=== PATIENT | male | born 1955 | race African-American/Black ===

== ENCOUNTER 2016-11-18 21:24 | Inpatient (IN) | payer MEDICAID ==
[~2016-11-18] VITALS: Ht 172.7 cm; Wt 84.6 kg
[~2016-11-18 21:24] MED LIST: AMLO5TAB2 PO; ASPI1TAB69 PO; ATEN50TA PO; ATOR40TA16 PO; CLIN1CAP5 PO; DARU800T PO; DIVA500T3 PO; DOLU1TAB PO; DRIS50002 PO; FURO1TAB62 PO; GABA300C5 PO; GABA600T PO; HYDR-3133 PO; HYDR-3583 PO; HYDR25TA5 PO; INTE200T PO; LISI40TA PO; PLAV75TA29 PO; POTA10TA8 PO; RITO100 PO; VENTAER INH; ZYRT10TA PO
[2016-11-18 21:37] VITALS: BP 116/67; PULSE 128; RESP 18; TEMP 97.8; O2SAT 100
--- NOTE | 2016-11-18 23:20 | PD ---
HPI Chief Complaint: Laceration/Skin Injury Time Seen by Provider: 23:19 Travel History International Travel<30 days: No Contact w/Intl Traveler<30days: No Traveled to known affect area: No History of Present Illness HPI The patient 60 years old. He is HIV. He smokes. He has diabetes and asthma. Patient also also suffers with peripheral vascular disease. He has a chronic skin rash. He follows with infectious disease and had blood work done yesterday however does not know his CD4 count or viral load. He follows with Dr. Ramos vascular surgery for severe peripheral artery disease. Today he removed a dressing from his left lower extremity and evidently unroofed the scab causing pulsatile arterial bleeding. He comes in complaining of severe pain in the left foot. EMS dressed the wound stopping bleeding. He vomited a few times in the ER. He reports an occasional cough as of late. He has otherwise been feeling quite well. 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 He has had no fever lately. PFSH Past Medical History Hx Anticoagulant Therapy: Yes (PLAVIX AND 81 MG ASA DAILY) Arthritis: Yes Asthma: Yes Blood Disorders: Yes (HIV) Anxiety: No Depression: No Heart Rhythm Problems: No Cancer: No Cardiovascular Problems: Yes (HTN) High Cholesterol: Yes Chest Pain: No Congestive Heart Failure: No COPD: No Cerebrovascular Accident: Yes (TIA) Diabetes: Yes Diminished Hearing: No Endocrine: No Genitourinary: No Hypertension: Yes Immune Disorder: Yes (HIV Positive) Implanted Vascular Access Dvce: No Musculoskeletal: No Neurologic: Yes (Neuropathy) Psychiatric: No Respiratory: Yes (ASTHMA) Immunizations Current: No (NO FLU VACCINE YET THIS YEAR) Sleep Apnea: No Influenza Vaccination: No Past Surgical History Other Surgery: Yes (BRONCHOSCOPY/ VASCULAR SURGERY) Social History Alcohol Use: No (sober 25 years) Tobacco Use: Yes (1 ppd) Substance Use: No Allergies-Medications (Allergen,Severity, Reaction): Coded Allergies: *MDRO Multi-Drug Resistant Organism (Verified Adverse Reaction, Unknown, ) MRSA blood & scrotal abscess 04/2015; MRSA Leg Wound 06/2016 & 07/27/16 Reported Meds & Prescriptions Reported Meds & Active Scripts Active Clindamycin (Clindamycin HCl) 150 Mg Cap 300 Mg PO Q8HR 10 Days Gabapentin 600 Mg Tab 600 Mg PO HS this will replace your previous night dose Potassium Chloride CR (Potassium Chloride) 10 Meq Tab 10 Meq PO DAILY 5 Days Lasix (Furosemide) 20 Mg Tab 20 Mg PO DAILY 5 Days Reported Divalproex ER (Divalproex Sodium) 500 Mg Tab 500 Mg PO DAILY Prezista (Darunavir) 800 Mg Tab 800 Mg PO DAILY Norvir (Ritonavir) 100 Mg Cap 100 Mg PO DAILY Hydrocodone-Acetaminophen 10-325 mg Tab 1 Tab PO Q6H PRN Hydroxyzine HCl 25 Mg Tab 25 Mg PO DAILY Gabapentin 300 Mg Cap 300 Mg PO TID Amlodipine (Amlodipine Besylate) 5 Mg Tab 5 Mg PO DAILY Atenolol 50 Mg Tab 50 Mg PO DAILY Hydrochlorothiazide 25 Mg Tab 25 Mg PO DAILY Atorvastatin (Atorvastatin Calcium) 40 Mg Tab 80 Mg PO HS Tivicay (Dolutegravir Sodium) 50 Mg Tab 50 Mg PO Q12HR Plavix (Clopidogrel Bisulfate) 75 Mg Tab 75 Mg PO DAILY Aspirin 81 Mg Tabdr 81 Mg PO DAILY Lisinopril 40 Mg Tab 40 Mg PO DAILY Intelence (Etravirine) 200 Mg Tab 200 Mg PO BIDPC Drisdol (Ergocalciferol) 50,000 Unit Cap 50,000 Units PO Q7D Zyrtec Allergy (Cetirizine HCl) 10 Mg Tab 10 Mg PO HS Ventolin Hfa 18 GM Inh (Albuterol Sulfate) 90 Mcg/Act Aer 2 Puff INH Q4H PRN Review of Systems Except as stated in HPI: all other systems reviewed are Neg Physical Exam Narrative GENERAL: 60-year-old male well-nourished well-developed mild to moderate distress SKIN: Warm and dry. Innumerable macular lesions approximately 1 cm in diameter present involving both upper extremities both lower extremities. They're nontender. The left lower extremity there is a ulcerated somewhat elevated skin lesion that granulomatous however there is no evidence of bleed and certainly nothing arterial/pulsatile. HEAD: Atraumatic. Normocephalic. EYES: Pupils equal and round. No scleral icterus. No injection or drainage. ENT: No nasal bleeding or discharge. Mucous membranes pink and moist. NECK: Trachea midline. No JVD. CARDIOVASCULAR: Tachycardia. Regular rhythm. RESPIRATORY: No accessory muscle use. Clear to auscultation. Breath sounds equal bilaterally. GASTROINTESTINAL: Abdomen soft, non-tender, nondistended. Hepatic and splenic margins not palpable. MUSCULOSKELETAL: No obvious deformities. No clubbing. No cyanosis. No edema. The dorsalis pedis is palpable right at the ankle mortise on the left side. It is slightly decreased compared to the right side. NEUROLOGICAL: Awake and alert. No obvious cranial nerve deficits. Motor grossly within normal limits. Normal speech. PSYCHIATRIC: Appropriate mood and affect; insight and judgment normal. Data Data Last Documented VS Vital Signs Date Time Temp Pulse Resp B/P Pulse Ox O2 Delivery O2 Flow Rate FiO2 11/19/16 04:05 98.7 101 18 152/68 100 Room Air Vital signs reviewed Orders Oxycodone-Acetamin 10-325 Mg (Percocet 1 (11/19/16 00:30) Basic Metabolic Panel (Bmp) (11/19/16 01:25) Complete Blood Count With Diff (11/19/16 01:25) Iv Access Insert/Monitor (11/19/16 01:25) Sodium Chlor 0.9% 1000 Ml Inj (Ns 1000 M (11/19/16 01:30) Chest, Single Ap (11/19/16 02:32) Sodium Chlor 0.9% 1000 Ml Inj (Ns 1000 M (11/19/16 03:00) Ondansetron Inj (Zofran Inj) (11/19/16 03:00) Electrocardiogram (11/19/16 ) Blood Culture (11/19/16 03:01) Piperacil-Tazo 2.25 Gm Premix (Zosyn 2.2 (11/19/16 03:15) Urinalysis - C+S If Indicated (11/19/16 03:01) Hepatic Functional Panel (11/19/16 01:33) Lipase (11/19/16 01:33) Vancomycin Inj (Vancomycin Inj) (11/19/16 05:45) Wound Culture And Gram Stain (11/19/16 05:41) Admit Order (Ed Use Only) (11/19/16 05:42) Bedside Glucose JUDAH.AC&HS (11/19/16 05:40) ^ Blood Glucose Goal (Criteria (11/19/16 05:40) ^ Hypoglycemia 51 - 69 Mg/Dl (11/19/16 05:40) ^ Hypoglycemia 50 Mg/Dl Or < (11/19/16 05:40) ^ Notify Dr: Other (11/19/16 05:40) Dextrose 50% In Alisha (Vial) Inj (D50w (Vi (11/19/16 05:45) Glucagon Inj (Glucagon Inj) (11/19/16 05:45) Insulin Aspart Supplemtl Scale (Novolog (11/19/16 07:00) Insulin Human Regular Inj (Novolin R Inj (11/19/16 05:45) Labs Laboratory Tests Test 11/19/16 01:33 White Blood Count 19.9 TH/MM3 Red Blood Count 3.52 MIL/MM3 Hemoglobin 10.8 GM/DL Hematocrit 33.6 % Mean Corpuscular Volume 95.3 FL Mean Corpuscular Hemoglobin 30.7 PG Mean Corpuscular Hemoglobin 32.2 % Concent Red Cell Distribution Width 14.5 % Platelet Count 280 TH/MM3 Mean Platelet Volume 8.6 FL Neutrophils (%) (Auto) 83.6 % Lymphocytes (%) (Auto) 11.8 % Monocytes (%) (Auto) 4.0 % Eosinophils (%) (Auto) 0.4 % Basophils (%) (Auto) 0.2 % Neutrophils # (Auto) 16.6 TH/MM3 Lymphocytes # (Auto) 2.3 TH/MM3 Monocytes # (Auto) 0.8 TH/MM3 Eosinophils # (Auto) 0.1 TH/MM3 Basophils # (Auto) 0.0 TH/MM3 CBC Comment AUTO DIFF Differential Total Cells 100 Counted Neutrophils % (Manual) 83 % Band Neutrophils % 3 % Lymphocytes % 8 % Monocytes % 5 % Neutrophils # (Manual) 17.3 TH/MM3 Myelocytes 1 % Differential Comment FINAL DIFF MANUAL Platelet Estimate NORMAL Platelet Morphology Comment NORMAL Red Cell Morphology Comment NORMAL Sodium Level 139 MEQ/L Potassium Level 3.4 MEQ/L Chloride Level 101 MEQ/L Carbon Dioxide Level 19.2 MEQ/L Anion Gap 19 MEQ/L Blood Urea Nitrogen 25 MG/DL Creatinine 2.93 MG/DL Estimat Glomerular Filtration 27 ML/MIN Rate Random Glucose 325 MG/DL Calcium Level 9.4 MG/DL Total Bilirubin 0.3 MG/DL Direct Bilirubin 0.1 MG/DL Indirect Bilirubin 0.2 MG/DL Aspartate Amino Transf 20 U/L (AST/SGOT) Alanine Aminotransferase 25 U/L (ALT/SGPT) Alkaline Phosphatase 80 U/L Total Protein 6.9 GM/DL Albumin 3.7 GM/DL Lipase 273 U/L MDM Medical Decision Making Medical Screen Exam Complete: Yes Emergency Medical Condition: Yes Medical Record Reviewed: Yes Differential Diagnosis Sepsis, severe sepsis, cellulitis, peripheral vascular disease, arterial occlusion, pneumonia, abscess Narrative Course CBC & BMP Diagram 11/19/16 01:33 Neutrophils 83% Bands 3 LFTs normal Lipase 273 AG 19 Last 24 hours Impressions Chest X-Ray 11/19/16 0232 Signed Impressions: Service Date/Time: Saturday, November 19, 2016 03:43 - CONCLUSION: No acute disease. No significant change has occurred. Barron Carr MD Unfortunately the patient became increasingly tachycardic throughout his stay. He received Percocet which helped his pain in the left leg presumably claudication. Leukocytosis at nearly 20,000 with acute kidney injury is of concern for an infectious process. Anion gap of 19 present without obvious etiology. Zosyn started. Blood culture sent. IV fluids started. After 2 L crystalloid heart rate improved to about the 90s. One month prior the creatinine was 1.7. concern for acute kidney injury of unknown etiology. Admission for acute kidney injury possible sepsis, presumable cellulitis. Prior weaned cultures have demonstrated MRSA. Vancomycin added. Discussed with Dr. Casper for the hospitalist service. Critical Care Narrative Aggregate critical care time was 40 minutes. Time to perform other separately billable procedures was not included in the critical care time. My time did not include minutes spent treating any other patients simultaneously or on activities that did not directly contribute to the patient's treatment. The services I provided to this patient were to treat and/or prevent clinically significant deterioration that could result in: Septic shock, multiorgan failure I provided critical care services requiring my management, as noted below: Chart data review, documentation time, medication orders and management, vital sign assessments/reviewing monitor data, ordering and reviewing lab tests, ordering and interpreting/reviewing x-rays and diagnostic studies, care of the patient and discussion of the patient with the admitting physicians. Sepsis Criteria SIRS Criteria (2 or more): Heart rate over 90, WBC > 79159, < 4000 or > 10% bands Sepsis Criteria (SIRS+source): Infect source susp/known Diagnosis Primary Impression: Wound, open, leg Qualified Code: S81.802A - Wound, open, leg, left, initial encounter Additional Impressions: Sepsis affecting skin Claudication in peripheral vascular disease HIV disease BECKA (acute kidney injury) Admitting Information Admitting Physician Requests: Admit Asa Multani MD Nov 18, 2016 23:20
[2016-11-18 23:41] VITALS: BP 147/83; PULSE 121; RESP 18; TEMP 98.1; O2SAT 95
[2016-11-19] VITALS (9 sets, daily range): BP systolic 112–179; BP diastolic 34–91; PULSE 67–113; RESP 16–20; TEMP 97.3–98.7; O2SAT 96–100
[2016-11-19] MEDS ORDERED: oxyCODONE/ACETAMINOPHEN 10 MG/325 MG TAB PO ONE ×2 (00:30→06:15)
[2016-11-19] MEDS ORDERED: SODIUM CHLOR 0.9% 1000 ML INJ 1,000 ML IV ONE ×2 (01:30→03:00)
[2016-11-19 01:42] LABS: AUTOMATED NEUTROPHIL # 16.6 TH/MM3 (1.8-7.7); BASOPHIL % 0.2 % (0.0-2.0); EOSINOPHIL # 0.1 TH/MM3 (0-0.4); EOSINOPHIL % 0.4 % (0.0-4.0); HEMATOCRIT 33.6 % (39.0-51.0); LYMPH % 11.8 % (9.0-44.0); LYMPHOCYTE # 2.3 TH/MM3 (1.0-4.8); MEAN CELL VOLUME 95.3 FL (80.0-100.0); MEAN CORPUSCULAR HEMOGLOBIN 30.7 PG (27.0-34.0); MEAN CORPUSCULAR HGB CONC 32.2 % (32.0-36.0); NEUT % 83.6 % (16.0-70.0); PLATELET COUNT 280 TH/MM3 (150-450); RED BLOOD COUNT 3.52 MIL/MM3 (4.50-5.90); RED CELL DISTRIBUTION WIDTH 14.5 % (11.6-17.2); WHITE BLOOD COUNT 19.9 TH/MM3 (4.0-11.0)
[2016-11-19 01:43] LABS: HEMO FLAGS AUTO DIFF
[2016-11-19 02:11] LABS: BICARBONATE 19.2 MEQ/L (21.0-32.0); POTASSIUM 3.4 MEQ/L (3.5-5.1)
[2016-11-19 02:20] LABS: BANDS 3 % (0-6); MYELOCYTES 1 % (0-0); NEUTROPHIL # MANUAL DIFF 17.3 TH/MM3 (1.8-7.7); POLYS (SEG NEUTROPHILS) 83 % (16-70); WBC DIFF SAMPLE 100
[2016-11-19 02:21] LABS: PLATELET ESTIMATE SMEAR NORMAL (NORMAL); PLATELET MORPHOLOGY NORMAL (NORMAL); SCAN/DIFF FINAL DIFF MANUAL
[2016-11-19] MEDS ORDERED: ONDANSETRON HCL 4 MG/2 ML VIAL IV PUSH ONE (03:00)
[2016-11-19] MEDS ORDERED: PIPERACIL-TAZO 2.25 GM PREMIX 50 ML IV ONE (03:15)
[2016-11-19 04:18] LABS: INDIRECT BILIRUBIN 0.2 MG/DL (0.0-0.8); TOTAL BILIRUBIN ADULT 0.3 MG/DL (0.2-1.0)
--- NOTE | 2016-11-19 04:30 | RADRPT ---
EXAM DATE/TIME: 11/19/2016 03:43 [facility] COMPARISON: CHEST SINGLE AP, September 26, 2012, 17:31. INDICATIONS : Fever. MEDICAL HISTORY : Hypertension. Hypercholesterolemia. Neuropathy, TIA, Asthma, Cellulitis, MRSA SURGICAL HISTORY : Bronchoscopy ENCOUNTER: Initial ACUITY: 1 day PAIN SCORE: 4/10 LOCATION: Bilateral chest FINDINGS: A single view of the chest demonstrates the lungs to be symmetrically aerated without evidence of mas s, infiltrate or effusion. There is hyperaeration bilaterally. The cardiomediastinal contours are un remarkable. Osseous structures are intact. CONCLUSION: No acute disease. No significant change has occurred. Barron Carr MD on November 19, 2016 at 4:29 Board Certified Radiologist. This report was verified electronically.
[2016-11-19] MEDS ORDERED: GLUCAGON 1 MG/ML VIAL OTHER PRN (05:45)
[2016-11-19] MEDS ORDERED: VANCOMYCIN INJ 1,500 MG in SODIUM CHLORID 0.9% 500 ML INJ 500 ML IV ONE (05:45)
[2016-11-19] MEDS ORDERED: INSULIN HUMAN REGULAR 1,000 UNITS/10 ML VIAL SQ ONE (05:45)
[2016-11-19] MEDS ORDERED: DEXTROSE 50% IN WATER 50 ML VIAL(D50) IV PUSH PRN (05:45)
[2016-11-19] MEDS ORDERED: MORPHINE SULFATE 4 MG/ML INJ IV PUSH PRN (06:30)
[2016-11-19] MEDS: INSULIN ASPART SUPPLEMENTAL SCALE SQ SCH ×4 (06:50→21:00)
[2016-11-19 07:09] LABS: BICARBONATE 25.4 MEQ/L (21.0-32.0); POTASSIUM 4.5 MEQ/L (3.5-5.1)
--- NOTE | 2016-11-19 08:11 | EKG ---
Date Performed: 11/19/2016 Time Performed: 04:00:00 PTAGE: 60 years EKG: SINUS TACHYCARDIA MODERATE ST DEPRESSION ABNORMAL ECG COMPARED TO PRIOR ELECTROCARDIOGRAM, Rate has increased and T wave changes Are less marked. PREVIOUS TRACING : 05/20/2015 12.57 DOCTOR: Amaury Rivero Interpretating Date/Time 11/19/2016 08:10:25
[2016-11-19 09:32] LABS: BACTERIA, URINE FEW /hpf; BLOOD, URINE TRACE (NEG); CALCIUM OXALATE CRYSTALS,URINE OCC /hpf; COMMENT (UR) CULTURE INDICATED; CULTURE IF INDICATED CULTURE INDICATED; GLUCOSE,URINE TRACE mg/dL (NEG); HYALINE CAST, URINE 6 /lpf (RARE); KETONE, URINE NEG (NEG); MUCUS URINE FEW /lpf (OCC); NITRITE,URINE NEG (NEG); RENAL EPITHELIAL CELLS <1 /hpf; SQUAMOUS EPITHELIAL CELL URINE 2 /hpf (0-5); URINE COLOR YELLOW (YELLW/STRAW)
[2016-11-19] MEDS ORDERED: DARUNAVIR 800 MG TAB PO SCH (10:00)
[2016-11-19] MEDS: DIVALPROEX SODIUM E.R. 500 MG TAB PO SCH (12:07)
[2016-11-19] MEDS: PIPERACIL-TAZO 4.5 GM PREMIX 100 ML IV SCH ×3 (12:07→23:39)
--- NOTE | 2016-11-19 12:42 | HHI.HP ---
[facility] Renato Rivers MD Admission Diagnosis Sepsis, BECKA, LLE Wound Diagnoses: (1) BECKA (acute kidney injury) (2) Wound, open, leg (3) Peripheral arterial disease (4) Chronic skin ulcer of lower leg (5) Acute blood loss anemia (6) HIV disease (7) Dependent edema (8) Chronic pain Chief Complaint: Left foot pain. Bleeding wound. Travel History International Travel<30 Days: No Contact w/Intl Traveler <30 Da: No Traveled to Known Affected Are: No History of Present Illness 60-year-old male with a medical history significant for HIV, neuropathy, diabetes, peripheral artery disease brought into the emergency room due to left foot pain and left lower extremity bleeding wound. Patient reports that while he was undergoing his dressing for the left lower extremity wounds, he reports that he unroofed the scab which caused severe bleeding. He reports that he lost a lot of blood. EMS was able to dress the wound and stop the bleeding. The patient reportedly vomited a few times in the emergency room. 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 He reports that it's no longer an issue. Patient has known bilateral SFA disease. He was supposed to have surgical intervention but this was held due to pustular rash at that time, his HIV state, noncompliance and continuing tobacco abuse. He normally follows with Dr. Ramos. Currently the patient reports that he is feeling well. His labs on arrival however shows acute renal insufficiency, a white count of 19,000, and acute anemia. The patient denies any fevers, no dysuria or abdominal pain. Review of Systems Constitutional: DENIES: Fever, Chills Ears, nose, mouth, throat: DENIES: Oral lesions Respiratory: DENIES: Cough, Shortness of breath Cardiovascular: DENIES: Chest pain, Palpitations Gastrointestinal: DENIES: Nausea, Vomiting Genitourinary: DENIES: Dysuria Musculoskeletal: COMPLAINS OF: Joint pain, Stiffness Integumentary: COMPLAINS OF: Rash Neurologic: DENIES: Localized weakness Psychiatric: DENIES: Mood changes Past Family Social History Past Medical History HIV, neuropathy, diabetes, peripheral artery disease Past Surgical History Bronchoscopy H/O Scrotal abscess drainage Reported Medications Reported Meds & Active Scripts Active Clindamycin (Clindamycin HCl) 150 Mg Cap 300 Mg PO Q8HR 10 Days Gabapentin 600 Mg Tab 600 Mg PO HS this will replace your previous night dose Potassium Chloride CR (Potassium Chloride) 10 Meq Tab 10 Meq PO DAILY 5 Days Lasix (Furosemide) 20 Mg Tab 20 Mg PO DAILY 5 Days Reported Divalproex ER (Divalproex Sodium) 500 Mg Tab 500 Mg PO DAILY Prezista (Darunavir) 800 Mg Tab 800 Mg PO DAILY Norvir (Ritonavir) 100 Mg Cap 100 Mg PO DAILY Hydrocodone-Acetaminophen 10-325 mg Tab 1 Tab PO Q6H PRN Hydroxyzine HCl 25 Mg Tab 25 Mg PO DAILY Gabapentin 300 Mg Cap 300 Mg PO TID Amlodipine (Amlodipine Besylate) 5 Mg Tab 5 Mg PO DAILY Atenolol 50 Mg Tab 50 Mg PO DAILY Hydrochlorothiazide 25 Mg Tab 25 Mg PO DAILY Atorvastatin (Atorvastatin Calcium) 40 Mg Tab 80 Mg PO HS Tivicay (Dolutegravir Sodium) 50 Mg Tab 50 Mg PO Q12HR Plavix (Clopidogrel Bisulfate) 75 Mg Tab 75 Mg PO DAILY Aspirin 81 Mg Tabdr 81 Mg PO DAILY Lisinopril 40 Mg Tab 40 Mg PO DAILY Intelence (Etravirine) 200 Mg Tab 200 Mg PO BIDPC Drisdol (Ergocalciferol) 50,000 Unit Cap 50,000 Units PO Q7D Zyrtec Allergy (Cetirizine HCl) 10 Mg Tab 10 Mg PO HS Ventolin Hfa 18 GM Inh (Albuterol Sulfate) 90 Mcg/Act Aer 2 Puff INH Q4H PRN Allergies: Coded Allergies: Morphine (Verified Allergy, Severe, Itching, 11/19/16) makes skin bleed so itchy *MDRO Multi-Drug Resistant Organism (Verified Adverse Reaction, Unknown, ) MRSA blood & scrotal abscess 04/2015; MRSA Leg Wound 06/2016 & 07/27/16 Family History Reviewed and noncontributory. Social History Patient is a lifelong smoker. He continues to smoke 1 pack per day. He denies alcohol use or drugs. Physical Exam Vital Signs Vital Signs Date Time Temp Pulse Resp B/P Pulse Ox O2 Delivery O2 Flow Rate FiO2 11/19/16 08:52 97.7 88 16 155/83 98 11/19/16 08:45 88 20 149/72 11/19/16 07:01 18 11/19/16 06:34 97.5 85 18 170/80 97 Room Air 11/19/16 04:05 98.7 101 18 152/68 100 Room Air 11/19/16 04:05 101 18 11/19/16 04:03 18 18 11/19/16 02:58 113 20 179/81 96 Room Air 11/18/16 23:41 98.1 121 18 147/83 95 Room Air 11/18/16 21:37 97.8 128 18 116/67 100 Room Air Physical Exam GENERAL: This is a well-nourished, well-developed patient, in no apparent distress. SKIN: Left lower extremity on the anterior adames, there are 2 dime size deep ulcers. The rest of the lower extremity is tense, skin is thick and very dry. However it is warm to touch at the foot. HEAD: Atraumatic. Normocephalic. No temporal or scalp tenderness. EYES: Pupils equal round and reactive. Extraocular motions intact. ENT: Nose without drainage. Uvula midline. Airway patent. NECK: Trachea midline. No JVD or lymphadenopathy. CARDIOVASCULAR: Regular rate and rhythm without murmurs, gallops, or rubs. RESPIRATORY: Clear to auscultation. Breath sounds equal bilaterally. No wheezes , rales, or rhonchi. GASTROINTESTINAL: Abdomen soft, non-tender, nondistended. No hepato-splenomegaly , or palpable masses. No guarding. MUSCULOSKELETAL: Bilateral lower extremities with chronic venous stasis changes with thick and dry skin. Left is worse than the right and slightly edematous. NEUROLOGICAL: Awake and alert. Cranial nerves II through XII intact. Motor and sensory grossly within normal limits. Five out of 5 muscle strength in all muscle groups. Normal speech. Laboratory Laboratory Tests Test 11/19/16 11/19/16 11/19/16 01:33 06:15 09:05 White Blood Count 19.9 Red Blood Count 3.52 Hemoglobin 10.8 Hematocrit 33.6 Mean Corpuscular Volume 95.3 Mean Corpuscular Hemoglobin 30.7 Mean Corpuscular Hemoglobin 32.2 Concent Red Cell Distribution Width 14.5 Platelet Count 280 Mean Platelet Volume 8.6 Neutrophils (%) (Auto) 83.6 Lymphocytes (%) (Auto) 11.8 Monocytes (%) (Auto) 4.0 Eosinophils (%) (Auto) 0.4 Basophils (%) (Auto) 0.2 Neutrophils # (Auto) 16.6 Lymphocytes # (Auto) 2.3 Monocytes # (Auto) 0.8 Eosinophils # (Auto) 0.1 Basophils # (Auto) 0.0 CBC Comment AUTO DIFF Differential Total Cells 100 Counted Neutrophils % (Manual) 83 Band Neutrophils % 3 Lymphocytes % 8 Monocytes % 5 Neutrophils # (Manual) 17.3 Myelocytes 1 Differential Comment FINAL DIFF MANUAL Platelet Estimate NORMAL Platelet Morphology Comment NORMAL Red Cell Morphology Comment NORMAL Sodium Level 139 140 Potassium Level 3.4 4.5 Chloride Level 101 106 Carbon Dioxide Level 19.2 25.4 Anion Gap 19 9 Blood Urea Nitrogen 25 26 Creatinine 2.93 2.65 Estimat Glomerular Filtration 27 30 Rate Random Glucose 325 122 Calcium Level 9.4 8.9 Total Bilirubin 0.3 Direct Bilirubin 0.1 Indirect Bilirubin 0.2 Aspartate Amino Transf 20 (AST/SGOT) Alanine Aminotransferase 25 (ALT/SGPT) Alkaline Phosphatase 80 Total Protein 6.9 Albumin 3.7 Lipase 273 Urine Color YELLOW Urine Turbidity HAZY Urine pH 5.0 Urine Specific [place] 1.018 Urine Protein 30 Urine Glucose (UA) TRACE Urine Ketones NEG Urine Occult Blood TRACE Urine Nitrite NEG Urine Bilirubin NEG Urine Urobilinogen LESS THAN 2.0 Urine Leukocyte Esterase LARGE Urine RBC 22 Urine WBC 53 Urine Squamous Epithelial 2 Cells Urine Renal Epithelial Cells <1 Urine Calcium Oxalate Crystals OCC Urine Amorphous Sediment RARE Urine Bacteria FEW Urine Hyaline Casts 6 Urine Mucus FEW Microscopic Urinalysis Comment CULTURE INDICATED Date/Time Procedure Status Source Growth 11/19/16 09:05 Urine Culture Received Urine Clean Catch Pending 11/19/16 03:10 Aerobic Blood Culture Received Blood Peripheral Pending 11/19/16 03:10 Anaerobic Blood Culture Received Blood Peripheral Pending Result Diagram: 11/19/16 0133 11/19/16 0615 Imaging Last Impressions Chest X-Ray 11/19/16 023 Signed Impressions: Service Date/Time: Saturday, November 19, 2016 03:43 - CONCLUSION: No acute disease. No significant change has occurred. Barron Carr MD Assessment and Plan Problem List: (1) BECKA (acute kidney injury) ICD Code: N17.9 Status: Acute (2) Peripheral arterial disease ICD Code: I73.9 Status: Acute (3) Wound, open, leg ICD Code: S81.809A Status: Acute (4) Acute blood loss anemia ICD Code: D62 Status: Acute (5) HIV disease ICD Code: B20 Status: Chronic (6) Dependent edema ICD Code: R60.9 Status: Acute (7) Leukocytosis ICD Code: D72.829 Status: Acute (8) Hypertension ICD Code: I10 Status: Chronic Assessment and Plan 60-year-old male with COPD, HIV, neuropathy, peripheral artery disease and dependent edema admitted with: Left lower extremity bleeding wound: Bleeding have since stopped. Reportedly started after unroofing a scab. - Continue local wound care. Consult wound care physician. - Consult Dr. Leong for further recommendations. Wound unlikely to heal given vascular compromise. - Pain control. Possible cellulitis involving the left lower extremity/Leukocytosis: Left extremity warm to touch. Previous wound culture with MRSA. - Continue Vancomycin. Follow cultures. PAD: Known bilateral SFA occlusion. Patient known to vascular service, Dr. Schuster. Consult vascular surgery for assistance. - Continue aspirin and Plavix. Acute blood loss anemia: Bleeding have since stopped. Repeat H&H tomorrow. Acute renal insufficiency: Likely prerenal azotemia from bleeding as above and dehydration. - Start IV fluid with normal. Follow-up BMP in the morning. Hypertension: Continue home dose antihypertensives. HIV: Continue home home dose anti retroviral therapy. Asthma/COPD: Patient was advised to quit smoking. Continue albuterol as needed. GI prophylaxis: Stool softener PRN constipation. Continue the rest of the patient's home chronic medications. Physician Certification 2 Midnight Certification Type: Admission for Inpatient Services Order for Inpatient Services The services are ordered in accordance with Medicare regulations or non- Medicare payer requirements, as applicable. In the case of services not specified as inpatient-only, they are appropriately provided as inpatient services in accordance with the 2-midnight benchmark. Estimated LOS (days): 3 days is the estimated time the patient will need to remain in the hospital, assuming treatment plan goals are met and no additional complications. Post-Hospital Plan: Home Problem Qualifiers (1) Wound, open, leg: Qualified Code: S81.802A - Wound, open, leg, left, initial encounter Randy Small MD Nov 19, 2016 12:41
[2016-11-19] MEDS ORDERED: PILL SPLITTER OTHER PRN (12:45)
[2016-11-19] MEDS: SODIUM CHLOR 0.9% 1000 ML INJ 1,000 ML IV SCH ×2 (13:37→23:00)
[2016-11-19] MEDS: DOLUTEGRAVIR SODIUM 50 MG TAB PO SCH ×2 (13:38→21:25)
[2016-11-19] MEDS: DARUNAVIR 800 MG TAB PO SCH (13:38)
[2016-11-19] MEDS: ETRAVIRINE 100 MG TAB PO SCH ×2 (13:38→17:46)
[2016-11-19] MEDS: ATENOLOL 50 MG TAB PO SCH (13:39)
--- NOTE | 2016-11-19 14:19 | MB ---
cc: ROSITA YANG MD DATE OF CONSULTATION: 11/19/2016 REASON FOR CONSULTATION Peripheral vascular disease, diabetes mellitus, ischemia of both legs, left more than right, ulcer of the left leg. HISTORY OF PRESENT DISEASE This 60-year-old male was seen by me in the ER one time before. He has diabetes mellitus, peripheral artery disease and neuropathy, and a chronic left lower extremity wound. The patient at the time stated that he came for [place] and now is going to [facility] to be seen by a physician at [facility] and did not want any treatment here. We called him several times on the phone and could not get through. The patient tells me now that he changed his numbers I guess. The patient never followed up with me. Now, the patient comes to the ER with the same ulceration on the left lower extremity and chronic vascular insufficiency and infection. PAST MEDICAL HISTORY 1. HIV. 2. Diabetes mellitus. 3. Peripheral artery disease. 4. Neuropathy. 5. Tobacco abuse. PAST SURGICAL HISTORY 1. Bronchoscopy. 2. Scrotal abscess drainage. 3. Some sort of evaluation by a vascular surgeon in [place] but the patient does not know who and when. MEDICATIONS Medications can be found in the record. The patient is noncompliant with his medications all along and while he carries the list of medications he really does not take them. ALLERGIES ALLERGY TO MORPHINE APPARENTLY. SOCIAL HISTORY The patient smokes about 1-2 packs a day, does not drink. PHYSICAL EXAMINATION GENERAL: A 60-year-old male. HEENT: Normocephalic. No trauma to the head. Pupils equally reactive. Extraocular muscles intact. NECK: Bilateral carotid pulses. No bruits. CHEST: Bilateral breath sounds, decreased over both lung shukla consistent with a moderate degree of COPD. ABDOMEN: Soft. Active bowel sounds. The patient has barely palpable femoral pulses and distal pulses are only by Doppler. He has a left weak femoral pulse and palpable weak on the right. Doppler bilateral popliteal pulses fairly weak and dorsalis pedis posterior tibial +1. He has chronic venous stasis, chronic insufficiency with hemosiderosis, lipo-sclerosis and organized edema. There is a non-healing ulcer residential the calf on the left. The patient is picking at the wound every time the dressing is removed. He did it last time and now he is doing it again. ASSESSMENT AND RECOMMENDATION At this point there are several problems. The patient had a CTA with a runoff in the past which revealed bilateral SFA occlusion and multilevel external iliac stenosis. For this the appropriate therapy would be external iliac angioplasty and stent followed by a fem-pop bypass bilaterally, left first and then a right. Unfortunately, the patient has a pustulous rash over his body, chest and groin. Some areas are actively draining. He also smokes about 1-2 packs a day despite repeat counseling. Based on all of the above he is not a candidate for any vascular reconstruction at this time and any graft used would get infected. The patient will need to be treated by dermatology to eliminate the rash and pustulous changes on his body before anything else can be done. However, since I saw him last time he never followed up with anybody including my office which could not reach him. Thank you very much for the referral. Rosita ZHANG /1:48 PM /2:07 PM
[2016-11-19] MEDS: GABAPENTIN 300 MG CAP PO SCH ×2 (14:57→17:46)
[2016-11-19] MEDS: RITONAVIR 100 MG TAB PO SCH (15:34)
[2016-11-19] MEDS: ACETAMINOPHEN/HYDROcodone 325 MG/10 MG TAB PO PRN ×2 (17:51→23:29)
[2016-11-19] MEDS: CETIRIZINE HCL 10 MG TAB PO SCH (20:59)
[2016-11-19] MEDS: ATORVASTATIN 80 MG TAB PO SCH (21:00)
[2016-11-19] MEDS ORDERED: DOLUTEGRAVIR SODIUM 50 MG TAB PO SCH (21:00)
[2016-11-20] VITALS: BP 127/72; PULSE 95; RESP 20; TEMP 98.2; O2SAT 100
[2016-11-20 04:00] VITALS: BP 123/60; PULSE 78; RESP 20; TEMP 97.8; O2SAT 95
[2016-11-20] MEDS: ACETAMINOPHEN/HYDROcodone 325 MG/10 MG TAB PO PRN ×3 (05:42→17:30)
[2016-11-20] MEDS: PIPERACIL-TAZO 4.5 GM PREMIX 100 ML IV SCH ×2 (06:10→12:02)
[2016-11-20] MEDS: INSULIN ASPART SUPPLEMENTAL SCALE SQ SCH ×4 (07:00→21:00)
[2016-11-20 08:00] VITALS: BP 113/56; PULSE 58; RESP 18; TEMP 96.2; O2SAT 96
[2016-11-20] MEDS: RITONAVIR 100 MG TAB PO SCH (08:38)
[2016-11-20] MEDS: DARUNAVIR 800 MG TAB PO SCH (08:38)
[2016-11-20] MEDS: CLOPIDOGREL 75 MG TAB PO SCH (08:39)
[2016-11-20] MEDS: FUROSEMIDE 20 MG TAB PO SCH (08:39)
[2016-11-20] MEDS: ATENOLOL 50 MG TAB PO SCH (08:39)
[2016-11-20] MEDS: amLODIPine BESYLATE 5 MG TAB PO SCH (08:39)
[2016-11-20] MEDS: ETRAVIRINE 100 MG TAB PO SCH ×2 (08:39→17:26)
[2016-11-20] MEDS: hydrOXYzine HCL 25 MG TAB PO SCH (08:39)
[2016-11-20] MEDS: DIVALPROEX SODIUM E.R. 500 MG TAB PO SCH (08:39)
[2016-11-20] MEDS: POTASSIUM CHLORIDE 10 MEQ CONTROLLED RELEASE TAB PO SCH (08:39)
[2016-11-20] MEDS: LISINOPRIL 20 MG TAB PO SCH (08:39)
[2016-11-20] MEDS: DOLUTEGRAVIR SODIUM 50 MG TAB PO SCH ×2 (08:39→21:05)
[2016-11-20] MEDS: HYDROCHLOROTHIAZIDE 25 MG TAB PO SCH (08:39)
[2016-11-20] MEDS: ASPIRIN EC 81 MG TABEC PO SCH (08:39)
[2016-11-20] MEDS: GABAPENTIN 300 MG CAP PO SCH ×3 (08:39→17:26)
[2016-11-20] MEDS: SODIUM CHLOR 0.9% 1000 ML INJ 1,000 ML IV SCH ×3 (09:41→22:50)
[2016-11-20] MEDS ORDERED: INFLUENZA VIRUS VACCINE (QUADRIVALENT) 0.5 ML SYR IM ONE (10:00)
--- NOTE | 2016-11-20 10:42 | HHI.PR ---
Subjective Remarks Patient reports that he is doing okay. Still reporting pain in the left leg. Again seen with his legs dangling. Not keeping it up. Objective Vitals Vital Signs Date Time Temp Pulse Resp B/P Pulse Ox O2 Delivery O2 Flow Rate FiO2 11/20/16 08:00 96.2 58 18 113/56 96 11/20/16 08:00 Room Air 11/20/16 04:00 97.8 78 20 123/60 95 11/20/16 00:00 98.2 95 20 127/72 100 11/19/16 20:00 Room Air 11/19/16 20:00 97.3 67 20 112/34 100 11/19/16 19:40 100 21 11/19/16 17:14 Room Air 11/19/16 17:00 97.4 67 20 125/91 100 11/19/16 14:57 68 16 165/76 98 Room Air I/O 11/19/16 11/19/16 11/19/16 11/20/16 11/20/16 11/20/16 07:00 15:00 23:00 07:00 15:00 23:00 Intake Total 240 ml Output Total 100 ml 150 ml Balance -100 ml 90 ml Intake Oral 240 ml Output Urine Total 100 ml 150 ml # Voids 1 1 Result Diagram: 11/19/16 0133 11/19/16 0615 Imaging Last Impressions Chest X-Ray 11/19/16 0232 Signed Impressions: Service Date/Time: Saturday, November 19, 2016 03:43 - CONCLUSION: No acute disease. No significant change has occurred. Barron Carr MD Objective Remarks GENERAL: This is a well-nourished, well-developed patient, in no apparent distress. SKIN: Left lower extremity on the anterior adames, there are 2 dime size deep ulcers. The rest of the lower extremity is tense, skin is thick and very dry. However it is warm to touch at the foot. CARDIOVASCULAR: Normal rate and regular rhythm without murmurs, gallops, or rubs. RESPIRATORY: Good respiratory efforts. Breath sounds equal and clear to auscultation bilaterally. GASTROINTESTINAL: Abdomen soft, non-tender, non-distended. Normal active bowel sounds MUSCULOSKELETAL: Extremities with 2+ edema on the left lower extremity and 1+ edema on the right. NEURO: Alert & Oriented x4 to person, place, time, situation. Moves all ext x4 PSYCH: Appropriate mood and affect. A/P Problem List: (1) BECKA (acute kidney injury) ICD Code: N17.9 Status: Acute (2) Peripheral arterial disease ICD Code: I73.9 Status: Chronic (3) Wound, open, leg ICD Code: S81.809A Status: Chronic (4) Acute blood loss anemia ICD Code: D62 Status: Acute (5) HIV disease ICD Code: B20 Status: Chronic (6) Dependent edema ICD Code: R60.9 Status: Acute (7) Leukocytosis ICD Code: D72.829 Status: Acute (8) Hypertension ICD Code: I10 Status: Chronic Assessment and Plan 60-year-old male with COPD, HIV, neuropathy, peripheral artery disease and dependent edema admitted with: Left lower extremity bleeding wound: Bleeding have since stopped. Reportedly started after unroofing a scab. - Continue local wound care. Consult wound care physician. - Dr. Leong consulted, no surgical intervention at this time as patient continues to smoke, does not follow up and need complete resolution of pustular rash. - Pain control. Possible cellulitis involving the left lower extremity/Leukocytosis: Left extremity warm to touch. Previous wound culture with MRSA. Patient counseled again to keep his leg elevated - Continue Vancomycin. Follow cultures. PAD: Known bilateral SFA occlusion. Dr. Leong consulted, no surgical intervention at this time as patient continues to smoke, does not follow up and need complete resolution of pustular rash. - Continue aspirin and Plavix. Acute blood loss anemia: Bleeding have since stopped. Follow H&H Acute renal insufficiency: Likely prerenal azotemia from bleeding as above and dehydration. - Improving. Continue IV fluid. Follow-up BMP in the morning. Hypertension: Continue home dose antihypertensives. HIV: Continue home home dose anti retroviral therapy. Asthma/COPD: Patient was advised to quit smoking. Continue albuterol as needed. GI prophylaxis: Stool softener PRN constipation. Continue the rest of the patient's home chronic medications. Problem Qualifiers (1) Wound, open, leg: Qualified Code: S81.802A - Wound, open, leg, left, initial encounter Randy Small MD Nov 20, 2016 10:42
[2016-11-20 12:00] VITALS: BP 147/67; PULSE 70; RESP 20; TEMP 97.4; O2SAT 100
--- NOTE | 2016-11-20 13:31 | PD.WOU.CON ---
Patient Intake Chief Complaint Ulcerations of the left lower leg Consult Requested by [facility] service Reason for Consult Treatment options for the ulcerations of the left lower leg Primary Care Physician Renato Rivers MD History of Present Illness Patient is a 60-year-old pre-diabetic male with severe peripheral vascular disease smoking history and HIV status. Patient was seen by Dr. Grayson for possible vascular intervention that because of a generalized rash this has been put on hold. Patient states he said ulcers on the left leg for quite some time. He continues to smoke in spite of being counseled the stop smoking. I was asked to see the patient concerning dressings for the left leg wounds. Currently has Vaseline gauze on the wounds. Coded Allergies: Morphine (Verified Allergy, Severe, Itching, 11/19/16) makes skin bleed so itchy *MDRO Multi-Drug Resistant Organism (Verified Adverse Reaction, Unknown, ) MRSA blood & scrotal abscess 04/2015; MRSA Leg Wound 06/2016 & 07/27/16 Preferred Language to Discuss: Niue[place] Barriers to Learning: None Teaching Method: Discussion Vital Signs Date Time Temp Pulse Resp B/P Pulse Ox O2 Delivery O2 Flow Rate FiO2 11/20/16 12:00 97.4 70 20 147/67 100 11/20/16 08:00 96.2 58 18 113/56 96 11/20/16 08:00 Room Air 11/20/16 04:00 97.8 78 20 123/60 95 11/20/16 00:00 98.2 95 20 127/72 100 11/19/16 20:00 Room Air 11/19/16 20:00 97.3 67 20 112/34 100 11/19/16 19:40 100 21 11/19/16 17:14 Room Air 11/19/16 17:00 97.4 67 20 125/91 100 11/19/16 14:57 68 16 165/76 98 Room Air Pain scale used: 0-10 numeric scale Pain score: 7 Medications Current Medications Oxycodone/ Acetaminophen 1 tab 1 tab ONCE ONCE PO Last administered on 00:41; Start 11/19/16 at 00:30; Stop 11/19/16 at 00:31; Status DC Sodium Chloride 1,000 ml @ 999 mls/hr BOLUS ONCE IV Last administered on 11/19 02:11; Start 11/19/16 at 01:30; Stop 11/19/16 at 02:30; Status DC Sodium Chloride (NS 1000 ml Inj) 1,000 ml @ 999 mls/hr BOLUS ONCE IV Last administered on 11/19/16 03:03; Start 11/19/16 at 03:00; Stop 11/19/16 at 04:00 ; Status DC Ondansetron HCl 4 mg 4 mg ONCE ONCE IV PUSH Last administered on 11/19/16 04: 04; Start 11/19/16 at 03:00; Stop 11/19/16 at 03:02; Status DC Piperacillin Sod/ Tazobactam Sod 50 ml @ 100 mls/hr ONCE ONCE IV Last administered on 11/19/16 04:04; Start 11/19/16 at 03:15; Stop 11/19/16 at 03:44 ; Status DC Vancomycin HCl/ Sodium Chloride (Vancomycin Inj/ NS 500 ml Inj) 515 ml @ 257.5 mls/ hr ONCE ONCE IV Last administered on 11/19/16 06:50; Start 11/19/16 at 05:45; Stop 11/19/16 at 07:44; Status DC Dextrose (D50w (Vial) Inj) 25 ml UNSCH PRN IV PUSH HYPOGLYCEMIA-SEE COMMENTS; Start 11/19/16 at 05:45 Glucagon (Glucagon Inj) 1 mg UNSCH PRN OTHER HYPOGLYCEMIA-SEE COMMENTS; Start 11/19/16 at 05:45 Insulin Aspart (NovoLOG SUPPLEMENTAL SCALE) 1 ACHS SLIDING SCALE SQ ; Start at 07:00 Insulin Human Regular (NovoLIN R INJ) 15 units ONCE ONCE SQ ; Start 11/19/16 at 05:45; Stop 11/19/16 at 05:53; Status DC Oxycodone/ Acetaminophen (Percocet 10-325 Mg) 1 tab ONCE ONCE PO Last administered on 11/19/16 08:20; Start 11/19/16 at 06:15; Stop 11/19/16 at 06:16 ; Status DC Morphine Sulfate 2 mg 2 mg Q3H PRN IV PUSH pain >5; Start 11/19/16 at 06:30; Stop 11/19/16 at 09:59; Status DC Piperacillin Sod/ Tazobactam Sod (Zosyn 4.5 Gm Premix) 100 ml @ 200 mls/hr Q6H IV Last administered on 11/20/16 12:02; Start 11/19/16 at 12:00; Stop at 15:00 Amlodipine Besylate (Norvasc) 5 mg DAILY PO Last administered on 11/20/16 08: 39; Start 11/20/16 at 09:00 Atenolol (Tenormin) 50 mg DAILY PO Last administered on 11/20/16 08:39; Start 11/19/16 at 12:00 Atorvastatin Calcium (Lipitor) 80 mg HS PO Last administered on 11/19/16 21:00 ; Start 11/19/16 at 21:00 Cetirizine HCl (ZyrTEC) 5 mg HS PO Last administered on 11/19/16 20:59; Start 11/19/16 at 21:00 Darunavir (Prezista) 800 mg DAILY PO ; Start 11/19/16 at 10:00; Status Cancel Divalproex Sodium (Depakote Er) 500 mg DAILY PO Last administered on 11/20/16 08:39; Start 11/19/16 at 12:00 Furosemide (Lasix) 20 mg DAILY PO Last administered on 11/20/16 08:39; Start 11/20/16 at 09:00 Gabapentin (Neurontin) 300 mg TID PO Last administered on 11/20/16 12:02; Start 11/19/16 at 13:00 Hydrochlorothiazide (Hydrodiuril) 25 mg DAILY PO Last administered on 08:39; Start 11/20/16 at 09:00 Acetaminophen/ Hydrocodone Bitart ([place] 10-325 Mg) 1 tab Q6H PRN PO PAIN SCALE 1 TO 10 Last administered on 11/20/16 12:02; Start 11/19/16 at 10:00 Hydroxyzine HCl (Atarax) 25 mg DAILY PO Last administered on 11/20/16 08:39; Start 11/20/16 at 09:00 Lisinopril (Prinivil) 40 mg DAILY PO Last administered on 11/20/16 08:39; Start 11/20/16 at 09:00 Potassium Chloride (KCl) 10 meq DAILY PO Last administered on 11/20/16 08:39; Start 11/20/16 at 09:00 Ritonavir (Norvir) 100 mg DAILY PO Last administered on 11/20/16 08:38; Start 11/19/16 at 13:00 Etravirine (Intelence) 200 mg BIDPC PO Last administered on 11/20/16 08:39; Start 11/19/16 at 13:00 Darunavir (Prezista) 800 mg DAILY PO Last administered on 11/20/16 08:38; Start 11/19/16 at 13:00 Miscellaneous 1 ea 1 ea UNSCH PRN OTHER SEE LABEL COMMENTS; Start 11/19/16 at 12:45 Sodium Chloride (NS 1000 ml Inj) 1,000 ml @ 100 mls/hr Q10H IV Last administered on 11/20/16 09:41; Start 11/19/16 at 13:00 Aspirin (Ecotrin Ec) 81 mg DAILY PO Last administered on 11/20/16 08:39; Start 11/20/16 at 09:00 Clopidogrel Bisulfate (Plavix) 75 mg DAILY PO Last administered on 11/20/16 08 :39; Start 11/20/16 at 09:00 Influenza Virus Vaccine 0.5 ml 0.5 ml ONCE ONCE IM Last administered on 08:41; Start 11/20/16 at 10:00; Stop 11/20/16 at 10:01; Status DC Piperacillin Sod/ Tazobactam Sod (Zosyn 2.25 Gm Premix) 50 ml @ 100 mls/hr Q6H IV ; Start 11/20/16 at 18:00 Past, Family & Social History Past Medical History Endocrine: REPORTS HX OF: Diabetes mellitus Cardiovascular: REPORTS HX OF: Peripheral vascular dz Infectious disease: REPORTS HX OF: HIV Review of Systems Constitutional: COMPLAINS OF: Pain Integumentary: COMPLAINS OF: Slow to heal after cuts Wound Assessment Vascular Assessment R Dorsails Pedis: Palpable (diminished) L Dorsails Pedis: Palpable (diminished diminished) R Posterior Tibial: Palpable (diminished) L Posterior Tibial: Palpable (diminished) Temperature of Left Extremity: Warm Color of Left Extremity: Mottled Sensation of Left Extremity: Present Temperature of Right Extremity: Warm Color of Right Extremity: Mottled Extremities Evaluation: Edema Right, Edema Left Wound Information - Wound One Wound Location: left anterior leg wound proximal Wound Type: Ischemic Classification: FT- full thickness Photo Taken: No Exudate: Low Exudate Type: Serosanguineous Debridement: No Fibrin Amount: Moderate Granulation Tissue Color: [place] Granulation Tissue Texture: Spongy Exposed: No exposed bone, muscle, tendon Periwound Appearance: FINDINGS: Induration Dressings: Maxorb Extra AG Wound Two Wound Location: left anterior leg wound distal Wound Type: Ischemic Classification: FT- full thickness Photo Taken: No Exudate: Moderate Exudate Type: Serosanguineous Debridement: No Fibrin Amount: Moderate Granulation Tissue Color: Pale / [place] Granulation Tissue Texture: Spongy Exposed: No exposed bone, muscle, tendon Eschar: No Odor: No Periwound Appearance: FINDINGS: Induration Dressings: Maxorb Extra AG Lab and Radiology Results Laboratory Laboratory Tests Test 11/19/16 01:33 White Blood Count 19.9 TH/MM3 Red Blood Count 3.52 MIL/MM3 Hemoglobin 10.8 GM/DL Hematocrit 33.6 % Mean Corpuscular Volume 95.3 FL Mean Corpuscular Hemoglobin 30.7 PG Mean Corpuscular Hemoglobin 32.2 % Concent Red Cell Distribution Width 14.5 % Platelet Count 280 TH/MM3 Mean Platelet Volume 8.6 FL Neutrophils (%) (Auto) 83.6 % Lymphocytes (%) (Auto) 11.8 % Monocytes (%) (Auto) 4.0 % Eosinophils (%) (Auto) 0.4 % Basophils (%) (Auto) 0.2 % Neutrophils # (Auto) 16.6 TH/MM3 Lymphocytes # (Auto) 2.3 TH/MM3 Monocytes # (Auto) 0.8 TH/MM3 Eosinophils # (Auto) 0.1 TH/MM3 Basophils # (Auto) 0.0 TH/MM3 CBC Comment AUTO DIFF Differential Total Cells 100 Counted Neutrophils % (Manual) 83 % Band Neutrophils % 3 % Lymphocytes % 8 % Monocytes % 5 % Neutrophils # (Manual) 17.3 TH/MM3 Myelocytes 1 % Differential Comment FINAL DIFF MANUAL Platelet Estimate NORMAL Platelet Morphology Comment NORMAL Red Cell Morphology Comment NORMAL Laboratory Tests Test 11/19/16 11/19/16 01:33 06:15 Sodium Level 139 MEQ/L 140 MEQ/L Potassium Level 3.4 MEQ/L 4.5 MEQ/L Chloride Level 101 MEQ/L 106 MEQ/L Carbon Dioxide Level 19.2 MEQ/L 25.4 MEQ/L Anion Gap 19 MEQ/L 9 MEQ/L Blood Urea Nitrogen 25 MG/DL 26 MG/DL Creatinine 2.93 MG/DL 2.65 MG/DL Estimat Glomerular Filtration 27 ML/MIN 30 ML/MIN Rate Random Glucose 325 MG/DL 122 MG/DL Calcium Level 9.4 MG/DL 8.9 MG/DL Total Bilirubin 0.3 MG/DL Direct Bilirubin 0.1 MG/DL Indirect Bilirubin 0.2 MG/DL Aspartate Amino Transf 20 U/L (AST/SGOT) Alanine Aminotransferase 25 U/L (ALT/SGPT) Alkaline Phosphatase 80 U/L Total Protein 6.9 GM/DL Albumin 3.7 GM/DL Lipase 273 U/L Microbiology Date/Time Procedure Status Source Growth 11/19/16 03:00 Aerobic Blood Culture - Preliminary Resulted Blood Peripheral NO GROWTH IN 1 DAY 11/19/16 03:00 Anaerobic Blood Culture - Preliminary Resulted Blood Peripheral NO GROWTH IN 1 DAY 11/19/16 03:10 Aerobic Blood Culture - Preliminary Resulted Blood Peripheral NO GROWTH IN 1 DAY 11/19/16 03:10 Anaerobic Blood Culture - Preliminary Resulted Blood Peripheral NO GROWTH IN 1 DAY 11/19/16 09:05 Urine Culture - Preliminary Resulted Urine Clean Catch NO GROWTH IN 24 HOURS. Radiology Last Impressions Chest X-Ray 11/19/16 0232 Signed Impressions: Service Date/Time: Saturday, November 19, 2016 03:43 - CONCLUSION: No acute disease. No significant change has occurred. Barron Carr MD Assessment/Plan Problem List: (1) Claudication in peripheral vascular disease Status: Chronic (2) Wound, open, leg Status: Chronic (3) Peripheral arterial disease Status: Chronic (4) Chronic skin ulcer of lower leg Status: Chronic (5) Tobacco dependence Status: Chronic (6) HIV disease Status: Chronic Additional Plans & Procedures PLAN: Ordered Maxorb extra AG dressings to the wounds to be changed every other day. No baths or showers. Sponge bathe only. Patient will need some vascular intervention. Counseled patient to stop smoking. Discussed risk of amputation if he continues to smoke. I will follow the patient during the course of this admission. He may need follow-up in the wound care center. Ordered wound cultures to be performed today. Problem Qualifiers (1) Wound, open, leg: Qualified Code: S81.802A - Wound, open, leg, left, initial encounter Kameron Stout DPM Nov 20, 2016 13:31
[2016-11-20 13:39] LABS: AUTOMATED NEUTROPHIL # 6.3 TH/MM3 (1.8-7.7); BASOPHIL % 0.3 % (0.0-2.0); EOSINOPHIL # 0.2 TH/MM3 (0-0.4); EOSINOPHIL % 1.9 % (0.0-4.0); HEMATOCRIT 22.2 % (39.0-51.0); HEMO FLAGS DIFF FINAL; LYMPH % 22.1 % (9.0-44.0); LYMPHOCYTE # 2.1 TH/MM3 (1.0-4.8); MEAN CELL VOLUME 93.1 FL (80.0-100.0); MEAN CORPUSCULAR HEMOGLOBIN 31.8 PG (27.0-34.0); MEAN CORPUSCULAR HGB CONC 34.2 % (32.0-36.0); MONO % 9.8 % (0.0-8.0); NEUT % 65.9 % (16.0-70.0); PLATELET COUNT 195 TH/MM3 (150-450); RED BLOOD COUNT 2.38 MIL/MM3 (4.50-5.90); WHITE BLOOD COUNT 9.5 TH/MM3 (4.0-11.0)
[2016-11-20 14:02] LABS: BICARBONATE 26.9 MEQ/L (21.0-32.0); POTASSIUM 3.6 MEQ/L (3.5-5.1)
--- NOTE | 2016-11-20 15:54 | PD.CAR.PN ---
CVT Progress Note Subjective/Hospital Course: Once creatinine down, will obtain CTA with runoff Right now, no procedure can be planned with this degree of skinn rash and renal failue precludes vascular workup J Objective: Vital Signs Date Time Temp Pulse Resp B/P Pulse Ox O2 Delivery O2 Flow Rate FiO2 11/20/16 12:00 97.4 70 20 147/67 100 11/20/16 08:00 96.2 58 18 113/56 96 11/20/16 08:00 Room Air 11/20/16 04:00 97.8 78 20 123/60 95 11/20/16 00:00 98.2 95 20 127/72 100 11/19/16 20:00 Room Air 11/19/16 20:00 97.3 67 20 112/34 100 11/19/16 19:40 100 21 11/19/16 17:14 Room Air 11/19/16 17:00 97.4 67 20 125/91 100 Labs: Laboratory Tests Test 11/20/16 12:55 White Blood Count 9.5 TH/MM3 (4.0-11.0) Red Blood Count 2.38 MIL/MM3 (4.50-5.90) Hemoglobin 7.6 GM/DL (13.0-17.0) Hematocrit 22.2 % (39.0-51.0) Mean Corpuscular Volume 93.1 FL (80.0-100.0) Mean Corpuscular Hemoglobin 31.8 PG (27.0-34.0) Mean Corpuscular Hemoglobin 34.2 % Concent (32.0-36.0) Red Cell Distribution Width 14.0 % (11.6-17.2) Platelet Count 195 TH/MM3 (150-450) Mean Platelet Volume 9.0 FL (7.0-11.0) Neutrophils (%) (Auto) 65.9 % (16.0-70.0) Lymphocytes (%) (Auto) 22.1 % (9.0-44.0) Monocytes (%) (Auto) 9.8 % (0.0-8.0) Eosinophils (%) (Auto) 1.9 % (0.0-4.0) Basophils (%) (Auto) 0.3 % (0.0-2.0) Neutrophils # (Auto) 6.3 TH/MM3 (1.8-7.7) Lymphocytes # (Auto) 2.1 TH/MM3 (1.0-4.8) Monocytes # (Auto) 0.9 TH/MM3 (0-0.9) Eosinophils # (Auto) 0.2 TH/MM3 (0-0.4) Basophils # (Auto) 0.0 TH/MM3 (0-0.2) CBC Comment DIFF FINAL Differential Comment Sodium Level 139 MEQ/L (136-145) Potassium Level 3.6 MEQ/L (3.5-5.1) Chloride Level 101 MEQ/L (98-107) Carbon Dioxide Level 26.9 MEQ/L (21.0-32.0) Anion Gap 11 MEQ/L (5-15) Blood Urea Nitrogen 32 MG/DL (7-18) Creatinine 2.24 MG/DL (0.60-1.30) Estimat Glomerular Filtration 36 ML/MIN (>89) Rate Random Glucose 100 MG/DL (74-106) Calcium Level 8.8 MG/DL (8.5-10.1) Result Diagram: 11/20/16 1255 11/20/16 1255 Rosita Ramos MD Nov 20, 2016 15:54
[2016-11-20 16:00] VITALS: BP 117/60; PULSE 72; RESP 18; TEMP 97.6; O2SAT 97
[2016-11-20] MEDS: PIPERACIL-TAZO 2.25 GM PREMIX 50 ML IV SCH ×2 (17:26→23:22)
[2016-11-20 20:00] VITALS: BP 113/53; PULSE 58; RESP 20; TEMP 97.4; O2SAT 98
[2016-11-20] MEDS: ATORVASTATIN 80 MG TAB PO SCH (21:05)
[2016-11-20] MEDS: CETIRIZINE HCL 10 MG TAB PO SCH (21:06)
[2016-11-21] VITALS (12 sets, daily range): BP systolic 114–160; BP diastolic 56–68; PULSE 61–89; RESP 18–20; TEMP 97.4–98.5; O2SAT 95–100
[2016-11-21] MEDS: ACETAMINOPHEN/HYDROcodone 325 MG/10 MG TAB PO PRN ×4 (03:06→21:49)
[2016-11-21] MEDS: INSULIN ASPART SUPPLEMENTAL SCALE SQ SCH ×4 (05:51→21:00)
[2016-11-21] MEDS: PIPERACIL-TAZO 2.25 GM PREMIX 50 ML IV SCH ×4 (05:53→23:53)
[2016-11-21 08:06] LABS: MEAN CELL VOLUME 92.6 FL (80.0-100.0); MEAN CORPUSCULAR HEMOGLOBIN 31.8 PG (27.0-34.0); MEAN CORPUSCULAR HGB CONC 34.4 % (32.0-36.0); PLATELET COUNT 199 TH/MM3 (150-450); RED BLOOD COUNT 2.18 MIL/MM3 (4.50-5.90); RED CELL DISTRIBUTION WIDTH 14.1 % (11.6-17.2)
[2016-11-21 08:07] LABS: REVIEW FLAG FINAL
[2016-11-21 08:09] LABS: HEMATOCRIT 20.2 % (39.0-51.0)
[2016-11-21 08:29] LABS: POTASSIUM 3.6 MEQ/L (3.5-5.1)
[2016-11-21] MEDS ORDERED: ACETAMINOPHEN 325 MG TAB PO PRN (08:45)
[2016-11-21] MEDS ORDERED: SODIUM CHLOR 0.9% 250 ML INJ 250 ML IV ONE (08:45)
[2016-11-21] MEDS ORDERED: diphenhydrAMINE HCL 25 MG CAP PO PRN (08:45)
[2016-11-21] MEDS: ETRAVIRINE 100 MG TAB PO SCH ×2 (08:51→17:30)
[2016-11-21] MEDS: DARUNAVIR 800 MG TAB PO SCH (08:51)
[2016-11-21] MEDS: RITONAVIR 100 MG TAB PO SCH (08:51)
[2016-11-21] MEDS: DOLUTEGRAVIR SODIUM 50 MG TAB PO SCH ×2 (08:52→21:03)
[2016-11-21] MEDS: GABAPENTIN 300 MG CAP PO SCH ×3 (08:52→17:29)
[2016-11-21] MEDS: ASPIRIN EC 81 MG TABEC PO SCH (08:52)
[2016-11-21] MEDS: hydrOXYzine HCL 25 MG TAB PO SCH (08:52)
[2016-11-21] MEDS: FUROSEMIDE 20 MG TAB PO SCH (08:52)
[2016-11-21] MEDS: amLODIPine BESYLATE 5 MG TAB PO SCH (08:52)
[2016-11-21] MEDS: ATENOLOL 50 MG TAB PO SCH (08:52)
[2016-11-21] MEDS: DIVALPROEX SODIUM E.R. 500 MG TAB PO SCH (08:52)
[2016-11-21] MEDS: CLOPIDOGREL 75 MG TAB PO SCH (08:52)
[2016-11-21] MEDS: POTASSIUM CHLORIDE 10 MEQ CONTROLLED RELEASE TAB PO SCH (08:52)
[2016-11-21] MEDS: HYDROCHLOROTHIAZIDE 25 MG TAB PO SCH (08:53)
[2016-11-21] MEDS: LISINOPRIL 20 MG TAB PO SCH (08:53)
--- NOTE | 2016-11-21 13:23 | HHI.PR ---
Subjective Remarks Patient reports that left lower extremity pain is unchanged. Feels tired today. H&H dropped to 6.9/20.2. He denies chest pain. Objective Vitals Vital Signs Date Time Temp Pulse Resp B/P Pulse Ox O2 Delivery O2 Flow Rate FiO2 11/21/16 12:27 98.2 66 18 122/57 98 11/21/16 08:21 97.7 80 18 160/68 100 11/21/16 04:00 97.8 84 20 127/59 96 11/21/16 00:00 98.1 77 20 129/58 98 11/20/16 21:05 Room Air 11/20/16 20:00 97.4 58 20 113/53 98 11/20/16 16:00 97.6 72 18 117/60 97 I/O 11/20/16 11/20/16 11/20/16 11/21/16 11/21/16 11/21/16 07:00 15:00 23:00 07:00 15:00 23:00 Intake Total 1791 ml 360 ml 1818 ml Output Total 675 ml 425 ml 250 ml Balance 1116 ml -65 ml 1568 ml Intake Oral 700 ml 360 ml 480 ml IV Total 1091 ml 1338 ml Output Urine Total 675 ml 425 ml 250 ml # Voids 2 # Bowel Movements 1 5 Result Diagram: 11/21/1671311/21/16713 Imaging Last Impressions Chest X-Ray 11/19/16 0232 Signed Impressions: Service Date/Time: Saturday, November 19, 2016 03:43 - CONCLUSION: No acute disease. No significant change has occurred. Barron Carr MD Objective Remarks GENERAL: This is a well-nourished, well-developed patient, in no apparent distress. SKIN: Left lower extremity on the anterior adames, there are 2 dime size deep ulcers. The rest of the lower extremity is tense, skin is thick and very dry. Warm to touch at the foot. CARDIOVASCULAR: Normal rate and regular rhythm without murmurs, gallops, or rubs. RESPIRATORY: Good respiratory efforts. Breath sounds equal and clear to auscultation bilaterally. GASTROINTESTINAL: Abdomen soft, non-tender, non-distended. Normal active bowel sounds MUSCULOSKELETAL: Extremities with 2+ edema on the left lower extremity and 1+ edema on the right. NEURO: Alert & Oriented x4 to person, place, time, situation. Moves all ext x4 PSYCH: Appropriate mood and affect. A/P Problem List: (1) BECKA (acute kidney injury) ICD Code: N17.9 Status: Acute (2) Peripheral arterial disease ICD Code: I73.9 Status: Chronic (3) Wound, open, leg ICD Code: S81.809A Status: Chronic (4) Acute blood loss anemia ICD Code: D62 Status: Acute (5) HIV disease ICD Code: B20 Status: Chronic (6) Dependent edema ICD Code: R60.9 Status: Acute (7) Leukocytosis ICD Code: D72.829 Status: Acute (8) Hypertension ICD Code: I10 Status: Chronic Assessment and Plan 60-year-old male with COPD, HIV, neuropathy, peripheral artery disease and dependent edema admitted with: Left lower extremity bleeding wound: Bleeding have since stopped. Reportedly started after unroofing a scab. - Continue local wound care. Appreciate Dr. Stout following for wound care. Will have arrangements for outpatient follow-up. - Dr. Leong consulted and following. Planning to repeat CTA runoff when kidney functions improved. - Pain control. Possible cellulitis involving the left lower extremity/Leukocytosis: Left extremity warm to touch. Previous wound culture with MRSA. Patient counseled again to keep his leg elevated - Continue Vancomycin. Follow new cultures. PAD: Known bilateral SFA occlusion. Dr. Leong following as noted above - Continue aspirin and Plavix. Acute blood loss anemia: Bleeding have since stopped. H&H dropped to 6.9/20.2 today. - Transfuse 2 units of PRBC. Follow-up H&H in the morning. Acute renal insufficiency: Likely prerenal azotemia from bleeding as above and dehydration. - Improving. Continue IV fluid. Follow-up BMP in the morning. Hypertension: Continue home dose antihypertensives. HIV: Continue home home dose anti retroviral therapy. Asthma/COPD: Patient was advised to quit smoking. Continue albuterol as needed. GI prophylaxis: Stool softener PRN constipation. Continue the rest of the patient's home chronic medications. Problem Qualifiers (1) Wound, open, leg: Qualified Code: S81.802A - Wound, open, leg, left, initial encounter Randy Small MD Nov 21, 2016 13:23
[2016-11-21] MEDS: SODIUM CHLOR 0.9% 1000 ML INJ 1,000 ML IV SCH ×2 (14:56→21:52)
[2016-11-21] MEDS: ATORVASTATIN 80 MG TAB PO SCH (21:03)
[2016-11-21] MEDS: CETIRIZINE HCL 10 MG TAB PO SCH (21:03)
[2016-11-22] VITALS: BP 146/69; PULSE 74; RESP 20; TEMP 97.9; O2SAT 96
[2016-11-22] MEDS: ACETAMINOPHEN/HYDROcodone 325 MG/10 MG TAB PO PRN ×3 (03:44→17:52)
[2016-11-22 04:00] VITALS: BP 166/72; PULSE 86; RESP 20; TEMP 98; O2SAT 98
[2016-11-22] MEDS: INSULIN ASPART SUPPLEMENTAL SCALE SQ SCH ×4 (05:50→21:00)
[2016-11-22] MEDS: PIPERACIL-TAZO 2.25 GM PREMIX 50 ML IV SCH ×3 (06:01→17:51)
[2016-11-22] MEDS: ATENOLOL 50 MG TAB PO SCH (08:15)
[2016-11-22] MEDS: amLODIPine BESYLATE 5 MG TAB PO SCH (08:15)
[2016-11-22] MEDS: CLOPIDOGREL 75 MG TAB PO SCH (08:15)
[2016-11-22] MEDS: hydrOXYzine HCL 25 MG TAB PO SCH (08:15)
[2016-11-22] MEDS: GABAPENTIN 300 MG CAP PO SCH ×3 (08:15→17:51)
[2016-11-22] MEDS: ASPIRIN EC 81 MG TABEC PO SCH (08:15)
[2016-11-22] MEDS: POTASSIUM CHLORIDE 10 MEQ CONTROLLED RELEASE TAB PO SCH (08:15)
[2016-11-22] MEDS: HYDROCHLOROTHIAZIDE 25 MG TAB PO SCH (08:15)
[2016-11-22] MEDS: LISINOPRIL 20 MG TAB PO SCH (08:15)
[2016-11-22] MEDS: FUROSEMIDE 20 MG TAB PO SCH (08:16)
[2016-11-22 08:38] VITALS: BP 176/70; PULSE 62; RESP 18; TEMP 97.5; O2SAT 96
[2016-11-22] MEDS: RITONAVIR 100 MG TAB PO SCH (09:14)
[2016-11-22] MEDS: DIVALPROEX SODIUM E.R. 500 MG TAB PO SCH (09:14)
[2016-11-22] MEDS: DARUNAVIR 800 MG TAB PO SCH (09:14)
[2016-11-22] MEDS: DOLUTEGRAVIR SODIUM 50 MG TAB PO SCH ×2 (09:15→21:44)
[2016-11-22] MEDS: ETRAVIRINE 100 MG TAB PO SCH ×2 (09:15→17:51)
[2016-11-22] MEDS: SODIUM CHLOR 0.9% 1000 ML INJ 1,000 ML IV SCH ×2 (11:27→19:30)
[2016-11-22 13:31] VITALS: BP 161/80; PULSE 65; RESP 18; TEMP 98.7; O2SAT 97
--- NOTE | 2016-11-22 13:53 | HHI.PR ---
Subjective Remarks Patient reports that the swelling on his left leg has improved. He reports that he cannot keep it elevated because that reduce his circulation and makes his pain worse. Wounds are drying out. Objective Vitals Vital Signs Date Time Temp Pulse Resp B/P Pulse Ox O2 Delivery O2 Flow Rate FiO2 11/22/16 13:31 98.7 65 18 161/80 97 11/22/16 08:38 97.5 62 18 176/70 96 11/22/16 04:00 98.0 86 20 166/72 98 11/22/16 04:00 98.0 86 20 166/72 98 11/22/16 00:00 97.9 74 20 146/69 96 11/21/16 21:50 Room Air 11/21/16 20:00 97.8 70 20 139/63 96 11/21/16 18:45 97.9 78 20 116/58 95 11/21/16 18:30 98.5 80 20 127/58 96 11/21/16 18:28 98.3 71 20 114/57 99 11/21/16 16:32 98.4 77 18 123/58 97 11/21/16 15:05 98.3 89 20 128/68 95 11/21/16 14:50 98.1 65 20 120/56 98 11/21/16 14:44 97.4 61 20 120/58 97 I/O 11/21/16 11/21/16 11/21/16 11/22/16 11/22/16 11/22/16 07:00 15:00 23:00 07:00 15:00 23:00 Intake Total 1818 ml 480 ml 720 ml 480 ml Output Total 250 ml 1000 ml Balance 1568 ml 480 ml -280 ml 480 ml Intake Oral 480 ml 480 ml 720 ml 480 ml IV Total 1338 ml Output Urine Total 250 ml 1000 ml # Voids 2 3 2 # Bowel Movements 5 0 0 Result Diagram: 11/21/16 0714 11/21/1614 Imaging Last Impressions Chest X-Ray 11/19/16231 Signed Impressions: Service Date/Time: Saturday, November 19, 2016 03:43 - CONCLUSION: No acute disease. No significant change has occurred. Barron Carr MD Objective Remarks GENERAL: This is a well-nourished, well-developed patient, in no apparent distress. SKIN: Left lower extremity on the anterior adames, there are 2 dime size ulcers. The rest of the lower extremity is tense, skin is thick and very dry. Warm to touch at the foot. CARDIOVASCULAR: Normal rate and regular rhythm without murmurs, gallops, or rubs. RESPIRATORY: Good respiratory efforts. Breath sounds equal and clear to auscultation bilaterally. MUSCULOSKELETAL: Extremities with 2+ edema on the left lower extremity and 1+ edema on the right. PSYCH: Appropriate mood and affect. A/P Problem List: (1) BECKA (acute kidney injury) ICD Code: N17.9 Status: Acute (2) Peripheral arterial disease ICD Code: I73.9 Status: Chronic (3) Wound, open, leg ICD Code: S81.809A Status: Chronic (4) Acute blood loss anemia ICD Code: D62 Status: Acute (5) HIV disease ICD Code: B20 Status: Chronic (6) Dependent edema ICD Code: R60.9 Status: Acute (7) Leukocytosis ICD Code: D72.829 Status: Acute (8) Hypertension ICD Code: I10 Status: Chronic Assessment and Plan 60-year-old male with COPD, HIV, neuropathy, peripheral artery disease and dependent edema admitted with: Left lower extremity bleeding wound: Bleeding have since stopped. Reportedly started after unroofing a scab. - Continue local wound care. Appreciate Dr. Stout following for wound care. Will have arrangements for outpatient follow-up. - Dr. Leong consulted and following. Planning to repeat CTA runoff when kidney functions improved. - Pain control. Possible cellulitis involving the left lower extremity/Leukocytosis: Left extremity warm to touch. Previous wound culture with MRSA. - Continue Vancomycin. Follow new cultures. PAD: Known bilateral SFA occlusion. Dr. Leong following as noted above - Continue aspirin and Plavix. Acute blood loss anemia: Bleeding have since stopped. H&H dropped to 6.9/20.2 today. - Transfuse 2 units of PRBC on 11/21/16. H&H stable today. Follow-up H&H in the morning. Acute renal insufficiency: Likely prerenal azotemia from bleeding as above and dehydration. - Improving. Continue IV fluid. Follow-up BMP in the morning. Hypertension: Continue home dose antihypertensives. HIV: Continue home home dose anti retroviral therapy. Asthma/COPD: Patient was advised to quit smoking. Continue albuterol as needed. GI prophylaxis: Stool softener PRN constipation. Continue the rest of the patient's home chronic medications. Problem Qualifiers (1) Wound, open, leg: Qualified Code: S81.802A - Wound, open, leg, left, initial encounter Randy Small MD Nov 22, 2016 13:53
[2016-11-22 15:40] LABS: AUTOMATED NEUTROPHIL # 4.7 TH/MM3 (1.8-7.7); BASOPHIL % 0.4 % (0.0-2.0); EOSINOPHIL # 0.5 TH/MM3 (0-0.4); HEMATOCRIT 26.9 % (39.0-51.0); HEMO FLAGS DIFF FINAL; LYMPH % 27.2 % (9.0-44.0); LYMPHOCYTE # 2.3 TH/MM3 (1.0-4.8); MEAN CELL VOLUME 87.8 FL (80.0-100.0); MEAN CORPUSCULAR HEMOGLOBIN 29.7 PG (27.0-34.0); MEAN CORPUSCULAR HGB CONC 33.8 % (32.0-36.0); MONO % 10.1 % (0.0-8.0); NEUT % 56.3 % (16.0-70.0); PLATELET COUNT 232 TH/MM3 (150-450); RED BLOOD COUNT 3.06 MIL/MM3 (4.50-5.90); RED CELL DISTRIBUTION WIDTH 17.2 % (11.6-17.2); WHITE BLOOD COUNT 8.3 TH/MM3 (4.0-11.0)
[2016-11-22 16:25] LABS: BICARBONATE 34.5 MEQ/L (21.0-32.0); POTASSIUM 3.5 MEQ/L (3.5-5.1)
[2016-11-22 17:22] VITALS: BP 197/88; PULSE 55; RESP 18; TEMP 98.3; O2SAT 96
[2016-11-22 20:00] VITALS: BP 144/68; PULSE 69; RESP 18; TEMP 98.4; O2SAT 97
[2016-11-22] MEDS: ATORVASTATIN 80 MG TAB PO SCH (21:42)
[2016-11-22] MEDS: CETIRIZINE HCL 10 MG TAB PO SCH (21:43)
[2016-11-23] VITALS: BP 163/73; PULSE 63; RESP 18; TEMP 97.6; O2SAT 94
[2016-11-23] MEDS: ACETAMINOPHEN/HYDROcodone 325 MG/10 MG TAB PO PRN ×4 (00:05→22:55)
[2016-11-23] MEDS: PIPERACIL-TAZO 2.25 GM PREMIX 50 ML IV SCH ×2 (00:06→05:47)
[2016-11-23 04:00] VITALS: BP 158/74; PULSE 59; RESP 16; TEMP 98.1; O2SAT 93
[2016-11-23] MEDS: INSULIN ASPART SUPPLEMENTAL SCALE SQ SCH ×4 (05:45→23:03)
[2016-11-23] MEDS: SODIUM CHLOR 0.9% 1000 ML INJ 1,000 ML IV SCH ×2 (05:45→17:39)
[2016-11-23 06:56] LABS: HEMATOCRIT 27.4 % (39.0-51.0); MEAN CELL VOLUME 88.1 FL (80.0-100.0); PLATELET COUNT 248 TH/MM3 (150-450); RED BLOOD COUNT 3.12 MIL/MM3 (4.50-5.90); RED CELL DISTRIBUTION WIDTH 16.4 % (11.6-17.2); REVIEW FLAG FINAL; WHITE BLOOD COUNT 8.8 TH/MM3 (4.0-11.0)
[2016-11-23 07:10] LABS: BICARBONATE 34.8 MEQ/L (21.0-32.0); POTASSIUM 3.5 MEQ/L (3.5-5.1)
[2016-11-23 08:00] VITALS: BP 179/71; PULSE 66; RESP 18; TEMP 98.8; O2SAT 97
--- NOTE | 2016-11-23 09:07 | HHI.PR ---
Subjective Remarks Patient reports that he is feeling better overall. He believes that his pain is less when he does his own dressing changes. No fevers. Objective Vitals Vital Signs Date Time Temp Pulse Resp B/P Pulse Ox O2 Delivery O2 Flow Rate FiO2 11/23/16 06:48 18 11/23/16 04:00 98.1 59 16 158/74 93 11/23/16 00:00 97.6 63 18 163/73 94 11/22/16 20:00 98.4 69 18 144/68 97 11/22/16 20:00 Room Air 11/22/16 17:22 98.3 55 18 197/88 96 11/22/16 13:31 98.7 65 18 161/80 97 11/22/16 11:00 Room Air I/O 11/22/16 11/22/16 11/22/16 11/23/16 11/23/16 11/23/16 07:00 15:00 23:00 07:00 15:00 23:00 Intake Total 480 ml 2025 ml 240 ml 240 ml Output Total 600 ml 500 ml Balance 480 ml 2025 ml -360 ml -260 ml Intake Oral 480 ml 720 ml 240 ml 240 ml IV Total 1305 ml Output Urine Total 600 ml 500 ml # Voids 2 4 2 # Bowel Movements 0 1 0 2 Result Diagram: 11/23/1652511/23/16525 Objective Remarks GENERAL: Patient is in no apparent distress. SKIN: Left lower extremity on the anterior adames, there are 2 dime size ulcers. The rest of the lower extremity is tense, skin is thick and very dry. Warm to touch at the foot. CARDIOVASCULAR: Normal rate and regular rhythm without murmurs, gallops, or rubs. RESPIRATORY: Good respiratory efforts. Breath sounds equal and clear to auscultation bilaterally. MUSCULOSKELETAL: Extremities with 2+ edema on the left lower extremity and 1+ edema on the right. PSYCH: Appropriate mood and affect. A/P Problem List: (1) BECKA (acute kidney injury) ICD Code: N17.9 Status: Acute (2) Peripheral arterial disease ICD Code: I73.9 Status: Chronic (3) Wound, open, leg ICD Code: S81.809A Status: Chronic (4) Acute blood loss anemia ICD Code: D62 Status: Acute (5) HIV disease ICD Code: B20 Status: Chronic (6) Dependent edema ICD Code: R60.9 Status: Acute (7) Leukocytosis ICD Code: D72.829 Status: Acute (8) Hypertension ICD Code: I10 Status: Chronic Assessment and Plan 60-year-old male with COPD, HIV, neuropathy, peripheral artery disease and dependent edema admitted with: Left lower extremity bleeding wound: Bleeding have since stopped. Reportedly started after unroofing a scab. - Continue local wound care. Appreciate Dr. Stout following for wound care. Will have arrangements for outpatient follow-up. - Dr. Leong consulted and following. Planning to repeat CTA runoff when kidney functions improved. - Pain control. Possible cellulitis involving the left lower extremity/Leukocytosis: Left extremity warm to touch. - Continue Vancomycin. Wound culture grew staph aureus. Plan to transition to oral antibiotics tomorrow. PAD: Known bilateral SFA occlusion. Dr. Leong following as noted above - Continue aspirin and Plavix. Acute blood loss anemia: Bleeding have since stopped. H&H dropped to 6.9/20.2 today. - Transfuse 2 units of PRBC on 11/21/16. H&H stable today. Acute renal insufficiency: Likely prerenal azotemia from bleeding as above and dehydration. Resolved. -Avoid nephrotoxins. Hypertension: Continue home dose antihypertensives. HIV: Continue home home dose anti retroviral therapy. Asthma/COPD: Patient was advised to quit smoking. Continue albuterol as needed. GI prophylaxis: Stool softener PRN constipation. Continue the rest of the patient's home chronic medications. Problem Qualifiers (1) Wound, open, leg: Qualified Code: S81.802A - Wound, open, leg, left, initial encounter Randy Small MD Nov 23, 2016 09:07
[2016-11-23] MEDS: DOLUTEGRAVIR SODIUM 50 MG TAB PO SCH ×2 (09:26→22:54)
[2016-11-23] MEDS: ASPIRIN EC 81 MG TABEC PO SCH (09:26)
[2016-11-23] MEDS: LISINOPRIL 20 MG TAB PO SCH (09:26)
[2016-11-23] MEDS: CLOPIDOGREL 75 MG TAB PO SCH (09:26)
[2016-11-23] MEDS: HYDROCHLOROTHIAZIDE 25 MG TAB PO SCH (09:27)
[2016-11-23] MEDS: DARUNAVIR 800 MG TAB PO SCH (09:27)
[2016-11-23] MEDS: RITONAVIR 100 MG TAB PO SCH (09:27)
[2016-11-23] MEDS: ETRAVIRINE 100 MG TAB PO SCH ×2 (09:27→17:38)
[2016-11-23] MEDS: hydrOXYzine HCL 25 MG TAB PO SCH (09:27)
[2016-11-23] MEDS: GABAPENTIN 300 MG CAP PO SCH ×3 (09:27→17:38)
[2016-11-23] MEDS: DIVALPROEX SODIUM E.R. 500 MG TAB PO SCH (09:28)
[2016-11-23] MEDS: ATENOLOL 50 MG TAB PO SCH (09:28)
[2016-11-23] MEDS: POTASSIUM CHLORIDE 10 MEQ CONTROLLED RELEASE TAB PO SCH (09:28)
[2016-11-23] MEDS: FUROSEMIDE 20 MG TAB PO SCH (09:28)
[2016-11-23] MEDS: amLODIPine BESYLATE 5 MG TAB PO SCH (09:28)
[2016-11-23 12:00] VITALS: BP 175/80; PULSE 63; RESP 18; TEMP 97.3; O2SAT 97
[2016-11-23] MEDS: PIPERACIL-TAZO 3.375 GM PREMIX 50 ML IV SCH ×2 (12:07→17:39)
[2016-11-23] MEDS ORDERED: ACETAMINOPHEN/CODEINE 300 MG/30 MG TAB PO PRN ×2 (14:45)
[2016-11-23] MEDS ORDERED: cloNIDine HCL 0.1 MG TAB PO PRN (15:00)
[2016-11-23 16:00] VITALS: BP 166/77; PULSE 60; RESP 18; TEMP 98.2; O2SAT 98
[2016-11-23 20:00] VITALS: BP_SYST 179; BP_SYST 187; BP_DIAS 78; BP_DIAS 80; PULSE 70; RESP 22; TEMP 98.5; O2SAT 98
[2016-11-23] MEDS ORDERED: ACETAMINOPHEN/HYDROcodone 325 MG/5 MG TAB PO PRN (22:45)
[2016-11-23] MEDS: CETIRIZINE HCL 10 MG TAB PO SCH (22:54)
[2016-11-23] MEDS: ATORVASTATIN 80 MG TAB PO SCH (22:54)
[2016-11-24] VITALS: BP 166/74; PULSE 64; RESP 20; TEMP 99; O2SAT 98
[2016-11-24 04:00] VITALS: BP 159/72; PULSE 65; RESP 20; TEMP 97.8; O2SAT 100
[2016-11-24] MEDS: ACETAMINOPHEN/HYDROcodone 325 MG/10 MG TAB PO PRN ×2 (04:30→08:38)
[2016-11-24] MEDS: PIPERACIL-TAZO 3.375 GM PREMIX 50 ML IV SCH ×3 (06:04→11:11)
[2016-11-24] MEDS: INSULIN ASPART SUPPLEMENTAL SCALE SQ SCH ×2 (06:06→11:00)
[2016-11-24 06:43] LABS: BICARBONATE 33.6 MEQ/L (21.0-32.0); HEMATOCRIT 27.8 % (39.0-51.0); MEAN CORPUSCULAR HEMOGLOBIN 30.8 PG (27.0-34.0); PLATELET COUNT 254 TH/MM3 (150-450); POTASSIUM 3.4 MEQ/L (3.5-5.1); RED BLOOD COUNT 3.16 MIL/MM3 (4.50-5.90); RED CELL DISTRIBUTION WIDTH 16.6 % (11.6-17.2); REVIEW FLAG FINAL; WHITE BLOOD COUNT 9.4 TH/MM3 (4.0-11.0)
[2016-11-24] MEDS: LISINOPRIL 20 MG TAB PO SCH (07:57)
[2016-11-24] MEDS: RITONAVIR 100 MG TAB PO SCH (07:57)
[2016-11-24] MEDS: ETRAVIRINE 100 MG TAB PO SCH (07:58)
[2016-11-24] MEDS: FUROSEMIDE 20 MG TAB PO SCH (07:58)
[2016-11-24] MEDS: POTASSIUM CHLORIDE 10 MEQ CONTROLLED RELEASE TAB PO SCH (07:58)
[2016-11-24] MEDS: DOLUTEGRAVIR SODIUM 50 MG TAB PO SCH (07:58)
[2016-11-24] MEDS: DARUNAVIR 800 MG TAB PO SCH (07:58)
[2016-11-24] MEDS: GABAPENTIN 300 MG CAP PO SCH ×2 (07:59→12:23)
[2016-11-24] MEDS: DIVALPROEX SODIUM E.R. 500 MG TAB PO SCH (07:59)
[2016-11-24] MEDS: CLOPIDOGREL 75 MG TAB PO SCH (07:59)
[2016-11-24] MEDS: amLODIPine BESYLATE 5 MG TAB PO SCH (07:59)
[2016-11-24] MEDS: ATENOLOL 50 MG TAB PO SCH (07:59)
[2016-11-24 08:00] VITALS: BP 150/78; PULSE 61; RESP 16; TEMP 98.4; O2SAT 97
[2016-11-24] MEDS: HYDROCHLOROTHIAZIDE 25 MG TAB PO SCH (08:00)
[2016-11-24] MEDS: hydrOXYzine HCL 25 MG TAB PO SCH (08:00)
[2016-11-24] MEDS: ASPIRIN EC 81 MG TABEC PO SCH (08:00)
[2016-11-24] MEDS ORDERED: HYDR-3583 PO (11:19)
[2016-11-24] MEDS ORDERED: SULF1TAB23 PO (11:19)
--- NOTE | 2016-11-24 11:21 | HHI.FF ---
Face to Face Verification Diagnosis: (1) Cellulitis, leg (2) Dependent edema (3) Wound, open, leg (4) Peripheral arterial disease (5) Claudication in peripheral vascular disease (6) Acute blood loss anemia (7) Physical deconditioning Physical Therapy Order: Evaluate and Treat, Improve ambulation, Strength and gait training Home Health Nursing Order: Medical education Wound care and dressing changes I have seen patient Adrian Carbone on 11/24/16. My clinical findings support the need for the requested home health care services because: Deconditioned w/ increased weakness Limited ability to care for self Infection w/ risk of complications I certify that my clinical findings support that this patient is homebound because: Unsteady gait/balance Randy Small MD Nov 24, 2016 11:21
--- NOTE | 2016-11-24 11:23 | HHI.DS ---
Discharge Summary Admission Date Nov 19, 2016 at 05:45 Discharge Date: Nov 24, 2016 Admitting Diagnosis Sepsis, BECKA, LLE Wound (1) BECKA (acute kidney injury) ICD Code: N17.9 (2) Peripheral arterial disease ICD Code: I73.9 (3) Wound, open, leg ICD Code: S81.809A (4) Acute blood loss anemia ICD Code: D62 (5) HIV disease ICD Code: B20 (6) Dependent edema ICD Code: R60.9 (7) Leukocytosis ICD Code: D72.829 (8) Hypertension ICD Code: I10 Procedures None Brief History - From Admission 60-year-old male with a medical history significant for HIV, neuropathy, diabetes, peripheral artery disease brought into the emergency room due to left foot pain and left lower extremity bleeding wound. Patient reports that while he was undergoing his dressing for the left lower extremity wounds, he reports that he unroofed the scab which caused severe bleeding. He reports that he lost a lot of blood. EMS was able to dress the wound and stop the bleeding. The patient reportedly vomited a few times in the emergency room. 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 He reports that it's no longer an issue. Patient has known bilateral SFA disease. He was supposed to have surgical intervention but this was held due to pustular rash at that time, his HIV state, noncompliance and continuing tobacco abuse. He normally follows with Dr. Ramos. Currently the patient reports that he is feeling well. His labs on arrival however shows acute renal insufficiency, a white count of 19,000, and acute anemia. The patient denies any fevers, no dysuria or abdominal pain. CBC/BMP: 11/24/16 0532 11/24/16 0532 Significant Findings Laboratory Tests Test 11/22/16 11/23/16 11/24/16 14:47 05:26 05:32 Red Blood Count 3.06 MIL/MM3 3.12 MIL/MM3 3.16 MIL/MM3 (4.50-5.90) (4.50-5.90) (4.50-5.90) Hemoglobin 9.1 GM/DL 9.3 GM/DL 9.7 GM/DL (13.0-17.0) (13.0-17.0) (13.0-17.0) Hematocrit 26.9 % 27.4 % 27.8 % (39.0-51.0) (39.0-51.0) (39.0-51.0) Monocytes (%) (Auto) 10.1 % (0.0-8.0) Eosinophils (%) (Auto) 6.0 % (0.0-4.0) Eosinophils # (Auto) 0.5 TH/MM3 (0-0.4) Carbon Dioxide Level 34.5 MEQ/L 34.8 MEQ/L 33.6 MEQ/L (21.0-32.0) (21.0-32.0) (21.0-32.0) Creatinine 1.41 MG/DL (0.60-1.30) Estimat Glomerular Filtration 62 ML/MIN (>89) 75 ML/MIN (>89) 78 ML/MIN (>89) Rate Random Glucose 110 MG/DL (74-106) Potassium Level 3.4 MEQ/L (3.5-5.1) Imaging Last Impressions Chest X-Ray 11/19/16 0232 Signed Impressions: Service Date/Time: Saturday, November 19, 2016 03:43 - CONCLUSION: No acute disease. No significant change has occurred. Barron Carr MD PE at Discharge GENERAL: Patient is in no apparent distress. SKIN: Left lower extremity on the anterior adames, there are 2 dime size ulcers. The rest of the lower extremity is tense, skin is thick and very dry. Warm to touch at the foot. CARDIOVASCULAR: Normal rate and regular rhythm without murmurs, gallops, or rubs. RESPIRATORY: Good respiratory efforts. Breath sounds equal and clear to auscultation bilaterally. MUSCULOSKELETAL: Extremities with 2+ edema on the left lower extremity and 1+ edema on the right. PSYCH: Appropriate mood and affect. Pt update on day of discharge Patient reports that he is feeling okay. He believes that his leg swelling has improved. He is comfortable with going home and indicates that he will follow up outpatient with wound care and Dr. Ramos. Hospital Course 60-year-old male with COPD, HIV, neuropathy, peripheral artery disease and dependent edema admitted with left lower extremity wound and bleeding. Evaluation and treatment course detailed below: Left lower extremity bleeding wound on presentation: Bleeding have since stopped. Reportedly started after unroofing a scab. - Continue local wound care. Patient was seen by wound care physician, Dr. Stout. Arrangements made for outpatient follow-up. - Dr. Leong consulted. Patient will follow-up outpatient for further revascularization procedures. He is advised to quit smoking. Follow-up with dermatology as scheduled for clearance for surgical intervention. Possible cellulitis involving the left lower extremity/Leukocytosis: Left extremity warm to touch. -Patient was treated with vancomycin. Wound culture grew staph aureus. He is discharged on Bactrim to continue treatment. PAD: Known bilateral SFA occlusion. He will follow up outpatient with Dr. Schuster as scheduled. - Continue aspirin and Plavix. Acute blood loss anemia: Bleeding have since stopped. H&H dropped to 6.9/20.2. - Transfuse 2 units of PRBC on 11/21/16. H&H remained stable posttransfusion. Acute renal insufficiency: Likely prerenal azotemia from bleeding as above and dehydration. Resolved with hydration. -Avoid nephrotoxins. Hypertension: Continue home dose antihypertensives. HIV: Continue home home dose anti retroviral therapy. Asthma/COPD: Patient was advised to quit smoking. Continue albuterol as needed. Pt Condition on Discharge: Good Discharge Disposition: Disch w/ Home Health Serv Discharge Time: <= 30 minutes Discharge Instructions DIET: Follow Instructions for: Diabetic Diet Activities you can perform: See Additionl Instruction Follow up Referrals: Vascular Surgery - 3-5 Days with Rosita Ramos MD New Medications: Sulfamethoxazole-Trimethoprim (Sulfamethoxazole-Trimethoprim) 800-160 Mg Tab 1 TAB PO BID Infection #20 Ref 0 TAB Continued Medications: Albuterol 18 GM Inh (Ventolin Hfa 18 GM Inh) 90 Mcg/Act Aer 2 PUFF INH Q4H PRN SHORTNESS OF BREATH INHALER Amlodipine (Amlodipine) 5 Mg Tab 5 MG PO DAILY Blood Pressure Management TAB Aspirin (Aspirin) 81 Mg Tabdr 81 MG PO DAILY TAB Atenolol (Atenolol) 50 Mg Tab 50 MG PO DAILY Blood Pressure Management TAB Atorvastatin (Atorvastatin) 40 Mg Tab 80 MG PO HS Cholesterol Management TAB Cetirizine (Zyrtec Allergy) 10 Mg Tab 10 MG PO HS Allergies TAB Clopidogrel (Plavix) 75 Mg Tab 75 MG PO DAILY Blood Clot Prevention TAB Darunavir (Prezista) 800 Mg Tab 800 MG PO DAILY Mgmt Viral Infection #30 Ref 0 TAB Divalproex ER (Divalproex ER) 500 Mg Tab 500 MG PO DAILY Control Seizures #30 Ref 0 TAB Dolutegravir (Tivicay) 50 Mg Tab 50 MG PO Q12HR Mgmt Viral Infection Ergocalciferol (Drisdol) 50,000 Unit Cap 36448 UNITS PO Q7D Nutritional Supplement CAP Etravirine (Intelence) 200 Mg Tab 200 MG PO BIDPC Mgmt Viral Infection TAB Furosemide (Lasix) 20 Mg Tab 20 MG PO DAILY Days 5 Ref 0 TAB Gabapentin (Gabapentin) 300 Mg Cap 300 MG PO TID CAP Gabapentin (Gabapentin) 600 Mg Tab 600 MG PO HS this will replace your previous night dose #30 Ref 0 TAB Hydrochlorothiazide (Hydrochlorothiazide) 25 Mg Tab 25 MG PO DAILY TAB Hydrocodone-Acetaminophen (Hydrocodone-Acetaminophen) 10-325 mg Tab 1 TAB PO Q6H PRN PAIN #20 Ref 0 TAB (This prescription has been renewed) Hydroxyzine HCl (Hydroxyzine HCl) 25 Mg Tab 25 MG PO DAILY Itching TAB Lisinopril (Lisinopril) 40 Mg Tab 40 MG PO DAILY Blood Pressure Management TAB Potassium Chloride ER (Potassium Chloride CR) 10 Meq Tab 10 MEQ PO DAILY Days 5 TAB Ritonavir (Norvir) 100 Mg Cap 100 MG PO DAILY Mgmt Viral Infection #180 Ref 0 CAP Discontinued Medications: Clindamycin (Clindamycin) 150 Mg Cap 300 MG PO Q8HR Infection Days 10 Ref 0 CAP Randy Small MD Nov 24, 2016 11:23
[2016-12-09] MEDS ORDERED: BACT800T5 PO (09:19)
[2017-01-20] MEDS ORDERED: DOXY100C PO (12:03)
[2017-01-20] MEDS ORDERED: LYRI50CA PO (12:05)
== END 2016-11-24 14:19 | disposition home health service (06) | DRG 682 ==
LOC: NEPC 21:24 → NEDA 11-19 05:45 → N04A 11-19 16:42
PROVIDERS: ADMIT Family Medicine; ATTEND Family Medicine
PROC: 30233N1 Transfusion of Nonautologous Red Blood Cells into Peripheral Vein, Percutaneous Approach (ICD-10-PCS; principal; 2016-11-21)
DX: N17.9 Acute kidney failure, unspecified (principal); B20 Human immunodeficiency virus [HIV] disease; D62 Acute posthemorrhagic anemia; L03.116 Cellulitis of left lower limb; L97.229 Non-pressure chronic ulcer of left calf with unspecified severity; L97.929 Non-pressure chronic ulcer of unspecified part of left lower leg with unspecified severity; E11.40 Type 2 diabetes mellitus with diabetic neuropathy, unspecified; E11.51 Type 2 diabetes mellitus with diabetic peripheral angiopathy without gangrene; E11.622 Type 2 diabetes mellitus with other skin ulcer; I73.9 Peripheral vascular disease, unspecified; E86.0 Dehydration; R60.9 Edema, unspecified; G89.29 Other chronic pain; R21 Rash and other nonspecific skin eruption; I10 Essential (primary) hypertension; J44.9 Chronic obstructive pulmonary disease, unspecified; J45.909 Unspecified asthma, uncomplicated; B95.61 Methicillin susceptible Staphylococcus aureus infection as the cause of diseases classified elsewhere; F17.210 Nicotine dependence, cigarettes, uncomplicated; Z23 Encounter for immunization; Z71.6 Tobacco abuse counseling; Z86.14 Personal history of Methicillin resistant Staphylococcus aureus infection; Z86.73 Personal history of transient ischemic attack (TIA), and cerebral infarction without residual deficits; Z88.5 Allergy status to narcotic agent; Z91.19 Patient's noncompliance with other medical treatment and regimen
CPT/HCPCS: 36430; 71010; 80048; 80076; 81001; 82948; 83690; 85007; 85025; 85027; 86403; 86850; 86900; 86901; 86920; 87040; 87070; 87086; 87147; 87186; 87205; 90471; 90686; 93005; 96361; 96365; 96366; 96375; G0008; J2405; J2543; J3370; J7030; J7040; J7050; P9016; Q2038

== ENCOUNTER 2016-12-17 17:54 | Inpatient (IN) | payer MEDICAID ==
[~2016-12-17] VITALS: Ht 167.6 cm; Wt 88.9 kg
[~2016-12-17 17:54] MED LIST changes: +BACT800T5 PO; -CLIN1CAP5 PO; -GABA600T PO; +SULF1TAB23 PO
[2016-12-17 18:04] VITALS: BP 135/77; PULSE 124; RESP 18; TEMP 98.6; O2SAT 100
[2016-12-17 18:10] VITALS: O2SAT 100
[2016-12-17] MEDS ORDERED: SODIUM CHLOR 0.9% 1000 ML INJ 1,000 ML IV ONE ×2 (18:15→19:15)
[2016-12-17] MEDS ORDERED: SODIUM CHLORIDE 0.9% FLUSH 5 ML FLUSH IVF PRN (18:15)
[2016-12-17] MEDS ORDERED: ATOR1TAB18 PO (18:34)
[2016-12-17 18:55] LABS: AUTOMATED NEUTROPHIL # 6.6 TH/MM3 (1.8-7.7); BASOPHIL % 0.4 % (0.0-2.0); EOSINOPHIL # 0.3 TH/MM3 (0-0.4); EOSINOPHIL % 2.8 % (0.0-4.0); HEMATOCRIT 34.3 % (39.0-51.0); HEMO FLAGS DIFF FINAL; LYMPHOCYTE # 2.7 TH/MM3 (1.0-4.8); MEAN CELL VOLUME 90.4 FL (80.0-100.0); MEAN CORPUSCULAR HEMOGLOBIN 30.3 PG (27.0-34.0); MEAN CORPUSCULAR HGB CONC 33.6 % (32.0-36.0); MONO % 8.7 % (0.0-8.0); NEUT % 62.1 % (16.0-70.0); PLATELET COUNT 290 TH/MM3 (150-450); RED CELL DISTRIBUTION WIDTH 16.3 % (11.6-17.2); WHITE BLOOD COUNT 10.5 TH/MM3 (4.0-11.0)
[2016-12-17 18:56] VITALS: BP 150/84; PULSE 122; RESP 18; O2SAT 100
[2016-12-17] MEDS ORDERED: ACETAMINOPHEN/HYDROcodone 325 MG/5 MG TAB PO ONE (19:00)
[2016-12-17 19:06] LABS: APTT (PATIENT) 25.1 SEC (24.3-30.1); INTERNATIONAL NORMALIZED RATIO 1.1 RATIO
[2016-12-17 19:09] LABS: BICARBONATE 25.4 MEQ/L (21.0-32.0)
[2016-12-17 20:00] VITALS: BP 159/75; PULSE 112; RESP 16; O2SAT 99
[2016-12-17 20:09] VITALS: O2SAT 99
[2016-12-17 20:31] LABS: HEMATOCRIT 28.2 % (39.0-51.0); REVIEW FLAG FINAL
--- NOTE | 2016-12-17 20:41 | PD ---
HPI Chief Complaint: Wound/Suture/Staple Re-Check Time Seen by Provider: 18:05 Travel History International Travel<30 days: No Contact w/Intl Traveler<30days: No Traveled to known affect area: No History of Present Illness HPI Patient is a 61 year old male presents to the emergency department for evaluation of bleeding leg wounds. Patient states that he was standing and felt sweaty and weak. Then he looked down and saw that his left leg was covered in blood. Patient has been admitted for similiar bleeding episodes before. He has a history of PVD and has been followed by Dr. Love and Dr. Watts for these wounds. Patient on arrival is somewhat aggrevated saying he was here recently and does not want to leave until he sees Dr. Crews. patient does endorse mild dizziness currently. Has required blood transfusions for bleeding from these wounds in the past. PFSH Past Medical History Hx Anticoagulant Therapy: Yes Arthritis: Yes Asthma: Yes Blood Disorders: Yes (HIV) Anxiety: No Depression: No Heart Rhythm Problems: No Cancer: No Cardiovascular Problems: Yes (HTN) High Cholesterol: Yes Chest Pain: No Congestive Heart Failure: No COPD: No Cerebrovascular Accident: Yes (TIA) Diabetes: Yes Patient Takes Glucophage: No Diminished Hearing: No Endocrine: No Gastrointestinal Disorders: No Genitourinary: No Hypertension: Yes Immune Disorder: Yes (HIV Positive) Implanted Vascular Access Dvce: No Musculoskeletal: No Neurologic: Yes (Neuropathy) Psychiatric: No Respiratory: Yes (ASTHMA) Immunizations Current: No (NO FLU VACCINE YET THIS YEAR) Sleep Apnea: No Tetanus Vaccination: Unknown Past Surgical History Other Surgery: Yes (BRONCHOSCOPY/ VASCULAR SURGERY) Social History Alcohol Use: No (sober 25 years) Tobacco Use: Yes (1 ppd) Substance Use: No Allergies-Medications (Allergen,Severity, Reaction): Coded Allergies: Morphine (Verified Allergy, Severe, Itching, 12/16/16) makes skin bleed so itchy *MDRO Multi-Drug Resistant Organism (Verified Adverse Reaction, Unknown, ) MRSA blood & scrotal abscess 04/2015; MRSA Leg Wound 06/2016 & 07/27/16 Reported Meds & Prescriptions Reported Meds & Active Scripts Active Bactrim DS (Sulfamethoxazole-Trimethoprim) 800-160 Mg Tab 1 Tab PO BID Hydrocodone-Acetaminophen 10-325 mg Tab 1 Tab PO Q6H PRN Reported Atorvastatin (Atorvastatin Calcium) 80 Mg Tab 80 Mg PO HS Divalproex ER (Divalproex Sodium) 500 Mg Tab 500 Mg PO DAILY Prezista (Darunavir) 800 Mg Tab 800 Mg PO DAILY Norvir (Ritonavir) 100 Mg Cap 100 Mg PO DAILY Hydroxyzine HCl 25 Mg Tab 25 Mg PO DAILY Gabapentin 300 Mg Cap 300 Mg PO TID Amlodipine (Amlodipine Besylate) 5 Mg Tab 5 Mg PO DAILY Atenolol 50 Mg Tab 50 Mg PO DAILY Hydrochlorothiazide 25 Mg Tab 25 Mg PO DAILY Tivicay (Dolutegravir Sodium) 50 Mg Tab 50 Mg PO Q12HR Plavix (Clopidogrel Bisulfate) 75 Mg Tab 75 Mg PO DAILY Aspirin 81 Mg Tabdr 81 Mg PO DAILY Lisinopril 40 Mg Tab 40 Mg PO DAILY Intelence (Etravirine) 200 Mg Tab 200 Mg PO BIDPC Drisdol (Ergocalciferol) 50,000 Unit Cap 50,000 Units PO Q7D Zyrtec Allergy (Cetirizine HCl) 10 Mg Tab 10 Mg PO HS Ventolin Hfa 18 GM Inh (Albuterol Sulfate) 90 Mcg/Act Aer 2 Puff INH Q4H PRN Review of Systems Except as stated in HPI: all other systems reviewed are Neg Physical Exam Narrative GENERAL: WD/WN in nad SKIN: Warm and dry. There are three wounds that I see on the LLE. there are two small wounds about the size of a quarter anteriorly and one smaller wound laterally. The bandage around the wound is saturated with blood and clot. After it is removed there is no active bleeding seen. HEAD: Atraumatic. Normocephalic. EYES: Pupils equal and round. No scleral icterus. No injection or drainage. ENT: No nasal bleeding or discharge. Mucous membranes pink and moist. NECK: Trachea midline. No JVD. CARDIOVASCULAR: Tachycardic with regular rhythm and no MGR. 2+ pulses in bilateral upper extremities. 1+ pulses in lower extremities. RESPIRATORY: No accessory muscle use. Clear to auscultation. Breath sounds equal bilaterally. GASTROINTESTINAL: Abdomen soft, non-tender, nondistended. Hepatic and splenic margins not palpable. MUSCULOSKELETAL: Extremities without clubbing, cyanosis, or edema. No obvious deformities. NEUROLOGICAL: Awake and alert. No obvious cranial nerve deficits. Motor grossly within normal limits. Five out of 5 muscle strength in the arms and legs. Normal speech. PSYCHIATRIC: Appropriate mood and affect; insight and judgment normal. Data Data Last Documented VS Vital Signs Date Time Temp Pulse Resp B/P Pulse Ox O2 Delivery O2 Flow Rate FiO2 12/17/16 20:09 99 21 12/17/16 20:00 112 16 159/75 Room Air 12/17/16 18:04 98.6 Orders Basic Metabolic Panel (Bmp) (12/17/16 18:05) Complete Blood Count With Diff (12/17/16 18:05) Prothrombin Time / Inr (Pt) (12/17/16 18:05) Act Partial Throm Time (Ptt) (12/17/16 18:05) Iv Access Insert/Monitor (12/17/16 18:05) Ecg Monitoring (12/17/16 18:05) Oximetry (12/17/16 18:05) Sodium Chloride 0.9% Flush (Ns Flush) (12/17/16 18:15) Lactic Acid (12/17/16 18:08) Sodium Chlor 0.9% 1000 Ml Inj (Ns 1000 M (12/17/16 18:15) Acetamin-Hydrocod 325-5 Mg ([place] 5-325 (12/17/16 19:00) Sodium Chlor 0.9% 1000 Ml Inj (Ns 1000 M (12/17/16 19:15) Hgb & Hct (12/17/16 20:14) Type And Screen (12/17/16 20:32) Admit Order (Ed Use Only) (12/17/16 ) Admit To Inpatient (12/17/16 ) Vital Signs (Adult) Q4H (12/17/16 20:36) Activity Oob With Assistance (12/17/16 20:36) Quantitative Manager / Telemetry .CONTINUOUS (12/17/16 20:36) Diet Heart Healthy (12/18/16 Breakfast) Sodium Chloride 0.9% Flush (Ns Flush) (12/17/16 20:45) Sodium Chloride 0.9% Flush (Ns Flush) (12/17/16 21:00) Ondansetron Inj (Zofran Inj) (12/17/16 20:45) Basic Metabolic Panel (Bmp) (12/18/16 06:00) Complete Blood Count With Diff (12/18/16 06:00) Pt Request For Service (12/17/16 20:36) Case Management Consult (12/17/16 20:36) Scd Bilateral/Knee High [id number] (12/17/16 20:36) Naloxone Inj (Narcan Inj) (12/17/16 20:45) Inpatient Certification (12/17/16 ) Hgb & Hct (12/17/16 22:00) Hgb & Hct (12/18/16 02:00) Hgb & Hct (12/18/16 06:00) Labs Laboratory Tests Test 12/17/16 12/17/16 12/17/16 18:30 18:40 20:20 White Blood Count 10.5 TH/MM3 Red Blood Count 3.80 MIL/MM3 Hemoglobin 11.5 GM/DL 9.5 GM/DL Hematocrit 34.3 % 28.2 % Mean Corpuscular Volume 90.4 FL Mean Corpuscular Hemoglobin 30.3 PG Mean Corpuscular Hemoglobin 33.6 % Concent Red Cell Distribution Width 16.3 % Platelet Count 290 TH/MM3 Mean Platelet Volume 9.1 FL Neutrophils (%) (Auto) 62.1 % Lymphocytes (%) (Auto) 26.0 % Monocytes (%) (Auto) 8.7 % Eosinophils (%) (Auto) 2.8 % Basophils (%) (Auto) 0.4 % Neutrophils # (Auto) 6.6 TH/MM3 Lymphocytes # (Auto) 2.7 TH/MM3 Monocytes # (Auto) 0.9 TH/MM3 Eosinophils # (Auto) 0.3 TH/MM3 Basophils # (Auto) 0.0 TH/MM3 CBC Comment DIFF FINAL Differential Comment Prothrombin Time 12.0 SEC Prothromb Time International 1.1 RATIO Ratio Activated Partial 25.1 SEC Thromboplast Time Sodium Level 135 MEQ/L Potassium Level 4.0 MEQ/L Chloride Level 102 MEQ/L Carbon Dioxide Level 25.4 MEQ/L Anion Gap 8 MEQ/L Blood Urea Nitrogen 33 MG/DL Creatinine 2.13 MG/DL Estimat Glomerular Filtration 38 ML/MIN Rate Random Glucose 163 MG/DL Lactic Acid Level 2.4 mmol/L Calcium Level 9.9 MG/DL Blood Type AB NEGATIVE Antibody Screen NEGATIVE MDM Medical Decision Making Medical Screen Exam Complete: Yes Emergency Medical Condition: Yes Differential Diagnosis Anemia, blood loss anemia, bleeding varices, chornic peripheral vascular disease. Narrative Course Patient is a 59-year-old male presents emergency department for bleeding from his lower extremities wounds. Patient states happened to him several times and followed by Dr. Crews andt Dr. Watts. Patient reports symptoms of diaphoresis and sweating and looked at his lower extremity and noticed that he was bleeding again. According to EMS there was a large amount of blood clot on scene and they had 2 near force his shoes off secondary to clot in his shoe. Bleeding controlled on arrival to ED and no bleeding whilst in ED. Patient tachycardic on arrival was given 2 L normal saline, hemoglobin dropped from 11.5 down to 9.[address] repeat[address] Patient discussed Dr. Sevilla for admission. Dr. Crews was consulted and will see in the morning. Diagnosis Primary Impression: Acute blood loss anemia Additional Impressions: BECKA (acute kidney injury) Leg wound, left Peripheral vascular disease Admitting Information Admitting Physician Requests: Admit Condition: Stable Chadd Greenwood MD Dec 17, 2016 20:41
[2016-12-17] MEDS ORDERED: SODIUM CHLORIDE 0.9% FLUSH 5 ML FLUSH FLUSH PRN (20:45)
[2016-12-17] MEDS ORDERED: NALOXONE HCL 0.4 MG/ML AMP IV PRN (20:45)
[2016-12-17] MEDS ORDERED: ONDANSETRON HCL 4 MG/2 ML VIAL IVP PRN (20:45)
[2016-12-17] MEDS ORDERED: RESP: ALBUTEROL 2.5 MG/IPRATROPIUM 0.5 MG NEB (PRN) NEB (20:45)
[2016-12-17] MEDS: RESP: ALBUTEROL 2.5 MG/IPRATROPIUM 0.5 MG NEB (SCH) NEB (21:09)
[2016-12-17] MEDS: SODIUM CHLORIDE 0.9% FLUSH 5 ML FLUSH FLUSH SCH (21:37)
[2016-12-17 22:00] VITALS: BP 152/70; PULSE 108; RESP 16; O2SAT 100
[2016-12-17] MEDS: ATORVASTATIN 80 MG TAB PO SCH (22:04)
[2016-12-17] MEDS: CETIRIZINE HCL 10 MG TAB PO SCH (22:04)
[2016-12-17 22:12] LABS: HEMATOCRIT 28.8 % (39.0-51.0); REVIEW FLAG FINAL
[2016-12-17 23:01] LABS: BICARBONATE 23.1 MEQ/L (21.0-32.0); POTASSIUM 4.2 MEQ/L (3.5-5.1)
--- NOTE | 2016-12-17 23:13 | HHI.HP ---
[facility] Primary Care Physician Renato Rivers MD Admission Diagnosis Bleeding with acute blood loss anemia and BECKA. Diagnoses: (1) Anemia due to blood loss, acute (2) Acute renal failure (3) Chronic skin ulcer of lower leg Chief Complaint: Excessive bleeding from Left lower extremity Travel History International Travel<30 Days: No Contact w/Intl Traveler <30 Da: No Traveled to Known Affected Are: No History of Present Illness Mr. Carbone is a 60 year-old male with a past medical history of HIV, neuropathy, diabetes mellitus, and peripheral arterial disease who presented to the hospital for bleeding from left lower extremity wound. He follows with Dr. Ramos, vascular surgeon, and Dr. Stout, inspector canvas products. EMS reported a large amount of blood loss at the scene. Patient is tachycardic and somewhat hypertensive in the emergency room. Oxygen saturations are 99.1% on room air. Hemoglobin dropped from 11.5 to 9.5 over 2 hours in the emergency room. Lactic acid somewhat elevated at 2.4. Patient had a surgery to "kill the nerve" in his left knee; there was some damage from the surgery resulting in venous insufficiency/varicose veins. On Thursday, a scab got removed from the left lateral lower extremity where there was a tiny wound by the wound care nurse and then it was dressed with an Unna boot. Tonight, he was sitting down and watching TV with his son and began feeling light headed and dizzy. He says he looked down and saw that he was excessively bleeding from where the "scab" got removed by the wound care nurse. His son summoned EMS. The bleeding spontaneously resolved. He reports that he's had this before and over the past few weeks he's been getting Unna boots placed by wound care. He says the Unna boots have been successful in keeping this type of bleeding from occurring during the previous 2 placements. Denies any fever, fatigue, chest pain, shortness of breath, black or bloody stools, diarrhea, nausea, vomiting, hematuria, dysuria. . Review of Systems Except as stated in HPI: all other systems reviewed are Neg Past Family Social History Past Medical History HIV x 20 years Hypertension Peripheral arterial disease . Past Surgical History Bronchoscopy . Reported Medications Reported Meds & Active Scripts Active Bactrim DS (Sulfamethoxazole-Trimethoprim) 800-160 Mg Tab 1 Tab PO BID Hydrocodone-Acetaminophen 10-325 mg Tab 1 Tab PO Q6H PRN Reported Atorvastatin (Atorvastatin Calcium) 80 Mg Tab 80 Mg PO HS Divalproex ER (Divalproex Sodium) 500 Mg Tab 500 Mg PO DAILY Prezista (Darunavir) 800 Mg Tab 800 Mg PO DAILY Norvir (Ritonavir) 100 Mg Cap 100 Mg PO DAILY Hydroxyzine HCl 25 Mg Tab 25 Mg PO DAILY Gabapentin 300 Mg Cap 300 Mg PO TID Amlodipine (Amlodipine Besylate) 5 Mg Tab 5 Mg PO DAILY Atenolol 50 Mg Tab 50 Mg PO DAILY Hydrochlorothiazide 25 Mg Tab 25 Mg PO DAILY Tivicay (Dolutegravir Sodium) 50 Mg Tab 50 Mg PO Q12HR Plavix (Clopidogrel Bisulfate) 75 Mg Tab 75 Mg PO DAILY Aspirin 81 Mg Tabdr 81 Mg PO DAILY Lisinopril 40 Mg Tab 40 Mg PO DAILY Intelence (Etravirine) 200 Mg Tab 200 Mg PO BIDPC Drisdol (Ergocalciferol) 50,000 Unit Cap 50,000 Units PO Q7D Zyrtec Allergy (Cetirizine HCl) 10 Mg Tab 10 Mg PO HS Ventolin Hfa 18 GM Inh (Albuterol Sulfate) 90 Mcg/Act Aer 2 Puff INH Q4H PRN . Allergies: Coded Allergies: Morphine (Verified Allergy, Severe, Itching, 12/16/16) makes skin bleed so itchy *MDRO Multi-Drug Resistant Organism (Verified Adverse Reaction, Unknown, Cleared, 12/23/16) MRSA (blood & scrotal abscess) - 04/2015; (Leg) - 06/2016, 07/27/16 Cleared - MRSA PCR negative 12/19/16 & 12/22/16 Active Ordered Medications Current Medications IV Flush 2 ml 2 ml UNSCH PRN IVF FLUSH AFTER USING IV ACCESS; Start 12/17/16 at 18:15; Stop 12/17/16 at 20:42; Status DC Sodium Chloride (NS 1000 ml Inj) 1,000 ml @ 999 mls/hr BOLUS ONCE IV Last administered on 12/17/16 18:51; Start 12/17/16 at 18:15; Stop 12/17/16 at 19:15 ; Status DC Acetaminophen/ Hydrocodone Bitart 2 tab 2 tab ONCE ONCE PO Last administered on 12/17/16 19:27; Start 12/17/16 at 19:00; Stop 12/17/16 at 19:01; Status DC Sodium Chloride (NS 1000 ml Inj) 1,000 ml @ 999 mls/hr BOLUS ONCE IV Last administered on 12/17/16 19:27; Start 12/17/16 at 19:15; Stop 12/17/16 at 20:15 ; Status DC IV Flush (NS Flush) 2 ml UNSCH PRN FLUSH FLUSH AFTER USING IV ACCESS; Start at 20:45 IV Flush (NS Flush) 2 ml BID FLUSH Last administered on 12/17/16 21:37; Start 12/17/16 at 21:00 Ondansetron HCl (Zofran Inj) 4 mg Q6H PRN IVP NAUSEA OR VOMITING; Start at 20:45 Naloxone HCl (Narcan Inj) 0.4 mg UNSCH PRN IV SEE LABEL COMMENTS; Start at 20:45 Albuterol/ Ipratropium (Duoneb Neb) 1 ampule Q6HR NEB NEB Last administered on 12/17/16 21:09; Start 12/17/16 at 22:00 Albuterol/ Ipratropium (Duoneb Neb) 1 ampule Q2HR NEB PRN NEB wheezing; Start 12/17/16 at 20:45 Amlodipine Besylate (Norvasc) 5 mg DAILY PO ; Start 12/18/16 at 09:00 Atenolol (Tenormin) 50 mg DAILY PO ; Start 12/18/16 at 09:00 Atorvastatin Calcium (Lipitor) 80 mg HS PO Last administered on 12/17/16 22:04 ; Start 12/17/16 at 21:00 Cetirizine HCl (ZyrTEC) 10 mg HS PO Last administered on 12/17/16 22:04; Start 12/17/16 at 21:00 Divalproex Sodium (Depakote Er) 500 mg DAILY PO ; Start 12/18/16 at 09:00 Gabapentin (Neurontin) 300 mg TID PO ; Start 12/18/16 at 09:00 Acetaminophen/ Hydrocodone Bitart ([place] 10-325 Mg) 1 tab Q6H PRN PO PAIN; Start 12/17/16 at 20:45 Hydroxyzine HCl (Atarax) 25 mg DAILY PO ; Start 12/18/16 at 09:00 Lisinopril (Prinivil) 40 mg DAILY PO ; Start 12/18/16 at 09:00 . Family History Fathers side: PR, diabetes Mother with Alzheimer's . Social History Tobacco: Smokes 4 cigarettes per day - former heavy smoker Alcohol: Denies Illicit Drugs: Denies Physical Exam Vital Signs Vital Signs Date Time Temp Pulse Resp B/P Pulse Ox O2 Delivery O2 Flow Rate FiO2 12/17/16 20:09 99 21 12/17/16 20:00 112 16 159/75 99 Room Air 12/17/16 18:56 122 18 150/84 100 Room Air 12/17/16 18:10 100 Room Air 12/17/16 18:04 98.6 124 18 135/77 100 Physical Exam GENERAL: This is a well-nourished, well-developed patient, in no apparent distress. SKIN: No rashes, ecchymoses or lesions. Cool and dry. Very tiny wound on left lateral leg where he was bleeding. 2 larger approximately quarter-sized vascular wounds on the front of the adames: 1 midway down the adames and the other inferior and this more medial to the 1st. No bleeding from either of these 2 wounds. HEAD: Atraumatic. Normocephalic. EYES: No scleral icterus. No injection or drainage. ENT: Nose without bleeding, purulent drainage. NECK: Trachea midline. No JVD or lymphadenopathy. CARDIOVASCULAR: Regular rate and rhythm without murmurs, gallops, or rubs. Left lower extremity from knee down with changes consistent with peripheral vascular disease. RESPIRATORY: Clear to auscultation. Breath sounds equal bilaterally. No wheezes , rales, or rhonchi. GASTROINTESTINAL: Abdomen soft, non-tender, nondistended. No guarding. MUSCULOSKELETAL: Extremities without clubbing, cyanosis, or edema. No calf tenderness. NEUROLOGICAL: Awake and alert. Motor and sensory grossly within normal limits. Normal speech. . Laboratory Laboratory Tests Test 12/17/16 12/17/16 12/17/16 2/22/17 18:30 18:40 20:20 22:00 White Blood Count 10.5 Red Blood Count 3.80 Hemoglobin 11.5 9.5 9.6 Hematocrit 34.3 28.2 28.8 Mean Corpuscular Volume 90.4 Mean Corpuscular Hemoglobin 30.3 Mean Corpuscular Hemoglobin 33.6 Concent Red Cell Distribution Width 16.3 Platelet Count 290 Mean Platelet Volume 9.1 Neutrophils (%) (Auto) 62.1 Lymphocytes (%) (Auto) 26.0 Monocytes (%) (Auto) 8.7 Eosinophils (%) (Auto) 2.8 Basophils (%) (Auto) 0.4 Neutrophils # (Auto) 6.6 Lymphocytes # (Auto) 2.7 Monocytes # (Auto) 0.9 Eosinophils # (Auto) 0.3 Basophils # (Auto) 0.0 CBC Comment DIFF FINAL Differential Comment Prothrombin Time 12.0 Prothromb Time International 1.1 Ratio Activated Partial 25.1 Thromboplast Time Sodium Level 135 137 Potassium Level 4.0 4.2 Chloride Level 102 107 Carbon Dioxide Level 25.4 23.1 Anion Gap 8 7 Blood Urea Nitrogen 33 29 Creatinine 2.13 1.69 Estimat Glomerular Filtration 38 50 Rate Random Glucose 163 133 Lactic Acid Level 2.4 Calcium Level 9.9 8.8 Blood Type AB NEGATIVE Antibody Screen NEGATIVE Result Diagram: 12/17/16219912/17/162199 Assessment and Plan Problem List: (1) Anemia due to blood loss, acute ICD Code: D62 Status: Acute (2) Acute renal failure ICD Code: N17.9 Status: Acute (3) Chronic skin ulcer of lower leg ICD Code: L97.909 Status: Chronic Assessment and Plan Mr. Carbone is a 60 year-old male with a past medical history of HIV, neuropathy, diabetes mellitus, and peripheral arterial disease who presented to the hospital for bleeding from left lower extremity wound. He follows with Dr. Ramos, vascular surgeon, and Dr. Stout, inspector canvas products. EMS reported a large amount of blood loss at the scene. Patient is tachycardic and somewhat hypertensive in the emergency room. Oxygen saturations are 99.1% on room air. Hemoglobin dropped from 11.5 to 9.5 over 2 hours in the emergency room. Lactic acid somewhat elevated at 2.4. Anemia related to acute blood loss - Hemoglobin dropped from 11.5 to 9.5 over 2 hours in the emergency room. - Serial H&H ordered - Will follow results and transfuse if necessary - Monitor vital signs every 4 hours - Continuous cardiac telemetry Acute renal failure - BUN elevated at 33, creatinine elevated at 2.13, estimated GFR low at 38 - 2 L of normal saline via IV bolus given in ER - Well recheck BMP and follow trends - Avoid nephrotoxins Chronic skin ulcer of lower leg - consult wound care nurse for Unna boot placement DVT prophylaxis - SCDs Written by Kristyn Tanner, acting as scribe for Dr. Casper on 12/17/16 at 23:11. The documentation accurately reflects the work performed [id number] by me on at 2311 Discussed Condition With ER physician Patient . Physician Certification 2 Midnight Certification Type: Admission for Inpatient Services Order for Inpatient Services The services are ordered in accordance with Medicare regulations or non- Medicare payer requirements, as applicable. In the case of services not specified as inpatient-only, they are appropriately provided as inpatient services in accordance with the 2-midnight benchmark. Estimated LOS (days): 4 days is the estimated time the patient will need to remain in the hospital, assuming treatment plan goals are met and no additional complications. Post-Hospital Plan: Not yet determined Kristyn Tanner Dec 17, 2016 23:13 Jude Casper MD Dec 25, 2016 08:48
[2016-12-18] VITALS (12 sets, daily range): BP systolic 98–141; BP diastolic 50–79; PULSE 53–89; RESP 16–20; TEMP 95.7–98.4; O2SAT 93–100
[2016-12-18] MEDS: ACETAMINOPHEN/HYDROcodone 325 MG/10 MG TAB PO PRN ×5 (00:37→23:05)
[2016-12-18] MEDS: RESP: ALBUTEROL 2.5 MG/IPRATROPIUM 0.5 MG NEB (SCH) NEB ×4 (03:27→21:08)
[2016-12-18 05:39] LABS: AUTOMATED NEUTROPHIL # 7.6 TH/MM3 (1.8-7.7); BASOPHIL # 0.1 TH/MM3 (0-0.2); BASOPHIL % 0.5 % (0.0-2.0); EOSINOPHIL # 0.5 TH/MM3 (0-0.4); EOSINOPHIL % 4.3 % (0.0-4.0); HEMATOCRIT 29.1 % (39.0-51.0); HEMO FLAGS DIFF FINAL; LYMPH % 25.6 % (9.0-44.0); LYMPHOCYTE # 3.2 TH/MM3 (1.0-4.8); MEAN CELL VOLUME 90.3 FL (80.0-100.0); MEAN CORPUSCULAR HEMOGLOBIN 30.2 PG (27.0-34.0); MEAN CORPUSCULAR HGB CONC 33.5 % (32.0-36.0); MONO % 8.2 % (0.0-8.0); NEUT % 61.4 % (16.0-70.0); PLATELET COUNT 242 TH/MM3 (150-450); RED BLOOD COUNT 3.23 MIL/MM3 (4.50-5.90); RED CELL DISTRIBUTION WIDTH 16.7 % (11.6-17.2); REVIEW FLAG FINAL; WHITE BLOOD COUNT 12.3 TH/MM3 (4.0-11.0)
[2016-12-18 06:20] LABS: BICARBONATE 23.5 MEQ/L (21.0-32.0); POTASSIUM 4.4 MEQ/L (3.5-5.1)
[2016-12-18] MEDS: RITONAVIR 100 MG TAB PO SCH (08:32)
[2016-12-18] MEDS: DARUNAVIR 800 MG TAB PO SCH (08:32)
[2016-12-18] MEDS: DOLUTEGRAVIR SODIUM 50 MG TAB PO SCH ×2 (08:32→23:04)
[2016-12-18] MEDS: LISINOPRIL 20 MG TAB PO SCH (08:32)
[2016-12-18] MEDS: amLODIPine BESYLATE 5 MG TAB PO SCH (08:32)
[2016-12-18] MEDS: ATENOLOL 50 MG TAB PO SCH (08:32)
[2016-12-18] MEDS: hydrOXYzine HCL 25 MG TAB PO SCH (08:32)
[2016-12-18] MEDS: DIVALPROEX SODIUM E.R. 500 MG TAB PO SCH (08:32)
[2016-12-18] MEDS: GABAPENTIN 300 MG CAP PO SCH ×3 (08:32→18:09)
[2016-12-18] MEDS: SODIUM CHLORIDE 0.9% FLUSH 5 ML FLUSH FLUSH SCH ×2 (08:33→23:05)
[2016-12-18] MEDS: ETRAVIRINE 100 MG TAB PO SCH ×2 (08:33→18:09)
--- NOTE | 2016-12-18 17:03 | HHI.PR ---
Subjective Remarks defrred entry - patient seen at 10:15 am Patient c/o crampy pain in left calf and thigh Wound in left lower extremity is no longer bleeding hemoglobin stable creatinine is trending down Objective Vitals Vital Signs Date Time Temp Pulse Resp B/P Pulse Ox O2 Delivery O2 Flow Rate FiO2 12/18/16 16:06 97 Nasal Cannula 3.00 12/18/16 12:06 62 12/18/16 11:50 96.5 70 20 106/57 100 12/18/16 09:17 93 12/18/16 07:50 96.1 76 20 141/69 100 12/18/16 04:00 97.2 83 18 100/ 100 12/18/16 01:59 89 12/18/16 01:00 97.1 88 18 130/79 98 12/18/16 00:37 98.4 12/17/16 22:00 108 16 152/70 100 Room Air 12/17/16 20:09 99 21 12/17/16 20:00 112 16 159/75 99 Room Air 12/17/16 18:56 122 18 150/84 100 Room Air 12/17/16 18:10 100 Room Air 12/17/16 18:04 98.6 124 18 135/77 100 I/O 12/17/16 12/17/16 12/17/16 12/18/16 12/18/16 12/18/16 07:00 15:00 23:00 07:00 15:00 23:00 Intake Total 2000 ml Balance 2000 ml Intake IV Total 2000 ml Result Diagram: 12/18/16 0530 12/18/16 0530 Objective Remarks GENERAL: This is a well-nourished, well-developed patient, in no apparent distress. SKIN: No rashes, ecchymoses or lesions. Cool and dry. Left lower extremity is dressed and covered - Dressing is C/D/I HEAD: Atraumatic. Normocephalic. EYES: No scleral icterus. No injection or drainage. ENT: Nose without bleeding, purulent drainage. NECK: Trachea midline. No JVD or lymphadenopathy. CARDIOVASCULAR: Regular rate and rhythm without murmurs, gallops, or rubs. Left lower extremity from knee down with changes consistent with peripheral vascular disease. RESPIRATORY: Clear to auscultation. Breath sounds equal bilaterally. No wheezes , rales, or rhonchi. GASTROINTESTINAL: Abdomen soft, non-tender, nondistended. No guarding. MUSCULOSKELETAL: Extremities without clubbing, cyanosis, or edema. No calf tenderness. NEUROLOGICAL: Awake and alert. Motor and sensory grossly within normal limits. Normal speech. Medications and IVs Current Medications Medications (Trade) Dose Ordered Sig/Robles Route Start Time Stop Time Status Last Admin (NS Flush) 2 ml UNSCH PRN FLUSH 12/17/16 20:45 (NS Flush) 2 ml BID FLUSH 12/17/16 21:00 12/18/16 08:33 (Zofran Inj) 4 mg Q6H PRN IVP 12/17/16 20:45 (Narcan Inj) 0.4 mg UNSCH PRN IV 12/17/16 20:45 (Norvasc) 5 mg DAILY PO 12/18/16 09:00 12/18/16 08:32 (Tenormin) 50 mg DAILY PO 12/18/16 09:00 12/18/16 08:32 (Lipitor) 80 mg HS PO 12/17/16 21:00 12/17/16 22:04 (ZyrTEC) 10 mg HS PO 12/17/16 21:00 12/17/16 22:04 (Depakote Er) 500 mg DAILY PO 12/18/16 09:00 12/18/16 08:32 (Neurontin) 300 mg TID PO 12/18/16 09:00 12/18/16 18:09 ([place] 10-325 Mg) 1 tab Q6H PRN PO 12/17/16 20:45 12/18/16 17:09 (Atarax) 25 mg DAILY PO 12/18/16 09:00 12/18/16 08:32 (Prinivil) 40 mg DAILY PO 12/18/16 09:00 12/18/16 08:32 (Prezista) 800 mg DAILY PO 12/18/16 09:00 12/18/16 08:32 (Norvir) 100 mg DAILY PO 12/18/16 09:00 12/18/16 08:32 (Intelence) 200 mg BIDPC PO 12/18/16 09:00 12/18/16 18:09 A/P Problem List: (1) Anemia due to blood loss, acute ICD Code: D62 Status: Acute (2) Chronic skin ulcer of lower leg ICD Code: L97.909 Status: Chronic (3) BECKA (acute kidney injury) ICD Code: N17.9 Status: Acute (4) Left leg pain ICD Code: M79.605 Status: Acute Assessment and Plan Mr. Carbone is a 60 year-old male with a past medical history of HIV, neuropathy, diabetes mellitus, and peripheral arterial disease who presented to the hospital for bleeding from left lower extremity wound. He follows with Dr. Ramos, vascular surgeon, and Dr. Stout, automotive designer. EMS reported a large amount of blood loss at the scene. Patient is tachycardic and somewhat hypertensive in the emergency room. Oxygen saturations are 99.1% on room air. Hemoglobin dropped from 11.5 to 9.5 over 2 hours in the emergency room. Lactic acid somewhat elevated at 2.4 on admission Anemia related to acute blood loss - Hemoglobin dropped from 11.5 to 9.5 over 2 hours in the emergency room. - Continue to monitor H/H hemoglobin stable - Transfuse PRBC's for hemoglobin less than 7 or <9 if active bleeding. - Monitor vital signs - Bleeding seems to have resolved. Acute Kidney injury on CKD stage III - BUN elevated at 33, creatinine elevated at 2.13, estimated GFR low at 38 - Baseline creatinine 1.1 - 2 L of normal saline via IV bolus given in ER - Creatinine trending down - 1.3 - Avoid nephrotoxins - Continue to monitor BUN/Creatinine. - Continue IV fluids. Chronic skin ulcer of lower leg - Continue Wound care. - Cover with dry dressing. Left lower extremity pain - Check left lower extremity Doppler ultrasound DVT prophylaxis - SCDs Jamal Herron MD Dec 18, 2016 17:03
--- NOTE | 2016-12-18 17:38 | PD.CAR.PN ---
CVT Progress Note Subjective/Hospital Course: Patient known to me from previous encounters Now comes for unrelated problem off the significant volume loss and anemia Patient has known severe peripheral vascular disease Patient is noncompliant with his care and a very poor candidate for any type of surgery in face of his medical problems and noncompliance Full consult to dario Leong Objective: Vital Signs Date Time Temp Pulse Resp B/P Pulse Ox O2 Delivery O2 Flow Rate FiO2 12/18/16 16:06 97 Nasal Cannula 3.00 12/18/16 12:06 62 12/18/16 11:50 96.5 70 20 106/57 100 12/18/16 09:17 93 12/18/16 07:50 96.1 76 20 141/69 100 12/18/16 04:00 97.2 83 18 100/ 100 12/18/16 01:59 89 12/18/16 01:00 97.1 88 18 130/79 98 12/18/16 00:37 98.4 12/17/16 22:00 108 16 152/70 100 Room Air 12/17/16 20:09 99 21 12/17/16 20:00 112 16 159/75 99 Room Air 12/17/16 18:56 122 18 150/84 100 Room Air 12/17/16 18:10 100 Room Air 12/17/16 18:04 98.6 124 18 135/77 100 Result Diagram: 12/18/16 0530 12/18/16 0530 Rosita Ramos MD Dec 18, 2016 17:38
[2016-12-18] MEDS: CETIRIZINE HCL 10 MG TAB PO SCH (23:04)
[2016-12-18] MEDS: ATORVASTATIN 80 MG TAB PO SCH (23:04)
[2016-12-19] VITALS (9 sets, daily range): BP systolic 94–123; BP diastolic 46–63; PULSE 54–65; RESP 16–22; TEMP 96–98.7; O2SAT 95–100
[2016-12-19] MEDS: ACETAMINOPHEN/HYDROcodone 325 MG/10 MG TAB PO PRN ×4 (03:09→21:15)
[2016-12-19] MEDS: SODIUM CHLOR 0.9% 1000 ML INJ 1,000 ML IV SCH ×3 (03:19→21:16)
[2016-12-19] MEDS: RESP: ALBUTEROL 2.5 MG/IPRATROPIUM 0.5 MG NEB (SCH) NEB ×4 (04:09→21:34)
[2016-12-19 07:54] LABS: AUTOMATED NEUTROPHIL # 6.3 TH/MM3 (1.8-7.7); BASOPHIL # 0.1 TH/MM3 (0-0.2); BASOPHIL % 0.7 % (0.0-2.0); EOSINOPHIL # 0.6 TH/MM3 (0-0.4); EOSINOPHIL % 4.9 % (0.0-4.0); HEMATOCRIT 26.9 % (39.0-51.0); HEMO FLAGS DIFF FINAL; LYMPH % 33.6 % (9.0-44.0); LYMPHOCYTE # 4.1 TH/MM3 (1.0-4.8); MEAN CELL VOLUME 90.7 FL (80.0-100.0); MEAN CORPUSCULAR HGB CONC 33.1 % (32.0-36.0); MONO % 8.3 % (0.0-8.0); NEUT % 52.5 % (16.0-70.0); PLATELET COUNT 226 TH/MM3 (150-450); RED BLOOD COUNT 2.97 MIL/MM3 (4.50-5.90); RED CELL DISTRIBUTION WIDTH 16.8 % (11.6-17.2); WHITE BLOOD COUNT 12.1 TH/MM3 (4.0-11.0)
[2016-12-19 08:15] LABS: ALT (GPT) 22 U/L (12-78); ANION GAP 9 MEQ/L (5-15); AST (GOT) 27 U/L (15-37); BLOOD UREA NITROGEN 33 MG/DL (7-18); CHLORIDE 106 MEQ/L (98-107); GLOMERULAR FILTRATION RATE 47 ML/MIN (>89); POTASSIUM 3.7 MEQ/L (3.5-5.1); SODIUM (NA) 139 MEQ/L (136-145)
[2016-12-19 08:17] LABS: ALKALINE PHOSPHATASE 69 U/L (45-117); TOTAL BILIRUBIN ADULT 0.1 MG/DL (0.2-1.0)
[2016-12-19] MEDS: GABAPENTIN 300 MG CAP PO SCH ×3 (08:28→18:20)
[2016-12-19] MEDS: RITONAVIR 100 MG TAB PO SCH (08:28)
[2016-12-19] MEDS: DOLUTEGRAVIR SODIUM 50 MG TAB PO SCH ×2 (08:28→21:12)
[2016-12-19] MEDS: LISINOPRIL 20 MG TAB PO SCH (08:29)
[2016-12-19] MEDS: DIVALPROEX SODIUM E.R. 500 MG TAB PO SCH (08:29)
[2016-12-19] MEDS: ATENOLOL 50 MG TAB PO SCH (08:29)
[2016-12-19] MEDS: amLODIPine BESYLATE 5 MG TAB PO SCH (08:29)
[2016-12-19] MEDS: DARUNAVIR 800 MG TAB PO SCH (08:29)
[2016-12-19] MEDS: ETRAVIRINE 100 MG TAB PO SCH ×2 (08:29→18:20)
[2016-12-19] MEDS: hydrOXYzine HCL 25 MG TAB PO SCH (08:29)
[2016-12-19] MEDS: SODIUM CHLORIDE 0.9% FLUSH 5 ML FLUSH FLUSH SCH ×2 (08:30→21:00)
--- NOTE | 2016-12-19 13:18 | RADRPT ---
EXAM DATE/TIME: 12/19/2016 10:37 [place] COMPARISON: No previous studies available for comparison. INDICATIONS : Left leg pain. MEDICAL HISTORY : Hypercholesterolemia. Hypertension. HIV. Neuropathy. Transient ischemic attack. Peripheral vascula r disease. Anticoagulatn therapy. Asthma. Scrotal infection. Arthritis. Diabetes. Blood transfusion. MRSA. SURGICAL HISTORY : Left knee surgery. Bronchoscopy. Vascular surgery. ENCOUNTER: Subsequent ACUITY: 3 days PAIN SCORE: 0/10 LOCATION: Left leg. TECHNIQUE: Venous ultrasound of the leg was performed from the inguinal ligament to the proximal calf. Real-allison e, color Doppler and spectral tracing, compression and augmentation techniques were used. FINDINGS: There is normal compressibility of the deep venous system from the inguinal region to the proximal ca lf. No echogenic clot is seen in the lumen of the common femoral, femoral, popliteal, and posterior tibial veins. There is a normal response of the venous system to proximal and distal augmentation an d respiration. CONCLUSION: Negative for thrombosis.. Toan Anderson MD FACR on December 19, 2016 at 13:16 Board Certified Radiologist. This report was verified electronically.
[2016-12-19] MEDS ORDERED: SODIUM CHLORID 0.9% 500 ML INJ 500 ML IV ONE (15:30)
--- NOTE | 2016-12-19 17:21 | HHI.PR ---
Subjective Remarks no further bleeding from leg bp noted to be low with sbp in the 90's hemoglobin dropped denies cp/sob pain in left lower extremity controlled Creatinine slightly increased Objective Vitals Vital Signs Date Time Temp Pulse Resp B/P Pulse Ox O2 Delivery O2 Flow Rate FiO2 12/19/16 14:29 98.7 60 18 99/46 97 12/19/16 08:00 98.5 54 22 94/49 99 12/19/16 04:09 100 12/19/16 04:00 97.3 65 16 123/57 99 12/19/16 00:26 96.5 60 16 112/53 95 12/18/16 20:00 53 12/18/16 20:00 95.7 67 16 98/58 95 I/O 12/18/16 12/18/16 12/18/16 12/19/16 12/19/16 12/19/16 07:00 15:00 23:00 07:00 15:00 23:00 Intake Total 2000 ml 840 ml 600 ml 1320 ml Output Total 175 ml 600 ml Balance 2000 ml 665 ml 600 ml 720 ml Intake Oral 840 ml 600 ml 1320 ml IV Total 2000 ml Output Urine Total 175 ml 600 ml # Voids 2 1 # Bowel Movements 1 0 Result Diagram: 12/19/16 0710 12/19/16 0710 Imaging Last Impressions Lower Extremity Ultrasound 12/19/16 0000 Signed Impressions: Service Date/Time: Monday, December 19, 2016 10:37 - CONCLUSION: Negative for thrombosis.. Toan Anderson MD FACR Objective Remarks GENERAL: This is a well-nourished, well-developed patient, in no apparent distress. SKIN: No rashes, ecchymoses or lesions. Cool and dry. Left lower extremity is dressed and covered - Dressing is C/D/I HEAD: Atraumatic. Normocephalic. EYES: No scleral icterus. No injection or drainage. ENT: Nose without bleeding, purulent drainage. NECK: Trachea midline. No JVD or lymphadenopathy. CARDIOVASCULAR: Regular rate and rhythm without murmurs, gallops, or rubs. Left lower extremity from knee down with changes consistent with peripheral vascular disease. RESPIRATORY: Clear to auscultation. Breath sounds equal bilaterally. No wheezes , rales, or rhonchi. GASTROINTESTINAL: Abdomen soft, non-tender, nondistended. No guarding. MUSCULOSKELETAL: Extremities without clubbing, cyanosis, or edema. No calf tenderness. NEUROLOGICAL: Awake and alert. Motor and sensory grossly within normal limits. Normal speech. Medications and IVs Current Medications Medications (Trade) Dose Ordered Sig/Robles Route Start Time Stop Time Status Last Admin (NS Flush) 2 ml UNSCH PRN FLUSH 12/17/16 20:45 (NS Flush) 2 ml BID FLUSH 12/17/16 21:00 12/19/16 08:30 (Zofran Inj) 4 mg Q6H PRN IVP 12/17/16 20:45 (Narcan Inj) 0.4 mg UNSCH PRN IV 12/17/16 20:45 (Norvasc) 5 mg DAILY PO 12/18/16 09:00 12/19/16 08:29 (Tenormin) 50 mg DAILY PO 12/18/16 09:00 Hold 12/19/16 08:29 (Lipitor) 80 mg HS PO 12/17/16 21:00 12/18/16 23:04 (ZyrTEC) 10 mg HS PO 12/17/16 21:00 12/18/16 23:04 (Depakote Er) 500 mg DAILY PO 12/18/16 09:00 12/19/16 08:29 (Neurontin) 300 mg TID PO 12/18/16 09:00 12/19/16 13:31 ([place] 10-325 Mg) 1 tab Q6H PRN PO 12/17/16 20:45 12/19/16 13:32 (Atarax) 25 mg DAILY PO 12/18/16 09:00 12/19/16 08:29 (Prinivil) 40 mg DAILY PO 12/18/16 09:00 Hold 12/19/16 08:29 (Prezista) 800 mg DAILY PO 12/18/16 09:00 12/19/16 08:29 (Norvir) 100 mg DAILY PO 12/18/16 09:00 12/19/16 08:28 Etravirine 200 mg 200 mg BIDPC PO 12/18/16 09:00 12/19/16 08:29 (NS 1000 ml Inj) 1,000 ml @ 84 mls/hr [id number] IV 12/18/16 20:45 12/19/16 14:40 Urinary Catheter: No Vascular Central Line Catheter: No A/P Problem List: (1) Anemia due to blood loss, acute ICD Code: D62 Status: Acute (2) Chronic skin ulcer of lower leg ICD Code: L97.909 Status: Chronic (3) BECKA (acute kidney injury) ICD Code: N17.9 Status: Acute (4) Left leg pain ICD Code: M79.605 Status: Acute Assessment and Plan Mr. Carbone is a 60 year-old male with a past medical history of HIV, neuropathy, diabetes mellitus, and peripheral arterial disease who presented to the hospital for bleeding from left lower extremity wound. He follows with Dr. Ramos, vascular surgeon, and Dr. Stout, switchbox assembler. EMS reported a large amount of blood loss at the scene. Patient is tachycardic and somewhat hypertensive in the emergency room. Oxygen saturations are 99.1% on room air. Hemoglobin dropped from 11.5 to 9.5 over 2 hours in the emergency room. Lactic acid somewhat elevated at 2.4 on admission Anemia related to acute blood loss - Hemoglobin dropped from 11.5 to 9.5 over 2 hours in the emergency room. - Continue to monitor H/H hemoglobin stable - Transfuse PRBC's for hemoglobin less than 7 or <9 if active bleeding. - Monitor vital signs - Bleeding seems to have resolved. - 12/19 Hemoglobin dropped down to 8.9 but no signs of active bleeding or bleeding reported. Acute Kidney injury on CKD stage III - BUN elevated at 33, creatinine elevated at 2.13, estimated GFR low at 38 - Baseline creatinine 1.1 - 2 L of normal saline via IV bolus given in ER - Creatinine trending down - 1.3 - Avoid nephrotoxins - Continue to monitor BUN/Creatinine. - Continue IV fluids - Will give a bolus of IV normal saline due to hypotension. Chronic skin ulcer of lower leg - Continue Wound care. - Cover with dry dressing. Left lower extremity pain - Check left lower extremity Doppler ultrasound - negative for DVT Hypotension - No signs of active bleeding. Hold bp medications and will give a bolus of normal saline. continue to monitor vital signs. DVT prophylaxis - SCDs Discharge Planning Pending improvement of hypotension, BECKA, and vascular surgery consult. Jamal Herron MD Dec 19, 2016 17:21
--- NOTE | 2016-12-19 18:48 | PD.CAR.PN ---
CVT Progress Note Subjective/Hospital Course: Patient known to me from previous encounters Now comes for unrelated problem off the significant volume loss and anemia Patient has known severe peripheral vascular disease Patient is noncompliant with his care and a very poor candidate for any type of surgery in face of his medical problems and noncompliance Full consult to follow Heath Leong 12/19/2016 Patient will need CTA with runoff to evaluate current situation. Old CTA done elsewhere revealed bilateral SFA occlusions and inflow problems bilateral left more than right With the infected wound on the leg is not a candidate for femoropopliteal bypass at this time and with elevated creatinine I would not administered the dye to do CTA I will order a CTA with a runoff once creatinine has normalized and then we'll see what his left to be done in if this is something we can maybe do percutaneously to minimize the chance of infections Placing the femoropopliteal graft in this infected environment would be looking for catastrophe and should be avoided at any cost Continue follow patient Objective: Vital Signs Date Time Temp Pulse Resp B/P Pulse Ox O2 Delivery O2 Flow Rate FiO2 12/19/16 16:00 97.1 64 20 106/50 98 12/19/16 14:29 98.7 60 18 99/46 97 12/19/16 08:00 98.5 54 22 94/49 99 12/19/16 04:09 100 12/19/16 04:00 97.3 65 16 123/57 99 12/19/16 00:26 96.5 60 16 112/53 95 12/18/16 20:00 53 12/18/16 20:00 95.7 67 16 98/58 95 Labs: Laboratory Tests Test 12/19/16 12/19/16 07:10 08:30 White Blood Count 12.1 TH/MM3 (4.0-11.0) Red Blood Count 2.97 MIL/MM3 (4.50-5.90) Hemoglobin 8.9 GM/DL (13.0-17.0) Hematocrit 26.9 % (39.0-51.0) Mean Corpuscular Volume 90.7 FL (80.0-100.0) Mean Corpuscular Hemoglobin 30.0 PG (27.0-34.0) Mean Corpuscular Hemoglobin 33.1 % Concent (32.0-36.0) Red Cell Distribution Width 16.8 % (11.6-17.2) Platelet Count 226 TH/MM3 (150-450) Mean Platelet Volume 9.0 FL (7.0-11.0) Neutrophils (%) (Auto) 52.5 % (16.0-70.0) Lymphocytes (%) (Auto) 33.6 % (9.0-44.0) Monocytes (%) (Auto) 8.3 % (0.0-8.0) Eosinophils (%) (Auto) 4.9 % (0.0-4.0) Basophils (%) (Auto) 0.7 % (0.0-2.0) Neutrophils # (Auto) 6.3 TH/MM3 (1.8-7.7) Lymphocytes # (Auto) 4.1 TH/MM3 (1.0-4.8) Monocytes # (Auto) 1.0 TH/MM3 (0-0.9) Eosinophils # (Auto) 0.6 TH/MM3 (0-0.4) Basophils # (Auto) 0.1 TH/MM3 (0-0.2) CBC Comment DIFF FINAL Differential Comment Sodium Level 139 MEQ/L (136-145) Potassium Level 3.7 MEQ/L (3.5-5.1) Chloride Level 106 MEQ/L (98-107) Carbon Dioxide Level 24.0 MEQ/L (21.0-32.0) Anion Gap 9 MEQ/L (5-15) Blood Urea Nitrogen 33 MG/DL (7-18) Creatinine 1.77 MG/DL (0.60-1.30) Estimat Glomerular Filtration 47 ML/MIN (>89) Rate Random Glucose 95 MG/DL (74-106) Calcium Level 8.8 MG/DL (8.5-10.1) Total Bilirubin 0.1 MG/DL (0.2-1.0) Aspartate Amino Transf 27 U/L (15-37) (AST/SGOT) Alanine Aminotransferase 22 U/L (12-78) (ALT/SGPT) Alkaline Phosphatase 69 U/L (45-117) Total Protein 6.5 GM/DL (6.4-8.2) Albumin 3.3 GM/DL (3.4-5.0) Nasal Screen MRSA (PCR) NEGATIVE (NEGATIVE) Result Diagram: 12/19/16 0710 12/19/16709 Rosita Ramos MD Dec 19, 2016 18:48
--- NOTE | 2016-12-19 20:19 | MB ---
cc: ROSITA YANG MD DATE OF CONSULTATION 12/18/2016 REASON FOR CONSULTATION Peripheral vascular disease both legs, left more than right HISTORY OF PRESENT ILLNESS This 61 year old gentleman is known to me from previous encounters. He was initially seen in the last year when he presented to the ER with ischemia of both legs. At that time, the patient has scrotal drainage and pustulous rash over both extremities and abdomen. The patient was at the time apparently being seen by a physician in [place], did not want any care here and said he was going to go to [facility] to be seen. I do not know what came out of that. Since then, the patient had come several times to te emergency room and I was called at least once to see the patient, but at that time he had also scrotal drainage. He has never followed up with dermatology. Several attempts to reach him were unsuccessful. Since the arrival to that emergency room, I again tried to reach the patient several times for followup on the phone, but no our office could never reach him so he was finally sent a letter I think came back undelivered. Now the patient comes with bleeding from his left leg wound. Question arises about vascular issues. PAST MEDICAL HISTORY 1. HIV for about 20 years. 2. Multidrug resistant organisms and scrotal abscess and blood in April 2015 and then June and July 2016 as well as MRSA 3. Severe peripheral vascular disease 4. Neuropathy 5. Hypercholesteremia, 6. Hypertension. 7. TIA, 8. Asthma 9. Very serious noncompliance with medical care MEDICATIONS Can be found on the record PHYSICAL EXAMINATION GENERAL: A 61-year-old male in no acute distress. HEENT: Normocephalic. No trauma to the head. Pupils equally reactive. Extraocular muscles intact. NECK: Bilateral carotid pulses. No bruits. CHEST: Bilateral breath sounds decreased over both lung shukla consistent with some degree of COPD. ABDOMEN: Soft. No rebound or guarding. No masses. EXTREMITIES: The patient has barely palpable femoral pulses. There is a weak left femoral pulse on Doppler and on the right A little stronger, but again takes awhile to find. Dorsalis pedis and posterior tibial pulses are actually weak but dopplerable +1. Patient has chronic venostasis, chronic venous insufficiency with liposclerosis, hemosiderosis and organized edema. On the left calf, there is a nonhealing ulcer residential at the calf. While I was talking the patient was picking on this ulcer where he took down the dressing. He has dependent rubor and elevation pallor in both legs. The CTA with runoff in the past revealed bilateral SFA occlusions and inflow stenosis more prominent in the external iliac on the left. RECOMMENDATIONS In the best of circumstances, this gentleman should have bilateral femoral-popliteal bypasses, left first then right and also external iliac endarterectomy probably stenting. There are several issues that are contrary to this approach. First of all, the patient has elevated creatinine and BUN and administration of significant amount of dye with CTA and then later on the surgery could further damage his kidneys so every effort should be made to bring the creatinine down to start with. At that point, we will order CTA with runoff to see what his situation is now like. The patient has nonhealing wounds which have grown MRSA multidrug resistant organisms in the past and doing bypass in that environment is asking for catastrophe. Therefore, the patient would not be a candidate for graft. He does not have a vein that could be used live. so at this point we are somewhat limited with what we can do. To summarize it, we have to wait until the patient's creatinine comes down to do CTA and see if anything can be done percutaneously which would put the least risk on this patient. There is a very high chance that he will lose his left leg from the combination of vascular disease, noncompliance with care and chronic infections. Thank you much for referral. Rosita MEJIA /6:41 PM /7:57 PM
[2016-12-19] MEDS: ATORVASTATIN 80 MG TAB PO SCH (21:12)
[2016-12-19] MEDS: CETIRIZINE HCL 10 MG TAB PO SCH (21:13)
[2016-12-20] VITALS (12 sets, daily range): BP systolic 117–156; BP diastolic 60–73; PULSE 70–80; RESP 16–20; TEMP 96.7–98.1; O2SAT 96–100
[2016-12-20] MEDS: ACETAMINOPHEN/HYDROcodone 325 MG/10 MG TAB PO PRN ×6 (00:53→23:46)
[2016-12-20] MEDS: RESP: ALBUTEROL 2.5 MG/IPRATROPIUM 0.5 MG NEB (SCH) NEB ×5 (03:51→22:29)
[2016-12-20] MEDS: GABAPENTIN 300 MG CAP PO SCH ×3 (08:29→16:52)
[2016-12-20] MEDS: DIVALPROEX SODIUM E.R. 500 MG TAB PO SCH (08:29)
[2016-12-20] MEDS: ETRAVIRINE 100 MG TAB PO SCH ×2 (08:29→16:51)
[2016-12-20] MEDS: RITONAVIR 100 MG TAB PO SCH (08:29)
[2016-12-20] MEDS: amLODIPine BESYLATE 5 MG TAB PO SCH (08:30)
[2016-12-20] MEDS: hydrOXYzine HCL 25 MG TAB PO SCH (08:30)
[2016-12-20] MEDS: DARUNAVIR 800 MG TAB PO SCH (08:30)
[2016-12-20] MEDS: DOLUTEGRAVIR SODIUM 50 MG TAB PO SCH ×2 (08:30→21:09)
[2016-12-20] MEDS: SODIUM CHLORIDE 0.9% FLUSH 5 ML FLUSH FLUSH SCH ×2 (08:32→21:09)
[2016-12-20] MEDS: SODIUM CHLOR 0.9% 1000 ML INJ 1,000 ML IV SCH (08:32)
[2016-12-20 11:34] LABS: BASOPHIL % 0.4 % (0.0-2.0); EOSINOPHIL # 0.6 TH/MM3 (0-0.4); EOSINOPHIL % 5.5 % (0.0-4.0); HEMATOCRIT 23.8 % (39.0-51.0); HEMO FLAGS DIFF FINAL; LYMPH % 28.5 % (9.0-44.0); LYMPHOCYTE # 2.9 TH/MM3 (1.0-4.8); MEAN CELL VOLUME 90.6 FL (80.0-100.0); MEAN CORPUSCULAR HEMOGLOBIN 30.6 PG (27.0-34.0); MEAN CORPUSCULAR HGB CONC 33.8 % (32.0-36.0); MONO % 7.5 % (0.0-8.0); NEUT % 58.1 % (16.0-70.0); PLATELET COUNT 207 TH/MM3 (150-450); RED BLOOD COUNT 2.63 MIL/MM3 (4.50-5.90); RED CELL DISTRIBUTION WIDTH 16.5 % (11.6-17.2); WHITE BLOOD COUNT 10.3 TH/MM3 (4.0-11.0)
[2016-12-20 11:47] LABS: PROTHROMBIN TIME - PATIENT 11.3 SEC (9.8-11.6)
[2016-12-20 12:03] LABS: ALKALINE PHOSPHATASE 78 U/L (45-117); ALT (GPT) 29 U/L (12-78); ANION GAP 9 MEQ/L (5-15); AST (GOT) 40 U/L (15-37); BICARBONATE 25.5 MEQ/L (21.0-32.0); BLOOD UREA NITROGEN 21 MG/DL (7-18); CHLORIDE 106 MEQ/L (98-107); GLOMERULAR FILTRATION RATE 79 ML/MIN (>89); MAGNESIUM 1.9 MG/DL (1.5-2.5); SODIUM (NA) 140 MEQ/L (136-145); TOTAL BILIRUBIN ADULT 0.1 MG/DL (0.2-1.0)
--- NOTE | 2016-12-20 16:04 | HHI.PR ---
Subjective Remarks Patient c/o pain in left lower extremity denies cp/sob denies fevers or chills states her pain medication does not last enough Objective Vitals Vital Signs Date Time Temp Pulse Resp B/P Pulse Ox O2 Delivery O2 Flow Rate FiO2 12/20/16 15:09 75 12/20/16 12:00 97.2 79 16 140/64 100 12/20/16 11:51 75 12/20/16 11:45 100 21 12/20/16 08:38 99 21 12/20/16 08:00 96.7 75 16 156/73 97 12/20/16 04:00 98.1 76 18 132/60 98 12/20/16 03:53 99 21 12/20/16 00:00 98.1 70 18 117/60 99 12/19/16 21:36 98 21 12/19/16 20:05 63 12/19/16 20:00 96.0 63 19 117/63 100 12/19/16 16:00 97.1 64 20 106/50 98 I/O 12/19/16 12/19/16 12/19/16 12/20/16 12/20/16 12/20/16 07:00 15:00 23:00 07:00 15:00 23:00 Intake Total 600 ml 1320 ml 480 ml 480 ml Output Total 600 ml 500 ml 700 ml Balance 600 ml 720 ml -20 ml -220 ml Intake Oral 600 ml 1320 ml 480 ml 480 ml Output Urine Total 600 ml 500 ml 700 ml # Voids 2 1 # Bowel Movements 0 Result Diagram: 12/20/16 1120 12/20/16 1120 Imaging Last Impressions Lower Extremity Ultrasound 12/19/16 0000 Signed Impressions: Service Date/Time: Monday, December 19, 2016 10:37 - CONCLUSION: Negative for thrombosis.. Toan Anderson MD FACR Objective Remarks GENERAL: This is a well-nourished, well-developed patient, in no apparent distress. SKIN: No rashes, ecchymoses or lesions. Cool and dry. Left lower extremity is dressed and covered - Dressing is C/D/I HEAD: Atraumatic. Normocephalic. EYES: No scleral icterus. No injection or drainage. ENT: Nose without bleeding, purulent drainage. NECK: Trachea midline. No JVD or lymphadenopathy. CARDIOVASCULAR: Regular rate and rhythm without murmurs, gallops, or rubs. Left lower extremity from knee down with changes consistent with peripheral vascular disease. RESPIRATORY: Clear to auscultation. Breath sounds equal bilaterally. No wheezes , rales, or rhonchi. GASTROINTESTINAL: Abdomen soft, non-tender, nondistended. No guarding. MUSCULOSKELETAL: Extremities without clubbing, cyanosis, or edema. No calf tenderness. NEUROLOGICAL: Awake and alert. Motor and sensory grossly within normal limits. Normal speech. Medications and IVs Current Medications Medications (Trade) Dose Ordered Sig/Robles Route Start Time Stop Time Status Last Admin (NS Flush) 2 ml UNSCH PRN FLUSH 12/17/16 20:45 (NS Flush) 2 ml BID FLUSH 12/17/16 21:00 12/19/16 08:30 (Zofran Inj) 4 mg Q6H PRN IVP 12/17/16 20:45 (Narcan Inj) 0.4 mg UNSCH PRN IV 12/17/16 20:45 (Norvasc) 5 mg DAILY PO 12/18/16 09:00 12/20/16 08:30 (Tenormin) 50 mg DAILY PO 12/18/16 09:00 Hold 12/19/16 08:29 (Lipitor) 80 mg HS PO 12/17/16 21:00 12/19/16 21:12 (ZyrTEC) 10 mg HS PO 12/17/16 21:00 12/19/16 21:13 (Depakote Er) 500 mg DAILY PO 12/18/16 09:00 12/20/16 08:29 (Neurontin) 300 mg TID PO 12/18/16 09:00 12/20/16 12:26 ([place] 10-325 Mg) 1 tab Q6H PRN PO 12/17/16 20:45 12/20/16 09:39 (Atarax) 25 mg DAILY PO 12/18/16 09:00 12/20/16 08:30 (Prinivil) 40 mg DAILY PO 12/18/16 09:00 Hold 12/19/16 08:29 (Prezista) 800 mg DAILY PO 12/18/16 09:00 12/20/16 08:30 (Norvir) 100 mg DAILY PO 12/18/16 09:00 12/20/16 08:29 Etravirine 200 mg 200 mg BIDPC PO 12/18/16 09:00 12/20/16 08:29 (NS 1000 ml Inj) 1,000 ml @ 84 mls/hr [id number] IV 12/18/16 20:45 12/20/16 08:32 Urinary Catheter: No Vascular Central Line Catheter: No A/P Problem List: (1) Anemia due to blood loss, acute ICD Code: D62 Status: Acute (2) Chronic skin ulcer of lower leg ICD Code: L97.909 Status: Chronic (3) BECKA (acute kidney injury) ICD Code: N17.9 Status: Resolved (4) Left leg pain ICD Code: M79.605 Status: Chronic (5) Peripheral vascular disease ICD Code: I73.9 Status: Chronic Plan: appreciate recommendations by Dr Peng from vascular surgery. as per vascular surgery the patient will need CTA with runoff to evaluate current situation. Old CTA done elsewhere revealed bilateral SFA occlusions and inflow problems bilateral left more than right Assessment and Plan Mr. Carbone is a 60 year-old male with a past medical history of HIV, neuropathy, diabetes mellitus, and peripheral arterial disease who presented to the hospital for bleeding from left lower extremity wound. He follows with Dr. Ramos, vascular surgeon, and Dr. Stout, care manager cna. EMS reported a large amount of blood loss at the scene. Patient is tachycardic and somewhat hypertensive in the emergency room. Oxygen saturations are 99.1% on room air. Hemoglobin dropped from 11.5 to 9.5 over 2 hours in the emergency room. Lactic acid somewhat elevated at 2.4 on admission Anemia related to acute blood loss - Hemoglobin dropped from 11.5 to 9.5 over 2 hours in the emergency room. - Continue to monitor H/H hemoglobin stable - Transfuse PRBC's for hemoglobin less than 7 or <9 if active bleeding. - Monitor vital signs - Bleeding seems to have resolved. - 12/19 Hemoglobin dropped down to 8.9 but no signs of active bleeding or bleeding reported. - 12/20 Hemoglobin keeps dropping 8.9 - 8.1- no active signs of bleeding. Possibly dilutional since patient is on IV fluids. Continue to monitor H/H. Transfuse as per above mentioned parameters. Acute Kidney injury on CKD stage III - BUN elevated at 33, creatinine elevated at 2.13, estimated GFR low at 38 - Baseline creatinine 1.1 - 2 L of normal saline via IV bolus given in ER - sp a bolus of IV normal saline on 12/19 due to hypotension. - 12/20 BECKA resolved, down to baseline creatinine at 1.14. Will DC IV fluids. Chronic skin ulcer of lower leg - Continue Wound care. - Cover with dry dressing. Left lower extremity pain - Check left lower extremity Doppler ultrasound - negative for DVT Hypotension - No signs of active bleeding. - Patient is sp a bolus of IV normal saline DVT prophylaxis - SCDs Discharge Planning Pending CTA evaluation by vascular surgery. Jamal Herron MD Dec 20, 2016 16:04
[2016-12-20] MEDS ORDERED: ACETAMINOPHEN/HYDROcodone 325 MG/10 MG TAB PO ONE (21:00)
[2016-12-20] MEDS: CETIRIZINE HCL 10 MG TAB PO SCH (21:09)
[2016-12-20] MEDS: ATORVASTATIN 80 MG TAB PO SCH (21:09)
[2016-12-21] VITALS (9 sets, daily range): BP systolic 139–160; BP diastolic 63–78; PULSE 69–95; RESP 16–18; TEMP 97.2–98.6; O2SAT 98–99
[2016-12-21] MEDS ORDERED: DOCUSATE SODIUM 100 MG CAP PO ONE (02:00)
[2016-12-21] MEDS: ACETAMINOPHEN/HYDROcodone 325 MG/10 MG TAB PO PRN ×3 (05:16→18:50)
[2016-12-21] MEDS: RITONAVIR 100 MG TAB PO SCH (07:42)
[2016-12-21] MEDS: GABAPENTIN 300 MG CAP PO SCH ×3 (07:42→17:48)
[2016-12-21] MEDS: DARUNAVIR 800 MG TAB PO SCH (07:42)
[2016-12-21] MEDS: hydrOXYzine HCL 25 MG TAB PO SCH (07:42)
[2016-12-21] MEDS: ETRAVIRINE 100 MG TAB PO SCH ×2 (07:42→17:49)
[2016-12-21] MEDS: DIVALPROEX SODIUM E.R. 500 MG TAB PO SCH (07:42)
[2016-12-21] MEDS: amLODIPine BESYLATE 5 MG TAB PO SCH (07:43)
[2016-12-21] MEDS: SODIUM CHLORIDE 0.9% FLUSH 5 ML FLUSH FLUSH SCH ×2 (09:00→20:00)
[2016-12-21] MEDS: DOLUTEGRAVIR SODIUM 50 MG TAB PO SCH ×2 (09:08→20:00)
[2016-12-21] MEDS: RESP: ALBUTEROL 2.5 MG/IPRATROPIUM 0.5 MG NEB (SCH) NEB ×3 (10:35→19:06)
[2016-12-21 10:48] LABS: HEMATOCRIT 24.1 % (39.0-51.0); MEAN CELL VOLUME 90.7 FL (80.0-100.0); MEAN CORPUSCULAR HEMOGLOBIN 29.9 PG (27.0-34.0); MEAN CORPUSCULAR HGB CONC 32.9 % (32.0-36.0); PLATELET COUNT 219 TH/MM3 (150-450); RED BLOOD COUNT 2.66 MIL/MM3 (4.50-5.90); RED CELL DISTRIBUTION WIDTH 16.8 % (11.6-17.2); REVIEW FLAG FINAL; WHITE BLOOD COUNT 11.5 TH/MM3 (4.0-11.0)
[2016-12-21 11:04] LABS: BICARBONATE 27.7 MEQ/L (21.0-32.0)
--- NOTE | 2016-12-21 17:31 | PD.CAR.PN ---
CVT Progress Note Subjective/Hospital Course: Patient known to me from previous encounters Now comes for unrelated problem off the significant volume loss and anemia Patient has known severe peripheral vascular disease Patient is noncompliant with his care and a very poor candidate for any type of surgery in face of his medical problems and noncompliance Full consult to follow Heath Leong 12/19/2016 Patient will need CTA with runoff to evaluate current situation. Old CTA done elsewhere revealed bilateral SFA occlusions and inflow problems bilateral left more than right With the infected wound on the leg is not a candidate for femoropopliteal bypass at this time and with elevated creatinine I would not administered the dye to do CTA I will order a CTA with a runoff once creatinine has normalized and then we'll see what his left to be done in if this is something we can maybe do percutaneously to minimize the chance of infections Placing the femoropopliteal graft in this infected environment would be looking for catastrophe and should be avoided at any cost Continue follow patient 12/21/16 Patient with severe peripheral vascular disease who was not a candidate for any invasive procedure because of comorbidities including the maculopapular rash deemed to be staph This has now resolved Patient still has wounds on his leg but these are far away from the site of surgery so in order to save the patient's left leg this will be the only option. There is still significant risk of graft infection and off limb loss and have explained this to the patient We will do CTA with a runoff and see if patient has reconstructable disease or perhaps changes that can be addressed with some endovascular balloon angioplasty and stenting CTA pending. Objective: Vital Signs Date Time Temp Pulse Resp B/P Pulse Ox O2 Delivery O2 Flow Rate FiO2 12/21/16 16:00 98.1 89 16 147/74 98 12/21/16 12:00 97.4 78 16 145/78 99 12/21/16 10:40 98 21 12/21/16 10:15 69 12/21/16 08:00 98.5 74 16 144/66 98 12/21/16 06:16 18 12/21/16 00:20 98.6 82 18 139/63 99 12/20/16 22:30 96 21 12/20/16 20:00 96.8 78 20 150/70 98 12/20/16 20:00 74 Labs: Laboratory Tests Test 12/21/16 09:51 White Blood Count 11.5 TH/MM3 (4.0-11.0) Red Blood Count 2.66 MIL/MM3 (4.50-5.90) Hemoglobin 8.0 GM/DL (13.0-17.0) Hematocrit 24.1 % (39.0-51.0) Mean Corpuscular Volume 90.7 FL (80.0-100.0) Mean Corpuscular Hemoglobin 29.9 PG (27.0-34.0) Mean Corpuscular Hemoglobin 32.9 % Concent (32.0-36.0) Red Cell Distribution Width 16.8 % (11.6-17.2) Platelet Count 219 TH/MM3 (150-450) Mean Platelet Volume 8.7 FL (7.0-11.0) Sodium Level 140 MEQ/L (136-145) Potassium Level 4.0 MEQ/L (3.5-5.1) Chloride Level 103 MEQ/L (98-107) Carbon Dioxide Level 27.7 MEQ/L (21.0-32.0) Anion Gap 9 MEQ/L (5-15) Blood Urea Nitrogen 19 MG/DL (7-18) Creatinine 1.17 MG/DL (0.60-1.30) Estimat Glomerular Filtration 77 ML/MIN (>89) Rate Random Glucose 88 MG/DL (74-106) Calcium Level 9.4 MG/DL (8.5-10.1) Result Diagram: 12/21/16 0951 12/21/16 0951 Rosita Ramos MD Dec 21, 2016 17:31
[2016-12-21] MEDS ORDERED: IOHEXOL 350 MG/ML 10 ML VIAL (for RAD DIAG) IV ONE (19:44)
[2016-12-21] MEDS: ATORVASTATIN 80 MG TAB PO SCH (20:00)
[2016-12-21] MEDS: CETIRIZINE HCL 10 MG TAB PO SCH (20:00)
--- NOTE | 2016-12-21 23:27 | HHI.PR ---
Subjective Remarks VS stable Patient states that he still has pain somewhat controlled with pain medications good urine output Objective Vitals Vital Signs Date Time Temp Pulse Resp B/P Pulse Ox O2 Delivery O2 Flow Rate FiO2 12/21/16 20:00 97.2 94 17 160/76 98 12/21/16 19:50 18 12/21/16 19:06 98 21 12/21/16 16:00 98.1 89 16 147/74 98 12/21/16 12:00 97.4 78 16 145/78 99 12/21/16 10:40 98 21 12/21/16 10:15 69 12/21/16 08:00 98.5 74 16 144/66 98 12/21/16 00:20 98.6 82 18 139/63 99 I/O 12/20/16 12/20/16 12/20/16 12/21/16 12/21/16 12/21/16 07:00 15:00 23:00 07:00 15:00 23:00 Intake Total 480 ml 600 ml 480 ml Output Total 700 ml 700 ml 400 ml Balance -220 ml -100 ml -400 ml 480 ml Intake Oral 480 ml 600 ml 480 ml IV Total 0 ml Output Urine Total 700 ml 700 ml 400 ml # Voids 4 # Bowel Movements 0 Result Diagram: 12/21/16 0951 12/21/16 0951 Imaging Last Impressions Lower Extremity Ultrasound 12/19/16 0000 Signed Impressions: Service Date/Time: Monday, December 19, 2016 10:37 - CONCLUSION: Negative for thrombosis.. Toan Anderson MD FACR Objective Remarks GENERAL: This is a well-nourished, well-developed patient, in no apparent distress. SKIN: No rashes, ecchymoses or lesions. Cool and dry. Left lower extremity is dressed and covered - Dressing is C/D/I HEAD: Atraumatic. Normocephalic. EYES: No scleral icterus. No injection or drainage. ENT: Nose without bleeding, purulent drainage. NECK: Trachea midline. No JVD or lymphadenopathy. CARDIOVASCULAR: Regular rate and rhythm without murmurs, gallops, or rubs. Left lower extremity from knee down with changes consistent with peripheral vascular disease. RESPIRATORY: Clear to auscultation. Breath sounds equal bilaterally. No wheezes , rales, or rhonchi. GASTROINTESTINAL: Abdomen soft, non-tender, nondistended. No guarding. MUSCULOSKELETAL: Extremities without clubbing, cyanosis, or edema. No calf tenderness. NEUROLOGICAL: Awake and alert. Motor and sensory grossly within normal limits. Normal speech. Urinary Catheter: No Vascular Central Line Catheter: No A/P Problem List: (1) Anemia due to blood loss, acute ICD Code: D62 Status: Acute (2) Chronic skin ulcer of lower leg ICD Code: L97.909 Status: Chronic (3) BECKA (acute kidney injury) ICD Code: N17.9 Status: Resolved (4) Left leg pain ICD Code: M79.605 Status: Chronic (5) Peripheral vascular disease ICD Code: I73.9 Status: Chronic Plan: appreciate recommendations by Dr Peng from vascular surgery. as per vascular surgery the patient will need CTA with runoff to evaluate current situation. Old CTA done elsewhere revealed bilateral SFA occlusions and inflow problems bilateral left more than right 12/[address] Peng - Will order CTA with runoff ordered. Assessment and Plan Mr. Carbone is a 60 year-old male with a past medical history of HIV, neuropathy, diabetes mellitus, and peripheral arterial disease who presented to the hospital for bleeding from left lower extremity wound. He follows with Dr. Ramos, vascular surgeon, and Dr. Stout, medical dir. EMS reported a large amount of blood loss at the scene. Patient is tachycardic and somewhat hypertensive in the emergency room. Oxygen saturations are 99.1% on room air. Hemoglobin dropped from 11.5 to 9.5 over 2 hours in the emergency room. Lactic acid somewhat elevated at 2.4 on admission Anemia related to acute blood loss - Hemoglobin dropped from 11.5 to 9.5 over 2 hours in the emergency room. - Continue to monitor H/H hemoglobin stable - Transfuse PRBC's for hemoglobin less than 7 or <9 if active bleeding. - Monitor vital signs - Bleeding seems to have resolved. - 12/19 Hemoglobin dropped down to 8.9 but no signs of active bleeding or bleeding reported. - 12/20 Hemoglobin keeps dropping 8.9 - 8.1- no active signs of bleeding. Possibly dilutional since patient is on IV fluids. Continue to monitor H/H. Transfuse as per above mentioned parameters. - 12/21 Hemoglobin 8.0 Acute Kidney injury on CKD stage III - BUN elevated at 33, creatinine elevated at 2.13, estimated GFR low at 38 - Baseline creatinine 1.1 - 2 L of normal saline via IV bolus given in ER - sp a bolus of IV normal saline on 12/19 due to hypotension. - 12/20 BECKA resolved, down to baseline creatinine at 1.14. Will DC IV fluids. Chronic skin ulcer of lower leg - Continue Wound care. - Cover with dry dressing. Left lower extremity pain - Check left lower extremity Doppler ultrasound - negative for DVT Hypotension - No signs of active bleeding. - Patient is sp a bolus of IV normal saline DVT prophylaxis - SCDs Discharge Planning Pending CTA evaluation by vascular surgery. Jamal Herron MD Dec 21, 2016 23:27
[2016-12-22] VITALS (7 sets, daily range): BP systolic 129–167; BP diastolic 64–83; PULSE 83–93; RESP 17–18; TEMP 97.1–98.4; O2SAT 18–100
[2016-12-22] MEDS: ACETAMINOPHEN/HYDROcodone 325 MG/10 MG TAB PO PRN ×5 (00:14→22:22)
[2016-12-22] MEDS: hydrOXYzine HCL 25 MG TAB PO SCH (09:44)
[2016-12-22] MEDS: RITONAVIR 100 MG TAB PO SCH (09:44)
[2016-12-22] MEDS: DIVALPROEX SODIUM E.R. 500 MG TAB PO SCH (09:44)
[2016-12-22] MEDS: ETRAVIRINE 100 MG TAB PO SCH ×2 (09:44→18:16)
[2016-12-22] MEDS: DARUNAVIR 800 MG TAB PO SCH (09:44)
[2016-12-22] MEDS: SODIUM CHLORIDE 0.9% FLUSH 5 ML FLUSH FLUSH SCH ×2 (09:44→21:22)
[2016-12-22] MEDS: DOLUTEGRAVIR SODIUM 50 MG TAB PO SCH ×2 (09:44→21:23)
[2016-12-22] MEDS: GABAPENTIN 300 MG CAP PO SCH ×3 (09:44→18:15)
--- NOTE | 2016-12-22 11:53 | RADRPT ---
EXAM DATE/TIME: 12/21/2016 19:38 [facility] COMPARISON: CT ABDOMEN & PELVIS W CONTRAST, May 20, 2015, 3:39. INDICATIONS : Severe peripheral vascular disease. IV CONTRAST: 96 cc Omnipaque 350 (iohexol) IV RADIATION DOSE: 11.34 CTDIvol (mGy) MEDICAL HISTORY : Stroke. HIV. Hypertension.diabetes SURGICAL HISTORY : None. ENCOUNTER: Initial ACUITY: 1 day PAIN SCALE: 7/10 LOCATION: Left leg TECHNIQUE: Volumetric scanning was performed using a multi-row detector CT scanner. The data was post processed with a variety of visualization algorithms including full volume maximum intensity projection, multi -planar sliding thin slab reformation, curved planar reformation, and surface rendering techniques. Using automated exposure control and adjustment of the mA and/or kV according to patient size, radiat ion dose was kept as low as reasonably achievable to obtain optimal diagnostic quality images. FINDINGS: Abdominal aorta: The celiac and SMA origins are adequate in caliber. There are single renal arteries bilaterally. The renal arteries are widely patent. The infrarenal aorta is diseased but adequate in caliber. The [place] i s patent. Pelvis: There is atherosclerotic plaquing at the iliac bifurcation. There is mild stenosis in the origin of t he right common iliac. The left common iliac is widely patent. The left hypogastric artery occludes a t its origin. The left external iliac demonstrates 2 areas of very high grade stenosis one in its pro ximal and one in its distal segment. The right external iliac is patent throughout its course. The ri ght hypogastric is diseased but patent. Right leg: The superficial femoral occludes at its origin. The profunda femoral is patent. There is reconstituti on of the superficial femoral at the level of the adductor hiatus. The reconstituted segment of super ficial femoral and popliteal are widely patent. Distally, there is three-vessel runoff down into the foot. Left leg: The left common femoral is patent. The profunda femoral is patent. The superficial femoral occludes a t its origin. There is limited reconstitution of a small popliteal at the level of the knee. Distally , all 3 trifurcation vessels are patent. CT source data: The solid organs of the abdomen are intact. There is no free air or free fluid. No retroperitoneal ad enopathy is seen. There are degenerative changes within the spine. CONCLUSION: 1. The examination demonstrates moderate stenosis of the origin of the right common iliac. 2. There are 2 areas of high grade stenosis involving the left external iliac. 3. 4. Right le. Occlusion of the superficial femoral with reconstitution at the adductor hiatus. Distally, the rec onstituted segment of superficial femoral, the popliteal and trifurcation vessels are widely patent. 6. Left leg: Complete occlusion of the superficial femoral with a limited reconstitution of the popli teal at the level of the knee. The reconstituted segment of popliteal is small in caliber but patent. All 3 trifurcation vessels are patent. Asa Anderson MD on December 22, 2016 at 11:40 Board Certified Radiologist. This report was verified electronically.
--- NOTE | 2016-12-22 15:23 | HHI.PR ---
Subjective Remarks Blood pressure noted to be elevated into the 1 5160s. Patient complains of pain in her left lower extremity, requesting his pain medication schedule to be shortened from 6 hours to 4 hours. Denies fevers or chills Denies chest pain or short of breath Objective Vitals Vital Signs Date Time Temp Pulse Resp B/P Pulse Ox O2 Delivery O2 Flow Rate FiO2 12/22/16 08:00 97.8 86 18 141/68 97 12/22/16 06:59 18 12/22/16 04:00 98.3 93 18 158/77 97 12/22/16 00:00 98.2 92 18 153/77 95 12/21/16 20:20 95 12/21/16 20:00 97.2 94 17 160/76 98 12/21/16 19:06 98 21 12/21/16 16:00 98.1 89 16 147/74 98 I/O 12/21/16 12/21/16 12/21/16 12/22/16 12/22/16 12/22/16 07:00 15:00 23:00 07:00 15:00 23:00 Intake Total 480 ml 480 ml 240 ml Output Total 400 ml 2000 ml Balance -400 ml 480 ml -1520 ml 240 ml Intake Oral 480 ml 480 ml 240 ml IV Total 0 ml Output Urine Total 400 ml 2000 ml # Voids 4 2 # Bowel Movements 1 1 Result Diagram: 12/21/16 0951 12/21/16 0951 Imaging Last Impressions Aorta w/Runoff CTA 12/21/16 0000 Signed Impressions: Service Date/Time: Wednesday, December 21, 2016 19:38 - CONCLUSION: 1. The examination demonstrates moderate stenosis of the origin of the right common iliac. 2. There are 2 areas of high grade stenosis involving the left external iliac. 3. 4. Right le. Occlusion of the superficial femoral with reconstitution at the adductor hiatus. Distally, the reconstituted segment of superficial femoral, the popliteal and trifurcation vessels are widely patent. 6. Left leg: Complete occlusion of the superficial femoral with a limited reconstitution of the popliteal at the level of the knee. The reconstituted segment of popliteal is small in caliber but patent. All 3 trifurcation vessels are patent. Asa Anderson MD Lower Extremity Ultrasound 12/19/16 0000 Signed Impressions: Service Date/Time: Monday, December 19, 2016 10:37 - CONCLUSION: Negative for thrombosis.. Toan Anderson MD FACR Objective Remarks GENERAL: This is a well-nourished, well-developed patient, in no apparent distress. SKIN: No rashes, ecchymoses or lesions. Cool and dry. Left lower extremity is dressed and covered - Dressing is C/D/I HEAD: Atraumatic. Normocephalic. EYES: No scleral icterus. No injection or drainage. ENT: Nose without bleeding, purulent drainage. NECK: Trachea midline. No JVD or lymphadenopathy. CARDIOVASCULAR: Regular rate and rhythm without murmurs, gallops, or rubs. Left lower extremity from knee down with changes consistent with peripheral vascular disease. RESPIRATORY: Clear to auscultation. Breath sounds equal bilaterally. No wheezes , rales, or rhonchi. GASTROINTESTINAL: Abdomen soft, non-tender, nondistended. No guarding. MUSCULOSKELETAL: Extremities without clubbing, cyanosis, or edema. No calf tenderness. NEUROLOGICAL: Awake and alert. Motor and sensory grossly within normal limits. Normal speech. Medications and IVs Current Medications Medications (Trade) Dose Ordered Sig/Robles Route Start Time Stop Time Status Last Admin (NS Flush) 2 ml UNSCH PRN FLUSH 12/17/16 20:45 (NS Flush) 2 ml BID FLUSH 12/17/16 21:00 12/22/16 09:44 (Zofran Inj) 4 mg Q6H PRN IVP 12/17/16 20:45 (Narcan Inj) 0.4 mg UNSCH PRN IV 12/17/16 20:45 (Tenormin) 50 mg DAILY PO 12/18/16 09:00 Hold 12/19/16 08:29 (Lipitor) 80 mg HS PO 12/17/16 21:00 12/21/16 20:00 (ZyrTEC) 10 mg HS PO 12/17/16 21:00 12/21/16 20:00 (Depakote Er) 500 mg DAILY PO 12/18/16 09:00 12/22/16 09:44 (Neurontin) 300 mg TID PO 12/18/16 09:00 12/22/16 12:54 (Leslie 10-325 Mg) 1 tab Q6H PRN PO 12/17/16 20:45 12/22/16 12:54 (Atarax) 25 mg DAILY PO 12/18/16 09:00 12/22/16 09:44 (Prinivil) 40 mg DAILY PO 12/18/16 09:00 Hold 12/19/16 08:29 (Prezista) 800 mg DAILY PO 12/18/16 09:00 12/22/16 09:44 (Norvir) 100 mg DAILY PO 12/18/16 09:00 12/22/16 09:44 (Intelence) 200 mg BIDPC PO 12/18/16 09:00 12/22/16 09:44 (Norvasc) 10 mg DAILY PO 12/23/16 09:00 Urinary Catheter: No Vascular Central Line Catheter: No A/P Problem List: (1) Anemia due to blood loss, acute ICD Code: D62 Status: Acute (2) Chronic skin ulcer of lower leg ICD Code: L97.909 Status: Chronic (3) BECKA (acute kidney injury) ICD Code: N17.9 Status: Resolved (4) Left leg pain ICD Code: M79.605 Status: Chronic (5) Peripheral vascular disease ICD Code: I73.9 Status: Chronic Plan: appreciate recommendations by Dr Peng from vascular surgery. as per vascular surgery the patient will need CTA with runoff to evaluate current situation. Old CTA done elsewhere revealed bilateral SFA occlusions and inflow problems bilateral left more than right 12/[address] Peng - Will order CTA with runoff ordered. 12/22 CTA with runoff obtained on 12/21/16. Reports moderate stenosis of the origin of the right common iliac. 2 areas of high-grade stenosis within the left external iliac. The right leg there is occlusion of the superficial femoral with reconstitution of the adductor hiatus. The reconstituted segment of the superficial femoral, popliteal and trifurcation vessels are widely patent. Left leg shows complete occlusion of the superficial femoral with a limited reconstitution of the popliteal at the level of the knee. Management as per vascular surgery. (6) HTN (hypertension) ICD Code: I10 Status: Acute Assessment and Plan Mr. Carbone is a 60 year-old male with a past medical history of HIV, neuropathy, diabetes mellitus, and peripheral arterial disease who presented to the hospital for bleeding from left lower extremity wound. He follows with Dr. Ramos, vascular surgeon, and Dr. Stout, check airman. EMS reported a large amount of blood loss at the scene. Patient is tachycardic and somewhat hypertensive in the emergency room. Oxygen saturations are 99.1% on room air. Hemoglobin dropped from 11.5 to 9.5 over 2 hours in the emergency room. Lactic acid somewhat elevated at 2.4 on admission Anemia related to acute blood loss - Hemoglobin dropped from 11.5 to 9.5 over 2 hours in the emergency room. - Continue to monitor H/H hemoglobin stable - Transfuse PRBC's for hemoglobin less than 7 or <9 if active bleeding. - Monitor vital signs - Bleeding seems to have resolved. - 12/19 Hemoglobin dropped down to 8.9 but no signs of active bleeding or bleeding reported. - 12/20 Hemoglobin keeps dropping 8.9 - 8.1- no active signs of bleeding. Possibly dilutional since patient is on IV fluids. Continue to monitor H/H. Transfuse as per above mentioned parameters. - 12/21 Hemoglobin 8.0 - 12/22 hemoglobin remained stable. Acute Kidney injury on CKD stage III - BUN elevated at 33, creatinine elevated at 2.13, estimated GFR low at 38 - Baseline creatinine 1.1 - 2 L of normal saline via IV bolus given in ER - sp a bolus of IV normal saline on 12/19 due to hypotension. - 12/20 BECKA resolved, down to baseline creatinine at 1.14. IV fluids discontinued. Chronic skin ulcer of lower leg - Continue Wound care. - Cover with dry dressing. Left lower extremity pain - Check left lower extremity Doppler ultrasound - negative for DVT 12/22 I will decrease his schedule of the oral Leslie from every 6 hours to every 4 hours. Hypotension - No signs of active bleeding. -Resolved after fluid administration. Uncontrolled hypertension Patient with elevated blood pressure with systolic blood pressure noted to the 150's and 160s. I would increase the dose of amlodipine to 10 minutes by mouth daily. DVT prophylaxis - SCDs Discharge Planning Patient for possible endovascular balloon angioplasty and stenting by vascular surgery. Problem Qualifiers (1) HTN (hypertension): Qualified Code: I10 - Essential hypertension Jamal Herron MD Dec 22, 2016 15:23
--- NOTE | 2016-12-22 16:11 | PD.CAR.PN ---
CVT Progress Note Subjective/Hospital Course: Patient known to me from previous encounters Now comes for unrelated problem off the significant volume loss and anemia Patient has known severe peripheral vascular disease Patient is noncompliant with his care and a very poor candidate for any type of surgery in face of his medical problems and noncompliance Full consult to follow Heath Leong 12/19/2016 Patient will need CTA with runoff to evaluate current situation. Old CTA done elsewhere revealed bilateral SFA occlusions and inflow problems bilateral left more than right With the infected wound on the leg is not a candidate for femoropopliteal bypass at this time and with elevated creatinine I would not administered the dye to do CTA I will order a CTA with a runoff once creatinine has normalized and then we'll see what his left to be done in if this is something we can maybe do percutaneously to minimize the chance of infections Placing the femoropopliteal graft in this infected environment would be looking for catastrophe and should be avoided at any cost Continue follow patient 12/21/16 Patient with severe peripheral vascular disease who was not a candidate for any invasive procedure because of comorbidities including the maculopapular rash deemed to be staph This has now resolved Patient still has wounds on his leg but these are far away from the site of surgery so in order to save the patient's left leg this will be the only option. There is still significant risk of graft infection and off limb loss and have explained this to the patient We will do CTA with a runoff and see if patient has reconstructable disease or perhaps changes that can be addressed with some endovascular balloon angioplasty and stenting CTA pending. 12/22/15 Discussed at length with the patient the options last few days. CTA confirms tight stenosis of external iliac artery and occlusion of SFA with reconstitution below the knee Patient has fairly small vessels by the only way to approach this is external iliac angioplasty followed by femoropopliteal bypass Patient has bilateral severe disease however on the left he has above-noted ulcer so we should treat his left side for this is the symptomatic one Her left leg revascularization tomorrow I also explained to the patient there is a risk off losing the leg despite all the therapy and he understands the risks and benefits Objective: Vital Signs Date Time Temp Pulse Resp B/P Pulse Ox O2 Delivery O2 Flow Rate FiO2 12/22/16 12:00 98.4 87 18 129/64 98 12/22/16 08:00 97.8 86 18 141/68 97 12/22/16 06:59 18 12/22/16 04:00 98.3 93 18 158/77 97 12/22/16 00:00 98.2 92 18 153/77 95 12/21/16 20:20 95 12/21/16 20:00 97.2 94 17 160/76 98 12/21/16 19:06 98 21 Result Diagram: 12/21/16 0951 12/21/16 0951 Rosita Ramos MD Dec 22, 2016 16:11
[2016-12-22] MEDS ORDERED: VANCOMYCIN INJ 1,000 MG in SODIUM CHLOR 0.9% 250 ML INJ 250 ML IV SCH (16:15)
[2016-12-22] MEDS: CETIRIZINE HCL 10 MG TAB PO SCH (21:23)
[2016-12-22] MEDS: ATORVASTATIN 80 MG TAB PO SCH (21:23)
[2016-12-23] VITALS: BP 152/89; PULSE 81; RESP 17; TEMP 96.2; O2SAT 99
[2016-12-23] MEDS: ACETAMINOPHEN/HYDROcodone 325 MG/10 MG TAB PO PRN ×3 (02:37→21:33)
[2016-12-23 04:37] VITALS: BP 182/88; PULSE 92; RESP 19; TEMP 96.3; O2SAT 99
[2016-12-23] MEDS ORDERED: cloNIDine HCL 0.1 MG TAB PO PRN (06:15)
[2016-12-23] MEDS ORDERED: ENALAPRILAT 1.25 MG/ML VIAL IV PRN (06:15)
[2016-12-23 08:00] VITALS: BP 130/77; PULSE 84; RESP 18; TEMP 96.9; O2SAT 99
[2016-12-23] MEDS: SODIUM CHLORIDE 0.9% FLUSH 5 ML FLUSH FLUSH SCH ×2 (08:42→21:27)
[2016-12-23] MEDS: GABAPENTIN 300 MG CAP PO SCH ×3 (09:00→19:33)
[2016-12-23] MEDS: ETRAVIRINE 100 MG TAB PO SCH ×2 (09:00→19:33)
[2016-12-23] MEDS: DOLUTEGRAVIR SODIUM 50 MG TAB PO SCH ×2 (09:00→21:26)
[2016-12-23] MEDS ORDERED: ACETAMINOPHEN 1000 MG/100 ML VIAL IV ONE (11:33)
[2016-12-23] MEDS ORDERED: HYDROmorphone HCL PF 2 MG/ML VIAL ONE (11:34)
[2016-12-23] MEDS ORDERED: NEOSTIGMINE 3 MG/3 ML SYR IV ONE (12:00)
[2016-12-23] MEDS ORDERED: ONDANSETRON HCL 4 MG/2 ML VIAL IV PUSH ONE (12:00)
[2016-12-23] MEDS ORDERED: PHENYLEPH/NS 1000 MCG/10 ML SYR IV ONE (12:00)
[2016-12-23] MEDS ORDERED: PROPOFOL 200 MG/20 ML AMP IV ONE (12:00)
[2016-12-23] MEDS ORDERED: NORMOSOL R INJ 2,000 ML IV ONE (12:00)
--- NOTE | 2016-12-23 12:06 | HHI.PR ---
Subjective Remarks deferred entry - patient saw earlier at 9 am no major overnight events pain better constrolled denies cp/sob stable vital signs Objective Vitals Vital Signs Date Time Temp Pulse Resp B/P Pulse Ox O2 Delivery O2 Flow Rate FiO2 12/23/16 08:00 96.9 84 18 130/77 99 12/23/16 04:37 96.3 92 19 182/88 99 12/23/16 00:00 96.2 81 17 152/89 99 12/22/16 20:07 89 12/22/16 20:00 97.1 83 17 167/75 99 12/22/16 16:00 98.3 91 18 154/83 100 I/O 12/22/16 12/22/16 12/22/16 12/23/16 12/23/16 12/23/16 07:00 15:00 23:00 07:00 15:00 23:00 Intake Total 240 ml 720 ml Output Total 420 ml 180 ml Balance 240 ml 720 ml -420 ml -180 ml Intake Oral 240 ml 720 ml Output Urine Total 420 ml 180 ml # Voids 2 3 1 2 1 # Bowel Movements 1 Result Diagram: 12/21/16 0951 12/21/16 0951 Imaging Last Impressions Aorta w/Runoff CTA 12/21/16 0000 Signed Impressions: Service Date/Time: Wednesday, December 21, 2016 19:38 - CONCLUSION: 1. The examination demonstrates moderate stenosis of the origin of the right common iliac. 2. There are 2 areas of high grade stenosis involving the left external iliac. 3. 4. Right le. Occlusion of the superficial femoral with reconstitution at the adductor hiatus. Distally, the reconstituted segment of superficial femoral, the popliteal and trifurcation vessels are widely patent. 6. Left leg: Complete occlusion of the superficial femoral with a limited reconstitution of the popliteal at the level of the knee. The reconstituted segment of popliteal is small in caliber but patent. All 3 trifurcation vessels are patent. Asa Anderson MD Lower Extremity Ultrasound 12/19/16 0000 Signed Impressions: Service Date/Time: Monday, December 19, 2016 10:37 - CONCLUSION: Negative for thrombosis.. Toan Anderson MD FACR Objective Remarks GENERAL: This is a well-nourished, well-developed patient, in no apparent distress. SKIN: No rashes, ecchymoses or lesions. Cool and dry. Left lower extremity is dressed and covered - Dressing is C/D/I HEAD: Atraumatic. Normocephalic. EYES: No scleral icterus. No injection or drainage. ENT: Nose without bleeding, purulent drainage. NECK: Trachea midline. No JVD or lymphadenopathy. CARDIOVASCULAR: Regular rate and rhythm without murmurs, gallops, or rubs. Left lower extremity from knee down with changes consistent with peripheral vascular disease. RESPIRATORY: Clear to auscultation. Breath sounds equal bilaterally. No wheezes , rales, or rhonchi. GASTROINTESTINAL: Abdomen soft, non-tender, nondistended. No guarding. MUSCULOSKELETAL: Extremities without clubbing, cyanosis, or edema. No calf tenderness. NEUROLOGICAL: Awake and alert. Motor and sensory grossly within normal limits. Normal speech. Medications and IVs Current Medications Medications (Trade) Dose Ordered Sig/Robles Route Start Time Stop Time Status Last Admin (NS Flush) 2 ml UNSCH PRN FLUSH 12/17/16 20:45 (NS Flush) 2 ml BID FLUSH 12/17/16 21:00 12/23/16 08:42 (Zofran Inj) 4 mg Q6H PRN IVP 12/17/16 20:45 (Narcan Inj) 0.4 mg UNSCH PRN IV 12/17/16 20:45 (Tenormin) 50 mg DAILY PO 12/18/16 09:00 Hold 12/19/16 08:29 (Lipitor) 80 mg HS PO 12/17/16 21:00 12/22/16 21:23 (ZyrTEC) 10 mg HS PO 12/17/16 21:00 12/22/16 21:23 (Depakote Er) 500 mg DAILY PO 12/18/16 09:00 12/22/16 09:44 (Neurontin) 300 mg TID PO 12/18/16 09:00 12/22/16 18:15 (Atarax) 25 mg DAILY PO 12/18/16 09:00 12/22/16 09:44 (Prinivil) 40 mg DAILY PO 12/18/16 09:00 Hold 12/19/16 08:29 (Prezista) 800 mg DAILY PO 12/18/16 09:00 12/22/16 09:44 (Norvir) 100 mg DAILY PO 12/18/16 09:00 12/22/16 09:44 (Intelence) 200 mg BIDPC PO 12/18/16 09:00 12/22/16 18:16 (Norvasc) 10 mg DAILY PO 12/23/16 09:00 12/23/16 08:42 ([place] 10-325 Mg) 1 tab Q4H PRN PO 12/22/16 18:45 12/23/16 06:28 (Vasotec Inj) 1.25 mg Q6H PRN IV 12/23/16 06:15 (Catapres) 0.1 mg Q6H PRN PO 12/23/16 06:15 12/23/16 06:18 A/P Problem List: (1) Anemia due to blood loss, acute ICD Code: D62 Status: Acute (2) Chronic skin ulcer of lower leg ICD Code: L97.909 Status: Chronic (3) BECKA (acute kidney injury) ICD Code: N17.9 Status: Resolved (4) Left leg pain ICD Code: M79.605 Status: Chronic (5) Peripheral vascular disease ICD Code: I73.9 Status: Chronic Plan: appreciate recommendations by Dr Peng from vascular surgery. as per vascular surgery the patient will need CTA with runoff to evaluate current situation. Old CTA done elsewhere revealed bilateral SFA occlusions and inflow problems bilateral left more than right 12/[address] Peng - Will order CTA with runoff ordered. 12/22 CTA with runoff obtained on 12/21/16. Reports moderate stenosis of the origin of the right common iliac. 2 areas of high-grade stenosis within the left external iliac. The right leg there is occlusion of the superficial femoral with reconstitution of the adductor hiatus. The reconstituted segment of the superficial femoral, popliteal and trifurcation vessels are widely patent. Left leg shows complete occlusion of the superficial femoral with a limited reconstitution of the popliteal at the level of the knee. Patient for OR today - Patient for possible endovascular balloon angioplasty and stenting by vascular surgery. (6) HTN (hypertension) ICD Code: I10 Status: Acute Assessment and Plan Mr. Carbone is a 60 year-old male with a past medical history of HIV, neuropathy, diabetes mellitus, and peripheral arterial disease who presented to the hospital for bleeding from left lower extremity wound. He follows with Dr. Ramos, vascular surgeon, and Dr. Stout, medical record consultant. EMS reported a large amount of blood loss at the scene. Patient is tachycardic and somewhat hypertensive in the emergency room. Oxygen saturations are 99.1% on room air. Hemoglobin dropped from 11.5 to 9.5 over 2 hours in the emergency room. Lactic acid somewhat elevated at 2.4 on admission Anemia related to acute blood loss - Hemoglobin dropped from 11.5 to 9.5 over 2 hours in the emergency room. - Continue to monitor H/H hemoglobin stable - Transfuse PRBC's for hemoglobin less than 7 or <9 if active bleeding. - Monitor vital signs - Bleeding seems to have resolved. - 12/19 Hemoglobin dropped down to 8.9 but no signs of active bleeding or bleeding reported. - 12/20 Hemoglobin keeps dropping 8.9 - 8.1- no active signs of bleeding. Possibly dilutional since patient is on IV fluids. Continue to monitor H/H. Transfuse as per above mentioned parameters. - 12/21 Hemoglobin 8.0 - 12/22 hemoglobin remained stable. Acute Kidney injury on CKD stage III - BUN elevated at 33, creatinine elevated at 2.13, estimated GFR low at 38 - Baseline creatinine 1.1 - 2 L of normal saline via IV bolus given in ER - sp a bolus of IV normal saline on 12/19 due to hypotension. - 12/20 BECKA resolved, down to baseline creatinine at 1.14. IV fluids discontinued. Chronic skin ulcer of lower leg - Continue Wound care. - Cover with dry dressing. Left lower extremity pain - Check left lower extremity Doppler ultrasound - negative for DVT 12/22 I will decrease his schedule of the oral [place] from every 6 hours to every 4 hours. Hypotension - No signs of active bleeding. -Resolved after fluid administration. Uncontrolled hypertension Patient's amlodipine increased to 10 minutes by mouth daily on 12/22/16. 12/23 blood pressure still elevated. Patient started on clonidine when necessary and enalapril IV which will be continued for BP control. Continue to monitor vital signs. DVT prophylaxis - SCDs Problem Qualifiers (1) HTN (hypertension): Qualified Code: I10 - Essential hypertension Jamal Herron MD Dec 23, 2016 12:06
[2016-12-23] MEDS ORDERED: HEPARIN SODIUM - IV 10,000 UNITS/10 ML VIAL ONE (12:19)
[2016-12-23] MEDS ORDERED: BUPIVACAINE/EPINEPHRINE 0.5% PF 30 ML VIAL ONE (12:19)
[2016-12-23] MEDS ORDERED: HEPARIN SODIUM - SQ 10,000 UNITS/ML VIAL ONE (12:20)
[2016-12-23] MEDS ORDERED: MIDAZOLAM HCL 2 MG/2 ML VIAL ONE (12:32)
[2016-12-23] MEDS ORDERED: FAMOTIDINE 20 MG/2 ML VIAL ONE (12:32)
[2016-12-23] MEDS ORDERED: IOHEXOL 300 MG/ML 100 ML BTL (for Rad CT) OTHER ONE (14:16)
[2016-12-23 14:19] LABS: BLOOD GAS BASE EXCESS 4.8 mmol/L (-2-2); BLOOD GAS CARBOXYHEMOGLOBIN 1.5 % (0-4); BLOOD GAS HCO3 28 mmol/L (22-26); BLOOD GAS METHEMOGLOBIN 1.1 % (0-2); BLOOD GAS O2 HGB SATURATION 97 % (90-100); BLOOD GAS OXYGEN CONTENT 18.8 Vol % (12.0-20.0); BLOOD GAS PCO2 36 mmHg (38-42); BLOOD GAS PO2 267 mmHg (61-120); BLOOD GAS TOTAL HGB 13.3 G/DL (12.0-16.0); CRITICAL VALUE NO; FIO2 60 %; OXYGEN DEVICE VENTILATOR; TEMP CORR TO 98.6
[2016-12-23 14:20] LABS: DRAW SITE RT RADIAL; NUMBER OF ARTERIAL PUNCTURES 1; STAT YES; ULNAR PULSE PRESENT
[2016-12-23] MEDS ORDERED: DO NOT ADM ANY ANTICOAGULANT DRUGS XX PRN (16:39)
[2016-12-23] MEDS ORDERED: SUGAMMADEX SODIUM 200 MG/2 ML VIAL IV PUSH ONE ×2 (16:47)
[2016-12-23] MEDS ORDERED: fentaNYL CITRATE 250 MCG/5 ML AMP ONE (16:56)
[2016-12-23] MEDS: CLOPIDOGREL 75 MG TAB PO SCH (19:33)
[2016-12-23 21:00] VITALS: BP 183/91; PULSE 91; RESP 20; TEMP 98.8; O2SAT 100
[2016-12-23] MEDS: CETIRIZINE HCL 10 MG TAB PO SCH (21:26)
[2016-12-23] MEDS: ATORVASTATIN 80 MG TAB PO SCH (21:26)
[2016-12-24 00:21] VITALS: BP 173/82; PULSE 96; RESP 18; TEMP 97.1; O2SAT 100
[2016-12-24] MEDS: ACETAMINOPHEN/HYDROcodone 325 MG/10 MG TAB PO PRN ×3 (02:56→12:28)
[2016-12-24 05:07] VITALS: BP 135/71; PULSE 80; RESP 20; TEMP 96.3; O2SAT 100
[2016-12-24 07:15] VITALS: BP 184/81; PULSE 70; RESP 19; TEMP 96.4; O2SAT 100
--- NOTE | 2016-12-24 07:32 | MP ---
cc: ROSITA YANG MD DATE OF SURGERY 12/23/2016 PREOPERATIVE DIAGNOSIS Ischemia of both legs left more than right, left near total external iliac occlusion, SFA occlusion, ulcer of the left foot. POSTOPERATIVE DIAGNOSIS Ischemia of both legs left more than right, left near total external iliac occlusion, SFA occlusion, ulcer of the left foot. OPERATIVE PROCEDURE Left external iliac balloon angioplasty/stenting, left common femoral left external iliac endarterectomy and angioplasty, arteriogram x4 SURGEON Rosita Yang MD ANESTHESIA General ESTIMATED BLOOD LOSS 50 cc. PROCEDURE The patient was prepped and draped in the usual fashion. A left inguinal incision made, deepened down to the level of the vessels and then the common femoral, deep femoral, and superficial femoral arteries are isolated. Under the inguinal ligament, the distal external iliac is also isolated. A micro-needle is inserted into the common femoral artery and through the needle, the micro-wire is placed up over. The micro-wire, dilator and a small sheath are placed. The Glidewire was inserted and then a 7-Icelandic sheath introduced all followed with C-arm fluoroscopy. The Glidewire goes easily into the aorta and is left there in place. Now the patient was given 5000 units of heparin and then a profunda clamp is placed on the superficial femoral artery distally and arteriogram shot by hand in order to and dye. This one reveals a very tight stenosis of the external iliac artery times two, one of them more proximally about three inches down from the bifurcation and the next one a little further down. A 7 mm x 2 cm balloon is now selected and introduced over the Glidewire and serially the vessel was dilated. Once this was completed, arteriogram is obtained again. The vessel now seems to be completely dilated. There is a small area of dissection distally. At this point, an 8 mm x 4 cm self-expandable stent is placed and completion arteriogram obtained. The patient has a brisk flow into the groin. The open part of the procedure is now attended. Satinsky clamp is placed just distal to the end of the stent carefully not to injure the stent. The vessel is now opened longitudinally going from the external iliac into the common femoral artery. A large plaque is now dissected in the medial plane and removed with a [place] dissector and then removed. The vessel is closed with a running 5-0 Prolene proximal distal floor intact. Blood flow was now reestablished in the usual fashion. The patient has a brisk flow into the groin and an excellent strong popliteal pulse, decision is made not to do femoral-popliteal bypass part because the patient has some pustulous rash remnants and actually, as a [id number], there are some pustulous lesions by the popliteal area and this would have precluded placement of the graft. The incision was irrigated with saline and closed with 2-0 Vicryl in layers with a 4-0 Monocryl. The patient tolerated the procedure well and at the end of the procedure, the patient has distal pulses and a good popliteal pulse. The foot is warm. Rosita PATEL /5:40 PM /7:21 AM
[2016-12-24 08:10] VITALS: PULSE 74
[2016-12-24] MEDS: DARUNAVIR 800 MG TAB PO SCH (08:31)
[2016-12-24] MEDS: hydrOXYzine HCL 25 MG TAB PO SCH (08:32)
[2016-12-24] MEDS: DIVALPROEX SODIUM E.R. 500 MG TAB PO SCH (08:32)
[2016-12-24] MEDS: RITONAVIR 100 MG TAB PO SCH (08:33)
[2016-12-24] MEDS: GABAPENTIN 300 MG CAP PO SCH ×2 (08:33→12:28)
[2016-12-24] MEDS: CLOPIDOGREL 75 MG TAB PO SCH (08:33)
[2016-12-24] MEDS: ETRAVIRINE 100 MG TAB PO SCH (08:34)
[2016-12-24] MEDS: DOLUTEGRAVIR SODIUM 50 MG TAB PO SCH (08:34)
[2016-12-24] MEDS: SODIUM CHLORIDE 0.9% FLUSH 5 ML FLUSH FLUSH SCH (08:34)
--- NOTE | 2016-12-24 11:13 | PD.CAR.PN ---
CVT Progress Note Subjective/Hospital Course: Patient known to me from previous encounters Now comes for unrelated problem off the significant volume loss and anemia Patient has known severe peripheral vascular disease Patient is noncompliant with his care and a very poor candidate for any type of surgery in face of his medical problems and noncompliance Full consult to follow Heath Leong 12/19/2016 Patient will need CTA with runoff to evaluate current situation. Old CTA done elsewhere revealed bilateral SFA occlusions and inflow problems bilateral left more than right With the infected wound on the leg is not a candidate for femoropopliteal bypass at this time and with elevated creatinine I would not administered the dye to do CTA I will order a CTA with a runoff once creatinine has normalized and then we'll see what his left to be done in if this is something we can maybe do percutaneously to minimize the chance of infections Placing the femoropopliteal graft in this infected environment would be looking for catastrophe and should be avoided at any cost Continue follow patient 12/21/16 Patient with severe peripheral vascular disease who was not a candidate for any invasive procedure because of comorbidities including the maculopapular rash deemed to be staph This has now resolved Patient still has wounds on his leg but these are far away from the site of surgery so in order to save the patient's left leg this will be the only option. There is still significant risk of graft infection and off limb loss and have explained this to the patient We will do CTA with a runoff and see if patient has reconstructable disease or perhaps changes that can be addressed with some endovascular balloon angioplasty and stenting CTA pending. 12/22/15 Discussed at length with the patient the options last few days. CTA confirms tight stenosis of external iliac artery and occlusion of SFA with reconstitution below the knee Patient has fairly small vessels by the only way to approach this is external iliac angioplasty followed by femoropopliteal bypass Patient has bilateral severe disease however on the left he has above-noted ulcer so we should treat his left side for this is the symptomatic one Her left leg revascularization tomorrow I also explained to the patient there is a risk off losing the leg despite all the therapy and he understands the risks and benefits 12/24/16 Status post revascularization of the left leg. Incision is clean and dry and dressing can be removed Patient has excellent distal flow with brisk popliteal pulse and dorsalis pedis posterior tibial pulses Patient can be discharged from my point today and she'll follow-up with me in about 3-4 weeks in the office At that time we'll schedule patient for the right leg revascularization Objective: Vital Signs Date Time Temp Pulse Resp B/P Pulse Ox O2 Delivery O2 Flow Rate FiO2 12/24/16 07:15 96.4 70 19 184/81 100 12/24/16 05:07 96.3 80 20 135/71 100 12/24/16 03:58 18 12/24/16 00:21 97.1 96 18 173/82 100 12/23/16 21:00 98.8 91 20 183/91 100 12/23/16 20:20 97.5 71 15 140/89 94 Room Air 12/23/16 20:00 73 15 143/87 94 Room Air 12/23/16 19:30 97.5 74 15 143/90 93 Room Air 12/23/16 19:00 72 15 139/86 93 Room Air 12/23/16 18:30 97.4 73 15 139/88 97 Nasal Cannula 3 12/23/16 18:15 72 15 137/86 96 Nasal Cannula 3 12/23/16 18:00 97.3 74 15 140/85 95 Nasal Cannula 3 12/23/16 17:45 77 15 141/78 96 Nasal Cannula 3 12/23/16 17:30 96.9 74 15 139/80 98 Nasal Cannula 4 12/23/16 17:15 72 15 132/77 97 Nasal Cannula 4 12/23/16 17:00 95.6 70 14 135/72 96 Nasal Cannula 4 12/23/16 16:45 72 14 122/65 100 Simple Mask 8 12/23/16 16:38 96.2 73 14 120/79 99 Simple Mask 8 Result Diagram: 12/21/16 0951 12/21/16 0951 Rosita Ramos MD Dec 24, 2016 11:13
[2016-12-24 11:20] VITALS: BP 151/71; PULSE 90; RESP 19; TEMP 97.1; O2SAT 95
--- NOTE | 2016-12-24 12:28 | HHI.PR ---
Subjective Remarks Pain controlled BP noted to be elevated into 180's earlier denies cp/sob denies fevers/chills Objective Vitals Vital Signs Date Time Temp Pulse Resp B/P Pulse Ox O2 Delivery O2 Flow Rate FiO2 12/24/16 08:10 74 12/24/16 07:15 96.4 70 19 184/81 100 12/24/16 05:07 96.3 80 20 135/71 100 12/24/16 03:58 18 12/24/16 00:21 97.1 96 18 173/82 100 12/23/16 21:00 98.8 91 20 183/91 100 12/23/16 20:20 97.5 71 15 140/89 94 Room Air 12/23/16 20:00 73 15 143/87 94 Room Air 12/23/16 19:30 97.5 74 15 143/90 93 Room Air 12/23/16 19:00 72 15 139/86 93 Room Air 12/23/16 18:30 97.4 73 15 139/88 97 Nasal Cannula 3 12/23/16 18:15 72 15 137/86 96 Nasal Cannula 3 12/23/16 18:00 97.3 74 15 140/85 95 Nasal Cannula 3 12/23/16 17:45 77 15 141/78 96 Nasal Cannula 3 12/23/16 17:30 96.9 74 15 139/80 98 Nasal Cannula 4 12/23/16 17:15 72 15 132/77 97 Nasal Cannula 4 12/23/16 17:00 95.6 70 14 135/72 96 Nasal Cannula 4 12/23/16 16:45 72 14 122/65 100 Simple Mask 8 12/23/16 16:38 96.2 73 14 120/79 99 Simple Mask 8 I/O 12/23/16 12/23/16 12/23/16 12/24/16 12/24/16 12/24/16 07:00 15:00 23:00 07:00 15:00 23:00 Intake Total 0 ml 2740 ml Output Total 180 ml 1625 ml 600 ml Balance -180 ml 0 ml 1115 ml -600 ml Intake Oral 0 ml 240 ml IV Total 100 ml Other 2400 ml Output Urine Total 180 ml 1600 ml 600 ml Estimated Blood Loss 25 ml # Voids 2 4 # Bowel Movements 0 Result Diagram: 12/21/16 0951 12/21/16 0951 Imaging Last Impressions Aorta w/Runoff CTA 12/21/16 0000 Signed Impressions: Service Date/Time: Wednesday, December 21, 2016 19:38 - CONCLUSION: 1. The examination demonstrates moderate stenosis of the origin of the right common iliac. 2. There are 2 areas of high grade stenosis involving the left external iliac. 3. 4. Right le. Occlusion of the superficial femoral with reconstitution at the adductor hiatus. Distally, the reconstituted segment of superficial femoral, the popliteal and trifurcation vessels are widely patent. 6. Left leg: Complete occlusion of the superficial femoral with a limited reconstitution of the popliteal at the level of the knee. The reconstituted segment of popliteal is small in caliber but patent. All 3 trifurcation vessels are patent. Asa Anderson MD Lower Extremity Ultrasound 12/19/16 0000 Signed Impressions: Service Date/Time: Monday, December 19, 2016 10:37 - CONCLUSION: Negative for thrombosis.. Toan Anderson MD FACR Objective Remarks GENERAL: This is a well-nourished, well-developed patient, in no apparent distress. SKIN: No rashes, ecchymoses or lesions. Cool and dry. Left lower extremity is dressed and covered - Dressing is C/D/I HEAD: Atraumatic. Normocephalic. EYES: No scleral icterus. No injection or drainage. ENT: Nose without bleeding, purulent drainage. NECK: Trachea midline. No JVD or lymphadenopathy. CARDIOVASCULAR: Regular rate and rhythm without murmurs, gallops, or rubs. Left lower extremity from knee down with changes consistent with peripheral vascular disease. RESPIRATORY: Clear to auscultation. Breath sounds equal bilaterally. No wheezes , rales, or rhonchi. GASTROINTESTINAL: Abdomen soft, non-tender, nondistended. No guarding. MUSCULOSKELETAL: Extremities without clubbing, cyanosis, some edema in left leg with some tenderness to palpation. Left thigh surgical incision covered by dressing which looks C/D/I. NEUROLOGICAL: Awake and alert. Motor and sensory grossly within normal limits. Normal speech. Medications and IVs Current Medications Medications (Trade) Dose Ordered Sig/Robles Route Start Time Stop Time Status Last Admin (NS Flush) 2 ml UNSCH PRN FLUSH 12/17/16 20:45 (NS Flush) 2 ml BID FLUSH 12/17/16 21:00 12/24/16 08:34 (Zofran Inj) 4 mg Q6H PRN IVP 12/17/16 20:45 (Narcan Inj) 0.4 mg UNSCH PRN IV 12/17/16 20:45 (Tenormin) 50 mg DAILY PO 12/18/16 09:00 Hold 12/19/16 08:29 (Lipitor) 80 mg HS PO 12/17/16 21:00 12/23/16 21:26 (ZyrTEC) 10 mg HS PO 12/17/16 21:00 12/23/16 21:26 (Depakote Er) 500 mg DAILY PO 12/18/16 09:00 12/24/16 08:32 (Neurontin) 300 mg TID PO 12/18/16 09:00 12/24/16 08:33 (Atarax) 25 mg DAILY PO 12/18/16 09:00 12/24/16 08:32 (Prinivil) 40 mg DAILY PO 12/18/16 09:00 Hold 12/19/16 08:29 (Prezista) 800 mg DAILY PO 12/18/16 09:00 12/24/16 08:31 (Norvir) 100 mg DAILY PO 12/18/16 09:00 12/24/16 08:33 (Intelence) 200 mg BIDPC PO 12/18/16 09:00 12/24/16 08:34 (Norvasc) 10 mg DAILY PO 12/23/16 09:00 12/24/16 08:32 (Hubert 10-325 Mg) 1 tab Q4H PRN PO 12/22/16 18:45 12/24/16 08:30 (Vasotec Inj) 1.25 mg Q6H PRN IV 12/23/16 06:15 (Catapres) 0.1 mg Q6H PRN PO 12/23/16 06:15 12/23/16 06:18 (Plavix) 75 mg DAILY PO 12/23/16 16:45 12/24/16 08:33 Miscellaneous Information ALL NURSING DEPARTME... UNSCH PRN XX 12/23/16 16:39 12/24/16 16:38 (Cardura) 2 mg DAILY PO 12/24/16 13:00 Urinary Catheter: No Vascular Central Line Catheter: No A/P Problem List: (1) Anemia due to blood loss, acute ICD Code: D62 Status: Acute (2) Chronic skin ulcer of lower leg ICD Code: L97.909 Status: Chronic (3) BECKA (acute kidney injury) ICD Code: N17.9 Status: Resolved (4) Left leg pain ICD Code: M79.605 Status: Chronic (5) Peripheral vascular disease ICD Code: I73.9 Status: Chronic (6) HTN (hypertension) ICD Code: I10 Status: Acute Assessment and Plan Mr. Carbone is a 60 year-old male with a past medical history of HIV, neuropathy, diabetes mellitus, and peripheral arterial disease who presented to the hospital for bleeding from left lower extremity wound. He follows with Dr. Ramos, vascular surgeon, and Dr. Stout, asphalt heater operator. EMS reported a large amount of blood loss at the scene. Patient is tachycardic and somewhat hypertensive in the emergency room. Oxygen saturations are 99.1% on room air. Hemoglobin dropped from 11.5 to 9.5 over 2 hours in the emergency room. Lactic acid somewhat elevated at 2.4 on admission Anemia related to acute blood loss - Hemoglobin dropped from 11.5 to 9.5 over 2 hours in the emergency room. - Continue to monitor H/H hemoglobin stable - Transfuse PRBC's for hemoglobin less than 7 or <9 if active bleeding. - Monitor vital signs - Bleeding seems to have resolved. - 12/19 Hemoglobin dropped down to 8.9 but no signs of active bleeding or bleeding reported. - 12/20 Hemoglobin keeps dropping 8.9 - 8.1- no active signs of bleeding. Possibly dilutional since patient is on IV fluids. Continue to monitor H/H. Transfuse as per above mentioned parameters. - 12/21 Hemoglobin 8.0 - 12/22 hemoglobin remained stable. Acute Kidney injury on CKD stage III - BUN elevated at 33, creatinine elevated at 2.13, estimated GFR low at 38 - Baseline creatinine 1.1 - 2 L of normal saline via IV bolus given in ER - sp a bolus of IV normal saline on 12/19 due to hypotension. - 12/20 BECKA resolved, down to baseline creatinine at 1.14. IV fluids discontinued. Chronic skin ulcer of lower leg - Continue Wound care. - Cover with dry dressing. Left lower extremity pain - Check left lower extremity Doppler ultrasound - negative for DVT 12/22 I will decrease his schedule of the oral Hubert from every 6 hours to every 4 hours. Hypotension - No signs of active bleeding. -Resolved after fluid administration. Uncontrolled hypertension Patient's amlodipine increased to 10 minutes by mouth daily on 12/22/16. 12/23 blood pressure still elevated. Patient started on clonidine when necessary and enalapril IV which will be continued for BP control. Continue to monitor vital signs. 12/24 Bp still uncontrolled and going as high as 180 systolic - will add Cardura 2 mg daily. Peripheral vascular disease Patient with severe disease. CTA with runoff as above. Patient has severe ischemia of both legs left more than right, left near-total external iliac occlusion, SFA occlusion and ulcer of the left foot. Patient status post left external iliac balloon angioplasty/stenting, left common femoral left external iliac endarterectomy and angioplasty, arteriogram 4. Surgical procedure performed by on 12/23/16. Patient has been cleared to be discharged by muscular surgery. Patient will follow-up with vascular surgery as an outpatient 3-4 weeks at which point vascularization of the right leg will be planned. DVT prophylaxis - SCDs Discharge Planning Discharge home today if BP stable. I will have physical therapy reevaluate the patient. Problem Qualifiers (1) HTN (hypertension): Qualified Code: I10 - Essential hypertension Jamal Herron MD Dec 24, 2016 12:28
[2016-12-24] MEDS ORDERED: DOXAZOSIN MESYLATE 2 MG TAB PO SCH (13:00)
[2016-12-24] MEDS ORDERED: ATOR1TAB18 PO (13:20)
[2016-12-24] MEDS ORDERED: AMLO5TAB2 PO (13:20)
[2016-12-24] MEDS ORDERED: ASPI1TAB69 PO (13:20)
[2016-12-24] MEDS ORDERED: PLAV75TA29 PO (13:20)
[2016-12-24] MEDS ORDERED: ATEN50TA PO (13:20)
[2016-12-24] MEDS ORDERED: LISI40TA PO (13:20)
[2016-12-24] MEDS ORDERED: HYDR-3583 PO (13:20)
--- NOTE | 2016-12-24 13:21 | HHI.DCPOC ---
Discharge Care Plan Diagnosis: (1) HTN (hypertension) (2) BECKA (acute kidney injury) (3) Left leg pain (4) Peripheral vascular disease (5) BECKA (acute kidney injury) (6) Acute blood loss anemia (7) Leg wound, left Goals to Promote Your Health * To prevent worsening of your condition and complications * To maintain your health at the optimal level Directions to Meet Your Goals Take your medications as prescribed Follow your dietary instruction Follow activity as directed Keep your appointments as scheduled Take your immunizations and boosters as scheduled If your symptoms worsen call your PCP, if no PCP go to Urgent Care Center or Emergency Room Smoking is Dangerous to Your Health. Avoid second hand smoke Call the 24-hour hour crisis hotline for domestic abuse at Jamal Herron MD Dec 24, 2016 13:21
--- NOTE | 2016-12-24 13:28 | HHI.DS ---
Discharge Summary Admission Date Dec 17, 2016 at 20:37 Discharge Date: Dec 24, 2016 Admitting Diagnosis Bleeding with acute blood loss anemia and BECKA. (1) Anemia due to blood loss, acute ICD Code: D62 Diagnosis: Principal (2) Chronic skin ulcer of lower leg ICD Code: L97.909 Diagnosis: Principal (3) BECKA (acute kidney injury) ICD Code: N17.9 Diagnosis: Principal (4) Left leg pain ICD Code: M79.605 Diagnosis: Principal (5) Peripheral vascular disease ICD Code: I73.9 Diagnosis: Principal (6) HTN (hypertension) ICD Code: I10 Diagnosis: Secondary Procedures none Brief History - From Admission Mr. Carbone is a 60 year-old male with a past medical history of HIV, neuropathy, diabetes mellitus, and peripheral arterial disease who presented to the hospital for bleeding from left lower extremity wound. He follows with Dr. Ramos, vascular surgeon, and Dr. Stout, captain waiter/waitress. EMS reported a large amount of blood loss at the scene. Patient is tachycardic and somewhat hypertensive in the emergency room. Oxygen saturations are 99.1% on room air. Hemoglobin dropped from 11.5 to 9.5 over 2 hours in the emergency room. Lactic acid somewhat elevated at 2.4. Patient had a surgery to "kill the nerve" in his left knee; there was some damage from the surgery resulting in venous insufficiency/varicose veins. On Thursday, a scab got removed from the left lateral lower extremity where there was a tiny wound by the wound care nurse and then it was dressed with an Unna boot. Tonight, he was sitting down and watching TV with his son and began feeling light headed and dizzy. He says he looked down and saw that he was excessively bleeding from where the "scab" got removed by the wound care nurse. His son summoned EMS. The bleeding spontaneously resolved. He reports that he's had this before and over the past few weeks he's been getting Unna boots placed by wound care. He says the Unna boots have been successful in keeping this type of bleeding from occurring during the previous 2 placements. Denies any fever, fatigue, chest pain, shortness of breath, black or bloody stools, diarrhea, nausea, vomiting, hematuria, dysuria. . CBC/BMP: 12/21/16 0951 12/21/16 0951 Significant Findings Laboratory Tests Test 12/23/16 14:05 Blood Gas HCO3 28 mmol/L (22-26) Blood Gas Base Excess 4.8 mmol/L (-2-2) Arterial Blood pH 7.50 (7.380-7.420) Arterial Blood Partial 36 mmHg (38-42) Pressure CO2 Arterial Blood Partial 267 mmHg Pressure O2 (61-120) Imaging Last Impressions Aorta w/Runoff CTA 12/21/16 0000 Signed Impressions: Service Date/Time: Wednesday, December 21, 2016 19:38 - CONCLUSION: 1. The examination demonstrates moderate stenosis of the origin of the right common iliac. 2. There are 2 areas of high grade stenosis involving the left external iliac. 3. 4. Right le. Occlusion of the superficial femoral with reconstitution at the adductor hiatus. Distally, the reconstituted segment of superficial femoral, the popliteal and trifurcation vessels are widely patent. 6. Left leg: Complete occlusion of the superficial femoral with a limited reconstitution of the popliteal at the level of the knee. The reconstituted segment of popliteal is small in caliber but patent. All 3 trifurcation vessels are patent. Asa Anderson MD Lower Extremity Ultrasound 12/19/16 0000 Signed Impressions: Service Date/Time: Monday, December 19, 2016 10:37 - CONCLUSION: Negative for thrombosis.. Toan Anderson MD FACR PE at Discharge GENERAL: This is a well-nourished, well-developed patient, in no apparent distress. SKIN: No rashes, ecchymoses or lesions. Cool and dry. Left lower extremity is dressed and covered - Dressing is C/D/I HEAD: Atraumatic. Normocephalic. EYES: No scleral icterus. No injection or drainage. ENT: Nose without bleeding, purulent drainage. NECK: Trachea midline. No JVD or lymphadenopathy. CARDIOVASCULAR: Regular rate and rhythm without murmurs, gallops, or rubs. Left lower extremity from knee down with changes consistent with peripheral vascular disease. RESPIRATORY: Clear to auscultation. Breath sounds equal bilaterally. No wheezes , rales, or rhonchi. GASTROINTESTINAL: Abdomen soft, non-tender, nondistended. No guarding. MUSCULOSKELETAL: Extremities without clubbing, cyanosis, some edema in left leg with some tenderness to palpation. Left thigh surgical incision covered by dressing which looks C/D/I. NEUROLOGICAL: Awake and alert. Motor and sensory grossly within normal limits. Normal speech. Hospital Course Mr. Carbone is a 60 year-old male with a past medical history of HIV, neuropathy, diabetes mellitus, and peripheral arterial disease who presented to the hospital for bleeding from left lower extremity wound. He follows with Dr. Ramos, vascular surgeon, and Dr. Stout, captain waiter/waitress. EMS reported a large amount of blood loss at the scene. Patient is tachycardic and somewhat hypertensive in the emergency room. Oxygen saturations are 99.1% on room air. Hemoglobin dropped from 11.5 to 9.5 over 2 hours in the emergency room. Lactic acid somewhat elevated at 2.4 on admission Anemia related to acute blood loss - Hemoglobin dropped from 11.5 to 9.5 over 2 hours in the emergency room. - Transfuse PRBC's for hemoglobin less than 7 or <9 if active bleeding. - Monitored vital signs and H/H - Bleeding seems to have resolved. - 12/19 Hemoglobin dropped down to 8.9 but no signs of active bleeding or bleeding reported. - 12/20 Hemoglobin keeps dropping 8.9 - 8.1- no active signs of bleeding. Possibly dilutional since patient is on IV fluids. Continue to monitor H/H. Transfuse as per above mentioned parameters. - 12/21 Hemoglobin 8.0 - 12/22 hemoglobin remained stable. Acute Kidney injury on CKD stage III - BUN elevated at 33, creatinine elevated at 2.13, estimated GFR low at 38 - Baseline creatinine 1.1 - 2 L of normal saline via IV bolus given in ER - sp a bolus of IV normal saline on 12/19 due to hypotension. - 12/20 BECKA resolved, down to baseline creatinine at 1.14. IV fluids discontinued. Chronic skin ulcer of lower leg - provided wound care. - Cover with dry dressing. Left lower extremity pain - Check left lower extremity Doppler ultrasound - negative for DVT 12/22 I will decrease his schedule of the oral [place] from every 6 hours to every 4 hours. Hypotension - No signs of active bleeding. -Resolved after fluid administration. Uncontrolled hypertension Patient's amlodipine increased to 10 minutes by mouth daily on 12/22/16. 12/23 blood pressure still elevated. Patient started on clonidine when necessary and enalapril IV which will be continued for BP control. Continue to monitor vital signs. 12/24 Bp still uncontrolled and going as high as 180 systolic - Cardura 2 mg daily started. Peripheral vascular disease Patient with severe disease. CTA with runoff as above. Patient has severe ischemia of both legs left more than right, left near-total external iliac occlusion, SFA occlusion and ulcer of the left foot. Patient status post left external iliac balloon angioplasty/stenting, left common femoral left external iliac endarterectomy and angioplasty, arteriogram 4. Surgical procedure performed by on 12/23/16. Patient has been cleared to be discharged by muscular surgery. Patient will follow-up with vascular surgery as an outpatient 3-4 weeks at which point vascularization of the right leg will be planned. DVT prophylaxis - SCDs Pt Condition on Discharge: Stable Discharge Disposition: Discharge Home Discharge Time: <= 30 minutes Discharge Instructions DIET: Follow Instructions for: Heart Healthy Diet Activities you can perform: Regular-No Restrictions Follow up Referrals: PCP Follow-up - 1 Week Vascular Surgery - 3 Weeks with Rosita Ramos MD New Medications: Clopidogrel (Plavix) 75 Mg Tab 75 MG PO DAILY Blood Clot Prevention #30 Ref 3 TAB Continued Medications: Albuterol 18 GM Inh (Ventolin Hfa 18 GM Inh) 90 Mcg/Act Aer 2 PUFF INH Q4H PRN SHORTNESS OF BREATH INHALER Amlodipine (Amlodipine) 5 Mg Tab 5 MG PO DAILY Blood Pressure Management #30 TAB (This prescription has been renewed) Aspirin (Aspirin) 81 Mg Tabdr 81 MG PO DAILY Blood Clot Prevention #30 TAB (This prescription has been renewed ) Atenolol (Atenolol) 50 Mg Tab 50 MG PO DAILY Blood Pressure Management #30 TAB (This prescription has been renewed) Atorvastatin (Atorvastatin) 80 Mg Tab 80 MG PO HS Cholesterol Management #30 Ref 0 TAB (This prescription has been renewed) Cetirizine (Zyrtec Allergy) 10 Mg Tab 10 MG PO HS Allergies TAB Darunavir (Prezista) 800 Mg Tab 800 MG PO DAILY Mgmt Viral Infection #30 Ref 0 TAB Divalproex ER (Divalproex ER) 500 Mg Tab 500 MG PO DAILY Control Seizures #30 Ref 0 TAB Dolutegravir (Tivicay) 50 Mg Tab 50 MG PO Q12HR Mgmt Viral Infection Ergocalciferol (Drisdol) 50,000 Unit Cap 40673 UNITS PO Q7D Nutritional Supplement CAP Etravirine (Intelence) 200 Mg Tab 200 MG PO BIDPC Mgmt Viral Infection TAB Gabapentin (Gabapentin) 300 Mg Cap 300 MG PO TID CAP Hydrocodone-Acetaminophen (Hydrocodone-Acetaminophen) 10-325 mg Tab 1 TAB PO Q6H PRN PAIN #30 Ref 0 TAB (This prescription has been renewed) Hydroxyzine HCl (Hydroxyzine HCl) 25 Mg Tab 25 MG PO DAILY Itching TAB Lisinopril (Lisinopril) 40 Mg Tab 40 MG PO DAILY Blood Pressure Management #30 TAB (This prescription has been renewed) Ritonavir (Norvir) 100 Mg Cap 100 MG PO DAILY Mgmt Viral Infection #180 Ref 0 CAP Discontinued Medications: Hydrochlorothiazide (Hydrochlorothiazide) 25 Mg Tab 25 MG PO DAILY TAB Sulfamethoxazole-Trimethoprim (Bactrim DS) 800-160 Mg Tab 1 TAB PO BID Infection #20 Ref 0 TAB Jamal Herron MD Dec 24, 2016 13:28
[2016-12-24 13:34] VITALS: RESP 16
[2017-01-20] MEDS ORDERED: DOXY100C PO (12:03)
[2017-01-20] MEDS ORDERED: LYRI50CA PO (12:05)
== END 2016-12-24 15:46 | disposition home or self-care (01) | DRG 271 ==
LOC: NEPA 17:54 → NEDA 20:37 → HOCB 12-18 00:51 → N07B 12-23 18:06 → N05A 12-23 20:33
PROVIDERS: ADMIT Hospitalist; ATTEND Hospitalist
PROC: 047J3DZ Dilation of Left External Iliac Artery with Intraluminal Device, Percutaneous Approach (ICD-10-PCS; 2016-12-23)
PROC: 04CL0ZZ Extirpation of Matter from Left Femoral Artery, Open Approach (ICD-10-PCS; 2016-12-23)
PROC: [UNRECOGNIZED PROCEDURE] (principal; 2016-12-23 12:39)
PROC: 047J3ZZ Dilation of Left External Iliac Artery, Percutaneous Approach (ICD-10-PCS; 2016-12-23 12:39)
DX: I70.8 Atherosclerosis of other arteries (principal); N17.9 Acute kidney failure, unspecified; E11.22 Type 2 diabetes mellitus with diabetic chronic kidney disease; E11.621 Type 2 diabetes mellitus with foot ulcer; N18.3 Chronic kidney disease, stage 3 (moderate); I95.9 Hypotension, unspecified; J44.9 Chronic obstructive pulmonary disease, unspecified; D62 Acute posthemorrhagic anemia; I70.202 Unspecified atherosclerosis of native arteries of extremities, left leg; G62.9 Polyneuropathy, unspecified; Z86.14 Personal history of Methicillin resistant Staphylococcus aureus infection; J45.909 Unspecified asthma, uncomplicated; I12.9 Hypertensive chronic kidney disease with stage 1 through stage 4 chronic kidney disease, or unspecified chronic kidney disease; M19.90 Unspecified osteoarthritis, unspecified site; Z86.73 Personal history of transient ischemic attack (TIA), and cerebral infarction without residual deficits; E78.00 Pure hypercholesterolemia, unspecified; F17.210 Nicotine dependence, cigarettes, uncomplicated; I87.2 Venous insufficiency (chronic) (peripheral); Z21 Asymptomatic human immunodeficiency virus [HIV] infection status; Z91.19 Patient's noncompliance with other medical treatment and regimen; L97.529 Non-pressure chronic ulcer of other part of left foot with unspecified severity; R21 Rash and other nonspecific skin eruption
CPT/HCPCS: 36600; 75635; 75710; 80048; 80053; 82805; 82948; 83605; 83735; 85014; 85018; 85025; 85027; 85610; 85730; 86850; 86900; 86901; 87641; 93971; 94640; 94664; 99211; 99284; C1725; C1757; C1769; C1876; G0463; J0131; J1170; J1644; J2250; J2370; J2405; J2710; J3010; J3370; J7030; J7040; J7050; Q9967

== ENCOUNTER 2016-12-28 16:01 | Inpatient (IN) | payer MEDICAID ==
[2016-12-28] VITALS (14 sets, daily range): BP systolic 97–182; BP diastolic 50–84; PULSE 57–114; RESP 16–18; TEMP 97.9–98.7; O2SAT 97–100
[~2016-12-28] VITALS: Ht 172.7 cm; Wt 83.1 kg
[~2016-12-28 16:01] MED LIST changes: +ATOR1TAB18 PO; -ATOR40TA16 PO; -BACT800T5 PO; -FURO1TAB62 PO; -HYDR25TA5 PO; -POTA10TA8 PO; -SULF1TAB23 PO
[2016-12-28] MEDS ORDERED: LIDOCAINE 1%/EPINEPHrine 1:100,000 SOLN 20 ML VIAL ONE (16:08)
[2016-12-28] MEDS ORDERED: LIDOCAINE 1%/EPINEPHrine 1:100,000 SOLN 20 ML VIAL INFIL ONE (16:15)
[2016-12-28] MEDS ORDERED: GELATIN 12 MM/7 MM FOAM TOPICAL ONE (16:15)
--- NOTE | 2016-12-28 16:28 | PD ---
HPI Chief Complaint: Bleeding Time Seen by Provider: 16:19 Travel History International Travel<30 days: No Contact w/Intl Traveler<30days: No Traveled to known affect area: No History of Present Illness HPI This is a 61-year-old male who is on Plavix with a history of peripheral arterial disease and varicose veins with chronic poorly healing ulcers in the left lower extremity presenting to the emergency department having had onset of a large amount of bleeding from his left leg that he couldn't control at home. EMS reports that he had 200-300 cc of blood present prior to them wrapping the leg. The bleeding was constant and severe, with no associated lightheadedness or dizziness. The patient reports that this is happened before in the last time this happened he was admitted to the hospital for blood transfusion and had surgery by Dr. Stanford. He doesn't know what kind of surgery he had. PFSH Past Medical History Hx Anticoagulant Therapy: Yes Arthritis: Yes Asthma: Yes Blood Disorders: Yes (HIV) Anxiety: No Depression: No Heart Rhythm Problems: No Cancer: No Cardiovascular Problems: Yes (HTN) High Cholesterol: Yes Chest Pain: No Congestive Heart Failure: No COPD: No Cerebrovascular Accident: Yes (TIA ) Diabetes: Yes Diminished Hearing: No Endocrine: No Gastrointestinal Disorders: No Genitourinary: No Hypertension: Yes Immune Disorder: Yes (HIV Positive) Implanted Vascular Access Dvce: No Musculoskeletal: No Neurologic: Yes (Neuropathy) Psychiatric: No Respiratory: Yes (ASTHMA) Immunizations Current: No (NO FLU VACCINE YET THIS YEAR) Sleep Apnea: No Past Surgical History Other Surgery: Yes (BRONCHOSCOPY/ VASCULAR SURGERY) Social History Alcohol Use: No Tobacco Use: Yes Substance Use: No Allergies-Medications (Allergen,Severity, Reaction): Coded Allergies: Morphine (Verified Allergy, Severe, Itching, 12/16/16) makes skin bleed so itchy *MDRO Multi-Drug Resistant Organism (Verified Adverse Reaction, Unknown, Cleared, 12/23/16) MRSA (blood & scrotal abscess) - 04/2015; (Leg) - 06/2016, 07/27/16 Cleared - MRSA PCR negative 12/19/16 & 12/22/16 Reported Meds & Prescriptions Reported Meds & Active Scripts Active Plavix (Clopidogrel Bisulfate) 75 Mg Tab 75 Mg PO DAILY Atorvastatin (Atorvastatin Calcium) 80 Mg Tab 80 Mg PO HS Hydrocodone-Acetaminophen 10-325 mg Tab 1 Tab PO Q6H PRN Amlodipine (Amlodipine Besylate) 5 Mg Tab 5 Mg PO DAILY Atenolol 50 Mg Tab 50 Mg PO DAILY Aspirin 81 Mg Tabdr 81 Mg PO DAILY Lisinopril 40 Mg Tab 40 Mg PO DAILY Reported Divalproex ER (Divalproex Sodium) 500 Mg Tab 500 Mg PO DAILY Prezista (Darunavir) 800 Mg Tab 800 Mg PO DAILY Norvir (Ritonavir) 100 Mg Cap 100 Mg PO DAILY Hydroxyzine HCl 25 Mg Tab 25 Mg PO DAILY Gabapentin 300 Mg Cap 300 Mg PO TID Tivicay (Dolutegravir Sodium) 50 Mg Tab 50 Mg PO Q12HR Plavix (Clopidogrel Bisulfate) 75 Mg Tab 75 Mg PO DAILY Intelence (Etravirine) 200 Mg Tab 200 Mg PO BIDPC Drisdol (Ergocalciferol) 50,000 Unit Cap 50,000 Units PO Q7D Zyrtec Allergy (Cetirizine HCl) 10 Mg Tab 10 Mg PO HS Ventolin Hfa 18 GM Inh (Albuterol Sulfate) 90 Mcg/Act Aer 2 Puff INH Q4H PRN Review of Systems Except as stated in HPI: all other systems reviewed are Neg Physical Exam Narrative GENERAL:Well appearing, no acute distress SKIN: Warm and dry. HEAD: Atraumatic. Normocephalic. EYES: Pupils equal and round. No injection or drainage. ENT: Moist mucous membranes NECK: Trachea midline. CARDIOVASCULAR: Tachycardic. No murmur appreciated. RESPIRATORY: Clear to auscultation. Breath sounds equal bilaterally. GASTROINTESTINAL: Abdomen soft, non-tender, nondistended. MUSCULOSKELETAL: 2 2 cm ulcerations on the right lower leg with a medial ulceration with a superficial vein actively bleeding. Large amount of clot and blood in dressing. NEUROLOGICAL: Awake and alert. No obvious cranial nerve deficits. Moving all extremities. PSYCHIATRIC: Appropriate mood and affect; insight and judgment normal. Data Data Last Documented VS Vital Signs Date Time Temp Pulse Resp B/P Pulse Ox O2 Delivery O2 Flow Rate FiO2 12/28/16 16:12 125 18 97 Room Air 12/28/16 16:04 98.7 178/84 Orders Lidocai-Epi 1%-1:100,000 Inj (Xylocaine- (12/28/16 16:15) Gelatin 12 Mm/7 Mm Top (Gelfoam 12 Mm/7 (12/28/16 16:15) Lidocai-Epi 1%-1:100,000 Inj (Xylocaine- (12/28/16 16:08) Complete Blood Count With Diff (12/28/16 16:21) Basic Metabolic Panel (Bmp) (12/28/16 16:21) Type And Screen (12/28/16 16:21) Prothrombin Time / Inr (Pt) (12/28/16 16:21) Act Partial Throm Time (Ptt) (12/28/16 16:21) ^ Insert Iv (12/28/16 16:21) Acetamin-Hydrocod 325-7.5 Mg ([place] 7.5 (12/28/16 16:30) Electrocardiogram (12/28/16 ) Red Blood Cells (Rbc) (12/28/16 17:05) Blood Product Administration .UPON TRANSFUSION (12/28/16 17:05) Sodium Chlor 0.9% 250 Ml Inj (Ns 250 Ml (12/28/16 17:15) Admit Order (Ed Use Only) (12/28/16 17:23) Labs Laboratory Tests Test 12/28/16 12/28/16 16:24 17:08 White Blood Count 10.1 TH/MM3 Red Blood Count 2.82 MIL/MM3 Hemoglobin 8.5 GM/DL Hematocrit 26.0 % Mean Corpuscular Volume 92.1 FL Mean Corpuscular Hemoglobin 30.0 PG Mean Corpuscular Hemoglobin 32.6 % Concent Red Cell Distribution Width 16.5 % Platelet Count 359 TH/MM3 Mean Platelet Volume 8.6 FL Neutrophils (%) (Auto) 45.2 % Lymphocytes (%) (Auto) 39.1 % Monocytes (%) (Auto) 10.9 % Eosinophils (%) (Auto) 4.5 % Basophils (%) (Auto) 0.3 % Neutrophils # (Auto) 4.6 TH/MM3 Lymphocytes # (Auto) 3.9 TH/MM3 Monocytes # (Auto) 1.1 TH/MM3 Eosinophils # (Auto) 0.5 TH/MM3 Basophils # (Auto) 0.0 TH/MM3 CBC Comment DIFF FINAL Differential Comment Prothrombin Time 11.4 SEC Prothromb Time International 1.0 RATIO Ratio Activated Partial 22.6 SEC Thromboplast Time Sodium Level 138 MEQ/L Potassium Level 4.6 MEQ/L Chloride Level 101 MEQ/L Carbon Dioxide Level 25.5 MEQ/L Anion Gap 12 MEQ/L Blood Urea Nitrogen 19 MG/DL Creatinine 1.49 MG/DL Estimat Glomerular Filtration 58 ML/MIN Rate Random Glucose 199 MG/DL Calcium Level 9.4 MG/DL Blood Type AB NEGATIVE Antibody Screen NEGATIVE Crossmatch Leukocyte-Reduced Red Blood Cells Blood Bank Comment MDM Medical Decision Making Medical Screen Exam Complete: Yes Emergency Medical Condition: Yes Medical Record Reviewed: Yes (patient was just admitted at the end of November for a similar episode of bleeding from his wound and had revascularization of his left leg) Interpretation(s) Tachycardia Hemoglobin is 8.5 Hematocrit is 26 Renal insufficiency Differential Diagnosis Varicose vein, hemorrhagic shock, anemia Narrative Course This is a 61-year-old male who presents to the emergency department with a large amount of bleeding coming from the left lower extremity ulcer. Patient was tachycardic and diaphoretic on arrival. I undressed his wound which was soaked with blood clots, and isolated the area of bleeding. I injected 5 cc of 1% lidocaine with epinephrine and place Gelfoam over the wound. The wound stopped bleeding. We applied a pressure dressing. Patient's hemoglobin is similar to prior however I suspect this is due to the recent nature of the patient's bleeding. I think given the patient's persistent tachycardia and clinical appearance he would benefit from a blood transfusion. Patient will be admitted for monitoring, serial hemoglobins and transfusion. Physician Communication Physician Communication Discussed with Dr. Alvarenga Diagnosis Primary Impression: Bleeding from wound Admitting Information Admitting Physician Requests: Observation Lidia Valdivia MD Dec 28, 2016 16:28
[2016-12-28] MEDS ORDERED: ACETAMINOPHEN/HYDROcodone 325 MG/7.5 MG TAB PO ONE (16:30)
[2016-12-28 16:58] LABS: APTT (PATIENT) 22.6 SEC (24.3-30.1); PROTHROMBIN TIME - PATIENT 11.4 SEC (9.8-11.6)
[2016-12-28 17:02] LABS: AUTOMATED NEUTROPHIL # 4.6 TH/MM3 (1.8-7.7); BASOPHIL % 0.3 % (0.0-2.0); EOSINOPHIL # 0.5 TH/MM3 (0-0.4); EOSINOPHIL % 4.5 % (0.0-4.0); HEMO FLAGS DIFF FINAL; LYMPH % 39.1 % (9.0-44.0); LYMPHOCYTE # 3.9 TH/MM3 (1.0-4.8); MEAN CELL VOLUME 92.1 FL (80.0-100.0); MEAN CORPUSCULAR HGB CONC 32.6 % (32.0-36.0); MONO % 10.9 % (0.0-8.0); NEUT % 45.2 % (16.0-70.0); PLATELET COUNT 359 TH/MM3 (150-450); RED BLOOD COUNT 2.82 MIL/MM3 (4.50-5.90); RED CELL DISTRIBUTION WIDTH 16.5 % (11.6-17.2); WHITE BLOOD COUNT 10.1 TH/MM3 (4.0-11.0)
[2016-12-28] MEDS ORDERED: SODIUM CHLOR 0.9% 250 ML INJ 250 ML IV ONE (17:15)
[2016-12-28 17:18] LABS: BICARBONATE 25.5 MEQ/L (21.0-32.0); POTASSIUM 4.6 MEQ/L (3.5-5.1)
--- NOTE | 2016-12-28 17:46 | HHI.HP ---
[facility] Service Family Medicine Primary Care Physician Renato Rivers MD Admission Diagnosis bleeding wound Diagnoses: International Travel<30 Days: No Contact w/Intl Traveler<30days: No Known Affected Area: No History of Present Illness Mr. Carbone is a 61-year-old male with a past medical history of HIV, peripheral artery disease with ulcers, and neuropathy who presented to the [facility] ED for acute bleeding from his left lower extremity wound. Patient states that he was sitting on a couch, watching TV, when he looked down and saw blood all over the floor. He immediately reached out to his next door neighbor to call the security supervisor to call 911. Patient states that he felt sweaty, dizzy, nauseated, and vomited "spit" about 3-4 times. He states that he almost blacked out but denies chest pain and shortness of breath. EMS reports a large amount of blood at the scene. He follows with Dr. Ramos, vascular surgeon, and Dr. Stout, power transformer repairer. (Cristine Gutierrez MD R1) Review of Systems Constitutional: DENIES: Fever, Chills Eyes: DENIES: Blurred vision Ears, nose, mouth, throat: DENIES: Throat pain, Running Nose, Sinus Pain Respiratory: DENIES: Cough (Cristine Gutierrez MD R1) Past Family Social History Past Medical History HIV x 20 years Hypertension Peripheral arterial disease Past Surgical History PAD surgery Reported Medications Reported Meds & Active Scripts Active Plavix (Clopidogrel Bisulfate) 75 Mg Tab 75 Mg PO DAILY Atorvastatin (Atorvastatin Calcium) 80 Mg Tab 80 Mg PO HS Hydrocodone-Acetaminophen 10-325 mg Tab 1 Tab PO Q6H PRN Amlodipine (Amlodipine Besylate) 5 Mg Tab 5 Mg PO DAILY Atenolol 50 Mg Tab 50 Mg PO DAILY Aspirin 81 Mg Tabdr 81 Mg PO DAILY Lisinopril 40 Mg Tab 40 Mg PO DAILY Reported Divalproex ER (Divalproex Sodium) 500 Mg Tab 500 Mg PO DAILY Prezista (Darunavir) 800 Mg Tab 800 Mg PO DAILY Norvir (Ritonavir) 100 Mg Cap 100 Mg PO DAILY Hydroxyzine HCl 25 Mg Tab 25 Mg PO DAILY Gabapentin 300 Mg Cap 300 Mg PO TID Tivicay (Dolutegravir Sodium) 50 Mg Tab 50 Mg PO Q12HR Plavix (Clopidogrel Bisulfate) 75 Mg Tab 75 Mg PO DAILY Intelence (Etravirine) 200 Mg Tab 200 Mg PO BIDPC Drisdol (Ergocalciferol) 50,000 Unit Cap 50,000 Units PO Q7D Zyrtec Allergy (Cetirizine HCl) 10 Mg Tab 10 Mg PO HS Ventolin Hfa 18 GM Inh (Albuterol Sulfate) 90 Mcg/Act Aer 2 Puff INH Q4H PRN ( Cristine Gutierrez MD R1) Allergies: Coded Allergies: Morphine (Verified Adverse Reaction, Mild, Itching, 12/29/16) makes skin bleed so itchy *MDRO Multi-Drug Resistant Organism (Verified Adverse Reaction, Unknown, Cleared, 12/31/16) MRSA (blood & scrotal abscess) - 04/2015; (Leg) - 06/2016, 07/27/16 MRSA PCR Screens NEGATIVE - 12/19/16 & 12/22/16 CLEARED PER INFECTION CONTROL PROTOCOL Family History Fathers side: [place], diabetes Mother with Alzheimer's Social History Tobacco: Smokes 4 cigarettes per day - former heavy smoker Alcohol: Denies Illicit Drugs: Denies (Cristine Gutierrez MD R1) Physical Exam Vital Signs Vital Signs Date Time Temp Pulse Resp B/P Pulse Ox O2 Delivery O2 Flow Rate FiO2 12/28/16 16:12 125 18 97 Room Air 12/28/16 16:04 98.7 18 178/84 Physical Exam GENERAL: This is a well-nourished, well-developed patient, in no apparent distress SKIN: Three 2 cm ulcerations on the left lower leg, 1 lateral, 1 central, 1 medial. Hemostasis achieved at time of exam from central ulceration. Darkened skin on anterior surface of the left lower extremity. No signs of infection. Left foot cold to touch HEAD: Atraumatic. Normocephalic. No temporal or scalp tenderness. EYES: Pupils equal round and reactive. Extraocular motions intact. No scleral icterus. No injection or drainage. ENT: Nose without bleeding, purulent drainage or septal hematoma. Throat without erythema, tonsillar hypertrophy or exudate. Uvula midline. Airway patent. NECK: Trachea midline. No JVD or lymphadenopathy. Supple, nontender, no meningeal signs. CARDIOVASCULAR: Regular rate and rhythm without murmurs, gallops, or rubs. Unable to palpate dorsalis pedis pulse on left lower extremity, pulse not identified with Doppler RESPIRATORY: Clear to auscultation. Breath sounds equal bilaterally. No wheezes , rales, or rhonchi. GASTROINTESTINAL: Abdomen soft, non-tender, nondistended. No hepato-splenomegaly , or palpable masses. No guarding. MUSCULOSKELETAL: See skin exam above NEUROLOGICAL: Awake and alert. Cranial nerves II through XII intact. Motor and sensory grossly within normal limits. Five out of 5 muscle strength in all muscle groups. Normal speech. Laboratory Laboratory Tests Test 12/28/16 12/28/16 16:24 17:08 White Blood Count 10.1 Red Blood Count 2.82 Hemoglobin 8.5 Hematocrit 26.0 Mean Corpuscular Volume 92.1 Mean Corpuscular Hemoglobin 30.0 Mean Corpuscular Hemoglobin 32.6 Concent Red Cell Distribution Width 16.5 Platelet Count 359 Mean Platelet Volume 8.6 Neutrophils (%) (Auto) 45.2 Lymphocytes (%) (Auto) 39.1 Monocytes (%) (Auto) 10.9 Eosinophils (%) (Auto) 4.5 Basophils (%) (Auto) 0.3 Neutrophils # (Auto) 4.6 Lymphocytes # (Auto) 3.9 Monocytes # (Auto) 1.1 Eosinophils # (Auto) 0.5 Basophils # (Auto) 0.0 CBC Comment DIFF FINAL Differential Comment Prothrombin Time 11.4 Prothromb Time International 1.0 Ratio Activated Partial 22.6 Thromboplast Time Sodium Level 138 Potassium Level 4.6 Chloride Level 101 Carbon Dioxide Level 25.5 Anion Gap 12 Blood Urea Nitrogen 19 Creatinine 1.49 Estimat Glomerular Filtration 58 Rate Random Glucose 199 Calcium Level 9.4 Blood Type AB NEGATIVE Antibody Screen NEGATIVE Crossmatch Leukocyte-Reduced Red Blood Cells Blood Bank Comment (Cristine Gutierrez MD R1) Result Diagram: 12/28/16 1624 12/28/16 162 Course CBC showed hemoglobin of 8.5. Patient received one unit of packed red blood cells in the ED. (Cristine Gutierrez MD R1) Assessment and Plan Assessment and Plan Mr. Carbone is a 60 year-old male with a past medical history of HIV, neuropathy, and peripheral arterial disease with ulcers who presented to the [facility] ED for bleeding from left lower extremity wound. He will be admitted on observation for transfusion of 1 packed red blood cells. We will follow his H&H and consult his vascular surgeon Dr. Kearney for further recommendations. Anemia related to acute blood loss - Hemoglobin 8.5, hematocrit 26 in the ED - Serial H&H every 6 hours ordered - Will follow results and transfuse if necessary - Monitor vital signs every 4 hours - Continuous cardiac telemetry Acute renal failure - BUN elevated at 19, creatinine elevated at 1.49, estimated GFR low at 58 -Baseline creatinine 1.03 in July 2016 - 2 L of normal saline via IV bolus given in ER -Normal saline at 120 mL/hr - Will recheck BMP and follow trends - Avoid nephrotoxins Chronic skin ulcer of lower leg -Consult vascular surgery for further recommendations -Consult wound care nurse for management recommendations DVT prophylaxis - SCD on unaffected lower extremity Fluids: Maintenance NS @ 120 mls/hr IV Electrolytes: Will monitor and replace as needed Nutrition: Regular adult diet DVT Prophylaxis: SCD on unaffected lower extremity, will hold off on pharmacological DVT prophylaxis due to recent bleeding episode GI Prophylaxis: Not necessary Chronic Medical Problems -HIV: continue home HIV medications -HTN: Continue amlodipine 5 mg by mouth daily, atenolol 50 mg by mouth daily, lisinopril 40 mg by mouth daily PAD: Hold Plavix due to acute bleed Code Status Full code Discussed Condition With Seen and examined with Dr. Alvarenga, PGY 2, will discuss with Dr. Lux (Cristine Gutierrez MD R1) Attending Attestation The patient has been seen and examined. The chart and all resident notes have been reviewed. I agree that inpatient care is appropriate and that a two midnight stay is expected for the reasons documented in the resident history and physical. I have discussed this with the resident and certify the resident s order for inpatient admission. All systems reviewed and neg except as stated in HPI. (Alycia Lux MD) Problem List: (1) Hypertension Status: Chronic (2) Peripheral arterial disease Status: Chronic (3) Acute renal failure Status: Acute (4) Acute blood loss anemia Status: Acute (5) Chronic skin ulcer of lower leg Status: Chronic (6) Peripheral vascular disease Status: Chronic (7) HIV disease Status: Chronic (Cristine Gutierrez MD R1) Problem Qualifiers (1) Hypertension: Qualified Code: I10 - Essential hypertension Cristine Gutierrez MD R1 Dec 28, 2016 17:46 Alycia Lux MD Dec 31, 2016 10:35 (6) Peripheral vascular disease Status: Chronic (7) HIV disease Status: Chronic Problem Qualifiers (1) Hypertension: Qualified Code: I10 - Essential hypertension Cristine Gutierrez MD R1 Dec 28, 2016 17:46
[2016-12-28] MEDS ORDERED: MORPHINE SULFATE 4 MG/ML INJ IV PUSH ONE (18:00)
[2016-12-28] MEDS: SODIUM CHLOR 0.9% 1000 ML INJ 1,000 ML IV SCH (18:32)
[2016-12-28] MEDS: amLODIPine BESYLATE 5 MG TAB PO SCH (18:36)
[2016-12-28] MEDS ORDERED: ONDANSETRON HCL 4 MG/2 ML VIAL IV PRN (18:45)
[2016-12-28] MEDS ORDERED: ACETAMINOPHEN 325 MG TAB PO PRN (18:45)
[2016-12-28] MEDS ORDERED: MORPHINE SULFATE 4 MG/ML INJ IV PUSH PRN (18:45)
[2016-12-28] MEDS: ATENOLOL 50 MG TAB PO SCH (18:53)
[2016-12-28] MEDS: ETRAVIRINE 100 MG TAB PO SCH (18:53)
[2016-12-28] MEDS: RITONAVIR 100 MG TAB PO SCH (18:53)
[2016-12-28] MEDS: DARUNAVIR 800 MG TAB PO SCH (18:54)
[2016-12-28] MEDS: LISINOPRIL 20 MG TAB PO SCH (18:55)
[2016-12-28] MEDS ORDERED: oxyCODONE/ACETAMINOPHEN 10 MG/325 MG TAB PO PRN (20:45)
[2016-12-28] MEDS ORDERED: DOCUSATE SODIUM 50 MG/SENNA 8.6 MG TAB PO PRN (21:00)
[2016-12-28] MEDS: DOLUTEGRAVIR SODIUM 50 MG TAB PO SCH (21:13)
[2016-12-28] MEDS: ATORVASTATIN 80 MG TAB PO SCH (21:13)
[2016-12-29] VITALS (17 sets, daily range): BP systolic 86–112; BP diastolic 44–67; PULSE 50–84; RESP 16–18; TEMP 96.6–98.2; O2SAT 97–100
[2016-12-29 02:18] LABS: AUTOMATED NEUTROPHIL # 16.6 TH/MM3 (1.8-7.7); BASOPHIL % 0.1 % (0.0-2.0); EOSINOPHIL % 0.2 % (0.0-4.0); HEMATOCRIT 26.5 % (39.0-51.0); HEMO FLAGS DIFF FINAL; LYMPH % 12.4 % (9.0-44.0); LYMPHOCYTE # 2.7 TH/MM3 (1.0-4.8); MEAN CELL VOLUME 89.4 FL (80.0-100.0); MEAN CORPUSCULAR HGB CONC 33.6 % (32.0-36.0); MONO % 9.2 % (0.0-8.0); NEUT % 78.1 % (16.0-70.0); PLATELET COUNT 292 TH/MM3 (150-450); RED BLOOD COUNT 2.96 MIL/MM3 (4.50-5.90); RED CELL DISTRIBUTION WIDTH 16.6 % (11.6-17.2); WHITE BLOOD COUNT 21.3 TH/MM3 (4.0-11.0)
[2016-12-29 02:32] LABS: ANION GAP 11 MEQ/L (5-15); AST (GOT) 19 U/L (15-37); BICARBONATE 24.6 MEQ/L (21.0-32.0); BLOOD UREA NITROGEN 27 MG/DL (7-18); CHLORIDE 100 MEQ/L (98-107); GLOMERULAR FILTRATION RATE 36 ML/MIN (>89); SODIUM (NA) 136 MEQ/L (136-145)
[2016-12-29 02:36] LABS: ALKALINE PHOSPHATASE 65 U/L (45-117); ALT (GPT) 32 U/L (12-78); TOTAL BILIRUBIN ADULT 0.4 MG/DL (0.2-1.0)
[2016-12-29] MEDS: SODIUM CHLOR 0.9% 1000 ML INJ 1,000 ML IV SCH ×4 (02:52→20:30)
[2016-12-29] MEDS: HYDROmorphone HCL PF 2 MG/ML VIAL IV PUSH PRN ×2 (03:33→14:00)
[2016-12-29] MEDS ORDERED: SODIUM CHLOR 0.9% 1000 ML INJ 1,000 ML IV ONE ×2 (06:00→17:00)
[2016-12-29] MEDS ORDERED: Vancomycin Consult Pharmacy 1 EA OTHER SCH (07:00)
[2016-12-29] MEDS ORDERED: VANCOMYCIN INJ 1,000 MG in SODIUM CHLOR 0.9% 250 ML INJ 250 ML IV SCH (08:00)
[2016-12-29] MEDS: GABAPENTIN 300 MG CAP PO SCH ×3 (08:24→19:09)
[2016-12-29] MEDS: amLODIPine BESYLATE 5 MG TAB PO SCH (08:24)
[2016-12-29] MEDS: LISINOPRIL 20 MG TAB PO SCH (08:25)
[2016-12-29] MEDS: ATENOLOL 50 MG TAB PO SCH (08:26)
[2016-12-29 08:28] LABS: HEMATOCRIT 25.7 % (39.0-51.0); REVIEW FLAG FINAL
--- NOTE | 2016-12-29 08:52 | RADRPT ---
EXAM DATE/TIME: 12/29/2016 08:17 [facility] COMPARISON: CHEST SINGLE AP, November 19, 2016, 3:43. INDICATIONS : Shortness of breath. MEDICAL HISTORY : Hypertension. Hypercholesterolemia. Neuropathy, TIA, Asthma, Cellulitis, SURGICAL HISTORY : Bronchoscopy. ENCOUNTER: Initial ACUITY: 1 day PAIN SCORE: 0/10 LOCATION: Bilateral chest FINDINGS: Portable AP view of the chest demonstrates a normal-sized cardiac silhouette. Lungs are underinflated with atelectasis at the left lung base. No effusion, consolidation, or pneumothorax is seen. Bones a nd soft tissues demonstrate no acute finding. CONCLUSION: Underinflated examination with atelectasis at the left lung base. Otherwise, no acute cardiopulmonary abnormality is identified. Renato Olivarez MD on December 29, 2016 at 8:50 Board Certified Radiologist. This report was verified electronically.
--- NOTE | 2016-12-29 08:52 | HHI.FPPN ---
Subjective Subjective Patient seen and examined with the resident team. Case reviewed and discussed Please refer to resident H&P for further details regarding HPI, ROS, PMH, SurgHx , FH and SocHx In summary, patient is a 61yo with a history of peripheral vascular disease, known to Dr. Leong presenting for acute bleeding of LE. Patient is also been following with wound care, Dr. Stout for chronic ulcerations of the lower extremity. He was seen in his hospital room this morning, on first no complaints. Of note, the patient had minimal urine output overnight despite IV fluid resuscitation. He is agreeable this morning to [place] placement. [facility] Objective Objective Last Impressions Chest X-Ray 12/29/16 0000 Signed Impressions: Service Date/Time: Thursday, December 29, 2016 08:17 - CONCLUSION: Underinflated examination with atelectasis at the left lung base. Otherwise, no acute cardiopulmonary abnormality is identified. Renato Olivarez MD Laboratory Tests - Abnormals Test 12/28/16 12/29/16 12/29/16 12/29/16 16:24 01:43 07:57 08:06 Red Blood Count 2.82 MIL/MM3 2.96 MIL/MM3 Hemoglobin 8.5 GM/DL 8.9 GM/DL 8.4 GM/DL Hematocrit 26.0 % 26.5 % 25.7 % Monocytes (%) (Auto) 10.9 % 9.2 % Eosinophils (%) (Auto) 4.5 % Monocytes # (Auto) 1.1 TH/MM3 2.0 TH/MM3 Eosinophils # (Auto) 0.5 TH/MM3 Activated Partial 22.6 SEC Thromboplast Time Blood Urea Nitrogen 19 MG/DL 27 MG/DL Creatinine 1.49 MG/DL 2.23 MG/DL Estimat Glomerular Filtration 58 ML/MIN 36 ML/MIN Rate Random Glucose 199 MG/DL 111 MG/DL White Blood Count 21.3 TH/MM3 Neutrophils (%) (Auto) 78.1 % Neutrophils # (Auto) 16.6 TH/MM3 Albumin 3.2 GM/DL Lactic Acid Level 2.7 mmol/L Vital Signs 12/28/16 12/28/16 12/28/16 12/28/16 16:04 16:12 17:55 18:10 Temp 98.7 98.2 98.2 Pulse 125 112 113 Resp 18 18 18 18 B/P 178/84 153/72 152/72 Pulse Ox 97 100 100 O2 Delivery Room Air Room Air Room Air 12/28/16 12/28/16 12/28/16 12/28/16 18:47 19:00 19:02 19:15 Temp 97.9 98.0 Pulse 114 87 110 93 Resp 18 18 16 B/P 182/79 124/75 179/82 163/71 Pulse Ox 97 100 97 100 O2 Delivery Nasal Cannula Nasal Cannula Nasal Cannula O2 Flow Rate 2 2 2 12/28/16 12/28/16 12/28/16 12/28/16 19:50 20:44 21:00 22:00 Pulse 91 86 88 58 B/P 148/75 12/28/16 12/28/16 12/28/16 12/29/16 22:18 23:00 23:16 00:00 Temp 97.9 Pulse 57 58 58 B/P 97/50 Pulse Ox 100 100 O2 Delivery Nasal Cannula O2 Flow Rate 2.00 12/29/16 12/29/16 12/29/16 12/29/16 01:00 02:00 03:00 04:23 Pulse 58 56 56 56 B/P 95/47 Pulse Ox 100 12/29/16 12/29/16 12/29/16 12/29/16 04:33 05:00 06:00 06:41 Temp 97.3 Pulse 57 52 50 58 B/P 103/60 Pulse Ox 97 12/29/16 12/29/16 08:33 08:33 Temp 98.1 Pulse 59 52 Resp 18 B/P 105/48 Pulse Ox 98 INTAKE & OUTPUT 12/29/16 07:00 Intake Total 1440 ml Output Total 0 ml Balance 1440 ml Physical exam GENERAL: WDWN male, sitting up in bed, NAD SKIN: Warm and dry. Scattered hyperpigmented lesions across extremities which are chronic HEAD: Normocephalic. Atraumatic EYES: No scleral icterus. No injection or drainage. ENT: OP clear, MMM slightly dry, nasal cannula in place NECK: Supple, trachea midline. No JVD or lymphadenopathy. CARDIOVASCULAR: Regular rate and rhythm without audible murmurs, gallops, or rubs. RESPIRATORY: Breath sounds equal bilaterally. Poor inspiratory effort. No accessory muscle use. GASTROINTESTINAL: Abdomen soft, non-tender, mildly distended. MUSCULOSKELETAL: No cyanosis. There is to approximately quarter size lesions without active bleeding or purulent drainage over the anterior aspect of the left lower leg and one smaller lesion just lateral to the which is slightly smaller. The feet bilaterally are cool to the touch and left foot does not have a palpable pulse. Neurologically diminished sensation. The left foot is edematous distal to above noted lesions. Left inguinal incision is dry and intact. BACK: Nontender without obvious deformity. No CVA tenderness. Neuro: Awake and alert, normal speech. Cranial nerves grossly intact. Neurologically diminished sensation bilateral lower extremities. Assessment Assessment 61-year-old male admitted with: Acute bleeding following left leg revascularization procedure for peripheral arterial disease. Chronic lower extremity wounds Acute blood loss anemia Peripheral vascular disease Prolonged tobacco history HIV Significant leukocytosis Acute on chronic renal disease Poor urine output Hypertension PLAN PLAN Status post transfusion Follow H&H No further bleeding episodes Infectious workup given her significant leukocytosis Strict ins and outs IV fluid resuscitation Infectious disease has been consulted for recommendations regarding antibiotic management Resume home meds as appropriate Anti-platelet therapy held due to bleeding initially Patient seen and examined. Case reviewed and discussed Agree with plan of care as discussed with me and documented in the resident note. Alycia Lux MD Dec 29, 2016 08:51 note. Alycia Lux MD Dec 29, 2016 08:51
[2016-12-29] MEDS: DOLUTEGRAVIR SODIUM 50 MG TAB PO SCH ×2 (09:00→20:29)
[2016-12-29] MEDS: DARUNAVIR 800 MG TAB PO SCH (09:00)
[2016-12-29] MEDS: hydrOXYzine HCL 25 MG TAB PO SCH (09:00)
[2016-12-29] MEDS: ETRAVIRINE 100 MG TAB PO SCH ×2 (09:00→19:09)
[2016-12-29] MEDS: PIPERACIL-TAZO 2.25 GM PREMIX 50 ML IV SCH ×2 (09:00→19:09)
[2016-12-29] MEDS: RITONAVIR 100 MG TAB PO SCH (09:00)
[2016-12-29] MEDS: DOCUSATE SODIUM 50 MG/SENNA 8.6 MG TAB PO SCH ×2 (10:00→20:29)
[2016-12-29 10:12] LABS: LACTIC ACID GHOST NOT REPORTABLE
--- NOTE | 2016-12-29 12:13 | PD.WOU.CON ---
Patient Intake Chief Complaint Ulcerations left anterior leg Consult Requested by Reason for Consult Treatment of nonhealing wounds of the left anterior leg Primary Care Physician Renato Rivers MD History of Present Illness Patient is a 61-year-old male who I saw on the wound center at the beginning of November for nonhealing wounds of the left anterior leg. He also had vascular insufficiency of the left lower extremity. He underwent endovascular intervention by Dr. Leong. Patient presented to the hospital recently because of bleeding from the wounds. Dr. Leong has been consulted. I was asked to see the patient concerning treatment of his wounds. His culture and sensitivity and the wound center on December 02 grew out staph aureus. Coded Allergies: Morphine (Verified Allergy, Severe, Itching, 12/16/16) makes skin bleed so itchy *MDRO Multi-Drug Resistant Organism (Verified Adverse Reaction, Unknown, Cleared, 12/23/16) MRSA (blood & scrotal abscess) - 04/2015; (Leg) - 06/2016, 07/27/16 Cleared - MRSA PCR negative 12/19/16 & 12/22/16 Preferred Language to Discuss: Vincentian Barriers to Learning: None Teaching Method: Discussion Vital Signs Date Time Temp Pulse Resp B/P Pulse Ox O2 Delivery O2 Flow Rate FiO2 12/29/16 11:42 98.2 54 18 87/54 97 12/29/16 08:33 52 12/29/16 08:33 98.1 59 18 105/48 98 12/29/16 06:41 97.3 58 103/60 97 12/29/16 06:00 50 12/29/16 05:00 52 12/29/16 04:33 57 12/29/16 04:23 56 95/47 100 12/29/16 03:00 56 12/29/16 02:00 56 12/29/16 01:00 58 12/29/16 00:00 58 12/28/16 23:16 58 12/28/16 23:00 97.9 57 97/50 100 12/28/16 22:18 100 Nasal Cannula 2.00 12/28/16 22:00 58 12/28/16 21:00 88 12/28/16 20:44 86 12/28/16 19:50 91 148/75 12/28/16 19:15 93 16 163/71 100 Nasal Cannula 2 12/28/16 19:02 98.0 110 18 179/82 97 Nasal Cannula 2 12/28/16 19:00 97.9 87 124/75 100 12/28/16 18:47 114 18 182/79 97 Nasal Cannula 2 12/28/16 18:10 98.2 113 18 152/72 100 Room Air 12/28/16 17:55 98.2 112 18 153/72 100 Room Air 12/28/16 16:12 125 18 97 Room Air 12/28/16 16:04 98.7 18 178/84 Pain scale used: 0-10 numeric scale Pain score: 4 Medications Current Medications Lidocaine/ Epinephrine (Xylocaine-Epi 1%-1:100,000 Inj) 20 ml ONCE ONCE INFIL ; Start 12/28/16 at 16:15; Stop 12/28/16 at 16:16; Status DC Gelatin (Gelfoam 12 Mm/7 Mm Top) 1 foam ONCE ONCE TOPICAL Last administered on 12/28/16 16:20; Start 12/28/16 at 16:15; Stop 12/28/16 at 16:16; Status DC Lidocaine/ Epinephrine (Xylocaine-Epi 1%-1:100,000 Inj) 20 ml STK-MED ONCE .ROUTE Last administered on 12/28/16 16:19; Start 12/28/16 at 16:08; Stop at 16:09; Status DC Acetaminophen/ Hydrocodone Bitart 1 tab 1 tab ONCE ONCE PO Last administered on 12/28/16 16:28; Start 12/28/16 at 16:30; Stop 12/28/16 at 16:31; Status DC Sodium Chloride (NS 250 ml Inj) 250 ml @ 15 mls/hr ONCE ONCE IV Last administered on 12/28/16 18:54; Start 12/28/16 at 17:15; Stop 12/29/16 at 09:54; Status DC Morphine Sulfate (Morphine Inj) 2 mg ONCE ONCE IV PUSH Last administered on 18:27; Start 12/28/16 at 18:00; Stop 12/28/16 at 18:10; Status DC Amlodipine Besylate (Norvasc) 5 mg DAILY PO Last administered on 12/29/16 08:24 ; Start 12/28/16 at 18:15 Atenolol (Tenormin) 50 mg DAILY PO Last administered on 12/28/16 18:53; Start 12/28/16 at 18:15 Atorvastatin Calcium (Lipitor) 80 mg HS PO Last administered on 12/28/16 21:13 ; Start 12/28/16 at 21:00 Darunavir (Prezista) 800 mg DAILY PO Last administered on 12/29/16 09:00; Start 12/28/16 at 18:15 Gabapentin (Neurontin) 300 mg TID PO Last administered on 12/29/16 08:24; Start 12/29/16 at 09:00 Hydroxyzine HCl (Atarax) 25 mg DAILY PO Last administered on 12/29/16 09:00; Start 12/29/16 at 09:00 Lisinopril (Prinivil) 40 mg DAILY PO Last administered on 12/28/16 18:55; Start 12/28/16 at 18:15 Ritonavir (Norvir) 100 mg DAILY PO Last administered on 12/29/16 09:00; Start 12/28/16 at 18:15 Etravirine (Intelence) 200 mg BIDPC PO Last administered on 12/29/16 09:00; Start 12/28/16 at 18:15 Hydralazine HCl (Apresoline) 10 mg Q6H PRN PO SBP>160, DBP>90; Start 12/28/16 at 18:45 Ondansetron HCl 4 mg 4 mg Q6H PRN IV NAUSEA OR VOMITING; Start 12/28/16 at 18:45 Sodium Chloride (NS 1000 ml Inj) 1,000 ml @ 150 mls/hr Q6H40M IV Last administered on 12/29/16 10:24; Start 12/28/16 at 18:32 Acetaminophen (Tylenol) 650 mg Q4H PRN PO SEE LABEL COMMENTS; Start 12/28/16 at 18:45 Morphine Sulfate (Morphine Inj) 2 mg Q4H PRN IV PUSH PAIN SCALE 6 TO 10; Start 12/28/16 at 18:45; Stop 12/28/16 at 20:47; Status DC Hydromorphone HCl (Dilaudid Pf Inj) 2 mg Q4H PRN IV PUSH PAIN SCALE 6 TO 10 Last administered on 12/29/16 03:33; Start 12/28/16 at 20:45 Oxycodone/ Acetaminophen (Percocet 10-325 Mg) 1 tab Q6H PRN PO BREAKTHROUGH PAIN Last administered on 12/28/16 21:13; Start 12/28/16 at 20:45 Senna/Docusate Sodium 1 tab 1 tab BID PRN PO CONSTIPATION; Start 12/28/16 at 21: 00 Sodium Chloride 1,000 ml @ 999 mls/hr BOLUS ONCE IV Last administered on 06:00; Start 12/29/16 at 06:00; Stop 12/29/16 at 07:00; Status DC Piperacillin Sod/ Tazobactam Sod 50 ml @ 100 mls/hr Q8H IV Last administered on 12/29/16 09:00; Start 12/29/16 at 09:00 Pharmacy Profile Note 0 ml @ 0 mls/hr UNSCH OTHER ; Start 12/29/16 at 07:00 Vancomycin HCl/ Sodium Chloride (Vancomycin Inj/ NS 250 ml Inj) 250 ml @ 250 mls/hr Q24H IV Last administered on 12/29/16 08:23; Start 12/29/16 at 08:00 Senna/Docusate Sodium (Tori-Colace) 1 tab BID PO Last administered on 12/29/16 10:00; Start 12/29/16 at 10:00 Past, Family & Social History Past Medical History Endocrine: REPORTS HX OF: Diabetes mellitus Cardiovascular: REPORTS HX OF: Peripheral vascular dz Infectious disease: REPORTS HX OF: HIV Past Surgical History Musculoskeletal: REPORTS HX OF: Other musculoskeletal srg (Left knee- Hung placement) Family Medical History Patient History: Alzheimer's disease G8 MOTHER ( at age 76) Cardiac arrest G8 FATHER ( at age 76) Diabetes mellitus G8 FATHER Substance Use Substance use: Denies use Review of Systems Notes Since he was last seen he underwent endovascular intervention. Wound Assessment Vascular Assessment R Dorsails Pedis: Palpable (diminished) L Dorsails Pedis: Absent R Posterior Tibial: Palpable (diminished) L Posterior Tibial: Absent Temperature of Left Extremity: Cool Color of Left Extremity: Dusky Wound Information - Wound One Wound Location: Left anterior leg- Medial Wound Type: Ischemic Classification: FT- full thickness Exudate: None Debridement: No Fibrin Amount: Moderate Granulation Tissue Color: Pale / Lott Granulation Tissue Texture: Spongy Exposed: No exposed bone, muscle, tendon Eschar: No Periwound Appearance: FINDINGS: Induration Dressings: Maxorb Extra AG Wound Two Wound Location: Left anterior leg- Lateral Wound Type: Ischemic Classification: FT- full thickness Photo Taken: No Exudate: None Exudate Type: N/A Debridement: No Fibrin Amount: Moderate Granulation Tissue Color: Pale / Lott Granulation Tissue Texture: Spongy Exposed: No exposed bone, muscle, tendon Eschar: No Odor: No Periwound Appearance: FINDINGS: Induration Dressings: Maxorb Extra AG Wound Three Wound Location: Left lateral proximal leg Lab and Radiology Results Laboratory Laboratory Tests Test 12/28/16 12/29/16 12/29/16 16:24 01:43 07:57 White Blood Count 10.1 TH/MM3 21.3 TH/MM3 Red Blood Count 2.82 MIL/MM3 2.96 MIL/MM3 Hemoglobin 8.5 GM/DL 8.9 GM/DL 8.4 GM/DL Hematocrit 26.0 % 26.5 % 25.7 % Mean Corpuscular Volume 92.1 FL 89.4 FL Mean Corpuscular Hemoglobin 30.0 PG 30.0 PG Mean Corpuscular Hemoglobin 32.6 % 33.6 % Concent Red Cell Distribution Width 16.5 % 16.6 % Platelet Count 359 TH/MM3 292 TH/MM3 Mean Platelet Volume 8.6 FL 8.2 FL Neutrophils (%) (Auto) 45.2 % 78.1 % Lymphocytes (%) (Auto) 39.1 % 12.4 % Monocytes (%) (Auto) 10.9 % 9.2 % Eosinophils (%) (Auto) 4.5 % 0.2 % Basophils (%) (Auto) 0.3 % 0.1 % Neutrophils # (Auto) 4.6 TH/MM3 16.6 TH/MM3 Lymphocytes # (Auto) 3.9 TH/MM3 2.7 TH/MM3 Monocytes # (Auto) 1.1 TH/MM3 2.0 TH/MM3 Eosinophils # (Auto) 0.5 TH/MM3 0.0 TH/MM3 Basophils # (Auto) 0.0 TH/MM3 0.0 TH/MM3 CBC Comment DIFF FINAL DIFF FINAL Differential Comment Laboratory Tests Test 12/28/16 12/29/16 12/29/16 16:24 01:43 08:06 Sodium Level 138 MEQ/L 136 MEQ/L Potassium Level 4.6 MEQ/L 5.0 MEQ/L Chloride Level 101 MEQ/L 100 MEQ/L Carbon Dioxide Level 25.5 MEQ/L 24.6 MEQ/L Anion Gap 12 MEQ/L 11 MEQ/L Blood Urea Nitrogen 19 MG/DL 27 MG/DL Creatinine 1.49 MG/DL 2.23 MG/DL Estimat Glomerular Filtration 58 ML/MIN 36 ML/MIN Rate Random Glucose 199 MG/DL 111 MG/DL Calcium Level 9.4 MG/DL 9.2 MG/DL Total Bilirubin 0.4 MG/DL Aspartate Amino Transf 19 U/L (AST/SGOT) Alanine Aminotransferase 32 U/L (ALT/SGPT) Alkaline Phosphatase 65 U/L Total Protein 6.5 GM/DL Albumin 3.2 GM/DL Lactic Acid Level 2.7 mmol/L Microbiology Date/Time Procedure Status Source Growth 12/29/16 07:57 Aerobic Blood Culture Received Blood Peripheral Pending 12/29/16 07:57 Anaerobic Blood Culture Received Blood Peripheral Pending 12/29/16 08:06 Aerobic Blood Culture Received Blood Peripheral Pending 12/29/16 08:06 Anaerobic Blood Culture Received Blood Peripheral Pending Radiology Last Impressions Chest X-Ray 12/29/16 0000 Signed Impressions: Service Date/Time: Thursday, December 29, 2016 08:17 - CONCLUSION: Underinflated examination with atelectasis at the left lung base. Otherwise, no acute cardiopulmonary abnormality is identified. Renato Olivarez MD Assessment/Plan Problem List: (1) Chronic pain Status: Chronic (2) Wound, open, leg Status: Chronic (3) Claudication in peripheral vascular disease Status: Chronic (4) Leg wound, left Status: Acute (5) Peripheral arterial disease Status: Chronic (6) Chronic skin ulcer of lower leg Status: Chronic Additional Plans & Procedures Ordered Maxorb extra AG dressings to change every other day to the leg wounds. Awaiting vascular consultation has no pulses could be palpated of the left foot and the extremity was cool. Will follow thank you for this consultation Problem Qualifiers (1) Chronic pain: Qualified Code: G89.29 - Other chronic pain (2) Wound, open, leg: Qualified Code: S81.802D - Wound, open, leg, left, subsequent encounter (3) Leg wound, left: Qualified Code: S81.802D - Leg wound, left, subsequent encounter Kameron Stout DPM Dec 29, 2016 12:13
[2016-12-29 12:50] LABS: BLOOD, URINE NEG (NEG); CALCIUM OXALATE CRYSTALS,URINE FEW /hpf; COMMENT (UR) CULTURE INDICATED; CULTURE IF INDICATED CULTURE INDICATED; GLUCOSE,URINE NEG (NEG); HYALINE CAST, URINE 6 /lpf (RARE); KETONE, URINE NEG (NEG); MUCUS URINE FEW /lpf (OCC); NITRITE,URINE NEG (NEG); SQUAMOUS EPITHELIAL CELL URINE <1 /hpf (0-5); URIC ACID CRYSTALS, URINE MOD /hpf; URINE COLOR YELLOW (YELLW/STRAW)
[2016-12-29 15:16] LABS: AUTOMATED NEUTROPHIL # 16.1 TH/MM3 (1.8-7.7); BASOPHIL # 0.1 TH/MM3 (0-0.2); BASOPHIL % 0.3 % (0.0-2.0); EOSINOPHIL # 0.2 TH/MM3 (0-0.4); EOSINOPHIL % 0.9 % (0.0-4.0); HEMATOCRIT 24.5 % (39.0-51.0); HEMO FLAGS DIFF FINAL; LYMPH % 12.3 % (9.0-44.0); LYMPHOCYTE # 2.5 TH/MM3 (1.0-4.8); MEAN CELL VOLUME 89.6 FL (80.0-100.0); MEAN CORPUSCULAR HEMOGLOBIN 29.6 PG (27.0-34.0); MONO % 8.5 % (0.0-8.0); PLATELET COUNT 271 TH/MM3 (150-450); RED BLOOD COUNT 2.73 MIL/MM3 (4.50-5.90); RED CELL DISTRIBUTION WIDTH 16.7 % (11.6-17.2); WHITE BLOOD COUNT 20.6 TH/MM3 (4.0-11.0)
--- NOTE | 2016-12-29 17:05 | EKG ---
Date Performed: 12/28/2016 Time Performed: 17:02:44 PTAGE: 61 years EKG: SINUS TACHYCARDIA WITH SHORT IA INTERVAL MODERATE ST DEPRESSION ABNORMAL ECG Compared to PREVIOUS TRACING , the rate is faster, nonspecific ST segment changes are now present. IA EVIOUS TRACIN11/19/2016 04.00 DOCTOR: Melquiades Montes De Oca Interpretating Date/Time 12/29/2016 17:03:51
--- NOTE | 2016-12-29 17:46 | PD.CAR.PN ---
CVT Progress Note Subjective/Hospital Course: Patient is weak post the femoral endarterectomy and the external iliac endovascular balloon angioplasty and stent Palpable left femoral pulse incision is clean and dry Patient some bleeding from the left leg ulcer which is likely venous but now patient has proved arterial inflow is well so bleeding might be more pronounced A slightly a running the patient bled more from the ulcer because is improved perfusion but so be it Wound care as per wound management Nothing to add from vascular point Objective: Vital Signs Date Time Temp Pulse Resp B/P Pulse Ox O2 Delivery O2 Flow Rate FiO2 12/29/16 15:42 96.6 55 16 112/67 100 12/29/16 15:42 57 12/29/16 15:11 18 12/29/16 11:42 98.2 54 18 87/54 97 12/29/16 08:33 52 12/29/16 08:33 98.1 59 18 105/48 98 12/29/16 06:41 97.3 58 103/60 97 12/29/16 06:00 50 12/29/16 05:00 52 12/29/16 04:33 57 12/29/16 04:23 56 95/47 100 12/29/16 03:00 56 12/29/16 02:00 56 12/29/16 01:00 58 12/29/16 00:00 58 12/28/16 23:16 58 12/28/16 23:00 97.9 57 97/50 100 12/28/16 22:18 100 Nasal Cannula 2.00 12/28/16 22:00 58 12/28/16 21:00 88 12/28/16 20:44 86 12/28/16 19:50 91 148/75 12/28/16 19:15 93 16 163/71 100 Nasal Cannula 2 12/28/16 19:02 98.0 110 18 179/82 97 Nasal Cannula 2 12/28/16 19:00 97.9 87 124/75 100 12/28/16 18:47 114 18 182/79 97 Nasal Cannula 2 12/28/16 18:10 98.2 113 18 152/72 100 Room Air 12/28/16 17:55 98.2 112 18 153/72 100 Room Air Labs: Laboratory Tests Test 12/29/16 12/29/16 12/29/16 12/29/16 07:57 08:06 11:50 13:28 Hemoglobin 8.4 GM/DL (13.0-17.0) Hematocrit 25.7 % (39.0-51.0) Lactic Acid Level 2.7 mmol/L 3.6 mmol/L (0.4-2.0) (0.4-2.0) Urine Color YELLOW (YELLW/STRAW) Urine Turbidity HAZY (CLEAR) Urine pH 5.0 (5.0-8.5) Urine Specific [place] 1.019 (1.002-1.035) Urine Protein 30 mg/dL (NEG-TRACE) Urine Glucose (UA) NEG mg/dL (NEG) Urine Ketones NEG mg/dL (NEG) Urine Occult Blood NEG (NEG) Urine Nitrite NEG (NEG) Urine Bilirubin NEG (NEG) Urine Urobilinogen LESS THAN 2.0 MG/DL (LESS THAN 2.0) Urine Leukocyte Esterase LARGE (NEG) Urine RBC 1 /hpf (0-3) Urine WBC 11 /hpf (0-5) Urine WBC Clumps FEW (NONE) Urine Squamous Epithelial <1 /hpf (0-5) Cells Urine Calcium Oxalate Crystals FEW /hpf (NONE) Urine Uric Acid Crystals MOD /hpf (NONE) Urine Hyaline Casts 6 /lpf (RARE) Urine Mucus FEW /lpf (OCC) Microscopic Urinalysis Comment CULTURE INDICATED Test 12/29/16 15:00 White Blood Count 20.6 TH/MM3 (4.0-11.0) Red Blood Count 2.73 MIL/MM3 (4.50-5.90) Hemoglobin 8.1 GM/DL (13.0-17.0) Hematocrit 24.5 % (39.0-51.0) Mean Corpuscular Volume 89.6 FL (80.0-100.0) Mean Corpuscular Hemoglobin 29.6 PG (27.0-34.0) Mean Corpuscular Hemoglobin 33.0 % Concent (32.0-36.0) Red Cell Distribution Width 16.7 % (11.6-17.2) Platelet Count 271 TH/MM3 (150-450) Mean Platelet Volume 8.1 FL (7.0-11.0) Neutrophils (%) (Auto) 78.0 % (16.0-70.0) Lymphocytes (%) (Auto) 12.3 % (9.0-44.0) Monocytes (%) (Auto) 8.5 % (0.0-8.0) Eosinophils (%) (Auto) 0.9 % (0.0-4.0) Basophils (%) (Auto) 0.3 % (0.0-2.0) Neutrophils # (Auto) 16.1 TH/MM3 (1.8-7.7) Lymphocytes # (Auto) 2.5 TH/MM3 (1.0-4.8) Monocytes # (Auto) 1.8 TH/MM3 (0-0.9) Eosinophils # (Auto) 0.2 TH/MM3 (0-0.4) Basophils # (Auto) 0.1 TH/MM3 (0-0.2) CBC Comment DIFF FINAL Differential Comment Result Diagram: 12/29/16 1500 12/29/16 0143 Rosita Ramos MD Dec 29, 2016 17:46
--- NOTE | 2016-12-29 18:05 | RADRPT ---
EXAM DATE/TIME: 12/29/2016 16:03 [facility] COMPARISON: No previous studies available for comparison. INDICATIONS : Increased BUN/creatinine. MEDICAL HISTORY : Peripheral vascular disease. Arthritis. Hypercholesterolemia. Neuropathy. Transient ischemic attack. Asthma. Hypertension. Diabetes. HIV+. MRSA. Anticoagulant therapy. SURGICAL HISTORY : Blood transfusions. Bronchoscopy. Vascular surgery. ENCOUNTER: Initial ACUITY: 1 day PAIN SCORE: 3/10 LOCATION: Bilateral flank MEASUREMENTS: RIGHT KIDNEY: 11.3 x 4.5 x 4.7 cm LEFT KIDNEY: 10.8 x 4.4 x 7.0 cm FINDINGS: RIGHT KIDNEY: 3 x 3 x 4 mm mid zone stone noted. No hydronephrosis. Parenchymal echogenicity within normal limits. LEFT KIDNEY: Renal cortex is normal in thickness and echotexture. A 16 mm upper pole cyst. No hydronephrosis, ston e, or solid mass. BLADDER: Decompressed with a Conroy. Grossly unremarkable. CONCLUSION: 1. No obstructive uropathy or other acute abnormality demonstrated. Parenchymal echogenicity within n ormal limits. 2. Subcentimeter nonobstructing stone on the right. 3. Benign-appearing cyst on the left. 4. Conroy in the bladder. Renato Lau MD on December 29, 2016 at 18:01 Board Certified Radiologist. This report was verified electronically.
[2016-12-29] MEDS ORDERED: ACETAMINOPHEN 325 MG TAB PO PRN (18:15)
--- NOTE | 2016-12-29 19:02 | EC ---
Study Study Date:12/29/2016 STUDY CONCLUSIONS SUMMARY - Left ventricle: The cavity size was normal. Wall thickness was at the upper limits of normal. Systolic function was vigorous. The estimated ejection fraction was 65%, in the range of 65% to 70%. Wall motion was normal; there were no regional wall motion abnormalities. - Aortic valve: Valve area: 2.97cm^2 (Vmax). - Tricuspid valve: Mild regurgitation. If LV function is below 40, please consider prescribing an ACEI or ARB or document rationale for non-use. PROCEDURE DATA STUDY STATUS: Elective. Procedure: Transthoracic echocardiography. Image quality was good. Scanning was performed from the parasternal, apical, and subcostal acoustic windows. Study completion: The patient tolerated the procedure well. Transthoracic echocardiography. M-mode, complete 2D, complete spectral Doppler, and color Doppler. Height: Height: 68in. Weight: Weight: 168.6lb. Body mass index: BMI: 25.7kg/m^2. Body surface area: BSA: 1.9m^2. Patient status: Inpatient. CARDIAC ANATOMY LEFT VENTRICLE: The cavity size was normal. Wall thickness was at the upper limits of normal. Systolic function was vigorous. The estimated ejection fraction was 65%, in the range of 65% to 70%. Wall motion was normal; there were no regional wall motion abnormalities. AORTIC VALVE: Trileaflet; normal thickness leaflets. Doppler: Transvalvular velocity was within the normal range. There was no stenosis. No regurgitation. Valve area: 2.97cm^2 (Vmax). Indexed valve area: 1.56cm^2/m^2 (Vmax). AORTA: Aortic root: The aortic root was normal in size. MITRAL VALVE: Structurally normal valve. Doppler: Transvalvular velocity was within the normal range. There was no evidence for stenosis. No regurgitation. LEFT ATRIUM: The atrium was normal in size. RIGHT VENTRICLE: The cavity size was normal. Wall thickness was normal. PULMONIC VALVE: Doppler: Transvalvular velocity was within the normal range. There was no evidence for stenosis. No regurgitation. TRICUSPID VALVE: Structurally normal valve. Doppler: Transvalvular velocity was within the normal range. Mild regurgitation. PULMONARY ARTERY: The main pulmonary artery was normal-sized. Systolic pressure was within the normal range. RIGHT ATRIUM: The atrium was normal in size. PERICARDIUM: There was no pericardial effusion. SYSTEMIC VEINS: Inferior vena cava: The vessel was normal in size. Patient weight: 168.6lb _Ejection fraction:_ 65-75% _Fractional shortening:_ 32% up to 5Kg 5-11.5Kg 11.6-22.9Kg 23-45Kg 45-57Kg Aortic Root 7-13 <17 13-22 17-27 17-27 LA diam 6-13 <23 24-38 33-47 37-40 RVID 10-17 7-15 7-15 7-18 8-17 LVIDd 12-22 <32 24-38 33-47 37-40 LVPW 2-4 3-6 5-7 6-8 7-8 IVS 2-4 3-6 5-7 6-8 7-8 BASIC MEASUREMENTS ADULT NORMAL Left ventricle LV internal dimension, ED, chordal 45.4 mm 43-52 level, PLAX LV internal dimension, ES, chordal 30.3 mm 23-38 level, PLAX Fractional shortening, chordal level, 33 % >29 PLAX LV posterior wall thickness, ED 8.9 mm IVS/LVPW ratio, ED 1.04 <1.3 Ventricular septum Septal thickness, ED 9.25 mm Aortic valve Leaflet separation 18 mm 15-26 BASIC MEASUREMENTS ADULT NORMAL Aortic valve Leaflet separation 18 mm 15-26 Aorta Root diameter, ED 25 mm 20-37 Left atrium Anterior-posterior dimension, ES 35 mm 19-40 Anterior-posterior dimension index, ES 1.84 cm/m^2 <2.2 LA/aortic root ratio 1.4 DOPPLER MEASUREMENTS ADULT NORMAL Main pulmonary artery Pressure, S 26 mm Hg =30 Aortic valve Peak velocity, S 105 cm/s Valve area, Vmax 2.97 cm^2 Valve area index, Vmax 1.56 cm^2/m^2 Mitral valve Peak E-wave velocity 58.7 cm/s Peak A-wave velocity 86.9 cm/s Deceleration time *296 ms 150-230 Peak E/A ratio 0.7 Tricuspid valve Regurgitant peak velocity 197 cm/s Peak RV-RA gradient, S 16 mm Hg Maximal regurgitant velocity 197 cm/s Systemic veins Estimated CVP 10 mm Hg Right ventricle RV pressure, S 26 mm Hg <30 LEGEND: Mean values are shown as u=mean value. Asterisk (*) bar[place]ona values outside specified normal range. Prepared and signed by Frank Gilbert [id number]
[2016-12-29] MEDS: ATORVASTATIN 80 MG TAB PO SCH (20:29)
[2016-12-29 23:38] LABS: CHLAMYDIA PCR NOT DETECTED (NOT DETECT); NEISSERIA PCR NOT DETECTED (NOT DETECT)
[2016-12-29 23:52] LABS: AMPHETAMINE, URINE NEG (NEG); BARBITURATES, URINE NEG (NEG); COCAINE, URINE NEG (NEG)
[2016-12-30] VITALS (17 sets, daily range): BP systolic 88–154; BP diastolic 49–77; PULSE 52–79; RESP 16–18; TEMP 97.2–98.3; O2SAT 96–100
[2016-12-30] MEDS ORDERED: ACETAMINOPHEN 325 MG TAB PO PRN
[2016-12-30] MEDS: PIPERACIL-TAZO 2.25 GM PREMIX 50 ML IV SCH ×2 (00:09→09:31)
[2016-12-30] MEDS: oxyCODONE/ACETAMINOPHEN 7.5 MG/325 MG TAB PO PRN ×3 (00:09→22:47)
[2016-12-30 01:11] LABS: HEMATOCRIT 21.1 % (39.0-51.0); REVIEW FLAG FINAL
[2016-12-30] MEDS ORDERED: SODIUM CHLOR 0.9% 250 ML INJ 250 ML IV ONE (02:00)
[2016-12-30] MEDS: SODIUM CHLOR 0.9% 1000 ML INJ 1,000 ML IV SCH ×2 (03:57→12:55)
[2016-12-30] MEDS ORDERED: DIATRIZOATE MEGLUM/DIATRIZOATE SOD 9 ML CUP PO PRN (06:30)
--- NOTE | 2016-12-30 08:53 | MB ---
cc: LAUREL ONOFRE MD DATE OF CONSULTATION 12/29/2016 REASON FOR CONSULTATION Elevated BUN and creatinine for evaluation. HISTORY OF PRESENT ILLNESS This is a 63-year-old male with a past medical history of hypertension, history of peripheral vascular disease, history of HIV disease, history of peripheral neuropathy, history of acute kidney injury in the past. He came to the hospital with complaint of bleeding in the wound in the left leg. I was called to see the patient because of elevated BUN and creatinine. The patient has a history of acute kidney injury in the past and his creatinine was as high as 2.9 and he was admitted here in October and then it improved and his creatinine was around 1.1 most of the time. He developed again acute kidney injury and the creatinine went up to 2.1 on December 17 and now the creatinine has gone up to 2.2. The patient denies any known history of renal disease and he was not seen by any equipment validation specialist. He was seen by vascular surgery when he was here the last two times and also was seen by urology because he has scrotal swelling and cellulitis of the scrotum. Now he mainly came because of the bleeding from the wound in the left foot and when he came in here it was found that his hemoglobin was low 8.5 and he has now increased WBC count that went up to 20.6. The creatinine is 2.23. The patient has one episode of low blood pressure early in the morning and it went down to 87/54. He has decreased urine output and when the Conroy catheter he had almost 300 urine came out and he has almost 2-300 now in the urine bag. The patient denies any headache or dizziness. He does not have any shortness of breath. No history of diarrhea. He had some vomiting before the admission three or four times. There is no chest pain. He has been following with a wind energy technician, Dr. Stout and also he was seen by a vascular surgeon during his previous two visits. PAST MEDICAL HISTORY 1. Hypertension 2. Peripheral vascular disease 3. HIV disease 4. Mild chronic kidney disease with recurrent acute kidney injury. PAST SURGICAL HISTORY He had surgery for the peripheral vascular disease. REVIEW OF SYSTEMS There is no history of fever. No headache, no sore throat. She has generalized weakness, feeling tired, vomited three or four times before he came to the hospital. He has no abdominal pain. No history of diarrhea. He has pain and bleeding from his left leg wound. According to the patient, he has a significant amount of bleeding from his wound in the left leg. He has been taking Plavix at home. There is no history of dysuria, hematuria. He has not noticed decreased in the urine output. SOCIAL HISTORY Smoke cigarettes and has been trying to cut down and came down to four to five cigarettes a day. There is no history of heavy alcoholism. FAMILY HISTORY Positive from father's side for ischemic heart disease and diabetes and from mother's side for Alzheimer's disease. ALLERGIES He is allergic to MORPHINE. MEDICATIONS Currently he is on the following medications: 1. IV fluids normal saline 150-hour 2. Tori-Colace 1 tablet b.i.d. 3. Etravirine 200 mg twice a day 4. Amlodipine 5 mg once a day 5. Prezista 800 mg once a day 6. Atarax 25 mg daily 7. Norvir 100 mg once a day 8. Lipitor 80 mg q.h.s. 9. Zosyn 2.25 grams IV q8-hour 10. Gabapentin 300 mg t.i.d. 11. Hydralazine p.r.n. 12. Zofran p.r.n. 13. Tylenol p.r.n. PHYSICAL EXAM On examination, the patient is awake and alert. He is not in acute distress. VITAL SIGNS: Blood pressure is 112/67, temperature is 96.6, oxygen saturation is 97-100%. HEAD, EYES, EARS, NOSE, AND THROAT: Pupils equal and reacting to light. Nonicteric sclerae. Conjunctiva pale. NECK: Supple. JVD is not elevated. LUNGS: The patient has bilateral good air entry, no wheezing. HEART: S1-S2, regular rhythm. ABDOMEN: Distended, soft and lax. There is no tenderness. Bowel sounds positive. EXTREMITIES: He has no pedal edema. Left lower leg, he has a dressing on it. INVESTIGATION WBC count is 20.6, hemoglobin 8.1, platelet count 271, neutrophils 78%, monos 8.5%. Sodium 136, potassium 5.0, chloride 100, bicarb 24.6, BUN 37, creatinine is 2.23. Estimated GFR is 36, lactic acid is 3.6. Calcium is 9.2. AST and ALT normal. Total protein is 6.5 and 3.2, INR is 1.0. Urinalysis showing that he has protein of 30 with moderate uric acid crystals. His last CD-4 cell count was 501, but this was a long time ago in 2009, recent one is pending. Cultures are all pending. IMAGING STUDIES The patient has ultrasound of the kidneys done which shows right kidney is 11.3 and the left is 10.8 cm. There is 3 x 3 x 4 mm lytic zone right renal stone noted with no hydronephrosis 16 mm upper pole shifting the left kidney, Conroy catheter in the bladder. She had CTA of the lower extremities done on December 21 which was last week which shows moderate restenosis at the origin of the right common iliac artery. There is no carotid stenosis. Involving the left external iliac artery and occlusion and no occlusion of the superficial femoral with recurrent obstruction of adductor hiatus, complete occlusion of the left superficial femoral. ASSESSMENT/PLAN 1. Acute kidney injury with possibility of some chronic kidney disease. 2. Peripheral vascular disease 3. Anemia and bleeding from the left leg wound. 4. History of HIV disease. 5. Leukocytosis 6. History of hypertension and now has hypotension. The patient has acute kidney injury being nonoliguric. He is passing urine. The blood pressure was low and now it is improving. Most likely, the patient has acute kidney injury because of the hypotension and acute tubular necrosis. I agree with continuing IV fluid and antibiotic and avoid giving any nephrotoxins. He was given contrast on December 21. At that time, his creatinine was 1.17 so there is a possibility of some contrast nephropathy. We do not have any creatinine after that, but now it has gone up to 2.2 from yesterday. Avoid any nephrotoxins, follow the urine output and the BUN and creatinine. Thank you for the consultation. I will follow the patient while he is on the unit and further recommendations will given in due course. MD FORREST Granda/ELSI /8:38 PM /8:06 AM
[2016-12-30] MEDS: hydrOXYzine HCL 25 MG TAB PO SCH (09:00)
[2016-12-30] MEDS: DARUNAVIR 800 MG TAB PO SCH (09:31)
[2016-12-30] MEDS: ETRAVIRINE 100 MG TAB PO SCH ×2 (09:31→17:43)
[2016-12-30] MEDS: GABAPENTIN 300 MG CAP PO SCH ×3 (09:31→17:43)
[2016-12-30] MEDS: DOLUTEGRAVIR SODIUM 50 MG TAB PO SCH ×2 (09:31→22:36)
[2016-12-30] MEDS: DOCUSATE SODIUM 50 MG/SENNA 8.6 MG TAB PO SCH ×3 (09:32→22:36)
[2016-12-30] MEDS: RITONAVIR 100 MG TAB PO SCH (09:32)
[2016-12-30 11:50] LABS: AUTOMATED NEUTROPHIL # 12.9 TH/MM3 (1.8-7.7); BASOPHIL % 0.1 % (0.0-2.0); EOSINOPHIL # 0.2 TH/MM3 (0-0.4); EOSINOPHIL % 1.4 % (0.0-4.0); HEMATOCRIT 30.9 % (39.0-51.0); HEMO FLAGS DIFF FINAL; LYMPH % 12.4 % (9.0-44.0); MEAN CORPUSCULAR HEMOGLOBIN 29.8 PG (27.0-34.0); MEAN CORPUSCULAR HGB CONC 33.4 % (32.0-36.0); MONO % 6.7 % (0.0-8.0); NEUT % 79.4 % (16.0-70.0); PLATELET COUNT 243 TH/MM3 (150-450); RED BLOOD COUNT 3.48 MIL/MM3 (4.50-5.90); RED CELL DISTRIBUTION WIDTH 16.2 % (11.6-17.2); WHITE BLOOD COUNT 16.2 TH/MM3 (4.0-11.0)
[2016-12-30 12:12] LABS: ALKALINE PHOSPHATASE 70 U/L (45-117); ALT (GPT) 29 U/L (12-78); ANION GAP 10 MEQ/L (5-15); AST (GOT) 23 U/L (15-37); BICARBONATE 23.4 MEQ/L (21.0-32.0); BLOOD UREA NITROGEN 38 MG/DL (7-18); CHLORIDE 104 MEQ/L (98-107); GLOMERULAR FILTRATION RATE 35 ML/MIN (>89); POTASSIUM 4.1 MEQ/L (3.5-5.1); SODIUM (NA) 137 MEQ/L (136-145); TOTAL BILIRUBIN ADULT 0.5 MG/DL (0.2-1.0)
--- NOTE | 2016-12-30 13:14 | HHI.FPPN ---
Subjective Remarks Patient states he is doing "so-so." He continues to have pain in his left leg which is 8 out of 10. He denies dysuria. He is having good urine output and is urinating without difficulty. No hematuria. No chest pain or shortness of breath. (Chris Alvarenga MD R2) Objective Vitals Vital Signs Date Time Temp Pulse Resp B/P Pulse Ox O2 Delivery O2 Flow Rate FiO2 12/30/16 12:15 64 12/30/16 11:25 97.4 68 18 103/51 97 12/30/16 11:25 72 12/30/16 10:39 74 12/30/16 09:38 60 12/30/16 08:36 52 12/30/16 07:36 71 12/30/16 07:32 97.2 71 18 114/66 96 12/30/16 03:00 97.4 64 16 88/49 98 12/30/16 01:00 64 12/30/16 00:00 64 12/29/16 23:00 68 12/29/16 23:00 97.6 84 16 110/54 98 12/29/16 22:00 62 12/29/16 21:00 54 12/29/16 20:00 64 12/29/16 19:00 97.4 57 16 86/44 97 12/29/16 19:00 57 12/29/16 15:42 96.6 55 16 112/67 100 12/29/16 15:42 57 12/29/16 15:11 18 I/O 12/29/16 12/29/16 12/29/16 12/30/16 12/30/16 12/30/16 07:00 15:00 23:00 07:00 15:00 23:00 Intake Total 1440 ml 240 ml 2789 ml Output Total 0 ml 550 ml 425 ml Balance 1440 ml -310 ml 2364 ml Intake Oral 240 ml 240 ml 240 ml IV Total 1200 ml 2549 ml Output Urine Total 0 ml 550 ml 425 ml (Chris Alvarenga MD R2) Result Diagram: 12/30/16 1111 12/30/16 1111 Imaging Last Impressions Renal Ultrasound 12/29/16 0000 Signed Impressions: Service Date/Time: Thursday, December 29, 2016 16:03 - CONCLUSION: 1. No obstructive uropathy or other acute abnormality demonstrated. Parenchymal echogenicity within normal limits. 2. Subcentimeter nonobstructing stone on the right. 3. Benign-appearing cyst on the left. 4. Conroy in the bladder. Renato Lau MD Chest X-Ray 12/29/16 0000 Signed Impressions: Service Date/Time: Thursday, December 29, 2016 08:17 - CONCLUSION: Underinflated examination with atelectasis at the left lung base. Otherwise, no acute cardiopulmonary abnormality is identified. Rneato Olivarez MD Objective Remarks GENERAL: WDWN male, sitting up in bed, NAD SKIN: Warm and dry. Scattered hyperpigmented lesions across extremities which are chronic HEAD: Normocephalic. Atraumatic EYES: No scleral icterus. No injection or drainage. ENT: OP clear, MMM slightly dry, nasal cannula in place NECK: Supple, trachea midline. No JVD or lymphadenopathy. CARDIOVASCULAR: Regular rate and rhythm without audible murmurs, gallops, or rubs. RESPIRATORY: Breath sounds equal bilaterally. Poor inspiratory effort. No accessory muscle use. GASTROINTESTINAL: Abdomen soft, non-tender, mildly distended. MUSCULOSKELETAL: No cyanosis. There is to approximately quarter size lesions without active bleeding or purulent drainage over the anterior aspect of the left lower leg and one smaller lesion just lateral to the which is slightly smaller. The feet bilaterally are cool to the touch and left foot does not have a palpable pulse. Neurologically diminished sensation. The left foot is edematous distal to above noted lesions. Left inguinal incision is dry and intact. BACK: Nontender without obvious deformity. No CVA tenderness. Neuro: Awake and alert, normal speech. Cranial nerves grossly intact. Neurologically diminished sensation bilateral lower extremities. (Chris Alvarenga MD R2) A/P Assessment and Plan Mr. Carbone is a 60 year-old male with a past medical history of HIV, neuropathy, and peripheral arterial disease with ulcers who presented to the [facility] for bleeding from left lower extremity wound. Wound care consulted (Dr. Stout) , vascular surgery consulted (Dr. Leong), infectious disease consult Sepsis Source of infection is left leg wound and/or urinary tract infection. Infectious disease consult Lactic acid 3.6 Leukocytosis trending down to 16.2 Continue treatment with Zosyn 2.25 g IV every 8 hours Continue normal saline 150 ML's per hour Blood cultures: No growth 1 day UTI See above for sepsis Urine culture: No growth in 24 hours Anemia related to acute blood loss H&H trended to 7.1 this morning. He has received 2 units packed red blood cells. Posttransfusion hemoglobin 10.3 Acute renal failure Nephrology consult Ultrasound KUB: No obstructive uropathy or other acute abnormality demonstrated. Nonobstructing stone on the right. Benign-appearing cyst on the left. Most likely the acute kidney injury is because of hypotension and possibly acute tubular necrosis. Continue IV fluids. Avoid nephrotoxins . Follow urine output and creatinine. Chronic skin ulcer of lower leg Consult vascular surgery (Dr. Leong)- nothing to add from vascular standpoint Consult wound care nurse and physician (Dr. Stout) for management recommendations Maxorb extra AG dressings to change every other day to the leg wound His culture and sensitivity at the wound care center on December 02 grew out staph aureus See above for sepsis DVT prophylaxis - SCD on unaffected lower extremity Fluids: NS @ 150 mls/hr IV Electrolytes: Will monitor and replace as needed Nutrition: Regular adult diet DVT Prophylaxis: SCD on unaffected lower extremity, will hold off on pharmacological DVT prophylaxis due to recent bleeding episode GI Prophylaxis: Not necessary Chronic Medical Problems -HIV: continue home HIV medications; HIV immunology labs pending -HTN: Holding blood pressure medications because of hypotension (amlodipine 5 mg by mouth daily, atenolol 50 mg by mouth daily, lisinopril 40 mg by mouth daily) PAD: Hold Plavix due to acute bleed Discharge Planning Pending clinical improvement. Patient would like to speak with case management about [facility] facility options (Chris Alvarenga MD R2) Attending Attestation Patient seen and examined. Case reviewed and discussed Agree with plan of care as discussed with me and documented in the resident note. (Alycia Lux MD) Problem List: (1) Hypertension Status: Chronic (2) Peripheral arterial disease Status: Chronic (3) Acute renal failure Status: Acute (4) Acute blood loss anemia Status: Acute (5) Chronic skin ulcer of lower leg Status: Chronic (6) Peripheral vascular disease Status: Chronic (7) HIV disease Status: Chronic (Chris Alvarenga MD R2) Problem Qualifiers (1) Hypertension: Qualified Code: I10 - Essential hypertension Chris Alvarenga MD R2 Dec 30, 2016 13:14 Alycia Lux MD Dec 31, 2016 10:35
--- NOTE | 2016-12-30 13:59 | PD.CONS ---
History of Present Illness Service Infectious disease Consult Requested By Dr Lux Reason for Consult Evaluate patient with HIV, leukocytosis Primary Care Physician Renato Rivers MD Diagnoses: History of Present Illness Patient seen and examined. Records reviewed. Patient is a 61-year-old male, with known HIV, and peripheral vascular disease, has had chronic left lower extremity wounds, presented to the hospital for acute onset of significant bleeding from his wounds. He apparently felt dizzy and diaphoretic, and had some nausea and vomiting. He had a near syncopal episode. Patient had a similar episode last November and underwent revascularization surgery on his left lower extremity. On this admission his white count was elevated. He has not been febrile. The bleeding has improved. His WBC is down to 2 16,000 today. His creatinine has been rising. His also had some hypotension. Patient is still complaining of significant pain in his left lower extremity. Patient has been getting vancomycin and Zosyn. His urinalysis has some mild pyuria, but denies any dysuria. Patient denies any respiratory complaint. Denies any diarrhea or any abdominal pain. Has not had any recurrent nausea and vomiting. Infectious disease consultation is requested to evaluate the patient. Review of Systems Constitutional: COMPLAINS OF: Dizziness, DENIES: Fever, Chills Eyes: DENIES: Eye pain Ears, nose, mouth, throat: DENIES: Nasal discharge, Oral lesions, Throat pain, Ear Pain, Sinus Pain, Toothache Respiratory: DENIES: Cough Cardiovascular: DENIES: Chest pain, Palpitations Gastrointestinal: DENIES: Abdominal pain, Diarrhea, Nausea, Vomiting, Difficulty Swallowing Genitourinary: DENIES: Hematuria, Dysuria Musculoskeletal: COMPLAINS OF: Joint pain Integumentary: DENIES: Rash Immunologic/allergic: DENIES: Urticaria Neurologic: DENIES: Headache Psychiatric: DENIES: Confusion, Hallucinations Past Family Social History Allergies: Coded Allergies: Morphine (Verified Adverse Reaction, Mild, Itching, 12/29/16) makes skin bleed so itchy *MDRO Multi-Drug Resistant Organism (Verified Adverse Reaction, Unknown, Cleared, 12/23/16) MRSA (blood & scrotal abscess) - 04/2015; (Leg) - 06/2016, 07/27/16 Cleared - MRSA PCR negative 12/19/16 & 12/22/16 Past Medical History Peripheral vascular disease HIV, last CD4 count is greater than 500 Previous MDR infections including MRSA Hypercholesterolemia Hypertension Neuropathy TIA Asthma Past Surgical History Previous peripheral vascular disease surgery Active Ordered Medications Tylenol Lipitor Prezista Intelence Neurontin Hydralazine Atarax Zofran Percocet Zosyn Norvir Tori-Colace Social History Used to smoke heavily, had cut down No significant alcohol abuse No illicit drug use Physical Exam Vital Signs Vital Signs Date Time Temp Pulse Resp B/P Pulse Ox O2 Delivery O2 Flow Rate FiO2 12/30/16 13:23 74 12/30/16 12:15 64 12/30/16 11:25 97.4 68 18 103/51 97 12/30/16 11:25 72 12/30/16 10:39 74 12/30/16 09:38 60 12/30/16 08:36 52 12/30/16 07:36 71 12/30/16 07:32 97.2 71 18 114/66 96 12/30/16 03:00 97.4 64 16 88/49 98 12/30/16 01:00 64 12/30/16 00:00 64 12/29/16 23:00 68 12/29/16 23:00 97.6 84 16 110/54 98 12/29/16 22:00 62 12/29/16 21:00 54 12/29/16 20:00 64 12/29/16 19:00 97.4 57 16 86/44 97 12/29/16 19:00 57 12/29/16 15:42 96.6 55 16 112/67 100 12/29/16 15:42 57 12/29/16 15:11 18 Physical Exam GENERAL: This is a well-nourished, well-developed male, awake and alert, not toxic appearing, not in any respiratory distress. SKIN: Cool and dry. Has generalized brown papules, not pruritic. No ecchymoses HEAD: Atraumatic. Normocephalic. No temporal or scalp tenderness. EYES: [place] conjunctivae. Pupils equal round and reactive. Extraocular motions intact. Has dirty sclera. No injection or drainage. ENT: Nose without bleeding, or purulent drainage. Moist oral mucosa. No oral thrush. Throat without erythema, or exudate. Uvula midline. Airway patent. NECK: Trachea midline. No JVD. Supple, nontender, no meningeal signs. CARDIOVASCULAR: Regular rate and rhythm without murmurs, gallops, or rubs. RESPIRATORY: Clear to auscultation. Breath sounds equal bilaterally. No wheezes , rales, or rhonchi. GASTROINTESTINAL: Abdomen soft, non-tender, nondistended. Positive tonsillar present and normoactive. No hepato-splenomegaly, or palpable masses. No guarding. Incision L groin with some old blood on steristrips, no redness MUSCULOSKELETAL: RLE - has dry skin, no cyanosis, no edema. LLE: L purplish pink color of foot with some swelling. Cool L foot, has brownish color of skin on his L leg and foot, 2 dry indolent ulcer on anterior adames, about the size of quater, with no purulence. The L leg and foot painful with touch and any movement. No joint effusion, or edema noted. No calf tenderness. Negative Homans sign bilaterally. NEUROLOGICAL: Awake and alert. Cranial nerves II through XII intact. Motor and sensory grossly within normal limits. Five out of 5 muscle strength in all muscle groups. Normal speech. PSYCH: Calm and cooperative LINE: PIV with no evidence of infection Laboratory Laboratory Tests Test 12/29/16 12/30/16 12/30/16 12/30/16 15:00 01:07 01:55 11:11 White Blood Count 20.6 16.2 Red Blood Count 2.73 3.48 Hemoglobin 8.1 7.1 10.3 Hematocrit 24.5 21.1 30.9 Mean Corpuscular Volume 89.6 89.0 Mean Corpuscular Hemoglobin 29.6 29.8 Mean Corpuscular Hemoglobin 33.0 33.4 Concent Red Cell Distribution Width 16.7 16.2 Platelet Count 271 243 Mean Platelet Volume 8.1 8.0 Neutrophils (%) (Auto) 78.0 79.4 Lymphocytes (%) (Auto) 12.3 12.4 Monocytes (%) (Auto) 8.5 6.7 Eosinophils (%) (Auto) 0.9 1.4 Basophils (%) (Auto) 0.3 0.1 Neutrophils # (Auto) 16.1 12.9 Lymphocytes # (Auto) 2.5 2.0 Monocytes # (Auto) 1.8 1.1 Eosinophils # (Auto) 0.2 0.2 Basophils # (Auto) 0.1 0.0 CBC Comment DIFF FINAL DIFF FINAL Differential Comment Blood Type AB NEGATIVE Crossmatch Leukocyte-Reduced Red Blood Cells Blood Bank Comment Sodium Level 137 Potassium Level 4.1 Chloride Level 104 Carbon Dioxide Level 23.4 Anion Gap 10 Blood Urea Nitrogen 38 Creatinine 2.33 Estimat Glomerular Filtration 35 Rate Random Glucose 100 Calcium Level 8.4 Total Bilirubin 0.5 Aspartate Amino Transf 23 (AST/SGOT) Alanine Aminotransferase 29 (ALT/SGPT) Alkaline Phosphatase 70 Total Protein 6.4 Albumin 3.1 Date/Time Procedure Status Source Growth 12/29/16 18:07 Gram Stain - Final Resulted Wound Other 12/29/16 18:07 Wound Culture - Preliminary Resulted Wound Other NO GROWTH IN 24 HOURS. 12/29/16 11:50 Urine Culture - Preliminary Resulted Urine Clean Catch NO GROWTH IN 24 HOURS. 12/29/16 08:06 Aerobic Blood Culture - Preliminary Resulted Blood Peripheral NO GROWTH IN 1 DAY 12/29/16 08:06 Anaerobic Blood Culture - Preliminary Resulted Blood Peripheral NO GROWTH IN 1 DAY 12/29/16 07:00 Neisseria gonorrhoeae Culture Received Genital Penis Pending Result Diagram: 12/30/16 1111 12/30/16 1111 Imaging RADIOLOGY STUDIES/FILMS REVIEWED Renal Ultrasound 12/29/16 0000 Signed Impressions: Service Date/Time: Thursday, December 29, 2016 16:03 - CONCLUSION: 1. No obstructive uropathy or other acute abnormality demonstrated. Parenchymal echogenicity within normal limits. 2. Subcentimeter nonobstructing stone on the right. 3. Benign-appearing cyst on the left. 4. Conroy in the bladder. Renato Lau MD Chest X-Ray 12/29/16 0000 Signed Impressions: Service Date/Time: Thursday, December 29, 2016 08:17 - CONCLUSION: Underinflated examination with atelectasis at the left lung base. Otherwise, no acute cardiopulmonary abnormality is identified. Renato Olivarez MD Assessment and Plan Assessment and Plan IMPRESSION Leukocytosis, likely reactive, improving - has some mild pyuria - no evidence of infection in his LLE, has indolent dry ulcer L leg, ? ischemic ulcers likely - L foot still has poor circulation HIV, has good CD4 counts Severe PVD RECOMMENDATION Stop Zosyn and Vanco Give Cipro for Renal evaluating rising creatinine Wound care Continue his HIV meds - stable and he follows with Dr Brunson Follow CBC Monitor progress I will follow along with you next Thank you for this consultation Discussed Condition With Explained plan to the patient Brianna Bass MD Dec 30, 2016 13:58
--- NOTE | 2016-12-30 14:23 | PD.CAR.PN ---
CVT Progress Note Subjective/Hospital Course: Patient is weak post the femoral endarterectomy and the external iliac endovascular balloon angioplasty and stent Palpable left femoral pulse incision is clean and dry Patient some bleeding from the left leg ulcer which is likely venous but now patient has proved arterial inflow is well so bleeding might be more pronounced A slightly a running the patient bled more from the ulcer because is improved perfusion but so be it Wound care as per wound management Nothing to add from vascular point 12/30/16 Patient's palpable femoral pulse and strong dopplerable popliteal pulse and very weak anterior tibial pulse by Doppler Foot looks just like before the surgery As far as the pretibial ulcers are concerned is a very shallow and bed is dry some not sure how much patient actually bled from this but it doesn't look much. Having said that, the fact the patient is bleeding from these pretibial ulcers tells me that we did bring some blood flow down to the lower leg and if there is any chance for these to heal, we gave her the best chance we can Patient has very poor circulation distal to the popliteal artery and will probably eventually end up with above-knee amputation Vascular disease combined with other morbidities as well as AIDS are at this point Unser mountable problems and no matter what the prognosis is fairly poor Would continue treating those ulcers conservatively and we'll see how patient does Objective: Vital Signs Date Time Temp Pulse Resp B/P Pulse Ox O2 Delivery O2 Flow Rate FiO2 12/30/16 14:09 67 12/30/16 14:05 18 12/30/16 13:23 74 12/30/16 12:15 64 12/30/16 11:25 97.4 68 18 103/51 97 12/30/16 11:25 72 12/30/16 10:39 74 12/30/16 09:38 60 12/30/16 08:36 52 12/30/16 07:36 71 12/30/16 07:32 97.2 71 18 114/66 96 12/30/16 03:00 97.4 64 16 88/49 98 12/30/16 01:00 64 12/30/16 00:00 64 12/29/16 23:00 68 12/29/16 23:00 97.6 84 16 110/54 98 12/29/16 22:00 62 12/29/16 21:00 54 12/29/16 20:00 64 12/29/16 19:00 97.4 57 16 86/44 97 12/29/16 19:00 57 12/29/16 15:42 96.6 55 16 112/67 100 12/29/16 15:42 57 12/29/16 15:11 18 Labs: Laboratory Tests Test 12/30/16 11:11 White Blood Count 16.2 TH/MM3 (4.0-11.0) Red Blood Count 3.48 MIL/MM3 (4.50-5.90) Hemoglobin 10.3 GM/DL (13.0-17.0) Hematocrit 30.9 % (39.0-51.0) Mean Corpuscular Volume 89.0 FL (80.0-100.0) Mean Corpuscular Hemoglobin 29.8 PG (27.0-34.0) Mean Corpuscular Hemoglobin 33.4 % Concent (32.0-36.0) Red Cell Distribution Width 16.2 % (11.6-17.2) Platelet Count 243 TH/MM3 (150-450) Mean Platelet Volume 8.0 FL (7.0-11.0) Neutrophils (%) (Auto) 79.4 % (16.0-70.0) Lymphocytes (%) (Auto) 12.4 % (9.0-44.0) Monocytes (%) (Auto) 6.7 % (0.0-8.0) Eosinophils (%) (Auto) 1.4 % (0.0-4.0) Basophils (%) (Auto) 0.1 % (0.0-2.0) Neutrophils # (Auto) 12.9 TH/MM3 (1.8-7.7) Lymphocytes # (Auto) 2.0 TH/MM3 (1.0-4.8) Monocytes # (Auto) 1.1 TH/MM3 (0-0.9) Eosinophils # (Auto) 0.2 TH/MM3 (0-0.4) Basophils # (Auto) 0.0 TH/MM3 (0-0.2) CBC Comment DIFF FINAL Differential Comment Sodium Level 137 MEQ/L (136-145) Potassium Level 4.1 MEQ/L (3.5-5.1) Chloride Level 104 MEQ/L (98-107) Carbon Dioxide Level 23.4 MEQ/L (21.0-32.0) Anion Gap 10 MEQ/L (5-15) Blood Urea Nitrogen 38 MG/DL (7-18) Creatinine 2.33 MG/DL (0.60-1.30) Estimat Glomerular Filtration 35 ML/MIN (>89) Rate Random Glucose 100 MG/DL (74-106) Calcium Level 8.4 MG/DL (8.5-10.1) Total Bilirubin 0.5 MG/DL (0.2-1.0) Aspartate Amino Transf 23 U/L (15-37) (AST/SGOT) Alanine Aminotransferase 29 U/L (12-78) (ALT/SGPT) Alkaline Phosphatase 70 U/L (45-117) Total Protein 6.4 GM/DL (6.4-8.2) Albumin 3.1 GM/DL (3.4-5.0) Result Diagram: 12/30/16 1111 12/30/16 1111 Rosita Ramos MD Dec 30, 2016 14:23
[2016-12-30] MEDS: CIPROFLOXACIN 250 MG TAB PO SCH ×2 (15:11→22:36)
--- NOTE | 2016-12-30 17:36 | HHI.NPPN ---
Subjective General Problems: Anemia, Edema, Hypertension Renal Failure: Chronic, Acute, Stage III History of Present Illness 63-year-old male with a past medical history of hypertension, history of peripheral vascular disease, history of HIV disease, history of peripheral neuropathy, history of acute kidney injury in the past. He came to the hospital with complaint of bleeding in the wound in the left leg. I was called to see the patient because of elevated BUN and creatinine. The patient has a history of acute kidney injury in the past and his creatinine was as high as 2.9 and he was admitted here in October and then it improved and his creatinine was around 1.1 most of the time. He developed again acute kidney injury and the creatinine went up to 2.1 on December 17. Additional Remarks Patient is alert, now sitting, no dizziness, no SOB, eating supper. Review of Systems General Constitutional: Fatigue Objective Data Data 12/29/16 12/30/16 19:00 07:00 Intake Total 240 ml 2789 ml Output Total 550 ml 425 ml Balance -310 ml 2364 ml Intake Oral 240 ml 240 ml IV Total 2549 ml Output Urine Total 550 ml 425 ml Vital Signs Date Time Temp Pulse Resp B/P Pulse Ox O2 Delivery O2 Flow Rate FiO2 12/30/16 17:26 68 12/30/16 16:22 78 12/30/16 15:14 97.6 72 18 116/68 96 12/30/16 15:14 76 12/30/16 14:09 67 12/30/16 14:05 18 12/30/16 13:23 74 12/30/16 12:15 64 12/30/16 11:25 97.4 68 18 103/51 97 12/30/16 11:25 72 12/30/16 10:39 74 12/30/16 09:38 60 12/30/16 08:36 52 12/30/16 07:36 71 12/30/16 07:32 97.2 71 18 114/66 96 12/30/16 03:00 97.4 64 16 88/49 98 12/30/16 01:00 64 12/30/16 00:00 64 12/29/16 23:00 68 12/29/16 23:00 97.6 84 16 110/54 98 12/29/16 22:00 62 12/29/16 21:00 54 12/29/16 20:00 64 12/29/16 19:00 97.4 57 16 86/44 97 12/29/16 19:00 57 -: 12/30/16 1111 12/30/16 1111 Microbiology 12/29/16 Gram Stain - Final, Resulted 12/29/16 Wound Culture - Preliminary, Resulted NO GROWTH IN 24 HOURS. Physical Exam General Appearance: No Acute Distress, Comfortable Eyes Eye Exam: Pupils Equal Throat Throat Exam: Oral Mucosa [place] & Moist Neck Neck Exam: Neck Supple, Trachea Midline Pulmonary Resp Exam: Breath Sounds Equal, No Distress, Decreased Bases, Diminished Breath Sounds Cardiology CV Exam: Regular, Normal Sinus Rhythm Gastrointestinal/Abdomen GI Exam: Soft, Non-Tender, Bowel Sounds Present, Non-Distended Extremeties Extremities Exam: Trace Edema (covered with dressing.) Neurologic Neuro Exam: Alert, Awake, Oriented Psychiatric Psych Exam: Appropriate Responses Assessment/Plan Assessment Summary: BECKA/Acute Renal Failure, Hypertension, CKD Stage III Problem List: (1) Asthma (2) Leukocytosis (3) Cellulitis, leg (4) HTN (hypertension) (5) Anemia due to blood loss, acute (6) HIV disease (7) Peripheral arterial disease (8) Chronic skin ulcer of lower leg (9) Acute renal failure Plan Patient has been non oliguric. Creatinine increase slightly to 2.3. Most likely has ATN, or contrast Nephropathy. Continue IVF, and on Cipro. Follow urine out put and BMP. void Nephrotoxins. Rai Sosa MD Dec 30, 2016 17:36
[2016-12-30 17:37] LABS: LACTIC ACID GHOST NOT REPORTABLE
[2016-12-30] MEDS: ATORVASTATIN 80 MG TAB PO SCH (22:35)
[2016-12-31] VITALS (10 sets, daily range): BP systolic 150–165; BP diastolic 70–93; PULSE 67–91; RESP 16–18; TEMP 98–98.9; O2SAT 97–100
[2016-12-31] MEDS: SODIUM CHLOR 0.9% 1000 ML INJ 1,000 ML IV SCH ×4 (01:00→13:57)
[2016-12-31 03:52] LABS: CD4/CD8 RATIO 0.6 (0.86-5.00)
[2016-12-31] MEDS: oxyCODONE/ACETAMINOPHEN 7.5 MG/325 MG TAB PO PRN ×4 (06:02→23:52)
[2016-12-31 06:25] LABS: AUTOMATED NEUTROPHIL # 7.6 TH/MM3 (1.8-7.7); BASOPHIL % 0.4 % (0.0-2.0); EOSINOPHIL # 0.4 TH/MM3 (0-0.4); EOSINOPHIL % 3.3 % (0.0-4.0); HEMATOCRIT 28.9 % (39.0-51.0); HEMO FLAGS DIFF FINAL; LYMPH % 19.2 % (9.0-44.0); LYMPHOCYTE # 2.2 TH/MM3 (1.0-4.8); MEAN CELL VOLUME 87.2 FL (80.0-100.0); MEAN CORPUSCULAR HEMOGLOBIN 29.4 PG (27.0-34.0); MEAN CORPUSCULAR HGB CONC 33.7 % (32.0-36.0); MONO % 10.5 % (0.0-8.0); NEUT % 66.6 % (16.0-70.0); PLATELET COUNT 293 TH/MM3 (150-450); RED BLOOD COUNT 3.31 MIL/MM3 (4.50-5.90); WHITE BLOOD COUNT 11.4 TH/MM3 (4.0-11.0)
[2016-12-31 07:06] LABS: ALKALINE PHOSPHATASE 67 U/L (45-117); ALT (GPT) 28 U/L (12-78); ANION GAP 8 MEQ/L (5-15); AST (GOT) 22 U/L (15-37); BLOOD UREA NITROGEN 23 MG/DL (7-18); CHLORIDE 111 MEQ/L (98-107); GLOMERULAR FILTRATION RATE 68 ML/MIN (>89); POTASSIUM 4.7 MEQ/L (3.5-5.1); SODIUM (NA) 143 MEQ/L (136-145); TOTAL BILIRUBIN ADULT 0.2 MG/DL (0.2-1.0)
[2016-12-31] MEDS: DOLUTEGRAVIR SODIUM 50 MG TAB PO SCH ×2 (08:35→20:15)
[2016-12-31] MEDS: GABAPENTIN 300 MG CAP PO SCH ×3 (08:36→18:24)
[2016-12-31] MEDS: RITONAVIR 100 MG TAB PO SCH (08:36)
[2016-12-31] MEDS: CIPROFLOXACIN 250 MG TAB PO SCH ×2 (08:36→20:16)
[2016-12-31] MEDS: hydrOXYzine HCL 25 MG TAB PO SCH (08:36)
[2016-12-31] MEDS: DARUNAVIR 800 MG TAB PO SCH (08:36)
[2016-12-31] MEDS: DOCUSATE SODIUM 50 MG/SENNA 8.6 MG TAB PO SCH ×2 (08:36→08:46)
[2016-12-31] MEDS: ETRAVIRINE 100 MG TAB PO SCH ×2 (08:36→18:24)
--- NOTE | 2016-12-31 09:38 | HHI.FPPN ---
Subjective Remarks Mr. Carbone was sitting up in a chair, no distress. He felt okay in general, but was very disappointed with the knowledge that his leg may bleed again. He does not want to return to the hospital with another acute bleeding episode. he wants to know if he can go to a senior care, because he does not want to live alone by himself. (Cristine Gutierrez MD R1) Objective Vitals Vital Signs Date Time Temp Pulse Resp B/P Pulse Ox O2 Delivery O2 Flow Rate FiO2 12/31/16 07:02 16 12/31/16 04:02 75 12/31/16 04:00 98.5 72 18 153/80 98 12/31/16 00:00 98.8 69 18 152/79 98 12/31/16 00:00 67 12/30/16 20:00 98.3 69 18 154/77 100 12/30/16 20:00 79 12/30/16 18:18 72 12/30/16 17:26 68 12/30/16 16:22 78 12/30/16 15:14 97.6 72 18 116/68 96 12/30/16 15:14 76 12/30/16 14:09 67 12/30/16 13:23 74 12/30/16 12:15 64 12/30/16 11:25 97.4 68 18 103/51 97 12/30/16 11:25 72 12/30/16 10:39 74 I/O 12/30/16 12/30/16 12/30/16 12/31/16 12/31/16 12/31/16 07:00 15:00 23:00 07:00 15:00 23:00 Intake Total 2789 ml 720 ml 210 ml Output Total 425 ml 1550 ml 1575 ml Balance 2364 ml -830 ml -1365 ml Intake Oral 240 ml 720 ml 210 ml IV Total 2549 ml Output Urine Total 425 ml 1550 ml 1575 ml # Voids 2 # Bowel Movements 1 2 3 (Cristine Gutierrez MD R1) Result Diagram: 12/31/16 0612/31/16 06 Objective Remarks GENERAL: WDWN male, sitting up in bed, NAD SKIN: Warm and dry. Scattered hyperpigmented lesions across extremities which are chronic HEAD: Normocephalic. Atraumatic EYES: No scleral icterus. No injection or drainage. ENT: OP clear, MMM slightly dry, nasal cannula in place NECK: Supple, trachea midline. No JVD or lymphadenopathy. CARDIOVASCULAR: Regular rate and rhythm without audible murmurs, gallops, or rubs. RESPIRATORY: Breath sounds equal bilaterally. Poor inspiratory effort. No accessory muscle use. GASTROINTESTINAL: Abdomen soft, non-tender, mildly distended. MUSCULOSKELETAL: No cyanosis. There are two approximately quarter size lesions without active bleeding or purulent drainage over the anterior aspect of the left lower leg and one smaller lesion just lateral, which is slightly smaller. The feet bilaterally are cool to the touch and left foot does not have a palpable pulse. Neurologically diminished sensation. The left foot is edematous distal to above noted lesions but appears improved from admission. Left inguinal incision is dry and intact. BACK: Nontender without obvious deformity. No CVA tenderness. Neuro: Awake and alert, normal speech. Cranial nerves grossly intact. Neurologically diminished sensation bilateral lower extremities. (Eko,[facility] R1) A/P Assessment and Plan Mr. Carbone is a 60 year-old male with a past medical history of HIV, neuropathy, and peripheral arterial disease with ulcers who presented to the [place] ED for bleeding from left lower extremity wound. Wound care consulted (Dr. Stout) , vascular surgery consulted (Dr. Leong), infectious disease consult Sepsis Source of infection is left leg wound and/or urinary tract infection Infectious disease consult Lactic acid 3.6 Leukocytosis trended down to 11.4 Zosyn 2.25 g IV every 8 hours discontinued on 12/30 Started Ciprofloxacin 250mg PO Q12h on 12/30, has received 3 doses Blood cultures: No growth 2 days UTI See above for sepsis Urine culture: No growth in 48 hours Anemia related to acute blood loss H&H was down to 7.1 on 12/30. S/P 2 units packed red blood cells. Bounded to 10.3 Now stable at 9.8 Acute renal failure creatine downtrended to 1.30 on 12/31 - wnl Nephrology consult Ultrasound KUB: No obstructive uropathy or other acute abnormality demonstrated. Nonobstructing stone on the right. Benign-appearing cyst on the left. Most likely the acute kidney injury is because of hypotension and possibly acute tubular necrosis Continue IV fluids. Avoid nephrotoxins Follow urine output and creatinine Chronic skin ulcer of lower leg Consult vascular surgery (Dr. Leong)- nothing to add from vascular standpoint Consult wound care nurse and physician (Dr. Stout) for management recommendations Maxorb extra AG dressings to change every other day to the leg wound His culture and sensitivity at the wound care center on December 02 grew out staph aureus See above for sepsis Petra Infection -Positive urethral swab -Will wait on ID recs Fluids: D/c fluids due to eating and drinking well with increased urine output. Oral fluids only Electrolytes: Will monitor and replace as needed Nutrition: Regular adult diet DVT Prophylaxis: SCD on unaffected lower extremity, will hold off on pharmacological DVT prophylaxis due to recent bleeding episode, encourage ambulation GI Prophylaxis: Not necessary Chronic Medical Problems -HIV: continue home HIV medications; CD4 count 825 -HTN: Restart blood pressure medications amlodipine 5 mg by mouth daily, atenolol 50 mg by mouth daily, lisinopril 40 mg by mouth daily -PAD: Hold Plavix due to acute bleed Discharge Planning Pending clinical improvement. Patient would like to speak with case management about long-term facility options (Cristine Gutierrez MD R1) Attending Attestation Patient seen and examined. Case reviewed and discussed Agree with plan of care as discussed with me and documented in the resident note. (Alycia Lux MD) Problem List: (1) Hypertension Status: Chronic (2) Peripheral arterial disease Status: Chronic (3) Acute renal failure Status: Acute (4) Acute blood loss anemia Status: Acute (5) Chronic skin ulcer of lower leg Status: Chronic (6) Peripheral vascular disease Status: Chronic (7) HIV disease Status: Chronic (Cristine Gutierrez MD R1) Problem Qualifiers (1) Hypertension: Qualified Code: I10 - Essential hypertension Cristine Gutierrez MD R1 Dec 31, 2016 09:38 Alycia Lux MD Dec 31, 2016 16:35
[2016-12-31] MEDS ORDERED: DOCUSATE SODIUM 50 MG/SENNA 8.6 MG TAB PO PRN (15:45)
--- NOTE | 2016-12-31 15:45 | HHI.NPPN ---
Subjective General Problems: Anemia, Edema, Hypertension Renal Failure: Chronic, Acute, Stage III History of Present Illness 63-year-old male with a past medical history of hypertension, history of peripheral vascular disease, history of HIV disease, history of peripheral neuropathy, history of acute kidney injury in the past. He came to the hospital with complaint of bleeding in the wound in the left leg. I was called to see the patient because of elevated BUN and creatinine. The patient has a history of acute kidney injury in the past and his creatinine was as high as 2.9 and he was admitted here in October and then it improved and his creatinine was around 1.1 most of the time. He developed again acute kidney injury and the creatinine went up to 2.1 on December 17. Additional Remarks Patient is alert, now sitting on chair and has no SOB. Review of Systems General Constitutional: Fatigue Objective Data Data 12/30/16 12/31/16 19:00 07:00 Intake Total 720 ml 210 ml Output Total 1550 ml 1575 ml Balance -830 ml -1365 ml Intake Oral 720 ml 210 ml Output Urine Total 1550 ml 1575 ml # Voids 2 # Bowel Movements 3 3 Vital Signs Date Time Temp Pulse Resp B/P Pulse Ox O2 Delivery O2 Flow Rate FiO2 12/31/16 13:50 16 12/31/16 12:00 98.3 84 16 162/70 100 12/31/16 11:00 73 12/31/16 08:30 98.2 80 16 157/78 98 12/31/16 07:00 82 12/31/16 04:02 75 12/31/16 04:00 98.5 72 18 153/80 98 12/31/16 00:00 98.8 69 18 152/79 98 12/31/16 00:00 67 12/30/16 20:00 98.3 69 18 154/77 100 12/30/16 20:00 79 12/30/16 18:18 72 12/30/16 17:26 68 12/30/16 16:22 78 -: 12/31/16 0605 12/31/16 06 Physical Exam General Appearance: No Acute Distress, Comfortable Eyes Eye Exam: Pupils Equal Throat Throat Exam: Oral Mucosa [place] & Moist Neck Neck Exam: Neck Supple, Trachea Midline Pulmonary Resp Exam: Breath Sounds Equal, No Distress, Decreased Bases, Diminished Breath Sounds Cardiology CV Exam: Regular, Normal Sinus Rhythm Gastrointestinal/Abdomen GI Exam: Soft, Non-Tender, Bowel Sounds Present, Non-Distended Extremeties Extremities Exam: Trace Edema (covered with dressing.) Neurologic Neuro Exam: Alert, Awake, Oriented Psychiatric Psych Exam: Appropriate Responses Assessment/Plan Assessment Summary: BECKA/Acute Renal Failure, Hypertension, CKD Stage III Problem List: (1) Asthma (2) Leukocytosis (3) Cellulitis, leg (4) HTN (hypertension) (5) Anemia due to blood loss, acute (6) HIV disease (7) Peripheral arterial disease (8) Chronic skin ulcer of lower leg (9) Acute renal failure Plan Patient has been non oliguric. Most likely has ATN, or contrast Nephropathy. Avoid Nephrotoxins. Creatinine improve to 1.3. Can be discharged from Nephrology stand point. Rai Sosa MD Dec 31, 2016 15:45
--- NOTE | 2016-12-31 16:58 | PD.CAR.PN ---
CVT Progress Note Subjective/Hospital Course: Patient is weak post the femoral endarterectomy and the external iliac endovascular balloon angioplasty and stent Palpable left femoral pulse incision is clean and dry Patient some bleeding from the left leg ulcer which is likely venous but now patient has proved arterial inflow is well so bleeding might be more pronounced A slightly a running the patient bled more from the ulcer because is improved perfusion but so be it Wound care as per wound management Nothing to add from vascular point 12/30/16 Patient's palpable femoral pulse and strong dopplerable popliteal pulse and very weak anterior tibial pulse by Doppler Foot looks just like before the surgery As far as the pretibial ulcers are concerned is a very shallow and bed is dry some not sure how much patient actually bled from this but it doesn't look much. Having said that, the fact the patient is bleeding from these pretibial ulcers tells me that we did bring some blood flow down to the lower leg and if there is any chance for these to heal, we gave her the best chance we can Patient has very poor circulation distal to the popliteal artery and will probably eventually end up with above-knee amputation Vascular disease combined with other morbidities as well as AIDS are at this point Unser mountable problems and no matter what the prognosis is fairly poor Would continue treating those ulcers conservatively and we'll see how patient does 12/31/16 Patient has successful revascularization and improvement of the inflow to the the leg He indeed does have the shallow ulcers in the pretibial area. I have tried to explain to the patient that in order for these ulcers to heal his blood supply has to be adequate and a very fact that they bled shows me that blood supply certainly has improved. After several attempts I was not able to explain to the patient the simple concept that bleeding from the ulcer means improvement in blood supply and this is exactly what we want as far as healing is concerned Nothing to add to care at this time Objective: Vital Signs Date Time Temp Pulse Resp B/P Pulse Ox O2 Delivery O2 Flow Rate FiO2 12/31/16 16:20 98.9 80 16 150/71 99 12/31/16 15:00 91 12/31/16 13:50 16 12/31/16 12:00 98.3 84 16 162/70 100 12/31/16 11:00 73 12/31/16 08:30 98.2 80 16 157/78 98 12/31/16 07:00 82 12/31/16 04:02 75 12/31/16 04:00 98.5 72 18 153/80 98 12/31/16 00:00 98.8 69 18 152/79 98 12/31/16 00:00 67 12/30/16 20:00 98.3 69 18 154/77 100 12/30/16 20:00 79 12/30/16 18:18 72 12/30/16 17:26 68 Labs: Laboratory Tests Test 12/31/16 12/31/16 06:02 06:05 Lactic Acid Level 1.1 mmol/L (0.4-2.0) White Blood Count 11.4 TH/MM3 (4.0-11.0) Red Blood Count 3.31 MIL/MM3 (4.50-5.90) Hemoglobin 9.8 GM/DL (13.0-17.0) Hematocrit 28.9 % (39.0-51.0) Mean Corpuscular Volume 87.2 FL (80.0-100.0) Mean Corpuscular Hemoglobin 29.4 PG (27.0-34.0) Mean Corpuscular Hemoglobin 33.7 % Concent (32.0-36.0) Red Cell Distribution Width 16.0 % (11.6-17.2) Platelet Count 293 TH/MM3 (150-450) Mean Platelet Volume 7.7 FL (7.0-11.0) Neutrophils (%) (Auto) 66.6 % (16.0-70.0) Lymphocytes (%) (Auto) 19.2 % (9.0-44.0) Monocytes (%) (Auto) 10.5 % (0.0-8.0) Eosinophils (%) (Auto) 3.3 % (0.0-4.0) Basophils (%) (Auto) 0.4 % (0.0-2.0) Neutrophils # (Auto) 7.6 TH/MM3 (1.8-7.7) Lymphocytes # (Auto) 2.2 TH/MM3 (1.0-4.8) Monocytes # (Auto) 1.2 TH/MM3 (0-0.9) Eosinophils # (Auto) 0.4 TH/MM3 (0-0.4) Basophils # (Auto) 0.0 TH/MM3 (0-0.2) CBC Comment DIFF FINAL Differential Comment Sodium Level 143 MEQ/L (136-145) Potassium Level 4.7 MEQ/L (3.5-5.1) Chloride Level 111 MEQ/L (98-107) Carbon Dioxide Level 24.0 MEQ/L (21.0-32.0) Anion Gap 8 MEQ/L (5-15) Blood Urea Nitrogen 23 MG/DL (7-18) Creatinine 1.30 MG/DL (0.60-1.30) Estimat Glomerular Filtration 68 ML/MIN (>89) Rate Random Glucose 100 MG/DL (74-106) Calcium Level 9.0 MG/DL (8.5-10.1) Total Bilirubin 0.2 MG/DL (0.2-1.0) Aspartate Amino Transf 22 U/L (15-37) (AST/SGOT) Alanine Aminotransferase 28 U/L (12-78) (ALT/SGPT) Alkaline Phosphatase 67 U/L (45-117) Total Protein 6.3 GM/DL (6.4-8.2) Albumin 2.9 GM/DL (3.4-5.0) Result Diagram: 12/31/16 0605 12/31/16 0605 Rosita Ramos MD Dec 31, 2016 16:58
[2016-12-31] MEDS: ATORVASTATIN 80 MG TAB PO SCH (20:15)
[2016-12-31] MEDS: hydrALAZINE HCL 10 MG TAB PO PRN (20:15)
[2017-01-01] VITALS (12 sets, daily range): BP systolic 152–164; BP diastolic 74–84; PULSE 61–92; RESP 16; TEMP 98.2–98.5; O2SAT 97–99
[2017-01-01] MEDS: hydrALAZINE HCL 10 MG TAB PO PRN (03:48)
[2017-01-01 05:10] LABS: BASOPHIL % 0.5 % (0.0-2.0); EOSINOPHIL # 0.5 TH/MM3 (0-0.4); EOSINOPHIL % 4.4 % (0.0-4.0); HEMATOCRIT 29.5 % (39.0-51.0); HEMO FLAGS DIFF FINAL; LYMPHOCYTE # 2.7 TH/MM3 (1.0-4.8); MEAN CELL VOLUME 87.7 FL (80.0-100.0); MEAN CORPUSCULAR HEMOGLOBIN 30.1 PG (27.0-34.0); MEAN CORPUSCULAR HGB CONC 34.4 % (32.0-36.0); MONO % 10.4 % (0.0-8.0); NEUT % 58.7 % (16.0-70.0); PLATELET COUNT 304 TH/MM3 (150-450); RED BLOOD COUNT 3.37 MIL/MM3 (4.50-5.90); WHITE BLOOD COUNT 10.2 TH/MM3 (4.0-11.0)
[2017-01-01 05:40] LABS: ANION GAP 7 MEQ/L (5-15); AST (GOT) 24 U/L (15-37); BICARBONATE 26.7 MEQ/L (21.0-32.0); BLOOD UREA NITROGEN 17 MG/DL (7-18); CHLORIDE 105 MEQ/L (98-107); GLOMERULAR FILTRATION RATE 84 ML/MIN (>89); POTASSIUM 4.6 MEQ/L (3.5-5.1); SODIUM (NA) 139 MEQ/L (136-145)
[2017-01-01 05:48] LABS: ALKALINE PHOSPHATASE 69 U/L (45-117); ALT (GPT) 29 U/L (12-78); TOTAL BILIRUBIN ADULT 0.2 MG/DL (0.2-1.0)
[2017-01-01] MEDS: oxyCODONE/ACETAMINOPHEN 7.5 MG/325 MG TAB PO PRN ×2 (06:00→12:10)
--- NOTE | 2017-01-01 08:57 | PD.CAR.PN ---
CVT Progress Note Subjective/Hospital Course: Patient is weak post the femoral endarterectomy and the external iliac endovascular balloon angioplasty and stent Palpable left femoral pulse incision is clean and dry Patient some bleeding from the left leg ulcer which is likely venous but now patient has proved arterial inflow is well so bleeding might be more pronounced A slightly a running the patient bled more from the ulcer because is improved perfusion but so be it Wound care as per wound management Nothing to add from vascular point 12/30/16 Patient's palpable femoral pulse and strong dopplerable popliteal pulse and very weak anterior tibial pulse by Doppler Foot looks just like before the surgery As far as the pretibial ulcers are concerned is a very shallow and bed is dry some not sure how much patient actually bled from this but it doesn't look much. Having said that, the fact the patient is bleeding from these pretibial ulcers tells me that we did bring some blood flow down to the lower leg and if there is any chance for these to heal, we gave her the best chance we can Patient has very poor circulation distal to the popliteal artery and will probably eventually end up with above-knee amputation Vascular disease combined with other morbidities as well as AIDS are at this point Unser mountable problems and no matter what the prognosis is fairly poor Would continue treating those ulcers conservatively and we'll see how patient does 12/31/16 Patient has successful revascularization and improvement of the inflow to the the leg He indeed does have the shallow ulcers in the pretibial area. I have tried to explain to the patient that in order for these ulcers to heal his blood supply has to be adequate and a very fact that they bled shows me that blood supply certainly has improved. After several attempts I was not able to explain to the patient the simple concept that bleeding from the ulcer means improvement in blood supply and this is exactly what we want as far as healing is concerned Nothing to add to care at this time 01/01/17 Right groin incision clean and dry Perfusion to the leg the dopplerable popliteal artery and warm foot No way to improve distal circulation beyond the level of the knee by surgical or endovascular means Shallow ulcers no more bleeding We'll sign off at this time nothing to add to care Objective: Vital Signs Date Time Temp Pulse Resp B/P Pulse Ox O2 Delivery O2 Flow Rate FiO2 01/01/17 04:00 98.4 72 16 164/84 97 01/01/17 04:00 72 01/01/17 00:00 98.2 83 16 159/74 99 01/01/17 00:00 83 12/31/16 20:00 85 12/31/16 20:00 98.0 85 16 165/93 97 12/31/16 16:20 98.9 80 16 150/71 99 12/31/16 15:00 91 12/31/16 13:50 16 12/31/16 12:00 98.3 84 16 162/70 100 12/31/16 11:00 73 Labs: Laboratory Tests Test 01/01/17 04:45 White Blood Count 10.2 TH/MM3 (4.0-11.0) Red Blood Count 3.37 MIL/MM3 (4.50-5.90) Hemoglobin 10.1 GM/DL (13.0-17.0) Hematocrit 29.5 % (39.0-51.0) Mean Corpuscular Volume 87.7 FL (80.0-100.0) Mean Corpuscular Hemoglobin 30.1 PG (27.0-34.0) Mean Corpuscular Hemoglobin 34.4 % Concent (32.0-36.0) Red Cell Distribution Width 16.0 % (11.6-17.2) Platelet Count 304 TH/MM3 (150-450) Mean Platelet Volume 7.8 FL (7.0-11.0) Neutrophils (%) (Auto) 58.7 % (16.0-70.0) Lymphocytes (%) (Auto) 26.0 % (9.0-44.0) Monocytes (%) (Auto) 10.4 % (0.0-8.0) Eosinophils (%) (Auto) 4.4 % (0.0-4.0) Basophils (%) (Auto) 0.5 % (0.0-2.0) Neutrophils # (Auto) 6.0 TH/MM3 (1.8-7.7) Lymphocytes # (Auto) 2.7 TH/MM3 (1.0-4.8) Monocytes # (Auto) 1.1 TH/MM3 (0-0.9) Eosinophils # (Auto) 0.5 TH/MM3 (0-0.4) Basophils # (Auto) 0.0 TH/MM3 (0-0.2) CBC Comment DIFF FINAL Differential Comment Sodium Level 139 MEQ/L (136-145) Potassium Level 4.6 MEQ/L (3.5-5.1) Chloride Level 105 MEQ/L (98-107) Carbon Dioxide Level 26.7 MEQ/L (21.0-32.0) Anion Gap 7 MEQ/L (5-15) Blood Urea Nitrogen 17 MG/DL (7-18) Creatinine 1.08 MG/DL (0.60-1.30) Estimat Glomerular Filtration 84 ML/MIN (>89) Rate Random Glucose 92 MG/DL (74-106) Calcium Level 9.5 MG/DL (8.5-10.1) Total Bilirubin 0.2 MG/DL (0.2-1.0) Aspartate Amino Transf 24 U/L (15-37) (AST/SGOT) Alanine Aminotransferase 29 U/L (12-78) (ALT/SGPT) Alkaline Phosphatase 69 U/L (45-117) Total Protein 6.5 GM/DL (6.4-8.2) Albumin 3.2 GM/DL (3.4-5.0) Result Diagram: 01/01/17 0445 01/01/17 0445 Rosita Ramos MD Jan 01, 2017 08:57
[2017-01-01] MEDS: DARUNAVIR 800 MG TAB PO SCH (09:00)
[2017-01-01] MEDS: ETRAVIRINE 100 MG TAB PO SCH (09:00)
[2017-01-01] MEDS: LISINOPRIL 20 MG TAB PO SCH (09:01)
[2017-01-01] MEDS: RITONAVIR 100 MG TAB PO SCH (09:01)
[2017-01-01] MEDS: GABAPENTIN 300 MG CAP PO SCH ×2 (09:01→13:35)
[2017-01-01] MEDS: hydrOXYzine HCL 25 MG TAB PO SCH (09:01)
[2017-01-01] MEDS: DOLUTEGRAVIR SODIUM 50 MG TAB PO SCH (09:02)
[2017-01-01] MEDS: ATENOLOL 50 MG TAB PO SCH (09:02)
[2017-01-01] MEDS: CIPROFLOXACIN 250 MG TAB PO SCH (09:02)
[2017-01-01] MEDS: amLODIPine BESYLATE 5 MG TAB PO SCH (09:02)
--- NOTE | 2017-01-01 09:35 | HHI.FPPN ---
Subjective Remarks Mr. Carbone was sitting in a chair and asked me to sit down and talk for a while about discharge plans and his discussion with Dr. Kearney. He is still very distraught with the knowledge that his left leg ulcers may bleed again. He wanted to know more about home health wound care which I explained. He would like to go home today. (Cristine uGtierrez MD R1) Objective Vitals Vital Signs Date Time Temp Pulse Resp B/P Pulse Ox O2 Delivery O2 Flow Rate FiO2 01/01/17 04:00 98.4 72 16 164/84 97 01/01/17 04:00 72 01/01/17 00:00 98.2 83 16 159/74 99 01/01/17 00:00 83 12/31/16 20:00 85 12/31/16 20:00 98.0 85 16 165/93 97 12/31/16 16:20 98.9 80 16 150/71 99 12/31/16 15:00 91 12/31/16 13:50 16 12/31/16 12:00 98.3 84 16 162/70 100 12/31/16 11:00 73 I/O 12/31/16 12/31/16 12/31/16 01/01/17 01/01/17 01/01/17 07:00 15:00 23:00 07:00 15:00 23:00 Intake Total 210 ml 1266 ml 720 ml Output Total 1575 ml 1500 ml 1300 ml Balance -1365 ml -234 ml -580 ml Intake Oral 210 ml 480 ml 720 ml IV Total 786 ml Output Urine Total 1575 ml 1500 ml 1300 ml # Bowel Movements 3 0 (EkCristine dela cruz MD R1) Result Diagram: 01/01/175 01/01/175 Objective Remarks GENERAL: WDWN male, sitting up in bed, NAD SKIN: Warm and dry. Scattered hyperpigmented lesions across extremities which are chronic HEAD: Normocephalic. Atraumatic EYES: No scleral icterus. No injection or drainage. ENT: OP clear, MMM slightly dry, nasal cannula in place NECK: Supple, trachea midline. No JVD or lymphadenopathy. CARDIOVASCULAR: Regular rate and rhythm without audible murmurs, gallops, or rubs. RESPIRATORY: Breath sounds equal bilaterally. Poor inspiratory effort. No accessory muscle use. GASTROINTESTINAL: Abdomen soft, non-tender, mildly distended. MUSCULOSKELETAL: No cyanosis. Left leg well wrapped with dressing. Minimal swelling of left foot Neuro: Awake and alert, normal speech. Cranial nerves grossly intact. Neurologically diminished sensation bilateral lower extremities. (Eko,Cristine Causey MD R1) A/P Assessment and Plan Mr. Carbone is a 60 year-old male with a past medical history of HIV, neuropathy, and peripheral arterial disease with ulcers who presented to the [facility] ED for bleeding from left lower extremity wound. Wound care consulted (Dr. Stout) , vascular surgery consulted (signed off), infectious disease on board Sepsis Source of infection is left leg wound and/or urinary tract infection Infectious disease consulted Initial lactic acid 3.6, trended down to 1.1 Leukocytosis trended down to 10.2, may have been reactive Zosyn 2.25 g IV every 8 hours discontinued on 12/30 Started Ciprofloxacin 250 mg PO Q12h on 12/30, has received 3 doses Blood cultures: No growth 2 days UTI See above for sepsis Urine culture: No growth in 48 hours Anemia related to acute blood loss H&H was down to 7.1 on 12/30. S/P 2 units packed red blood cells. Bounded to 10.3 Now stable at 10.1 Acute renal failure Resolved Creatine downtrended to 1.08 on 01/01 Avoid nephrotoxins Follow urine output and creatinine Chronic skin ulcer of lower leg Consult vascular surgery (Dr. Leong) Nothing to add from vascular standpoint - signed off Consult wound care nurse and physician (Dr. Stout) for management recommendations Maxorb extra AG dressings to change every other day to the leg wound Petra Infection -Positive urethral swab -Will wait on ID recs Fluids: D/C fluids due to eating and drinking well with increased urine output. Oral fluids only Electrolytes: Will monitor and replace as needed Nutrition: Regular adult diet DVT Prophylaxis: SCD on unaffected lower extremity, will hold off on pharmacological DVT prophylaxis due to recent bleeding episode, encourage ambulation GI Prophylaxis: Not necessary Chronic Medical Problems -HIV: Continue home HIV medications; CD4 count 825 -HTN: Restart blood pressure medications amlodipine 5 mg by mouth daily, atenolol 50 mg by mouth daily, lisinopril 40 mg by mouth daily -PAD: Hold Plavix due to acute bleed Discharge Planning Possibly today. Due to multiple ED visits for acute bleeding episodes, the patient requested to speak with lining caser about long-term care options. Based on his insurance and his level of independence, case management recommends home with home health for wound care. (Cristine Gutierrez MD R1) Attending Attestation Patient seen and examined Case reviewed and discussed Agree with plan of care as discussed with me and documented in the resident note. (Alycia Lux MD) Problem List: (1) Hypertension Status: Chronic (2) Peripheral arterial disease Status: Chronic (3) Acute renal failure Status: Acute (4) Acute blood loss anemia Status: Acute (5) Chronic skin ulcer of lower leg Status: Chronic (6) Peripheral vascular disease Status: Chronic (7) HIV disease Status: Chronic (Cristine Gutierrez MD R1) Problem Qualifiers (1) Hypertension: Qualified Code: I10 - Essential hypertension Cristine Gutierrez MD R1 Jan 01, 2017 09:35 Alycia Lux MD Jan 02, 2017 13:41
--- NOTE | 2017-01-01 09:37 | HHI.FF ---
Face to Face Verification Diagnosis: (1) Dependent edema (2) Left leg pain (3) Peripheral arterial disease (4) Leg wound, left (5) Peripheral vascular disease (6) Bleeding from wound Physical Therapy Order: Evaluate and Treat, Improve ambulation, Strength and gait training Home Health Nursing Order: Medical education Signs/symptoms of disease process Wound care and dressing changes Nursing assessment with vital signs I have seen patient Adrian Carbone on 01/01/17. My clinical findings support the need for the requested home health care services because: Ltd mobility - disease progression Limited ability to care for self I certify that my clinical findings support that this patient is homebound because: Unsteady gait/balance Need for psychosocial assistance Cristine Gutierrez MD R1 Jan 01, 2017 09:37
[2017-01-01] MEDS ORDERED: INFLUENZA VIRUS VACCINE (QUADRIVALENT) 0.5 ML SYR IM ONE (10:00)
[2017-01-01] MEDS ORDERED: CIPR250T52 PO (14:43)
[2017-01-01] MEDS: CLOPIDOGREL 75 MG TAB PO SCH ×2 (14:55→15:00)
[2017-01-01] MEDS ORDERED: MISC-274 (15:49)
--- NOTE | 2017-01-03 16:34 | HHI.DS ---
Discharge Summary Admission Date Dec 29, 2016 at 08:57 Discharge Date: Jan 01, 2017 Admitting Diagnosis bleeding wound (1) Hypertension Diagnosis: Secondary (2) Peripheral arterial disease Diagnosis: Principal (3) Acute renal failure Diagnosis: Principal (4) Acute blood loss anemia Diagnosis: Principal (5) Chronic skin ulcer of lower leg Diagnosis: Principal (6) Peripheral vascular disease Diagnosis: Principal (7) HIV disease Diagnosis: Secondary Brief History Mr. Carbone is a 61-year-old male with a past medical history of HIV, peripheral artery disease with ulcers, and neuropathy who presented to the [place] ED for acute bleeding from his left lower extremity wound. Patient states that he was sitting on a couch, watching TV, when he looked down and saw blood all over the floor. He immediately reached out to his next door neighbor to call the manager security to call 911. Patient states that he felt sweaty, dizzy, nauseated, and vomited "spit" about 3-4 times. He states that he almost blacked out but denies chest pain and shortness of breath. EMS reports a large amount of blood at the scene. He follows with Dr. Ramos, vascular surgeon, and Dr. Stout, bus attendant. CBC/BMP: 01/01/17 0445 01/01/17 0445 Significant Findings Laboratory Tests Test 01/01/17 04:45 Red Blood Count 3.37 MIL/MM3 (4.50-5.90) Hemoglobin 10.1 GM/DL (13.0-17.0) Hematocrit 29.5 % (39.0-51.0) Monocytes (%) (Auto) 10.4 % (0.0-8.0) Eosinophils (%) (Auto) 4.4 % (0.0-4.0) Monocytes # (Auto) 1.1 TH/MM3 (0-0.9) Eosinophils # (Auto) 0.5 TH/MM3 (0-0.4) Estimat Glomerular Filtration 84 ML/MIN (>89) Rate Albumin 3.2 GM/DL (3.4-5.0) PE at Discharge GENERAL: WDWN male, sitting up in bed, NAD SKIN: Warm and dry. Scattered hyperpigmented lesions across extremities which are chronic HEAD: Normocephalic. Atraumatic EYES: No scleral icterus. No injection or drainage. ENT: OP clear, MMM slightly dry, nasal cannula in place NECK: Supple, trachea midline. No JVD or lymphadenopathy. CARDIOVASCULAR: Regular rate and rhythm without audible murmurs, gallops, or rubs. RESPIRATORY: Breath sounds equal bilaterally. Poor inspiratory effort. No accessory muscle use. GASTROINTESTINAL: Abdomen soft, non-tender, mildly distended. MUSCULOSKELETAL: No cyanosis. Left leg well wrapped with dressing. Minimal swelling of left foot Neuro: Awake and alert, normal speech. Cranial nerves grossly intact. Neurologically diminished sensation bilateral lower extremities. Hospital Course Mr. Carbone is a 60 year-old male with a past medical history of HIV, neuropathy, and peripheral arterial disease with ulcers who presented to the [place] ED for bleeding from left lower extremity wound. He received 3 units of leuko-reduced red blood cells for his critical anemia with hemoglobin down to 7.1. Vascular surgery was consulted and recommended no further treatment because acute bleeding actually is an indication of arterial perfusion and noted that the bleeding will occur again. Notably, the patient underwent revascularization surgery recently. During the course of his hospital stay, he developed hypotension and acute renal failure with urinary retention after receiving IV Dilaudid for his leg pain. He fully recovered after the IV pain medication was discontinued. He was also found to have a urinary tract infection for which he was treated with ciprofloxacin per infectious disease. He was discharged home in stable condition with home health care nursing and wound care. Notably, his HIV is stable with CD4 count of 825. He follows with Dr Brusnon for his HIV management. Pt Condition on Discharge: Stable Discharge Disposition: Disch w/ Home Health Serv Discharge Instructions DIET: Follow Instructions for: As Tolerated, No Restrictions Activities you can perform: Weight Bearing as Aissatou Follow up Referrals: Appointment for Follow Up - 1 Week New Medications: Folding Walker/5" Wheels (Folding Walker/5" Wheels) 1 Mis Mis 1 EA .ROUTE DIRECTED #1 EA Ciprofloxacin (Cipro) 250 Mg Tab 250 MG PO Q12HR #14 TAB Continued Medications: Albuterol 18 GM Inh (Ventolin Hfa 18 GM Inh) 90 Mcg/Act Aer 2 PUFF INH Q4H PRN SHORTNESS OF BREATH INHALER Amlodipine (Amlodipine) 5 Mg Tab 5 MG PO DAILY Blood Pressure Management #30 TAB Aspirin (Aspirin) 81 Mg Tabdr 81 MG PO DAILY Blood Clot Prevention #30 TAB Atenolol (Atenolol) 50 Mg Tab 50 MG PO DAILY Blood Pressure Management #30 TAB Atorvastatin (Atorvastatin) 80 Mg Tab 80 MG PO HS Cholesterol Management #30 Ref 0 TAB Cetirizine (Zyrtec Allergy) 10 Mg Tab 10 MG PO HS Allergies TAB Clopidogrel (Plavix) 75 Mg Tab 75 MG PO DAILY Blood Clot Prevention #30 Ref 3 TAB Darunavir (Prezista) 800 Mg Tab 800 MG PO DAILY Mgmt Viral Infection #30 Ref 0 TAB Divalproex ER (Divalproex ER) 500 Mg Tab 500 MG PO DAILY Control Seizures #30 Ref 0 TAB Dolutegravir (Tivicay) 50 Mg Tab 50 MG PO Q12HR Mgmt Viral Infection Ergocalciferol (Drisdol) 50,000 Unit Cap 04765 UNITS PO Q7D Nutritional Supplement CAP Etravirine (Intelence) 200 Mg Tab 200 MG PO BIDPC Mgmt Viral Infection TAB Gabapentin (Gabapentin) 300 Mg Cap 300 MG PO TID CAP Hydrocodone-Acetaminophen (Hydrocodone-Acetaminophen) 10-325 mg Tab 1 TAB PO Q6H PRN PAIN #30 Ref 0 TAB Hydroxyzine HCl (Hydroxyzine HCl) 25 Mg Tab 25 MG PO DAILY Itching TAB Lisinopril (Lisinopril) 40 Mg Tab 40 MG PO DAILY Blood Pressure Management #30 TAB Ritonavir (Norvir) 100 Mg Cap 100 MG PO DAILY Mgmt Viral Infection #180 Ref 0 CAP Discontinued Medications: Clopidogrel (Plavix) 75 Mg Tab 75 MG PO DAILY Blood Clot Prevention TAB Cristine Gutierrez MD R1 Jan 03, 2017 16:34
[2017-01-20] MEDS ORDERED: DOXY100C PO (12:03)
[2017-01-20] MEDS ORDERED: LYRI50CA PO (12:05)
== END 2017-01-01 16:37 | disposition home health service (06) | DRG 853 ==
LOC: NEPA 16:01 → NEDA 17:25 → INTOOBSV 17:25 → HCIS 20:03 → OBSVTOIN 12-29 08:57
PROVIDERS: ADMIT Family Medicine; ATTEND Family Medicine
PROC: 0Y3J3ZZ Control Bleeding in Left Lower Leg, Percutaneous Approach (ICD-10-PCS; principal; 2016-12-28)
PROC: 30233N1 Transfusion of Nonautologous Red Blood Cells into Peripheral Vein, Percutaneous Approach (ICD-10-PCS; 2016-12-28)
DX: A41.9 Sepsis, unspecified organism (principal); R57.8 Other shock; N17.0 Acute kidney failure with tubular necrosis; D62 Acute posthemorrhagic anemia; L97.829 Non-pressure chronic ulcer of other part of left lower leg with unspecified severity; G62.9 Polyneuropathy, unspecified; N39.0 Urinary tract infection, site not specified; I70.248 Atherosclerosis of native arteries of left leg with ulceration of other part of lower leg; N18.3 Chronic kidney disease, stage 3 (moderate); R33.9 Retention of urine, unspecified; Z21 Asymptomatic human immunodeficiency virus [HIV] infection status; E78.00 Pure hypercholesterolemia, unspecified; J45.909 Unspecified asthma, uncomplicated; F17.210 Nicotine dependence, cigarettes, uncomplicated; I12.9 Hypertensive chronic kidney disease with stage 1 through stage 4 chronic kidney disease, or unspecified chronic kidney disease; Z86.73 Personal history of transient ischemic attack (TIA), and cerebral infarction without residual deficits; Z79.02 Long term (current) use of antithrombotics/antiplatelets
CPT/HCPCS: 36430; 71010; 76775; 76937; 80048; 80053; 80202; 80307; 81001; 83605; 85014; 85018; 85025; 85610; 85730; 86355; 86357; 86359; 86360; 86403; 86850; 86900; 86901; 86920; 87040; 87070; 87081; 87086; 87147; 87185; 87186; 87205; 87491; 87591; 93005; 93306; G0378; J1170; J2270; J2543; J3370; J7030; J7050; P9016; Q9963

== ENCOUNTER 2017-04-09 11:47 | Emergency (ER) | payer MEDICAID ==
[~2017-04-09 11:47] MED LIST changes: +LYRI50CA PO; +MISC-274
[2017-04-09 11:50] VITALS: BP 155/84; PULSE 99; RESP 16; TEMP 98.1; O2SAT 97
--- NOTE | 2017-04-09 11:52 | PD ---
Physical Exam Time Seen by Provider: 11:51 Narrative 61yo M c/o ingrowing toenail to left great toe. Sent by Dr. Rivers. Patient seen in triage. VS reviewed. Awaiting bed placement. MDM Supervised Visit with JOSEY: Migdalia Moore Apr 09, 2017 11:52
--- NOTE | 2017-04-09 12:55 | PD ---
HPI . left great toe nail pain Chief Complaint: Pain: Acute or Chronic Time Seen by Provider: 12:48 Travel History International Travel<30 days: No Contact w/Intl Traveler<30days: No Traveled to known affect area: No History of Present Illness HPI 61-year-old male here with complaints of left great toenail pain for a very long time. Patient tells me that he was seen by his primary care provider and told that if he comes to the emergency room that we will be able to call a grinder chipper to come in and cut all of his toenails. He says that he did not want to go through making an appointment because he wanted it done today. He denies any swelling of this toe. He denies any fever or chills. He is seeing Dr. Stout for wound care and was uncertain whether or not he could also see him for podiatry issues. PFSH Past Medical History Hx Anticoagulant Therapy: Yes Arthritis: Yes Asthma: Yes Blood Disorders: Yes (HIV) Anxiety: No Depression: No Heart Rhythm Problems: No Cancer: No Cardiovascular Problems: Yes (HTN) High Cholesterol: Yes Chest Pain: No Congestive Heart Failure: No COPD: No Cerebrovascular Accident: Yes (TIA ) Diabetes: Yes Patient Takes Glucophage: No Diminished Hearing: No Endocrine: No Gastrointestinal Disorders: No Genitourinary: No Hypertension: Yes Immune Disorder: Yes (HIV Positive) Implanted Vascular Access Dvce: No Musculoskeletal: No Neurologic: Yes (Neuropathy) Psychiatric: No Respiratory: Yes (ASTHMA) Immunizations Current: No (NO FLU VACCINE YET THIS YEAR) Sleep Apnea: No Tetanus Vaccination: > 5 Years Influenza Vaccination: Yes Past Surgical History Other Surgery: Yes (BRONCHOSCOPY/ VASCULAR SURGERY) Social History Alcohol Use: No Tobacco Use: Yes (1/2 pack per day) Substance Use: No Allergies-Medications (Allergen,Severity, Reaction): Coded Allergies: Morphine (Verified Adverse Reaction, Intermediate, Itching, 04/09/17) *MDRO Multi-Drug Resistant Organism (Verified Adverse Reaction, Unknown, Cleared, 04/09/17) MRSA (blood & scrotal abscess) - 04/2015; (Leg) - 06/2016, 07/27/16 MRSA PCR Screens NEGATIVE - 12/19/16 & 12/22/16 CLEARED PER INFECTION CONTROL PROTOCOL Reported Meds & Prescriptions Reported Meds & Active Scripts Active Lyrica (Pregabalin) 50 Mg Cap 50 Mg PO TID Plavix (Clopidogrel Bisulfate) 75 Mg Tab 75 Mg PO DAILY Atorvastatin (Atorvastatin Calcium) 80 Mg Tab 80 Mg PO HS Hydrocodone-Acetaminophen 10-325 mg Tab 1 Tab PO Q6H PRN Amlodipine (Amlodipine Besylate) 5 Mg Tab 5 Mg PO DAILY Atenolol 50 Mg Tab 50 Mg PO DAILY Lisinopril 40 Mg Tab 40 Mg PO DAILY Reported Divalproex ER (Divalproex Sodium) 500 Mg Tab 500 Mg PO DAILY Prezista (Darunavir) 800 Mg Tab 800 Mg PO DAILY Norvir (Ritonavir) 100 Mg Cap 100 Mg PO DAILY Hydroxyzine HCl 25 Mg Tab 25 Mg PO DAILY Gabapentin 300 Mg Cap 300 Mg PO TID Tivicay (Dolutegravir Sodium) 50 Mg Tab 50 Mg PO Q12HR Intelence (Etravirine) 200 Mg Tab 200 Mg PO BIDPC Ventolin Hfa 18 GM Inh (Albuterol Sulfate) 90 Mcg/Act Aer 2 Puff INH Q4H PRN Review of Systems General / Constitutional: No: Fever Eyes: No: Visual changes HENT: No: Headaches Cardiovascular: No: Chest Pain or Discomfort Respiratory: No: Shortness of Breath Gastrointestinal: No: Abdominal Pain Genitourinary: No: Dysuria Musculoskeletal: Positive: Pain (left great toe) Skin: Positive Other (onychomycosis ), No Rash Neurologic: No: Weakness Psychiatric: No: Depression Endocrine: No: Polydipsia Hematologic/Lymphatic: No: Easy Bruising Physical Exam Narrative GENERAL: AAO x 3, no acute distress, Well-nourished, well-developed patient. SKIN: Warm and dry. No visible rashes or bruising. Severe onychomycosis of all of the toenail. Very thick. No evidence of paronychia or infection. No erythema or drainage present. HEAD: Normocephalic and atraumatic. EYES: No scleral icterus. No injection or drainage. EOM intact, PERRLA ENT: No nasal drainage noted. Mucous membranes pink. Airway patent. NECK: Supple, trachea midline. No JVD. CARDIOVASCULAR: Regular rate and rhythm without murmurs, gallops, or rubs. RESPIRATORY: Breath sounds equal bilaterally. No accessory muscle use. No rhonchi or rales. GASTROINTESTINAL: Visual inspection normal EXTREMITIES: No cyanosis or edema. BACK: No obvious deformity. No CVA tenderness. NEURO: CN II-12 intact, PSYCH: AAO x 3, normal affect. Data Data Last Documented VS Vital Signs Date Time Temp Pulse Resp B/P Pulse Ox O2 Delivery O2 Flow Rate FiO2 04/09/17 13:00 97.8 76 17 140/81 99 04/09/17 11:50 Room Air MDM Medical Decision Making Medical Screen Exam Complete: Yes Emergency Medical Condition: Yes Medical Record Reviewed: Yes Differential Diagnosis Onychomycosis, ingrown toenail, less likely paronychia Narrative Course 61-year-old male here with complaints of left ingrown toenail. On examination patient has severe onychomycosis. Patient will need debridement of these toenails and possible removal. I've explained to him that unfortunately this is something that we cannot do in the emergency department and needs to be handled on an outpatient basis. He is already taking pain medications and continue to use those. Patient verbalized understanding of instructions, questions were answered, and thanked me for their care. I advised them if their condition worsens, please return to the nearest emergency room for further care. Diagnosis Primary Impression: Onychomycosis Additional Impression: Onychomycosis of left great toe Patient Instructions: General Instructions Additional Instructions: Please make an appointment with a grinder chipper for care of your toenails. Continue using your at home pain medications. Med/Other Pt SpecificInfo: No Change to Meds Disposition: 01 DISCHARGE HOME Condition: Stable Meli Rea Apr 09, 2017 12:55
[2017-04-09 13:00] VITALS: BP 140/81; TEMP 97.8
== END 2017-04-09 13:00 | disposition home or self-care (01) ==
LOC: NEPD 11:47
DX: B35.1 Tinea unguium (principal); I10 Essential (primary) hypertension; E11.9 Type 2 diabetes mellitus without complications; E78.00 Pure hypercholesterolemia, unspecified; F17.200 Nicotine dependence, unspecified, uncomplicated; Z21 Asymptomatic human immunodeficiency virus [HIV] infection status; Z79.01 Long term (current) use of anticoagulants; Z87.39 Personal history of other diseases of the musculoskeletal system and connective tissue; Z87.09 Personal history of other diseases of the respiratory system; Z86.79 Personal history of other diseases of the circulatory system; Z86.69 Personal history of other diseases of the nervous system and sense organs
CPT/HCPCS: 99281

== ENCOUNTER 2017-12-11 14:10 | Inpatient (IN) | payer MEDICAID ==
[~2017-12-11] VITALS: Ht 167.6 cm; Wt 70.8 kg
[~2017-12-11 14:10] MED LIST changes: -ASPI1TAB69 PO; -ATOR1TAB18 PO; +ATOR80TA45 PO; -DARU800T PO; +DARU800T2 PO; -DRIS50002 PO; -INTE200T PO; +INTE200T2 PO; -MISC-274; -ZYRT10TA PO
[2017-12-11 14:17] VITALS: BP 150/90; PULSE 80; RESP 16; TEMP 98.2; O2SAT 100
[2017-12-11] MEDS ORDERED: MORPHINE SULFATE 4 MG/ML INJ IV PUSH ONE (15:30)
--- NOTE | 2017-12-11 15:33 | PD ---
HPI Chief Complaint: Skin Problem Time Seen by Provider: 15:15 Travel History International Travel<30 days: No Contact w/Intl Traveler<30days: No Traveled to known affect area: No History of Present Illness HPI This 62-year-old man presents emergency department complaining of left great toe ischemia blackness draining wounds and infection. He just completed oral antibiotics without any improvement. He is referred by Dr. Smith, his [facility] primary physician, to the emergency department. He had seen [facility] in the past, most recently in April of last year. Is not seeing a director of sales or wound care doctor now. He has had angioplasty with Dr. Uri Jones in the past as well on the left leg. He states it has been getting worse for a number of months. It is black and necrotic now with draining wound. He states he gave him medicine to put on any antibiotics to take but it has been worsening. He saw his doctor this morning who sent him to the emergency department. History Past Medical History Narrative Medical HIV, CD4 count of 400, on antiretroviral therapy Peripheral arterial disease, history of left sided angioplasty and stenting by Dr. chamberlain are back Hypertension Social History Alcohol Use: No Tobacco Use: Yes (1/2 pack per day) Allergies-Medications (Allergen,Severity, Reaction): Coded Allergies: morphine (Unverified Adverse Reaction, Intermediate, Itching, 06/09/17) *MDRO Multi-Drug Resistant Organism (Verified Adverse Reaction, Unknown, Cleared, 05/05/17) MRSA (blood & scrotal abscess) - 04/2015; (Leg) - 06/2016, 07/27/16 MRSA PCR Screens NEGATIVE - 12/19/16 & 12/22/16 CLEARED PER INFECTION CONTROL PROTOCOL Reported Meds & Prescriptions Reported Meds & Active Scripts Active Lyrica (Pregabalin) 50 Mg Cap 50 Mg PO TID Plavix (Clopidogrel Bisulfate) 75 Mg Tab 75 Mg PO DAILY Atorvastatin (Atorvastatin Calcium) 80 Mg Tab 80 Mg PO HS Hydrocodone-Acetaminophen 10-325 mg Tab 1 Tab PO Q6H PRN Amlodipine (Amlodipine Besylate) 5 Mg Tab 5 Mg PO DAILY Atenolol 50 Mg Tab 50 Mg PO DAILY Lisinopril 40 Mg Tab 40 Mg PO DAILY Reported Divalproex ER (Divalproex Sodium) 500 Mg Tab 500 Mg PO DAILY Prezista (Darunavir) 800 Mg Tab 800 Mg PO DAILY Norvir (Ritonavir) 100 Mg Cap 100 Mg PO DAILY Hydroxyzine HCl 25 Mg Tab 25 Mg PO DAILY Gabapentin 300 Mg Cap 300 Mg PO TID Tivicay (Dolutegravir Sodium) 50 Mg Tab 50 Mg PO Q12HR Intelence (Etravirine) 200 Mg Tab 200 Mg PO BIDPC Ventolin Hfa 18 GM Inh (Albuterol Sulfate) 90 Mcg/Act Aer 2 Puff INH Q4H PRN Review of Systems Except as stated in HPI: all other systems reviewed are Neg Physical Exam Narrative GENERAL: 62-year-old man, no acute distress. SKIN: Focused skin assessment warm/dry. HEAD: Atraumatic. Normocephalic. EYES: Pupils equal and round. No scleral icterus. No injection or drainage. ENT: No nasal bleeding or discharge. Mucous membranes pink and moist. NECK: Trachea midline. No JVD. CARDIOVASCULAR: Regular rate and rhythm. No murmur appreciated. RESPIRATORY: No accessory muscle use. Clear to auscultation. Breath sounds equal bilaterally. GASTROINTESTINAL: Abdomen soft, non-tender, nondistended. Hepatic and splenic margins not palpable. MUSCULOSKELETAL: Left great toe is completely necrotic on the end with draining wounds and ulcerations. There is a little bit of purulent skin findings that are tracking up the bottom surface of the foot about a 2-3 cm from the great toe. There is no tenderness in this area. There is no erythema or warmth. Pulses are difficult to palpate in both lower extremities. Sluggish capillary refill. NEUROLOGICAL: Awake and alert. No obvious cranial nerve deficits. Motor grossly within normal limits. Normal speech. PSYCHIATRIC: Appropriate mood and affect; insight and judgment normal. Data Data Last Documented VS Vital Signs Date Time Temp Pulse Resp B/P (MAP) Pulse Ox O2 Delivery O2 Flow Rate FiO2 12/11/17 14:17 98.2 80 16 150/90 (110) 100 Orders Orders Foot, Complete ([id number]) (12/11/17 ) Complete Blood Count With Diff (12/11/17 15:24) Comprehensive Metabolic Panel (12/11/17 15:24) Westergren Sedimentation Rate (12/11/17 15:24) C-Reactive Protein (Crp) (12/11/17 15:24) Iv Access Insert/Monitor (12/11/17 15:24) Morphine Inj (Morphine Inj) (12/11/17 15:30) MDM Medical Decision Making Medical Screen Exam Complete: Yes Emergency Medical Condition: Yes Differential Diagnosis Osteomyelitis, gangrene of the toe, soft tissue infection, other peripheral vascular disease, Narrative Course Medical decision making INITIAL 62-year-old man presents to the emergency department complaining of infection to the left great toe. Appears necrotic, with what appears to be chronic infection. This visibly worsening. He has HIV, and peripheral arterial disease. He probably has osteomyelitis. He will need admission. Chris Mendoza MD Dec 11, 2017 15:33
--- NOTE | 2017-12-11 15:54 | RADRPT ---
EXAM DATE/TIME: 12/11/2017 15:38 [facility] COMPARISON: No previous studies available for comparison. INDICATIONS : Patient complains of pain and inflammation in all 5 digits and some pain into metatarsals. MEDICAL HISTORY : Hypertension. Hypercholesterolemia. Neuropathy, TIA, Asthma, Cellulitis. SURGICAL HISTORY : Bronchoscopy. ENCOUNTER: Subsequent ACUITY: 2 days PAIN SCORE: 10/10 LOCATION: Left Foot FINDINGS: There is some osteopenic changes about the great toe. There is juxta-articular osteoporosis about th e metatarsal phalangeal joints. This can be seen with disuse, as well as an inflammatory process. C orrelation suggested. CONCLUSION: Findings as above, no fracture. No bony destruction. Toan Anderson MD FACR on December 11, 2017 at 15:50 Board Certified Radiologist. This report was verified electronically.
[2017-12-11 16:20] LABS: AUTOMATED NEUTROPHIL # 5.3 TH/MM3 (1.8-7.7); BASOPHIL % 0.5 % (0.0-2.0); EOSINOPHIL # 0.1 TH/MM3 (0-0.4); EOSINOPHIL % 1.8 % (0.0-4.0); HEMATOCRIT 31.4 % (39.0-51.0); HEMOGLOBIN 10.6 GM/DL (13.0-17.0); LYMPH % 22.8 % (9.0-44.0); LYMPHOCYTE # 1.9 TH/MM3 (1.0-4.8); MEAN CELL VOLUME 92.8 FL (80.0-100.0); MEAN CORPUSCULAR HEMOGLOBIN 31.2 PG (27.0-34.0); MEAN CORPUSCULAR HGB CONC 33.6 % (32.0-36.0); MEAN PLATELET VOLUME 8.1 FL (7.0-11.0); MONO % 10.9 % (0.0-8.0); MONOCYTE # 0.9 TH/MM3 (0-0.9); PLATELET COUNT 294 TH/MM3 (150-450); RED BLOOD COUNT 3.38 MIL/MM3 (4.50-5.90); RED CELL DISTRIBUTION WIDTH 14.2 % (11.6-17.2); WHITE BLOOD COUNT 8.2 TH/MM3 (4.0-11.0)
[2017-12-11 16:37] LABS: ALBUMIN 3.9 GM/DL (3.4-5.0); AST (GOT) 32 U/L (15-37); BICARBONATE 22.2 MEQ/L (21.0-32.0); BLOOD UREA NITROGEN 73 MG/DL (7-18); CALCIUM 11.2 MG/DL (8.5-10.1); CHLORIDE 103 MEQ/L (98-107); CREATININE 2.88 MG/DL (0.60-1.30); GLOMERULAR FILTRATION RATE 27 ML/MIN (>89); GLUCOSE,RANDOM 92 MG/DL (74-106); SODIUM (NA) 135 MEQ/L (136-145)
[2017-12-11 16:38] LABS: ALT (GPT) 32 U/L (12-78); C-REACTIVE PROTEIN 0.82 MG/DL (0.00-0.30)
[2017-12-11 16:40] LABS: ALKALINE PHOSPHATASE 89 U/L (45-117); TOTAL BILIRUBIN ADULT 0.4 MG/DL (0.2-1.0); TOTAL PROTEIN 8.3 GM/DL (6.4-8.2)
[2017-12-11] MEDS ORDERED: HYDROmorphone HCL PF 1 MG/ML VIAL IVS ONE (17:00)
[2017-12-11] MEDS ORDERED: ACETAMINOPHEN 1000 MG/100 ML 100 ML IV ONE (17:00)
--- NOTE | 2017-12-11 17:10 | HHI.HP ---
[facility] Service Family Medicine Primary Care Physician Renato Rivers MD Admission Diagnosis Diagnoses: International Travel<30 Days: No Contact w/Intl Traveler<30days: No Known Affected Area: No History of Present Illness 62 yo M with PMH of HIV, HTN, PAD, COPD sent [facility] ED [facility] ( [facility] physician Dr. Smith ([phone]) with a L great toe wound. Patient states he was seen by Dr. Gautam at home today who was concerned about the wound being infected and instructed him to come to ED. Patient has had complications related to PAD that has been progressively worse. He's been experiencing pain in the toe over the last year, and the wound first arose 2 months ago. It has progressively gotten more painful and the wound has been draining purulent discharge for last month. No bleeding from the wound. Home health has been coming to his home 2 times a week to help clean/dress the wound. No fevers, chills. Has had decreased appetite as well as nausea. Has been drinking fluids. No decreased urinary output. He states he hasn't been taking HIV meds regularly. Review of Systems Constitutional: COMPLAINS OF: Change in appetite, DENIES: Fever, Weight loss, Chills Ears, nose, mouth, throat: DENIES: Throat pain, Running Nose Respiratory: DENIES: Cough, Sputum production Cardiovascular: DENIES: Chest pain Gastrointestinal: COMPLAINS OF: Bloody stools (has hemorroids that he believes have been bleeding), Nausea, DENIES: Abdominal pain, Black stools, Diarrhea Genitourinary: DENIES: Hematuria, Dysuria Integumentary: DENIES: Rash Hematologic/lymphatic: DENIES: Lymphadenopathy Neurologic: DENIES: Headache Past Family Social History Past Medical History HIV x 20 years Hypertension Peripheral arterial disease COPD Past Surgical History PAD surgery - revascularization in L leg in 11/2016 Allergies: Coded Allergies: morphine (Unverified Adverse Reaction, Intermediate, Itching, 06/09/17) *MDRO Multi-Drug Resistant Organism (Verified Adverse Reaction, Unknown, Cleared, 05/05/17) MRSA (blood & scrotal abscess) - 04/2015; (Leg) - 06/2016, 07/27/16 MRSA PCR Screens NEGATIVE - 12/19/16 & 12/22/16 CLEARED PER INFECTION CONTROL PROTOCOL Family History Fathers side: [place], diabetes Mother with Alzheimer's Social History Lives at home by himself Tobacco: Smokes 1/2 ppd since age 39 Alcohol: Denies Illicit Drugs: Denies Physical Exam Vital Signs Vital Signs Date Time Temp Pulse Resp B/P (MAP) Pulse Ox O2 Delivery O2 Flow Rate FiO2 12/11/17 14:17 98.2 80 16 150/90 (110) 100 Physical Exam GENERAL: This is a well-nourished, well-developed patient sitting on edge of bed in no acute distress. Speaking in full sentences SKIN: No rashes, ecchymoses or lesions. Cool and dry. HEAD: Atraumatic. Normocephalic. No temporal or scalp tenderness. EYES: Pupils equal round and reactive. Extraocular motions intact. No scleral icterus. No injection or drainage. ENT: Nose without bleeding, purulent drainage or septal hematoma. Throat without erythema, tonsillar hypertrophy or exudate. Uvula midline. Airway patent. NECK: Trachea midline. No JVD or lymphadenopathy. Supple, nontender, no meningeal signs. CARDIOVASCULAR: Regular rate and rhythm without murmurs, gallops, or rubs. RESPIRATORY: Clear to auscultation. Breath sounds equal bilaterally. No wheezes , rales, or rhonchi. GASTROINTESTINAL: Abdomen soft, non-tender, nondistended. No hepato-splenomegaly , or palpable masses. No guarding. MUSCULOSKELETAL: Left great toe has open wound with gross purulent discharge. Most distal aspect of great toe is black. Wound is extremely tender to palpation. No crepitus appreciated. Distal pulses not palpable. Grade II ulcer noted on L adames - no purulent discharge or bleeding NEUROLOGICAL: Awake and alert. Cranial nerves II through XII intact. Motor and sensory grossly within normal limits. Five out of 5 muscle strength in all muscle groups. Normal speech. Laboratory Laboratory Tests Test 12/11/17 15:55 White Blood Count 8.2 Red Blood Count 3.38 Hemoglobin 10.6 Hematocrit 31.4 Mean Corpuscular Volume 92.8 Mean Corpuscular Hemoglobin 31.2 Mean Corpuscular Hemoglobin Concent 33.6 Red Cell Distribution Width 14.2 Platelet Count 294 Mean Platelet Volume 8.1 Neutrophils (%) (Auto) 64.0 Lymphocytes (%) (Auto) 22.8 Monocytes (%) (Auto) 10.9 Eosinophils (%) (Auto) 1.8 Basophils (%) (Auto) 0.5 Neutrophils # (Auto) 5.3 Lymphocytes # (Auto) 1.9 Monocytes # (Auto) 0.9 Eosinophils # (Auto) 0.1 Basophils # (Auto) 0.0 CBC Comment DIFF FINAL Differential Comment Erythrocyte Sedimentation Rate 50 Blood Urea Nitrogen 73 Creatinine 2.88 Random Glucose 92 Total Protein 8.3 Albumin 3.9 Calcium Level 11.2 Alkaline Phosphatase 89 Aspartate Amino Transf (AST/SGOT) 32 Alanine Aminotransferase (ALT/SGPT) 32 Total Bilirubin 0.4 Sodium Level 135 Potassium Level 3.3 Chloride Level 103 Carbon Dioxide Level 22.2 Anion Gap 10 Estimat Glomerular Filtration Rate 27 C-Reactive Protein 0.82 Result Diagram: 12/11/17 1555 12/11/17 1555 Imaging Last 48 hours Impressions Foot X-Ray 12/11/17 0000 Signed Impressions: Service Date/Time: Monday, December 11, 2017 15:38 - CONCLUSION: Findings as above, no fracture. No bony destruction. Toan Anderson MD FACR Caprini VTE Risk Assessment Caprini VTE Risk Assessment: Mod/High Risk (score >= 2) Caprini Risk Assessment Model Point Value = 1 Point Value = 2 Point Value = 3 Point Value = 5 Age 41-60 Minor surgery BMI > 25 kg/m2 Swollen legs Varicose veins or History of unexplained or recurrent spontaneous Oral contraceptives or hormone replacement Sepsis (< 1 month) Serious lung disease, including pneumonia (< 1 month) Abnormal pulmonary function Acute myocardial infarction Congestive heart failure (< 1 month) History of inflammatory bowel disease Medical patient at bed rest Age 61-74 Arthroscopic surgery Major open surgery (> 45 min) Laparoscopic surgery (> 45 min) Malignancy Confined to bed (> 72 hours) Immobilizing plaster cast Central venous access Age >= 75 History of VTE Family history of VTE Factor V Leiden Prothrombin [id number] Lupus anticoagulant Anticardiolipin antibodies Elevated serum homocysteine Heparin-induced thrombocytopenia Other congenital or acquired thrombophilia Stroke (< 1 month) Elective arthroplasty Hip, pelvis, or leg fracture Acute spinal cord injury (< 1 month) Prophylaxis Regimen Total Risk Factor Score Risk Level Prophylaxis Regimen 0-1 Low Early ambulation 2 Moderate Order ONE of the following: *Sequential Compression Device (SCD) *Heparin 5000 units SQ BID 3-4 Higher Order ONE of the following medications: *Heparin 5000 units SQ TID *Enoxaparin/Lovenox 40 mg SQ daily (WT < 150 kg, CrCl > 30 mL/min) *Enoxaparin/Lovenox 30 mg SQ daily (WT < 150 kg, CrCl > 10-29 mL/min) *Enoxaparin/Lovenox 30 mg SQ BID (WT < 150 kg, CrCl > 30 mL/min) AND/OR *Sequential Compression Device (SCD) 5 or more Highest Order ONE of the following medications: *Heparin 5000 units SQ TID (Preferred with Epidurals) *Enoxaparin/Lovenox 40 mg SQ daily (WT < 150 kg, CrCl > 30 mL/min) *Enoxaparin/Lovenox 30 mg SQ daily (WT < 150 kg, CrCl > 10-29 mL/min) *Enoxaparin/Lovenox 30 mg SQ BID (WT < 150 kg, CrCl > 30 mL/min) AND *Sequential Compression Device (SCD) Assessment and Plan Assessment and Plan 62-year-old male with history of HIV, PAD, COPD, HTN presenting with wound on left great toe concerning for gangrene, osteomyelitis. Vascular surgery, infectious disease, podiatry consulted. Starting on empiric antibiotic therapy to cover for possible necrotizing fasciitis with vancomycin, clindamycin, Zosyn. MRI pending. Code Status Full code Discussed Condition With Dr. Harris Problem List: (1) Gangrenous toe ICD Codes: I96 - Gangrene, not elsewhere classified Plan: Left great toe with open wound with purulent discharge, post distal aspect of toe was black Known history of PAD, difficult to palpate distal pulses X-ray on admission showing no bony destruction ESR on admission elevated at 50 CRP 0.82 No leukocytosis on admission with a wbc 8.2 Stat MRI ordered to rule out osteomyelitis versus necrotizing fasciitis Treating empirically with IV vancomycin, Zosyn, clindamycin Consulting infectious disease, podiatry, vascular surgery Nothing by mouth after midnight Wound cultures pending Blood cultures pending Pain scale as follows Scheduled IV Tylenol [place] code on 5 mg pain scale 1-5 Roxicodone 10 mg pain scale 6-10 Morphine 4 mg IV every 3 hours for breakthrough (2) BECKA (acute kidney injury) ICD Codes: N17.9 - Acute kidney failure, unspecified Plan: Patient found to have elevated creatinine 2.88 on admission Has had elevated creatinine up to 2.33 in prior hospitalizations, but most recent creatinine was 1.08 in December 2016 Elevated BUN 73 IV fluids at 100 mL per hour normal saline Renal function panel pending Renal ultrasound pending UA pending (3) Peripheral arterial disease ICD Codes: I73.9 - Peripheral vascular disease, unspecified Status: Chronic Plan: Patient with a known history of PAD, previously seen by Dr. Ramos Status post revascularization of the left leg in December 2016 Concern for gangrenous left great toe as described above Consulted vascular surgery Holding home Plavix, atorvastatin for now (4) HIV disease ICD Codes: B20 - Human immunodeficiency virus (HIV) disease Status: Chronic Plan: Patient with a known history of HIV for over 20 years Previously prescribed Darunavir, Dolutegravir, Etravirine, Ritonavir States he has been taking the sporadically lately due to being sick Restarting these medications on admission Lymphocyte profile pending, most recent recorded CD4 count in December 2016 was in the 800s ID consulted (5) COPD (chronic obstructive pulmonary disease) ICD Codes: J44.9 - Chronic obstructive pulmonary disease, unspecified Plan: Patient with a history of COPD Occasionally takes DuoNeb nebulizers for shortness of breath/wheezing DuoNeb nebs as needed (6) HTN (hypertension) ICD Codes: I10 - Essential (primary) hypertension Plan: Patient with a known history of hypertension States he takes atenolol 50 mg, Norvasc 5 mg daily Continuing these during hospitalization (7) FEN Plan: Normal saline 100 mL per hour Noted to be hypokalemic 3.3 on admission, 40 mEq by mouth once Follow-up a.m. labs Holding pharmacologic DVT prophylaxis as patient may go to surgery in the near future. SCDs ordered Nothing by mouth at midnight Physician Certification 2 Midnight Certification Type: Admission for Inpatient Services Order for Inpatient Services The services are ordered in accordance with Medicare regulations or non- Medicare payer requirements, as applicable. In the case of services not specified as inpatient-only, they are appropriately provided as inpatient services in accordance with the 2-midnight benchmark. Estimated LOS (days): 3 days is the estimated time the patient will need to remain in the hospital, assuming treatment plan goals are met and no additional complications. Post-Hospital Plan: Not yet determined Claude Abreu MD R1 Dec 11, 2017 17:10
[2017-12-11] MEDS ORDERED: SODIUM CHLORIDE 0.9% FLUSH 10 ML FLUSH IV FLUSH PRN (18:00)
[2017-12-11] MEDS ORDERED: Vancomycin Consult Pharmacy 1 EA OTHER SCH (18:00)
[2017-12-11] MEDS ORDERED: RESP: ALBUTEROL 2.5 MG/IPRATROPIUM 0.5 MG NEB (PRN) NEB (18:15)
[2017-12-11] MEDS ORDERED: IBUPROFEN 400 MG TAB PO PRN (18:15)
[2017-12-11] MEDS ORDERED: NALOXONE HCL 0.4 MG/ML AMP IV PUSH PRN (18:15)
[2017-12-11] MEDS ORDERED: PIPERACIL-TAZO 3.375 GM PREMIX 50 ML IV SCH (18:15)
[2017-12-11] MEDS ORDERED: POTASSIUM CHLORIDE 20 MEQ CONTROLLED RELEASE TAB PO ONE (19:15)
[2017-12-11] MEDS ORDERED: MORPHINE SULFATE 4 MG/ML INJ IV PUSH PRN (19:30)
--- NOTE | 2017-12-11 19:39 | RADRPT ---
EXAM DATE/TIME: 12/11/2017 18:19 [place] COMPARISON: No previous studies available for comparison. INDICATIONS : Increased BUN/Creatinine. MEDICAL HISTORY : Hypercholesterolemia. Hypertension. Neuropathy. Cerebrovascular accident. Peripheral vascular disea se. Anticoagulant therapy. Asthma. Arthritis. HIV. Diabetes. SURGICAL HISTORY : Left knee surgery. Vascular surgery. ENCOUNTER: Subsequent ACUITY: 1 day PAIN SCORE: 0/10 LOCATION: Bilateral flank MEASUREMENTS: RIGHT KIDNEY: 10.8 x 5.6 x 4.6 cm LEFT KIDNEY: 9.9 x 4.6 x 4.8 cm FINDINGS: There is a probable 4 mm calculus upper pole right kidney, nonobstructing. 1.4 cm cyst upper pole lef t kidney. No hydronephrosis. No perinephric fluid. Bladder unremarkable. CONCLUSION: 1. No acute findings. Nonobstructing calculus upper pole right kidney. Small cyst upper pole left kid linda. Bladder unremarkable. Jeremias Rossi MD on December 11, 2017 at 19:36 Board Certified Radiologist. This report was verified electronically.
[2017-12-11 20:00] VITALS: BP 177/89; PULSE 81; RESP 20; TEMP 97.1; O2SAT 99
[2017-12-11] MEDS ORDERED: ATORVASTATIN 80 MG TAB PO SCH (21:00)
[2017-12-11] MEDS ORDERED: VANCOMYCIN INJ 1,500 MG in SODIUM CHLORID 0.9% 500 ML INJ 500 ML IV ONE (21:00)
[2017-12-11] MEDS: SODIUM CHLORIDE 0.9% FLUSH 10 ML FLUSH IV FLUSH SCH (21:00)
[2017-12-11] MEDS: SODIUM CHLOR 0.9% 1000 ML INJ 1,000 ML IV SCH (21:59)
[2017-12-11] MEDS: ACETAMINOPHEN 1000 MG/100 ML 100 ML IV SCH (22:01)
[2017-12-11] MEDS: ATENOLOL 50 MG TAB PO SCH (22:21)
[2017-12-11] MEDS: amLODIPine BESYLATE 5 MG TAB PO SCH (22:21)
[2017-12-11] MEDS: CLINDAMYCIN 600 MG/NS PREMIX 50 ML IV SCH (22:22)
[2017-12-11] MEDS: PIPERACIL-TAZO 2.25 GM PREMIX 50 ML IV SCH (22:23)
[2017-12-11] MEDS: ETRAVIRINE 100 MG TAB PO SCH (23:29)
[2017-12-11] MEDS: DARUNAVIR 800 MG TAB PO SCH (23:29)
[2017-12-11] MEDS: DOLUTEGRAVIR SODIUM 50 MG TAB PO SCH (23:29)
[2017-12-11] MEDS: LACTOBACILLUS ACIDOPHILUS 1 GM PACKET PO SCH (23:30)
[2017-12-11] MEDS: RITONAVIR 100 MG TAB PO SCH (23:30)
[2017-12-12] VITALS: BP 100/53; PULSE 56; RESP 20; TEMP 95.9; O2SAT 96
[2017-12-12 00:21] LABS: ALBUMIN 3.7 GM/DL (3.4-5.0); BICARBONATE 25.1 MEQ/L (21.0-32.0); CALCIUM 10.8 MG/DL (8.5-10.1); CREATININE 3.18 MG/DL (0.60-1.30); PHOSPHORUS 4.5 MG/DL (2.5-4.9)
[2017-12-12] MEDS: ACETAMINOPHEN 1000 MG/100 ML 100 ML IV SCH ×3 (01:53→14:00)
[2017-12-12] MEDS: PIPERACIL-TAZO 2.25 GM PREMIX 50 ML IV SCH ×4 (01:53→20:03)
[2017-12-12] MEDS: CLINDAMYCIN 600 MG/NS PREMIX 50 ML IV SCH ×3 (03:54→20:03)
[2017-12-12 04:23] LABS: BILIRUBIN, URINE NEG (NEG); BLOOD, URINE NEG (NEG); GLUCOSE,URINE NEG (NEG); KETONE, URINE NEG (NEG); MUCUS URINE FEW /lpf (OCC); NITRITE,URINE NEG (NEG); PH, URINE 5.5 (5.0-8.5); SQUAMOUS EPITHELIAL CELL URINE 2 /hpf (0-5); URINE COLOR YELLOW (YELLW/STRAW); URINE LEUKOCYTE ESTERASE LARGE (NEG)
[2017-12-12] MEDS: SODIUM CHLOR 0.9% 1000 ML INJ 1,000 ML IV SCH ×2 (06:44→16:41)
[2017-12-12 06:51] LABS: CREATININE 3.08 MG/DL (0.60-1.30); RANDOM VANCOMYCIN 30.5 COMMENT
[2017-12-12 08:00] VITALS: BP 94/65; PULSE 52; RESP 17; TEMP 97.9; O2SAT 100
[2017-12-12 08:46] VITALS: BP 106/64; PULSE 48; RESP 17; O2SAT 98
[2017-12-12] MEDS: DARUNAVIR 800 MG TAB PO SCH (09:22)
[2017-12-12] MEDS: RITONAVIR 100 MG TAB PO SCH (09:22)
[2017-12-12] MEDS: DOLUTEGRAVIR SODIUM 50 MG TAB PO SCH ×2 (09:23→20:03)
[2017-12-12] MEDS: LACTOBACILLUS ACIDOPHILUS 1 GM PACKET PO SCH (09:23)
[2017-12-12] MEDS: ETRAVIRINE 100 MG TAB PO SCH ×2 (09:23→16:45)
[2017-12-12] MEDS: SODIUM CHLORIDE 0.9% FLUSH 10 ML FLUSH IV FLUSH SCH ×2 (09:27→20:06)
[2017-12-12] MEDS ORDERED: INFLUENZA VIRUS VACCINE (QUADRIVALENT) 0.5 ML SYR IM ONE (10:00)
[2017-12-12] MEDS ORDERED: PNEUMOCOCCAL POLYVALENT INJ 25 MCG/0.5 ML SYR IM ONE (10:00)
[2017-12-12 10:41] LABS: AUTOMATED NEUTROPHIL # 4.2 TH/MM3 (1.8-7.7); BASOPHIL % 0.7 % (0.0-2.0); EOSINOPHIL # 0.3 TH/MM3 (0-0.4); EOSINOPHIL % 4.3 % (0.0-4.0); HEMATOCRIT 30.5 % (39.0-51.0); HEMOGLOBIN 10.3 GM/DL (13.0-17.0); LYMPH % 20.1 % (9.0-44.0); LYMPHOCYTE # 1.4 TH/MM3 (1.0-4.8); MEAN CORPUSCULAR HEMOGLOBIN 31.5 PG (27.0-34.0); MEAN CORPUSCULAR HGB CONC 33.9 % (32.0-36.0); MEAN PLATELET VOLUME 8.4 FL (7.0-11.0); MONO % 12.9 % (0.0-8.0); MONOCYTE # 0.9 TH/MM3 (0-0.9); PLATELET COUNT 273 TH/MM3 (150-450); RED BLOOD COUNT 3.28 MIL/MM3 (4.50-5.90); RED CELL DISTRIBUTION WIDTH 14.2 % (11.6-17.2); WHITE BLOOD COUNT 6.7 TH/MM3 (4.0-11.0)
[2017-12-12 12:00] VITALS: BP 114/60; PULSE 48; RESP 16; TEMP 98.8; O2SAT 100
--- NOTE | 2017-12-12 12:08 | HHI.FPPN ---
Subjective Remarks No acute events overnight. This morning the patient continues to complain of pain. He refused having the MRI done last night due to pain in his leg/foot. He states he is hungry but otherwise denies CP, SOB, N/V, diarrhea. (Claude Abreu MD R1) Objective Vitals Vital Signs Date Time Temp Pulse Resp B/P (MAP) Pulse Ox O2 Delivery O2 Flow Rate FiO2 12/12/17 08:46 48 17 106/64 (78) 98 12/12/17 08:00 97.9 52 17 94/65 (75) 100 12/12/17 02:36 18 12/12/17 02:36 18 12/12/17 00:00 95.9 56 20 100/53 (69) 96 12/11/17 20:00 97.1 81 20 177/89 (118) 99 12/11/17 14:17 98.2 80 16 150/90 (110) 100 I/O 12/11/17 12/11/17 12/11/17 12/12/17 12/12/17 12/12/17 07:00 15:00 23:00 07:00 15:00 23:00 Intake Total 100 ml Output Total 400 ml 150 ml Balance 100 ml -400 ml -150 ml Intake IV Total 100 ml Output Urine Total 400 ml 150 ml # Voids 1 (Claude Abreu MD R1) Result Diagram: 12/12/17 1010 12/12/17 0557 Objective Remarks GENERAL: This is a well-nourished, well-developed patient sitting on edge of bed in no acute distress. Speaking in full sentences SKIN: No rashes, ecchymoses or lesions. Cool and dry. HEAD: Atraumatic. Normocephalic. No temporal or scalp tenderness. EYES: Pupils equal round and reactive. Extraocular motions intact. No scleral icterus. No injection or drainage. ENT: Nose without bleeding, purulent drainage or septal hematoma. Throat without erythema, tonsillar hypertrophy or exudate. Uvula midline. Airway patent. NECK: Trachea midline. No JVD or lymphadenopathy. Supple, nontender, no meningeal signs. CARDIOVASCULAR: Regular rate and rhythm without murmurs, gallops, or rubs. RESPIRATORY: Clear to auscultation. Breath sounds equal bilaterally. No wheezes , rales, or rhonchi. GASTROINTESTINAL: Abdomen soft, non-tender, nondistended. No hepato-splenomegaly , or palpable masses. No guarding. MUSCULOSKELETAL: Left great toe has open wound with purulent discharge. Most distal aspect of great toe is black. Wound is extremely tender to palpation. No crepitus appreciated. Distal pulses not palpable. Grade I ulcer noted on L adames - no purulent discharge or bleeding NEUROLOGICAL: Awake and alert. Cranial nerves II through XII intact. Motor and sensory grossly within normal limits. Five out of 5 muscle strength in all muscle groups. Normal speech. (Claude Abreu MD R1) A/P Assessment and Plan 62-year-old male with history of HIV, PAD, COPD, HTN presenting with wound on left great toe concerning for gangrene, osteomyelitis. Vascular surgery, infectious disease, podiatry consulted. Starting on empiric antibiotic therapy vancomycin, clindamycin, Zosyn. Patient refused MRI due to pain. Discharge Planning Will possibly need amputation of L great toe (Claude Abreu MD R1) Attending Attestation Table rounds with DR Dubose, Dr Chauhan, Dr Abreu and Dr Jay were performed this morning A detailed discussion regarding patients admission and hospital course was reviewed with Resident team Patient was seen and examined with team Agree with contents in above note SeeAssessment and Plan (Eric Zaragoza MD) Problem List: (1) Gangrenous toe ICD Codes: I96 - Gangrene, not elsewhere classified Plan: Left great toe with open wound with purulent discharge, most distal aspect of toe was black Known history of PAD, difficult to palpate distal pulses X-ray on admission showing no bony destruction ESR on admission elevated at 50 CRP 0.82 No leukocytosis on admission with a wbc 8.2 Patient refused to have MRI done due to pain Treating empirically with IV vancomycin, Zosyn, clindamycin Consulting infectious disease, podiatry, vascular surgery Wound cultures pending Blood cultures pending Pain scale as follows Scheduled IV Tylenol [place] code on 5 mg pain scale 1-5 Roxicodone 10 mg pain scale 6-10 Morphine 4 mg IV every 3 hours for breakthrough (2) BECKA (acute kidney injury) ICD Codes: N17.9 - Acute kidney failure, unspecified Plan: Patient found to have elevated creatinine 2.88 on admission Has had elevated creatinine up to 2.33 in prior hospitalizations, but most recent creatinine was 1.08 in December 2016 Elevated BUN 73 Creatinine 3.08 on 12/12 Renal ultrasound showing no acute findings UA showing large leukocyte esterase, WBC 69 Giving 1 L bolus of normal saline IV fluids at 100 mL per hour normal saline Renal function panel pending (3) Peripheral arterial disease ICD Codes: I73.9 - Peripheral vascular disease, unspecified Status: Chronic Plan: Patient with a known history of PAD, previously seen by Dr. Ramos Status post revascularization of the left leg in December 2016 Concern for gangrenous left great toe as described above Consulted vascular surgery Holding home Plavix, atorvastatin for now (4) UTI (urinary tract infection) ICD Codes: N39.0 - Urinary tract infection, site not specified Plan: UA on admission showing large leukocyte esterase, WBC 69 Antibiotics as described above Urine culture pending (5) HIV disease ICD Codes: B20 - Human immunodeficiency virus (HIV) disease Status: Chronic Plan: Patient with a known history of HIV for over 20 years Previously prescribed Darunavir, Dolutegravir, Etravirine, Ritonavir States he has been taking the sporadically lately due to being sick Restarting these medications on admission Lymphocyte profile pending, most recent recorded CD4 count in December 2016 was in the 800s ID consulted (6) COPD (chronic obstructive pulmonary disease) ICD Codes: J44.9 - Chronic obstructive pulmonary disease, unspecified Plan: Patient with a history of COPD Occasionally takes DuoNeb nebulizers for shortness of breath/wheezing DuoNeb nebs as needed (7) HTN (hypertension) ICD Codes: I10 - Essential (primary) hypertension Plan: Patient with a known history of hypertension States he takes atenolol 50 mg, Norvasc 5 mg daily Continuing these during hospitalization (8) FEN Plan: Normal saline 100 mL per hour Replete electrolytes as needed Holding pharmacologic DVT prophylaxis as patient may go to surgery in the near future. SCDs ordered Regular diet today, Nothing by mouth at midnight (Claude Abreu MD R1) Claude Abreu MD R1 Dec 12, 2017 12:08 Eric Zaragoza MD Dec 12, 2017 16:35
[2017-12-12] MEDS ORDERED: SODIUM CHLOR 0.9% 1000 ML INJ 1,000 ML IV ONE (12:30)
[2017-12-12] MEDS ORDERED: LORazepam 2 MG/ML VIAL IV PUSH PRN (12:45)
--- NOTE | 2017-12-12 15:30 | MB ---
cc: JESSIKA PINA DATE OF CONSULTATION: 12/12/2017. REASON FOR CONSULTATION: Left foot dry gangrene. HISTORY OF PRESENT ILLNESS: Mr. Carbone is a 62-year-old -[place] patient who was sent to the emergency department by his home health nurse who is supervised by Dr. Smith for a left great toe wound. The patient states that this wound started after a nail avulsion by a doctor in [place] nearly a year ago. Over the last two months though the wound has begun to deteriorate and become painful. The patient denies any nausea or vomiting, fever, headaches, chills at this time. The patient appears lethargic and has difficulty staying on track with questions but does state that he knows he has circulation issues and is HIV-positive and that is why he feels he has been unable to heal this toe. PAST MEDICAL HISTORY: 1. HIV x20 years. 2. Hypertension. 3. Peripheral vascular disease. 4. COPD. PAST SURGICAL HISTORY: 1. Revascularization of the left leg in November of 2016. ALLERGIES: MORPHINE. HISTORY OF MRSA. FAMILY HISTORY: Noncontributory. SOCIAL HISTORY: The patient lives at home alone. He smokes half a pack of cigarettes per day since age 39. Denies any alcohol or illicit drug abuse. PHYSICAL EXAMINATION: GENERAL: On physical exam, the patient has nonpalpable dorsalis pedis and posterior tibial pulses. Capillary refill time is less than 3 seconds with the exception of the left great toe which has no capillary fill time. The skin is very dry and cracked on both feet. Gross sensation appears to be intact but diminished. The wound on the left hallux encompasses the entire hallux circumferentially, the dorsal aspect being fibrotic and the plantar aspect being dry gangrene. There is positive malodor and serosanguineous drainage. ASSESSMENT AND PLAN: 1)Left hallux dry gangrene. -The patient does need the hallux amputated. It does not appear to be viable at this time. -The patient needs a vascular evaluation prior to any podiatric surgery. -Daily wound care as ordered. -Will determine course pending vascular evaluation. Thank you for this consult and for allowing me to be involved in this patient's care. Jessika DESAI/JCMary /12:56 PM /3:17 PM MTDD
[2017-12-12 16:00] VITALS: BP 110/70; PULSE 54; RESP 16; TEMP 97.7; O2SAT 99
--- NOTE | 2017-12-12 16:06 | PD.CAR.PN ---
CVT Progress Note Subjective/Hospital Course: Patient known to me Full consult TF Thanks J Objective: Vital Signs Date Time Temp Pulse Resp B/P (MAP) Pulse Ox O2 Delivery O2 Flow Rate FiO2 12/12/17 12:00 98.8 48 16 114/60 (78) 100 12/12/17 08:46 48 17 106/64 (78) 98 12/12/17 08:00 97.9 52 17 94/65 (75) 100 12/12/17 02:36 18 12/12/17 02:36 18 12/12/17 00:00 95.9 56 20 100/53 (69) 96 12/11/17 20:00 97.1 81 20 177/89 (118) 99 Labs: Laboratory Tests Test 12/12/17 05:57 12/12/17 10:10 Creatinine 3.08 MG/DL (0.60-1.30) Estimat Glomerular Filtration Rate 25 ML/MIN (>89) Random Vancomycin Level 30.5 COMMENT White Blood Count 6.7 TH/MM3 (4.0-11.0) Red Blood Count 3.28 MIL/MM3 (4.50-5.90) Hemoglobin 10.3 GM/DL (13.0-17.0) Hematocrit 30.5 % (39.0-51.0) Mean Corpuscular Volume 93.0 FL (80.0-100.0) Mean Corpuscular Hemoglobin 31.5 PG (27.0-34.0) Mean Corpuscular Hemoglobin Concent 33.9 % (32.0-36.0) Red Cell Distribution Width 14.2 % (11.6-17.2) Platelet Count 273 TH/MM3 (150-450) Mean Platelet Volume 8.4 FL (7.0-11.0) Neutrophils (%) (Auto) 62.0 % (16.0-70.0) Lymphocytes (%) (Auto) 20.1 % (9.0-44.0) Monocytes (%) (Auto) 12.9 % (0.0-8.0) Eosinophils (%) (Auto) 4.3 % (0.0-4.0) Basophils (%) (Auto) 0.7 % (0.0-2.0) Neutrophils # (Auto) 4.2 TH/MM3 (1.8-7.7) Lymphocytes # (Auto) 1.4 TH/MM3 (1.0-4.8) Monocytes # (Auto) 0.9 TH/MM3 (0-0.9) Eosinophils # (Auto) 0.3 TH/MM3 (0-0.4) Basophils # (Auto) 0.0 TH/MM3 (0-0.2) CBC Comment DIFF FINAL Differential Comment Hematology Comments Result Diagram: 12/12/17 1010 12/12/17 0557 Rosita Ramos MD Dec 12, 2017 16:06
[2017-12-12 17:49] LABS: BICARBONATE 19.7 MEQ/L (21.0-32.0); CALCIUM 10.2 MG/DL (8.5-10.1); CREATININE 3.37 MG/DL (0.60-1.30)
--- NOTE | 2017-12-12 19:38 | PD.ID.CON ---
History of Present Illness Service ID Consult Requested By Dr Rosado Reason for Consult gangrene, PVD, HIV Primary Care Physician Renato Rivers MD Diagnoses: History of Present Illness poor historial essentially provided no history to me all history per recoreds 62 yo HIV + male on HAART and multiple other mned problems including presented with with a L great toe wound over 2 months ago. Admits non compliance with HAART Scheduled for amputation for tomorrow Afebrile, WBC normal, ESR 50 Review of Systems ROS Limitations: Poor Historian Past Family Social History Allergies: Coded Allergies: morphine (Unverified Adverse Reaction, Intermediate, Itching, 06/09/17) *MDRO Multi-Drug Resistant Organism (Verified Adverse Reaction, Unknown, Cleared, 05/05/17) MRSA (blood & scrotal abscess) - 04/2015; (Leg) - 06/2016, 07/27/16 MRSA PCR Screens NEGATIVE - 12/19/16 & 12/22/16 CLEARED PER INFECTION CONTROL PROTOCOL Past Medical History HIV x 20 years Hypertension Peripheral arterial disease COPD Past Surgical History PAD surgery - revascularization in L leg in 11/2016 * Active Ordered Medications Medications where reviewed in EMR Antibiotics Include: zosyn clinda Family History Fathers side: DC, diabetes Mother with Alzheimer's Social History Social History Lives at home by himself Tobacco: Smokes 1/2 ppd since age 39 Alcohol: Denies Illicit Drugs: Denies Physical Exam Vital Signs Vital Signs Date Time Temp Pulse Resp B/P (MAP) Pulse Ox O2 Delivery O2 Flow Rate FiO2 12/12/17 16:00 97.7 54 16 110/70 (83) 99 12/12/17 12:00 98.8 48 16 114/60 (78) 100 12/12/17 08:46 48 17 106/64 (78) 98 12/12/17 08:00 97.9 52 17 94/65 (75) 100 12/12/17 02:36 18 12/12/17 02:36 18 12/12/17 00:00 95.9 56 20 100/53 (69) 96 12/11/17 20:00 97.1 81 20 177/89 (118) 99 Physical Exam CONSTITUTIONAL/GENERAL: This is an adequately nourished patient, in no apparent distress. TUBES/LINES/DRAINS: SKIN: No jaundice, rashes, or lesions. Skin temperature appropriate. Not diaphoretic. HEAD: Atraumatic. Normocephalic. EYES: Pupils equal and round and reactive. Extraocular motions intact. No scleral icterus. No injection or drainage. Fundi not examined. ENT: Hearing grossly normal. Nose without bleeding or purulent drainage. Throat without visible erythema, exudates, masses, or lesions. NECK: Trachea midline. Supple, nontender. No palpable thyroid enlargement or nodularity. CARDIOVASCULAR: Regular rate and rhythm without murmurs, gallops, or rubs. No JVD. Peripheral pulses symmetric. RESPIRATORY/CHEST: Symmetric, unlabored respirations. Clear to auscultation. Breath sounds equal bilaterally. No wheezes, rales, or rhonchi. GASTROINTESTINAL: Abdomen soft, non-tender, nondistended. No hepato-splenomegaly , or palpable masses. No guarding. Bowel sounds present. GENITOURINARY: Without palpable bladder distension. MUSCULOSKELETAL: Extremities without clubbing, cyanosis, or edema. Pulses non pulpable b/l L foot with wet gangenous changes, edema, erythe, tenderness to palpation and foul smeliing serosang drainage NEUROLOGICAL: Awake and alert. Motor and sensory grossly within normal limits. Follows commands. Confused. Moves all extremities. PSYCHIATRIC: No obvious anxiety/depression. no apparent hallucinations or other psychotic thought process. Laboratory Laboratory Tests Test 12/11/17 23:20 12/12/17 04:00 12/12/17 05:57 12/12/17 10:10 Blood Urea Nitrogen 74 Creatinine 3.18 3.08 Random Glucose 142 Albumin 3.7 Calcium Level 10.8 Phosphorus Level 4.5 Sodium Level 134 Potassium Level 3.7 Chloride Level 100 Carbon Dioxide Level 25.1 Anion Gap 9 Estimat Glomerular Filtration Rate 24 25 Urine Color YELLOW Urine Turbidity HAZY Urine pH 5.5 Urine Specific [place] 1.019 Urine Protein 30 Urine Glucose (UA) NEG Urine Ketones NEG Urine Occult Blood NEG Urine Nitrite NEG Urine Bilirubin NEG Urine Urobilinogen LESS THAN 2.0 Urine Leukocyte Esterase LARGE Urine RBC 2 Urine WBC 69 Urine Squamous Epithelial Cells 2 Urine Mucus FEW Microscopic Urinalysis Comment CULTURE INDICATED Random Vancomycin Level 30.5 White Blood Count 6.7 Red Blood Count 3.28 Hemoglobin 10.3 Hematocrit 30.5 Mean Corpuscular Volume 93.0 Mean Corpuscular Hemoglobin 31.5 Mean Corpuscular Hemoglobin Concent 33.9 Red Cell Distribution Width 14.2 Platelet Count 273 Mean Platelet Volume 8.4 Neutrophils (%) (Auto) 62.0 Lymphocytes (%) (Auto) 20.1 Monocytes (%) (Auto) 12.9 Eosinophils (%) (Auto) 4.3 Basophils (%) (Auto) 0.7 Neutrophils # (Auto) 4.2 Lymphocytes # (Auto) 1.4 Monocytes # (Auto) 0.9 Eosinophils # (Auto) 0.3 Basophils # (Auto) 0.0 CBC Comment DIFF FINAL Differential Comment Hematology Comments Test 12/12/17 17:03 Blood Urea Nitrogen 82 Creatinine 3.37 Random Glucose 102 Calcium Level 10.2 Sodium Level 136 Potassium Level 4.3 Chloride Level 105 Carbon Dioxide Level 19.7 Anion Gap 11 Estimat Glomerular Filtration Rate 23 Date/Time Source Procedure Growth Status 12/11/17 18:35 Blood Peripheral Aerobic Blood Culture - Preliminary NO GROWTH IN 1 DAY Resulted 12/11/17 18:35 Blood Peripheral Anaerobic Blood Culture - Preliminary NO GROWTH IN 1 DAY Resulted 12/12/17 04:00 Urine Clean Catch Urine Culture Pending Received 12/11/17 19:49 Wound Toe Gram Stain - Final Resulted 12/11/17 19:49 Wound Toe Wound Culture - Preliminary Resulted Result Diagram: 12/12/17 1010 12/12/17 1703 Imaging Last Impressions Renal Ultrasound 12/11/17 0000 Signed Impressions: Service Date/Time: Monday, December 11, 2017 18:19 - CONCLUSION: 1. No acute findings. Nonobstructing calculus upper pole right kidney. Small cyst upper pole left kidney. Bladder unremarkable. Jeremias Rossi MD Foot X-Ray 12/11/17 0000 Signed Impressions: Service Date/Time: Monday, December 11, 2017 15:38 - CONCLUSION: Findings as above, no fracture. No bony destruction. Toan Anderson MD FACR Assessment and Plan Assessment and Plan HIV dz, non comlliance PVD Wet gangrene L foot Decreased renal fnx - agree with plan for amputation revasc HAART is not indicated to be restarted in-pt if non compliant prior to admission CD4 VL cont broad spectrumn abx cont vancomycin dc clindamycin Shikha Israel MD Dec 12, 2017 19:38
--- NOTE | 2017-12-12 19:41 | HHI.PR ---
Addendum to Inpatient Note Additional Information Pt seen around today 16 00 full note to Shikha Monzon MD Dec 12, 2017 19:40
[2017-12-12 20:00] VITALS: BP 120/57; PULSE 51; RESP 18; TEMP 96.4; O2SAT 95
[2017-12-13] VITALS: BP 142/69; PULSE 59; RESP 18; TEMP 96.3; O2SAT 98
[2017-12-13] MEDS: PIPERACIL-TAZO 2.25 GM PREMIX 50 ML IV SCH ×4 (01:12→19:57)
[2017-12-13] MEDS: SODIUM CHLOR 0.9% 1000 ML INJ 1,000 ML IV SCH ×3 (01:14→19:57)
[2017-12-13 08:00] VITALS: BP 125/66; PULSE 61; RESP 16; TEMP 98.4; O2SAT 95
--- NOTE | 2017-12-13 08:44 | HHI.FPPN ---
Subjective Remarks Patient seen and examined bedside. Patient continues to complain of pain in his toe, but states it is unchanged from yesterday. Patient states that he has had throbbing and swelling in his calves bilaterally and would like a water pill. She has not been able to walk and get to the shower at this point. He states he has not yet seen the vascular surgeon but he thinks that likely she is still have to be amputated. Denies any fever/chills. Denies any chest pain/ shortness of breath/dizziness. Objective Vitals Vital Signs Date Time Temp Pulse Resp B/P (MAP) Pulse Ox O2 Delivery O2 Flow Rate FiO2 12/13/17 08:00 98.4 61 16 125/66 (85) 95 12/13/17 00:00 96.3 59 18 142/69 (93) 98 12/12/17 20:00 96.4 51 18 120/57 (78) 95 12/12/17 16:00 97.7 54 16 110/70 (83) 99 12/12/17 12:00 98.8 48 16 114/60 (78) 100 12/12/17 08:46 48 17 106/64 (78) 98 I/O 12/12/17 12/12/17 12/12/17 12/13/17 12/13/17 12/13/17 07:00 15:00 23:00 07:00 15:00 23:00 Intake Total 1150 ml 1340 ml 480 ml Output Total 400 ml 150 ml 400 ml 900 ml Balance -400 ml 1000 ml 940 ml -420 ml Intake Oral 240 ml 480 ml IV Total 1150 ml 1100 ml Output Urine Total 400 ml 150 ml 400 ml 900 ml # Bowel Movements 0 0 Result Diagram: 12/12/17 1010 12/12/17 1703 Objective Remarks GENERAL: This is a well-nourished, well-developed patient sitting on edge of bed in no acute distress. Speaking in full sentences SKIN: No rashes, ecchymoses or lesions. Cool and dry. HEAD: Atraumatic. Normocephalic. No temporal or scalp tenderness. EYES: Pupils equal round and reactive. Extraocular motions intact. No scleral icterus. No injection or drainage. ENT: Nose without bleeding, purulent drainage or septal hematoma. Throat without erythema, tonsillar hypertrophy or exudate. Uvula midline. Airway patent. NECK: Trachea midline. No JVD or lymphadenopathy. Supple, nontender, no meningeal signs. CARDIOVASCULAR: Regular rate and rhythm without murmurs, gallops, or rubs. RESPIRATORY: Clear to auscultation. Breath sounds equal bilaterally. No wheezes , rales, or rhonchi. GASTROINTESTINAL: Abdomen soft, non-tender, nondistended. No hepato-splenomegaly , or palpable masses. No guarding. MUSCULOSKELETAL: Left great toe has open wound with purulent discharge. Most distal aspect of great toe is black. Wound is extremely tender to palpation. No crepitus appreciated. Distal pulses not palpable. Grade I ulcer noted on L adames - no purulent discharge or bleeding NEUROLOGICAL: Awake and alert. Cranial nerves II through XII intact. Motor and sensory grossly within normal limits. Five out of 5 muscle strength in all muscle groups. Normal speech. A/P Assessment and Plan 62-year-old male with history of HIV, PAD, COPD, HTN presenting with wound on left great toe concerning for gangrene, osteomyelitis. Vascular surgery, infectious disease, podiatry consulted. Starting on empiric antibiotic therapy vancomycin, clindamycin, Zosyn. Patient refused MRI due to pain. Discharge Planning Will possibly need amputation of L great toe Problem List: (1) Gangrenous toe ICD Codes: I96 - Gangrene, not elsewhere classified Plan: Left great toe with open wound with purulent discharge, most distal aspect of toe was black Known history of PAD, difficult to palpate distal pulses X-ray on admission showing no bony destruction ESR on admission elevated at 50 CRP 0.82 No leukocytosis on admission with a wbc 8.2, 6.7 Patient refused to have MRI done due to pain Treating empirically with IV vancomycin, Zosyn Consulting infectious disease, podiatry, vascular surgery Appreciate ID recommendations -Noncompliance with HIV medications, HAART is not indicated to be restarted -Follow-up CD4 count -Continue broad-spectrum antibiotics Wound cultures pending Blood cultures pending Pain scale as follows Roxicodone on 5 mg pain scale 1-5 Roxicodone 10 mg pain scale 6-10 Morphine 4 mg IV every 3 hours for breakthrough (2) BECKA (acute kidney injury) ICD Codes: N17.9 - Acute kidney failure, unspecified Plan: Patient found to have elevated creatinine 2.88 on admission, increased to 3.37 today Has had elevated creatinine up to 2.33 in prior hospitalizations, but most recent creatinine was 1.08 in December 2016 Elevated BUN 73, increased to 82 Renal ultrasound showing no acute findings UA showing large leukocyte esterase, WBC 69 Urine culture pending Follow-up nephrology consult for worsening kidney function Giving 1 L bolus of normal saline IV fluids at 100 mL per hour normal saline Renal function panel pending (3) Peripheral arterial disease ICD Codes: I73.9 - Peripheral vascular disease, unspecified Status: Chronic Plan: Patient with a known history of PAD, previously seen by Dr. Ramos Status post revascularization of the left leg in December 2016 Concern for gangrenous left great toe as described above Consulted vascular surgery Holding home Plavix, atorvastatin for now (4) UTI (urinary tract infection) ICD Codes: N39.0 - Urinary tract infection, site not specified Plan: UA on admission showing large leukocyte esterase, WBC 69 Antibiotics as described above Urine culture pending (5) HIV disease ICD Codes: B20 - Human immunodeficiency virus (HIV) disease Status: Chronic Plan: Patient with a known history of HIV for over 20 years Non-compliant with meds, D/C HAART per ID, States he has been taking the sporadically lately due to being sick Lymphocyte profile pending, most recent recorded CD4 count in December 2016 was in the 800s ID consulted (6) COPD (chronic obstructive pulmonary disease) ICD Codes: J44.9 - Chronic obstructive pulmonary disease, unspecified Plan: Patient with a history of COPD Occasionally takes DuoNeb nebulizers for shortness of breath/wheezing DuoNeb nebs as needed (7) HTN (hypertension) ICD Codes: I10 - Essential (primary) hypertension Plan: BPs WNL Patient with a known history of hypertension States he takes atenolol 50 mg, Norvasc 5 mg daily Continuing these during hospitalization (8) FEN Plan: Normal saline 100 mL per hour Replete electrolytes as needed Holding pharmacologic DVT prophylaxis as patient may go to surgery in the near future. SCDs ordered Healthy diet Summer Harris MD R2 Dec 13, 2017 08:44
[2017-12-13] MEDS: LACTOBACILLUS ACIDOPHILUS 1 GM PACKET PO SCH (09:02)
[2017-12-13] MEDS: SODIUM CHLORIDE 0.9% FLUSH 10 ML FLUSH IV FLUSH SCH ×2 (09:02→19:57)
[2017-12-13] MEDS ORDERED: NITROGLYCERIN 2% OINT 1 GM PACKET TOPICAL ONE (11:45)
[2017-12-13 12:00] VITALS: BP 123/67; PULSE 62; RESP 17; TEMP 98.1; O2SAT 94
[2017-12-13 13:19] LABS: BASOPHIL % 0.4 % (0.0-2.0); EOSINOPHIL # 0.2 TH/MM3 (0-0.4); EOSINOPHIL % 2.4 % (0.0-4.0); HEMATOCRIT 28.4 % (39.0-51.0); HEMOGLOBIN 9.7 GM/DL (13.0-17.0); LYMPH % 11.8 % (9.0-44.0); LYMPHOCYTE # 0.8 TH/MM3 (1.0-4.8); MEAN CELL VOLUME 93.9 FL (80.0-100.0); MEAN CORPUSCULAR HEMOGLOBIN 32.1 PG (27.0-34.0); MEAN CORPUSCULAR HGB CONC 34.2 % (32.0-36.0); MONO % 8.1 % (0.0-8.0); MONOCYTE # 0.5 TH/MM3 (0-0.9); NEUT % 77.3 % (16.0-70.0); PLATELET COUNT 276 TH/MM3 (150-450); RED BLOOD COUNT 3.02 MIL/MM3 (4.50-5.90); RED CELL DISTRIBUTION WIDTH 14.3 % (11.6-17.2); WHITE BLOOD COUNT 6.5 TH/MM3 (4.0-11.0)
[2017-12-13 13:41] LABS: BICARBONATE 24.4 MEQ/L (21.0-32.0); CALCIUM 10.5 MG/DL (8.5-10.1); CREATININE 2.36 MG/DL (0.60-1.30); RANDOM VANCOMYCIN 12.1 COMMENT
[2017-12-13] MEDS ORDERED: VANCOMYCIN 1,000 MG/NS 250 ML IV ONE ×2 (15:00)
[2017-12-13] MEDS ORDERED: VANCOMYCIN 1 GM/200 ML PREMIX IV ONE (15:00)
--- NOTE | 2017-12-13 15:21 | PD.CONS ---
[facility] Service Nephrology Consult Requested By Dr. Zaragoza Reason for Consult Acute renal failure Primary Care Physician Renato Rivers MD History of Present Illness Patient is a 62-year-old male history of HIV disease, hypertension, renal insufficiency with baseline creatinine around 1.08 last year , peripheral vascular disease status post left leg bypass surgery, who is being admitted with left foot wound with his getting worse he has chronic edema of left leg To surgery and the whole leg hurts, he was admitted with renal insufficiency again creatinine was 3.3 and with hydration and it has improved to 2.3, patient complains of edema in left leg which is not improving he states he uses to kind of diuretics at home but could not recall the name OF his diuretics, to his knowledge. He has no kidney disease were old records fluctuation of the creatinine and the best creatinine was around 1.08. Review of Systems Constitutional: COMPLAINS OF: Fatigue Musculoskeletal: COMPLAINS OF: Joint pain, Muscle aches, Stiffness, Joint Swelling, Back pain Neurologic: COMPLAINS OF: Abnormal gait Past Family Social History Allergies: Coded Allergies: morphine (Unverified Adverse Reaction, Intermediate, Itching, 06/09/17) *MDRO Multi-Drug Resistant Organism (Verified Adverse Reaction, Unknown, Cleared, 05/05/17) MRSA (blood & scrotal abscess) - 04/2015; (Leg) - 06/2016, 07/27/16 MRSA PCR Screens NEGATIVE - 12/19/16 & 12/22/16 CLEARED PER INFECTION CONTROL PROTOCOL Past Medical History HIV x 20 years Hypertension Peripheral arterial disease COPD Past Surgical History PAD surgery - revascularization in L leg in 11/2016 Reported Medications Reported Meds & Active Scripts Active Lyrica (Pregabalin) 50 Mg Cap 50 Mg PO TID Atorvastatin (Atorvastatin Calcium) 80 Mg Tab 80 Mg PO HS Hydrocodone-Acetaminophen 10-325 mg Tab 1 Tab PO Q6H PRN Amlodipine (Amlodipine Besylate) 5 Mg Tab 5 Mg PO DAILY Atenolol 50 Mg Tab 50 Mg PO DAILY Lisinopril 40 Mg Tab 40 Mg PO DAILY Reported Divalproex ER (Divalproex Sodium) 500 Mg Tab 500 Mg PO DAILY Prezista (Darunavir) 800 Mg Tab 800 Mg PO DAILY Norvir (Ritonavir) 100 Mg Cap 100 Mg PO DAILY Hydroxyzine HCl 25 Mg Tab 25 Mg PO DAILY Gabapentin 300 Mg Cap 300 Mg PO TID Tivicay (Dolutegravir Sodium) 50 Mg Tab 50 Mg PO Q12HR Intelence (Etravirine) 200 Mg Tab 200 Mg PO BIDPC Ventolin Hfa 18 GM Inh (Albuterol Sulfate) 90 Mcg/Act Aer 2 Puff INH Q4H PRN Active Ordered Medications Current Medications Medications (Trade) Dose Ordered Sig/Robles Route Start Time Stop Time Status Last Admin (Norvasc) 5 mg DAILY PO 12/11/17 19:30 Future Hold 12/11/17 22:21 (Tenormin) 50 mg DAILY PO 12/11/17 19:30 Future Hold 12/11/17 22:21 (NS Flush) 2 ml BID IV FLUSH 12/11/17 21:00 12/13/17 09:02 (NS Flush) 2 ml UNSCH PRN IV FLUSH 12/11/17 18:00 Sodium Chloride 1,000 ml @ 100 mls/hr Q10H IV 12/11/17 19:00 12/13/17 11:00 Pharmacy Profile Note 0 ml @ 0 mls/hr UNSCH OTHER 12/11/17 18:00 (Duoneb Neb) 1 ampule Q6HR NEB PRN NEB 12/11/17 18:15 (Roxicodone) 10 mg Q4H PRN PO 12/11/17 18:15 12/13/17 05:58 (Morphine Inj) 4 mg Q3H PRN IV PUSH 12/11/17 19:30 (Roxicodone) 5 mg Q4H PRN PO 12/11/17 18:15 12/13/17 12:42 (Narcan Inj) 0.4 mg UNSCH PRN IV PUSH 12/11/17 18:15 (Lactinex Pkt) 1 gm DAILY PO 12/11/17 19:15 12/13/17 09:02 Piperacillin Sod/ Tazobactam Sod 50 ml @ 100 mls/hr Q6H IV 12/11/17 19:30 12/13/17 12:42 Vancomycin HCl 1000 mg/Sodium Chloride 250 ml @ 250 mls/hr ONCE ONCE IV 12/13/17 15:00 12/13/17 15:59 Family History Father history of diabetes Mother history of Alzheimer's disease Social History Half pack per day of smoking denies alcohol use Physical Exam Vital Signs Vital Signs Date Time Temp Pulse Resp B/P (MAP) Pulse Ox O2 Delivery O2 Flow Rate FiO2 12/13/17 12:00 98.1 62 17 123/67 (85) 94 12/13/17 08:00 98.4 61 16 125/66 (85) 95 12/13/17 00:00 96.3 59 18 142/69 (93) 98 12/12/17 20:00 96.4 51 18 120/57 (78) 95 12/12/17 16:00 97.7 54 16 110/70 (83) 99 Physical Exam GENERAL: Well-nourished, well-developed patient. SKIN: Warm and dry. HEAD: Normocephalic. EYES: No scleral icterus. No injection or drainage. NECK: Supple, trachea midline. No JVD or lymphadenopathy. CARDIOVASCULAR: Regular rate and rhythm without murmurs, gallops, or rubs. RESPIRATORY: Breath sounds equal bilaterally. No accessory muscle use. GASTROINTESTINAL: Abdomen soft, non-tender, nondistended. EXTREMITIES: 2-3+ edema. Left leg with left foot wound NEUROLOGICAL: Awake, alert, and oriented x 3. Non-focal. Laboratory Laboratory Tests Test 12/12/17 17:03 12/13/17 12:45 12/13/17 12:53 Blood Urea Nitrogen 82 61 Creatinine 3.37 2.36 Random Glucose 102 104 Calcium Level 10.2 10.5 Sodium Level 136 139 Potassium Level 4.3 3.5 Chloride Level 105 106 Carbon Dioxide Level 19.7 24.4 Anion Gap 11 9 Estimat Glomerular Filtration Rate 23 34 Urine Eosinophils NONE SEEN White Blood Count 6.5 Red Blood Count 3.02 Hemoglobin 9.7 Hematocrit 28.4 Mean Corpuscular Volume 93.9 Mean Corpuscular Hemoglobin 32.1 Mean Corpuscular Hemoglobin Concent 34.2 Red Cell Distribution Width 14.3 Platelet Count 276 Mean Platelet Volume 8.0 Neutrophils (%) (Auto) 77.3 Lymphocytes (%) (Auto) 11.8 Monocytes (%) (Auto) 8.1 Eosinophils (%) (Auto) 2.4 Basophils (%) (Auto) 0.4 Neutrophils # (Auto) 5.0 Lymphocytes # (Auto) 0.8 Monocytes # (Auto) 0.5 Eosinophils # (Auto) 0.2 Basophils # (Auto) 0.0 CBC Comment DIFF FINAL Differential Comment Random Vancomycin Level 12.1 Date/Time Source Procedure Growth Status 12/11/17 18:35 Blood Peripheral Aerobic Blood Culture - Preliminary NO GROWTH IN 2 DAYS Resulted 12/11/17 18:35 Blood Peripheral Anaerobic Blood Culture - Preliminary NO GROWTH IN 2 DAYS Resulted 12/12/17 04:00 Urine Clean Catch Urine Culture - Preliminary NO GROWTH IN 24 HOURS. Resulted 12/11/17 19:49 Wound Toe Gram Stain - Final Resulted 12/11/17 19:49 Wound Toe Wound Culture - Preliminary Resulted Result Diagram: 12/13/17 1253 12/13/17 1253 Imaging Last Impressions Renal Ultrasound 12/11/17 0000 Signed Impressions: Service Date/Time: Monday, December 11, 2017 18:19 - CONCLUSION: 1. No acute findings. Nonobstructing calculus upper pole right kidney. Small cyst upper pole left kidney. Bladder unremarkable. Jeremias Rossi MD Foot X-Ray 12/11/17 0000 Signed Impressions: Service Date/Time: Monday, December 11, 2017 15:38 - CONCLUSION: Findings as above, no fracture. No bony destruction. Toan Anderson MD FACR Assessment and Plan Problem List: (1) BECKA (acute kidney injury) ICD Codes: N17.9 - Acute kidney failure, unspecified Status: Acute Plan: This appears to be prerenal and responding to fluids however patient states he has been taking diuretic as an outpatient His edema is more confined to his left leg he has advanced peripheral vascular disease and may need surgical intervention His kidney disease is improving with hydration and I told him at this point we cannot safely start diuretics he has been treated with active left foot infection, on normal saline 100 cc an hour, getting vancomycin and Zosyn Monitor vancomycin level Possibility of chronic kidney disease exists due to hypertension, there is no evidence for significant proteinuria, HIV positive patients with kidney problems usually has significant proteinuria check CD4 count Avoid nephrotoxin if possible Avoid dye studies. (2) Gangrenous toe ICD Codes: I96 - Gangrene, not elsewhere classified Plan: Continue to monitor (3) HTN (hypertension) ICD Codes: I10 - Essential (primary) hypertension Plan: Stable (4) HIV disease ICD Codes: B20 - Human immunodeficiency virus (HIV) disease Status: Chronic Plan: Controlled on medications Problem Qualifiers (1) HTN (hypertension): Qualified Codes: I10 - Essential (primary) hypertension Josie Thompson MD Dec 13, 2017 15:21
[2017-12-13 16:00] VITALS: BP 138/75; PULSE 62; RESP 18; TEMP 98; O2SAT 96
--- NOTE | 2017-12-13 16:10 | MB ---
cc: ROSITA YANG MD DATE OF CONSULTATION 12/12/[address] Yang REASON FOR CONSULTATION Gangrene of the left toe, peripheral vascular disease. HISTORY OF THE PRESENT ILLNESS This 62-year-old male is known to me from previous admissions. In November of last year he underwent successful reconstruction of the left external iliac, common femoral and deep femoral arteries with stent placement. The patient did then patch. The patient did well postoperatively and retained the function of the leg. The patient apparently a few months later went to some sort of podiatry office, had a toe nail pulled and then started having problems. He was seen numerous times in the wound care clinic however he never came back to me for vascular followup with problem locating the patient. Now he comes with gangrene of the left greater toe. PAST MEDICAL HISTORY Is of: 1. HIV. 2. Hypertension. 3. Peripheral vascular disease. 4. COPD. PAST SURGICAL HISTORY Is that of: 1. Vascular reconstruction a year ago. 2. And multiple wound care debridements in our wound care clinic. SOCIAL HISTORY The patient continues to smoke about half-pack a day, does not drink. PHYSICAL EXAMINATION GENERAL: Physical examination reveals a 62-year-old male. HEENT: Normocephalic. No trauma to the head. Pupils equally reactive. Extraocular muscles intact. NECK: Bilateral faint carotid pulses. No bruits. CHEST: Is clear. Bilateral breath sounds, decreased over both lung shukla consistent with a moderate degree of COPD. HEART: Regular rhythm. ABDOMEN: Soft. Active bowel sounds. No rebound or guarding. No masses. EXTREMITIES: There is a dopplerable left and right femoral pulse and there is a palpable left femoral pulse as well. Popliteal pulses by Doppler bilaterally and no distal pulses in either foot. Both feet are cooler. The left great toe is gangrenous. In addition the patient has dry, scaly skin with ____ fibrosis and chronic ischemic changes bilateral. IMPRESSION The patient has no other reconstructable disease. The majority of disease is below the level of the knee with barely visible vessels and collateral perfusion. Toe amputation is the appropriate way to go and if this heals then will watch the patient and if it does not the patient will likely need left above-knee amputation because below-knee amputation will not hold. Thank you much for the referral. Rosita Yang SJ/KK /2:45 PM /3:51 PM
[2017-12-13 20:00] VITALS: BP 115/57; PULSE 76; RESP 20; TEMP 98.5; O2SAT 97
--- NOTE | 2017-12-13 23:04 | HHI.IDPN ---
Subjective Subjective Remarks pt told me lori he skips his HAART 2-3 times/week He does it because he forgets No fever Seen by Dr Ramos. Toes ampputation planned for tomorrow Antibiotics zosyn Allergies: Coded Allergies: morphine (Unverified Adverse Reaction, Intermediate, Itching, 06/09/17) *MDRO Multi-Drug Resistant Organism (Verified Adverse Reaction, Unknown, Cleared, 05/05/17) MRSA (blood & scrotal abscess) - 04/2015; (Leg) - 06/2016, 07/27/16 MRSA PCR Screens NEGATIVE - 12/19/16 & 12/22/16 CLEARED PER INFECTION CONTROL PROTOCOL Objective . Vital Signs Date Time Temp Pulse Resp B/P (MAP) Pulse Ox O2 Delivery O2 Flow Rate FiO2 12/13/17 20:00 98.5 76 20 115/57 (76) 97 12/13/17 16:00 98.0 62 18 138/75 (96) 96 12/13/17 12:00 98.1 62 17 123/67 (85) 94 12/13/17 08:00 98.4 61 16 125/66 (85) 95 12/13/17 00:00 96.3 59 18 142/69 (93) 98 12/13/17 12/13/17 12/14/17 15:00 23:00 07:00 Intake Total 100 ml 480 ml Output Total 800 ml Balance 100 ml -320 ml Intake Oral 480 ml IV Total 100 ml Output Urine Total 800 ml # Bowel Movements 0 . Laboratory Tests Test 12/12/17 10:10 12/13/17 12:53 White Blood Count 6.7 TH/MM3 6.5 TH/MM3 Red Blood Count 3.28 MIL/MM3 3.02 MIL/MM3 Hemoglobin 10.3 GM/DL 9.7 GM/DL Hematocrit 30.5 % 28.4 % Mean Corpuscular Volume 93.0 FL 93.9 FL Mean Corpuscular Hemoglobin 31.5 PG 32.1 PG Mean Corpuscular Hemoglobin Concent 33.9 % 34.2 % Red Cell Distribution Width 14.2 % 14.3 % Platelet Count 273 TH/MM3 276 TH/MM3 Mean Platelet Volume 8.4 FL 8.0 FL Neutrophils (%) (Auto) 62.0 % 77.3 % Lymphocytes (%) (Auto) 20.1 % 11.8 % Monocytes (%) (Auto) 12.9 % 8.1 % Eosinophils (%) (Auto) 4.3 % 2.4 % Basophils (%) (Auto) 0.7 % 0.4 % Neutrophils # (Auto) 4.2 TH/MM3 5.0 TH/MM3 Lymphocytes # (Auto) 1.4 TH/MM3 0.8 TH/MM3 Monocytes # (Auto) 0.9 TH/MM3 0.5 TH/MM3 Eosinophils # (Auto) 0.3 TH/MM3 0.2 TH/MM3 Basophils # (Auto) 0.0 TH/MM3 0.0 TH/MM3 CBC Comment DIFF FINAL DIFF FINAL Differential Comment Hematology Comments Laboratory Tests Test 12/11/17 23:20 12/12/17 05:57 12/12/17 17:03 12/13/17 12:53 Blood Urea Nitrogen 74 MG/DL 82 MG/DL 61 MG/DL Creatinine 3.18 MG/DL 3.08 MG/DL 3.37 MG/DL 2.36 MG/DL Random Glucose 142 MG/DL 102 MG/DL 104 MG/DL Albumin 3.7 GM/DL Calcium Level 10.8 MG/DL 10.2 MG/DL 10.5 MG/DL Phosphorus Level 4.5 MG/DL Sodium Level 134 MEQ/L 136 MEQ/L 139 MEQ/L Potassium Level 3.7 MEQ/L 4.3 MEQ/L 3.5 MEQ/L Chloride Level 100 MEQ/L 105 MEQ/L 106 MEQ/L Carbon Dioxide Level 25.1 MEQ/L 19.7 MEQ/L 24.4 MEQ/L Anion Gap 9 MEQ/L 11 MEQ/L 9 MEQ/L Estimat Glomerular Filtration Rate 24 ML/MIN 25 ML/MIN 23 ML/MIN 34 ML/MIN Microbiology Date/Time Source Procedure Growth Status 12/11/17 18:35 Blood Peripheral Aerobic Blood Culture - Preliminary NO GROWTH IN 2 DAYS Resulted 12/11/17 18:35 Blood Peripheral Anaerobic Blood Culture - Preliminary NO GROWTH IN 2 DAYS Resulted 12/11/17 18:30 Blood Peripheral Aerobic Blood Culture - Preliminary NO GROWTH IN 2 DAYS Resulted 12/11/17 18:30 Blood Peripheral Anaerobic Blood Culture - Preliminary NO GROWTH IN 2 DAYS Resulted 12/12/17 04:00 Urine Clean Catch Urine Culture - Preliminary NO GROWTH IN 24 HOURS. Resulted 12/11/17 19:49 Wound Toe Gram Stain - Final Resulted 12/11/17 19:49 Wound Toe Wound Culture - Preliminary Resulted Imaging Last Impressions Renal Ultrasound 12/11/17 0000 Signed Impressions: Service Date/Time: Monday, December 11, 2017 18:19 - CONCLUSION: 1. No acute findings. Nonobstructing calculus upper pole right kidney. Small cyst upper pole left kidney. Bladder unremarkable. Jeremias Rossi MD Foot X-Ray 12/11/17 0000 Signed Impressions: Service Date/Time: Monday, December 11, 2017 15:38 - CONCLUSION: Findings as above, no fracture. No bony destruction. Toan Anderson MD FACR Physical Exam CONSTITUTIONAL/GENERAL: This is an adequately nourished patient, in no apparent distress. TUBES/LINES/DRAINS: SKIN: No jaundice, rashes, or lesions. Skin temperature appropriate. Not diaphoretic. CARDIOVASCULAR: Regular rate and rhythm without murmurs, gallops, or rubs. No JVD. Peripheral pulses symmetric. RESPIRATORY/CHEST: Symmetric, unlabored respirations. Clear to auscultation. Breath sounds equal bilaterally. No wheezes, rales, or rhonchi. GASTROINTESTINAL: Abdomen soft, non-tender, nondistended. No hepato-splenomegaly , or palpable masses. No guarding. Bowel sounds present. GENITOURINARY: Without palpable bladder distension. MUSCULOSKELETAL: Extremities without clubbing, cyanosis, or edema. Pulses non pulpable b/l L foot dresing in place. Strong odor in the room NEUROLOGICAL: Awake and alert. Motor and sensory grossly within normal limits. Follows commands. Confused. Moves all extremities. PSYCHIATRIC: No obvious anxiety/depression. no apparent hallucinations or other psychotic thought process. Assessment & Plan Remarks Assessment and Plan Assessment and Plan HIV dz, non comlliance PVD Wet gangrene L foot Decreased renal fnx - agree with plan for amputation revasc HAART is not indicated to be restarted in-pt if non compliant prior to admission CD4 VL cont broad spectrumn abx cont vancomycin Restart HAART - pt apparently takes HAART according to him Shikha Israel MD Dec 13, 2017 23:04
[2017-12-14] VITALS: BP 146/64; PULSE 71; RESP 20; TEMP 96.4; O2SAT 96
[2017-12-14] MEDS: PIPERACIL-TAZO 2.25 GM PREMIX 50 ML IV SCH ×4 (01:40→21:24)
[2017-12-14 03:55] VITALS: BP 146/64; PULSE 71; RESP 20; TEMP 96.4; O2SAT 96
[2017-12-14] MEDS: SODIUM CHLOR 0.9% 1000 ML INJ 1,000 ML IV SCH ×2 (05:27→16:41)
[2017-12-14 08:00] VITALS: BP 172/75; PULSE 69; RESP 20; TEMP 98.4; O2SAT 97
[2017-12-14] MEDS: SODIUM CHLORIDE 0.9% FLUSH 10 ML FLUSH IV FLUSH SCH ×2 (08:42→21:00)
[2017-12-14] MEDS: LACTOBACILLUS ACIDOPHILUS 1 GM PACKET PO SCH (08:46)
--- NOTE | 2017-12-14 08:52 | PD.POD ---
Subjective Pain score: 7 Remarks Severe left foot pain understands poor circulation ready for surgery Past Med/Surg/Social History Past Medical History Endocrine: REPORTS HX OF: Diabetes mellitus Cardiovascular: REPORTS HX OF: Peripheral vascular dz Infectious disease: REPORTS HX OF: HIV Neurologic: REPORTS HX OF: Peripheral neuropathy Past Surgical History Musculoskeletal: REPORTS HX OF: Other musculoskeletal srg (Left knee- Hung placement) Social History Smoking Status: Current Every Day Smoker Objective Vital Signs Vital Signs Date Time Temp Pulse Resp B/P (MAP) Pulse Ox O2 Delivery O2 Flow Rate FiO2 12/14/17 03:55 96.4 71 20 146/64 (91) 96 12/14/17 00:00 96.4 71 20 146/64 (91) 96 12/13/17 20:00 98.5 76 20 115/57 (76) 97 12/13/17 16:00 98.0 62 18 138/75 (96) 96 12/13/17 12:00 98.1 62 17 123/67 (85) 94 Coded Allergies: morphine (Unverified Adverse Reaction, Intermediate, Itching, 06/09/17) *MDRO Multi-Drug Resistant Organism (Verified Adverse Reaction, Unknown, Cleared, 05/05/17) MRSA (blood & scrotal abscess) - 04/2015; (Leg) - 06/2016, 07/27/16 MRSA PCR Screens NEGATIVE - 12/19/16 & 12/22/16 CLEARED PER INFECTION CONTROL PROTOCOL Medications and IVs Administered Medications Medications (Trade) Dose Ordered Sig/Robles Route PRN Reason Start Time Stop Time Status Last Admin Dose Admin Amlodipine Besylate (Norvasc) 5 mg DAILY PO 12/11/17 19:30 Future Hold 12/11/17 22:21 Atenolol (Tenormin) 50 mg DAILY PO 12/11/17 19:30 Future Hold 12/11/17 22:21 Sodium Chloride (NS Flush) 2 ml BID IV FLUSH 12/11/17 21:00 12/13/17 19:57 Sodium Chloride 1,000 ml @ 100 mls/hr Q10H IV 12/11/17 19:00 12/14/17 05:27 Oxycodone HCl (Roxicodone) 10 mg Q4H PRN PO PAIN SCALE 6 TO 10 12/11/17 18:15 12/14/17 05:26 Oxycodone HCl (Roxicodone) 5 mg Q4H PRN PO PAIN SCALE 1 TO 5 12/11/17 18:15 12/13/17 12:42 Lactobacillus Acidophilus (Lactinex Pkt) 1 gm DAILY PO 12/11/17 19:15 12/13/17 09:02 Piperacillin Sod/ Tazobactam Sod 50 ml @ 100 mls/hr Q6H IV 12/11/17 19:30 12/14/17 01:40 Other Results Laboratory Tests Test 12/12/17 10:10 12/13/17 12:53 White Blood Count 6.7 TH/MM3 6.5 TH/MM3 Red Blood Count 3.28 MIL/MM3 3.02 MIL/MM3 Hemoglobin 10.3 GM/DL 9.7 GM/DL Hematocrit 30.5 % 28.4 % Mean Corpuscular Volume 93.0 FL 93.9 FL Mean Corpuscular Hemoglobin 31.5 PG 32.1 PG Mean Corpuscular Hemoglobin Concent 33.9 % 34.2 % Red Cell Distribution Width 14.2 % 14.3 % Platelet Count 273 TH/MM3 276 TH/MM3 Mean Platelet Volume 8.4 FL 8.0 FL Neutrophils (%) (Auto) 62.0 % 77.3 % Lymphocytes (%) (Auto) 20.1 % 11.8 % Monocytes (%) (Auto) 12.9 % 8.1 % Eosinophils (%) (Auto) 4.3 % 2.4 % Basophils (%) (Auto) 0.7 % 0.4 % Neutrophils # (Auto) 4.2 TH/MM3 5.0 TH/MM3 Lymphocytes # (Auto) 1.4 TH/MM3 0.8 TH/MM3 Monocytes # (Auto) 0.9 TH/MM3 0.5 TH/MM3 Eosinophils # (Auto) 0.3 TH/MM3 0.2 TH/MM3 Basophils # (Auto) 0.0 TH/MM3 0.0 TH/MM3 CBC Comment DIFF FINAL DIFF FINAL Differential Comment Hematology Comments Laboratory Tests Test 12/12/17 17:03 12/13/17 12:53 Blood Urea Nitrogen 82 MG/DL 61 MG/DL Creatinine 3.37 MG/DL 2.36 MG/DL Random Glucose 102 MG/DL 104 MG/DL Calcium Level 10.2 MG/DL 10.5 MG/DL Sodium Level 136 MEQ/L 139 MEQ/L Potassium Level 4.3 MEQ/L 3.5 MEQ/L Chloride Level 105 MEQ/L 106 MEQ/L Carbon Dioxide Level 19.7 MEQ/L 24.4 MEQ/L Anion Gap 11 MEQ/L 9 MEQ/L Estimat Glomerular Filtration Rate 23 ML/MIN 34 ML/MIN Microbiology Date/Time Source Procedure Growth Status 12/11/17 18:35 Blood Peripheral Aerobic Blood Culture - Preliminary NO GROWTH IN 2 DAYS Resulted 12/11/17 18:35 Blood Peripheral Anaerobic Blood Culture - Preliminary NO GROWTH IN 2 DAYS Resulted 12/11/17 18:30 Blood Peripheral Aerobic Blood Culture - Preliminary NO GROWTH IN 2 DAYS Resulted 12/11/17 18:30 Blood Peripheral Anaerobic Blood Culture - Preliminary NO GROWTH IN 2 DAYS Resulted 12/12/17 04:00 Urine Clean Catch Urine Culture - Preliminary NO GROWTH IN 24 HOURS. Resulted 12/11/17 19:49 Wound Toe Gram Stain - Final Resulted 12/11/17 19:49 Wound Toe Wound Culture - Preliminary Resulted Physical Exam General appearance: uncomfortable Nutritional status: normal Orientation: alert and oriented x3 Respiratory effort: FINDINGS: normal Details Left lower extremity- nonpalpable dorsalis pedis and posterior tibial pulses. Capillary refill time is less than 3 seconds with the exception of the left great toe which has no capillary fill time. The skin is very dry and cracked on both feet. Gross sensation appears to be intact but diminished. The wound on the left hallux encompasses the entire hallux circumferentially, the dorsal aspect being fibrotic and the plantar aspect being dry gangrene. There is positive malodor and serosanguineous drainage Assessment & Plan A/P Left hallux wet gangrene, cellulitis, likely deep infection septic joint first MPJ I spoke with vascular who agrees with moving forward with first ray amputation. I reviewed in great detail with the patient the poor circulation may cause poor healing that may lead to partial foot amputation, [id number] amputation or above-knee amputation. Patient ordered nothing by mouth after midnight surgery plan for tomorrow, we' ll take deep cultures and bone margin biopsy and culture. Micah Pritchett DPM Dec 14, 2017 08:52
--- NOTE | 2017-12-14 10:15 | HHI.FPPN ---
Subjective Remarks Pt seen and examined this morning. No acute events overnight. Pt reports podiatry saw him this morning and is planning on the amputation tomorrow. Denies any other complaints. Denies any fever/chills, nausea/vomiting, chest pain, SOB, abdominal pain Objective Vitals Vital Signs Date Time Temp Pulse Resp B/P (MAP) Pulse Ox O2 Delivery O2 Flow Rate FiO2 12/14/17 08:00 98.4 69 20 172/75 (107) 97 12/14/17 03:55 96.4 71 20 146/64 (91) 96 12/14/17 00:00 96.4 71 20 146/64 (91) 96 12/13/17 20:00 98.5 76 20 115/57 (76) 97 12/13/17 16:00 98.0 62 18 138/75 (96) 96 12/13/17 12:00 98.1 62 17 123/67 (85) 94 I/O 12/13/17 12/13/17 12/13/17 12/14/17 12/14/17 12/14/17 07:00 15:00 23:00 07:00 15:00 23:00 Intake Total 480 ml 100 ml 480 ml 720 ml 240 ml Output Total 900 ml 800 ml 650 ml Balance -420 ml 100 ml -320 ml 70 ml 240 ml Intake Oral 480 ml 480 ml 720 ml 240 ml IV Total 100 ml Output Urine Total 900 ml 800 ml 650 ml # Bowel Movements 0 0 0 Result Diagram: 12/13/17 1253 12/13/17 1253 Imaging Last Impressions Renal Ultrasound 12/11/17 0000 Signed Impressions: Service Date/Time: Monday, December 11, 2017 18:19 - CONCLUSION: 1. No acute findings. Nonobstructing calculus upper pole right kidney. Small cyst upper pole left kidney. Bladder unremarkable. Jeremias Rossi MD Foot X-Ray 12/11/17 0000 Signed Impressions: Service Date/Time: Monday, December 11, 2017 15:38 - CONCLUSION: Findings as above, no fracture. No bony destruction. Toan Anderson MD FACR Objective Remarks GENERAL: This is a well-nourished, well-developed patient sitting on edge of bed in no acute distress. Speaking in full sentences SKIN: No rashes, ecchymoses or lesions. Cool and dry. CARDIOVASCULAR: Regular rate and rhythm without murmurs, gallops, or rubs. RESPIRATORY: Clear to auscultation. Breath sounds equal bilaterally. No wheezes , rales, or rhonchi. GASTROINTESTINAL: Abdomen soft, non-tender, nondistended. No hepato-splenomegaly , or palpable masses. No guarding. MUSCULOSKELETAL: Left foot bandaged, not examine today. Exam from 12/13: Left great toe has open wound with purulent discharge. Most distal aspect of great toe is black. Wound is extremely tender to palpation. Distal pulses not palpable. NEUROLOGICAL: Awake and alert. Motor and sensory grossly within normal limits. Normal speech. A/P Assessment and Plan 62-year-old male with history of HIV, PAD, COPD, HTN presenting with wound on left great toe concerning for gangrene, osteomyelitis. Vascular surgery, infectious disease, podiatry consulted. Starting on empiric antibiotic therapy vancomycin, clindamycin, Zosyn. Patient refused MRI due to pain. Discharge Planning Amputation of L great toe on 12/15 Problem List: (1) Gangrenous toe ICD Codes: I96 - Gangrene, not elsewhere classified Plan: Left great toe with open wound with purulent discharge, most distal aspect of toe was black Known history of PAD, difficult to palpate distal pulses X-ray on admission showing no bony destruction Continue IV vancomycin, Zosyn Podiatry consulted -Amputation on 12/15 -NPO after midnight -MRI pending, pt initially refused Vascular consulted -Recommended toe amputation, if does not heal, will likely need AKA ID recommendations -Noncompliance with HIV medications, HAART is not indicated to be restarted -Follow-up CD4 count -Continue broad-spectrum antibiotics Wound cultures pending Blood cultures NGTD Pain scale as follows: Roxicodone on 5 mg pain scale 1-5 Roxicodone 10 mg pain scale 6-10 Morphine 4 mg IV every 3 hours for breakthrough (2) BECKA (acute kidney injury) ICD Codes: N17.9 - Acute kidney failure, unspecified Plan: Patient found to have elevated creatinine 2.88 on admission Has had elevated creatinine up to 2.33 in prior hospitalizations, but most recent creatinine was 1.08 in December 2016 Cr pending today Renal ultrasound showing no acute findings Urine culture negative Nephrology consult-appreciate recs -appears to be prerenal, continue to monitor IV fluids at 100 mL per hour normal saline (3) Peripheral arterial disease ICD Codes: I73.9 - Peripheral vascular disease, unspecified Status: Chronic Plan: Patient with a known history of PAD, previously seen by Dr. Ramos Status post revascularization of the left leg in December 2016 Concern for gangrenous left great toe as described above Consulted vascular surgery Holding home Plavix, atorvastatin for now (4) HIV disease ICD Codes: B20 - Human immunodeficiency virus (HIV) disease Status: Chronic Plan: Patient with a known history of HIV for over 20 years Non-compliant with meds, D/C HAART per ID, States he has been taking the sporadically lately due to being sick Lymphocyte profile pending, most recent recorded CD4 count in December 2016 was in the 800s ID consulted (5) COPD (chronic obstructive pulmonary disease) ICD Codes: J44.9 - Chronic obstructive pulmonary disease, unspecified Plan: Patient with a history of COPD Occasionally takes DuoNeb nebulizers for shortness of breath/wheezing DuoNeb nebs as needed (6) HTN (hypertension) ICD Codes: I10 - Essential (primary) hypertension Plan: BPs WNL Patient with a known history of hypertension States he takes atenolol 50 mg, Norvasc 5 mg daily Continuing these during hospitalization (7) FEN Plan: Normal saline 100 mL per hour Replete electrolytes as needed SCDs; holding chemoprophylaxis pre-op Healthy diet Problem Qualifiers (1) HTN (hypertension): Qualified Codes: I10 - Essential (primary) hypertension Pasha Lake MD Dec 14, 2017 10:15
[2017-12-14] MEDS ORDERED: LACTULOSE SYRUP 20 GM/30 ML CUP PO PRN (10:30)
[2017-12-14] MEDS ORDERED: BISACODYL 10 MG SUPP RECTAL PRN (10:30)
[2017-12-14] MEDS ORDERED: MAGNESIUM HYDROXIDE SUSP 30 ML CUP PO PRN (10:30)
[2017-12-14] MEDS ORDERED: SENNOSIDES 8.6 MG TAB PO PRN (10:30)
--- NOTE | 2017-12-14 11:30 | PD.CAR.PN ---
CVT Progress Note Subjective/Hospital Course: Patient known to me Full consult MODESTA Leong 12/14/2017 Discussed the case with Dr. Pritchett. As above noted we will go ahead with amputation of the left greater toe and we will see how that heals. If it looks like it is healing nicely I would not do anything else but if patient's healing is impaired then it is worth probably repeating the CTA with runoff and see if there is anything there that we can fix by a bypass graft. 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 He underwent balloon angioplasty stenting and endarterectomy. At that time he had a very tiny distal popliteal artery may be measuring 3-4 mm in diameter which is clearly known conducive to any grafting and improvement of inflow will sufficient to heal patient's ulcers on the leg and maintain the foot for another year. At this point the risk-benefit ratio is in favor of not doing CTA with runoff considering patient's precarious renal function but if the creatinine comes down then we may be able to do a repeat CTA. In best case scenario there may be a small popliteal artery very distally where we could plug in a cadaveric vein if the foot does not heal after amputation. Unfortunately the way this looks right now patient is at high risk of losing the leg and having below-knee amputation. I have spoken to him at length and he does not plan to stop smoking by the fact that smoking has increased lately There is only so much we can do at this time Objective: Vital Signs Date Time Temp Pulse Resp B/P (MAP) Pulse Ox O2 Delivery O2 Flow Rate FiO2 12/14/17 08:00 98.4 69 20 172/75 (107) 97 12/14/17 03:55 96.4 71 20 146/64 (91) 96 12/14/17 00:00 96.4 71 20 146/64 (91) 96 12/13/17 20:00 98.5 76 20 115/57 (76) 97 12/13/17 16:00 98.0 62 18 138/75 (96) 96 12/13/17 12:00 98.1 62 17 123/67 (85) 94 Result Diagram: 12/13/17 1253 12/13/17 1253 Rosita Ramos MD Dec 14, 2017 11:30
[2017-12-14 12:00] VITALS: BP 119/57; PULSE 70; RESP 19; TEMP 96.9; O2SAT 98
[2017-12-14 12:41] LABS: AUTOMATED NEUTROPHIL # 5.7 TH/MM3 (1.8-7.7); BASOPHIL % 0.4 % (0.0-2.0); EOSINOPHIL # 0.2 TH/MM3 (0-0.4); HEMATOCRIT 27.8 % (39.0-51.0); HEMOGLOBIN 9.4 GM/DL (13.0-17.0); LYMPHOCYTE # 0.9 TH/MM3 (1.0-4.8); MEAN CELL VOLUME 94.3 FL (80.0-100.0); MEAN CORPUSCULAR HGB CONC 33.9 % (32.0-36.0); MEAN PLATELET VOLUME 8.2 FL (7.0-11.0); MONO % 7.9 % (0.0-8.0); MONOCYTE # 0.6 TH/MM3 (0-0.9); NEUT % 76.7 % (16.0-70.0); PLATELET COUNT 287 TH/MM3 (150-450); RED BLOOD COUNT 2.95 MIL/MM3 (4.50-5.90); RED CELL DISTRIBUTION WIDTH 14.6 % (11.6-17.2); WHITE BLOOD COUNT 7.5 TH/MM3 (4.0-11.0)
[2017-12-14 13:07] LABS: ALBUMIN 3.2 GM/DL (3.4-5.0); BICARBONATE 26.8 MEQ/L (21.0-32.0); CALCIUM 9.9 MG/DL (8.5-10.1); CREATININE 1.34 MG/DL (0.60-1.30); PHOSPHORUS 1.8 MG/DL (2.5-4.9)
[2017-12-14 13:08] LABS: BICARBONATE 27.5 MEQ/L (21.0-32.0); CREATININE 1.33 MG/DL (0.60-1.30)
[2017-12-14 16:00] VITALS: BP 162/71; PULSE 78; RESP 20; TEMP 97.7; O2SAT 99
[2017-12-14] MEDS: VANCOMYCIN INJ 1,250 MG in SODIUM CHLOR 0.9% 250 ML INJ 250 ML IV SCH (16:00)
--- NOTE | 2017-12-14 16:58 | HHI.IDPN ---
Subjective Subjective Remarks pt told me lori he skips his HAART 2-3 times/week He does it because he forgets No fever Toes ampputation today Antibiotics zosyn Allergies: Coded Allergies: morphine (Unverified Adverse Reaction, Intermediate, Itching, 06/09/17) *MDRO Multi-Drug Resistant Organism (Verified Adverse Reaction, Unknown, Cleared, 05/05/17) MRSA (blood & scrotal abscess) - 04/2015; (Leg) - 06/2016, 07/27/16 MRSA PCR Screens NEGATIVE - 12/19/16 & 12/22/16 CLEARED PER INFECTION CONTROL PROTOCOL Objective . Vital Signs Date Time Temp Pulse Resp B/P (MAP) Pulse Ox O2 Delivery O2 Flow Rate FiO2 12/14/17 16:00 97.7 78 20 162/71 (101) 99 12/14/17 12:00 96.9 70 19 119/57 (77) 98 12/14/17 08:00 98.4 69 20 172/75 (107) 97 12/14/17 03:55 96.4 71 20 146/64 (91) 96 12/14/17 00:00 96.4 71 20 146/64 (91) 96 12/13/17 20:00 98.5 76 20 115/57 (76) 97 12/14/17 12/14/17 12/15/17 15:00 23:00 07:00 Intake Total 490 ml Balance 490 ml Intake Oral 240 ml IV Total 250 ml . Laboratory Tests Test 12/13/17 12:53 12/14/17 11:49 White Blood Count 6.5 TH/MM3 7.5 TH/MM3 Red Blood Count 3.02 MIL/MM3 2.95 MIL/MM3 Hemoglobin 9.7 GM/DL 9.4 GM/DL Hematocrit 28.4 % 27.8 % Mean Corpuscular Volume 93.9 FL 94.3 FL Mean Corpuscular Hemoglobin 32.1 PG 32.0 PG Mean Corpuscular Hemoglobin Concent 34.2 % 33.9 % Red Cell Distribution Width 14.3 % 14.6 % Platelet Count 276 TH/MM3 287 TH/MM3 Mean Platelet Volume 8.0 FL 8.2 FL Neutrophils (%) (Auto) 77.3 % 76.7 % Lymphocytes (%) (Auto) 11.8 % 12.0 % Monocytes (%) (Auto) 8.1 % 7.9 % Eosinophils (%) (Auto) 2.4 % 3.0 % Basophils (%) (Auto) 0.4 % 0.4 % Neutrophils # (Auto) 5.0 TH/MM3 5.7 TH/MM3 Lymphocytes # (Auto) 0.8 TH/MM3 0.9 TH/MM3 Monocytes # (Auto) 0.5 TH/MM3 0.6 TH/MM3 Eosinophils # (Auto) 0.2 TH/MM3 0.2 TH/MM3 Basophils # (Auto) 0.0 TH/MM3 0.0 TH/MM3 CBC Comment DIFF FINAL DIFF FINAL Differential Comment Laboratory Tests Test 12/12/17 17:03 12/13/17 12:53 12/14/17 11:49 Blood Urea Nitrogen 82 MG/DL 61 MG/DL 40 MG/DL Creatinine 3.37 MG/DL 2.36 MG/DL 1.33 MG/DL Random Glucose 102 MG/DL 104 MG/DL 100 MG/DL Calcium Level 10.2 MG/DL 10.5 MG/DL 10.0 MG/DL Sodium Level 136 MEQ/L 139 MEQ/L 142 MEQ/L Potassium Level 4.3 MEQ/L 3.5 MEQ/L 3.3 MEQ/L Chloride Level 105 MEQ/L 106 MEQ/L 108 MEQ/L Carbon Dioxide Level 19.7 MEQ/L 24.4 MEQ/L 27.5 MEQ/L Anion Gap 11 MEQ/L 9 MEQ/L 7 MEQ/L Estimat Glomerular Filtration Rate 23 ML/MIN 34 ML/MIN 66 ML/MIN Albumin 3.2 GM/DL Phosphorus Level 1.8 MG/DL Microbiology Date/Time Source Procedure Growth Status 12/11/17 18:35 Blood Peripheral Aerobic Blood Culture - Preliminary NO GROWTH IN 3 DAYS Resulted 12/11/17 18:35 Blood Peripheral Anaerobic Blood Culture - Preliminary NO GROWTH IN 3 DAYS Resulted 12/11/17 18:30 Blood Peripheral Aerobic Blood Culture - Preliminary NO GROWTH IN 3 DAYS Resulted 12/11/17 18:30 Blood Peripheral Anaerobic Blood Culture - Preliminary NO GROWTH IN 3 DAYS Resulted 12/12/17 04:00 Urine Clean Catch Urine Culture - Final <10,000 CFU/ML MIXED GRAM POSITIVE FL... Complete 12/11/17 19:49 Wound Toe Gram Stain - Final Resulted 12/11/17 19:49 Wound Toe Wound Culture - Preliminary Resulted Imaging Last Impressions Renal Ultrasound 12/11/17 0000 Signed Impressions: Service Date/Time: Monday, December 11, 2017 18:19 - CONCLUSION: 1. No acute findings. Nonobstructing calculus upper pole right kidney. Small cyst upper pole left kidney. Bladder unremarkable. Jeremias Rossi MD Foot X-Ray 12/11/17 0000 Signed Impressions: Service Date/Time: Monday, December 11, 2017 15:38 - CONCLUSION: Findings as above, no fracture. No bony destruction. Toan Anderson MD FACR Physical Exam CONSTITUTIONAL/GENERAL: This is an adequately nourished patient, in no apparent distress. TUBES/LINES/DRAINS: SKIN: No jaundice, rashes, or lesions. Skin temperature appropriate. Not diaphoretic. CARDIOVASCULAR: Regular rate and rhythm without murmurs, gallops, or rubs. No JVD. Peripheral pulses symmetric. RESPIRATORY/CHEST: Symmetric, unlabored respirations. Clear to auscultation. Breath sounds equal bilaterally. No wheezes, rales, or rhonchi. GASTROINTESTINAL: Abdomen soft, non-tender, nondistended. No hepato-splenomegaly , or palpable masses. No guarding. Bowel sounds present. GENITOURINARY: Without palpable bladder distension. MUSCULOSKELETAL: Extremities without clubbing, cyanosis, or edema. Pulses non pulpable b/l L foot dresing in place. Strong odor in the room NEUROLOGICAL: Awake and alert. Motor and sensory grossly within normal limits. Follows commands. Confused. Moves all extremities. PSYCHIATRIC: No obvious anxiety/depression. no apparent hallucinations or other psychotic thought process. Assessment & Plan Remarks Assessment and Plan Assessment and Plan HIV dz, non comlliance PVD Wet gangrene L foot Decreased renal fnx - agree with plan for amputation revasc HAART is not indicated to be restarted in-pt if non compliant prior to admission CD4 VL cont broad spectrumn abx cont vancomycin Restart HAART - pt apparently takes HAART according to him Shikha Israel MD Dec 14, 2017 16:58
--- NOTE | 2017-12-14 17:05 | HHI.NPPN ---
Subjective History of Present Illness 62 year old with ARF/CKD HTN Lt foot infection Objective Data Data 12/14/17 12/15/17 19:00 07:00 Intake Total 490 ml Balance 490 ml Intake Oral 240 ml IV Total 250 ml Vital Signs Date Time Temp Pulse Resp B/P (MAP) Pulse Ox O2 Delivery O2 Flow Rate FiO2 12/14/17 16:00 97.7 78 20 162/71 (101) 99 12/14/17 12:00 96.9 70 19 119/57 (77) 98 12/14/17 08:00 98.4 69 20 172/75 (107) 97 12/14/17 03:55 96.4 71 20 146/64 (91) 96 12/14/17 00:00 96.4 71 20 146/64 (91) 96 12/13/17 20:00 98.5 76 20 115/57 (76) 97 -: 12/14/17 1149 12/14/17 1149 Physical Exam General Appearance: Well Developed Neck Neck Exam: Neck Supple Pulmonary Resp Exam: Clear Bilaterally, Breath Sounds Equal Gastrointestinal/Abdomen GI Exam: Soft, Non-Tender Extremeties Extremities Exam: Moderate Edema Neurologic Neuro Exam: Alert Assessment/Plan Problem List: (1) BECKA (acute kidney injury) ICD Codes: N17.9 - Acute kidney failure, unspecified Status: Acute Plan: This appears to be prerenal and responding to fluids however patient states he has been taking diuretic as an outpatient His edema is more confined to his left leg he has advanced peripheral vascular disease and surgical intervention His kidney disease is improving with hydration and I told him at this point we cannot safely start diuretics he has been treated with active left foot infection, on normal saline 100 cc an hour, getting vancomycin and Zosyn Monitor vancomycin level Cr declined with hydration (2) Gangrenous toe ICD Codes: I96 - Gangrene, not elsewhere classified Plan: Continue to monitor (3) HTN (hypertension) ICD Codes: I10 - Essential (primary) hypertension Plan: Stable (4) HIV disease ICD Codes: B20 - Human immunodeficiency virus (HIV) disease Status: Chronic Plan: Controlled on medications Problem Qualifiers (1) HTN (hypertension): Qualified Codes: I10 - Essential (primary) hypertension Josie Thompson MD Dec 14, 2017 17:05
[2017-12-14 20:30] VITALS: BP 104/50; PULSE 62; RESP 18; TEMP 98; O2SAT 96
[2017-12-14] MEDS: DOCUSATE SODIUM 50 MG/SENNA 8.6 MG TAB PO SCH (21:00)
[2017-12-14] MEDS: DARUNAVIR 800 MG TAB PO SCH (21:00)
[2017-12-14] MEDS: ETRAVIRINE 100 MG TAB PO SCH (21:20)
[2017-12-14] MEDS: RITONAVIR 100 MG TAB PO SCH (21:21)
[2017-12-14] MEDS: DOLUTEGRAVIR SODIUM 50 MG TAB PO SCH (21:22)
[2017-12-14] MEDS ORDERED: METOPROLOL TARTRATE 25 MG TAB PO PRN (23:45)
[2017-12-14] MEDS ORDERED: SODIUM CHLORID 0.9% 500 ML IV PRN (23:45)
[2017-12-14] MEDS ORDERED: INSULIN HUMAN REGULAR 1,000 UNITS/10 ML VIAL SQ PRN (23:45)
[2017-12-14] MEDS ORDERED: CHLORHEXIDINE GLUCONATE 2 % 1 PACK (2 CLOTHS) TOPICAL PRN (23:45)
[2017-12-14] MEDS ORDERED: LACTATED RINGER'S 1000 ML IV PRN (23:45)
[2017-12-14] MEDS ORDERED: POVIDONE IODINE 5% (ANTISEPSIS KIT) 4 APPLICATIONS EACH NARE PRN (23:45)
[2017-12-15] VITALS: BP 186/67; PULSE 63; RESP 18; TEMP 96.8; O2SAT 97
[2017-12-15] MEDS: PIPERACIL-TAZO 2.25 GM PREMIX 50 ML IV SCH ×4 (01:31→19:30)
[2017-12-15] MEDS: SODIUM CHLOR 0.9% 1000 ML INJ 1,000 ML IV SCH ×3 (04:32→23:00)
[2017-12-15 08:00] VITALS: BP 168/81; PULSE 58; RESP 19; TEMP 96.9; O2SAT 99
[2017-12-15] MEDS: SODIUM CHLORIDE 0.9% FLUSH 10 ML FLUSH IV FLUSH SCH ×2 (09:00→21:00)
[2017-12-15] MEDS: DARUNAVIR 800 MG TAB PO SCH (11:00)
[2017-12-15] MEDS: RITONAVIR 100 MG TAB PO SCH (11:01)
[2017-12-15] MEDS: DOLUTEGRAVIR SODIUM 50 MG TAB PO SCH ×2 (11:01→22:21)
[2017-12-15] MEDS: DOCUSATE SODIUM 50 MG/SENNA 8.6 MG TAB PO SCH ×2 (11:01→21:00)
[2017-12-15] MEDS: LACTOBACILLUS ACIDOPHILUS 1 GM PACKET PO SCH (11:02)
[2017-12-15] MEDS: amLODIPine BESYLATE 5 MG TAB PO SCH ×2 (11:02→11:06)
[2017-12-15] MEDS: VANCOMYCIN INJ 1,250 MG in SODIUM CHLOR 0.9% 250 ML INJ 250 ML IV SCH (11:03)
[2017-12-15] MEDS: ETRAVIRINE 100 MG TAB PO SCH ×2 (11:05→17:10)
[2017-12-15 12:00] VITALS: BP 188/77; PULSE 67; RESP 20; TEMP 98.4; O2SAT 99
[2017-12-15] MEDS ORDERED: DEXAMETHASONE SOD PHOS 4 MG/ML VIAL IV ONE (12:00)
[2017-12-15] MEDS ORDERED: METOPROLOL TARTRATE 5 MG/5 ML VIAL IV ONE (12:00)
[2017-12-15] MEDS ORDERED: PROPOFOL 200 MG/20 ML AMP IV ONE (12:00)
[2017-12-15] MEDS ORDERED: LABETALOL HCL 100 MG/20 ML VIAL IV ONE (12:00)
[2017-12-15] MEDS ORDERED: LIDOCAINE HCL 1% PF 5 ML SYRINGE OTHER ONE (12:00)
[2017-12-15] MEDS ORDERED: ONDANSETRON HCL 4 MG/2 ML VIAL IV ONE (12:00)
[2017-12-15] MEDS ORDERED: HYDROmorphone HCL 2 MG TAB PO ONE (12:15)
--- NOTE | 2017-12-15 12:59 | HHI.NPPN ---
Subjective History of Present Illness 62 year old with ARF/CKD HTN Lt foot infection Objective Data Data 12/15/17 12/16/17 18:59 06:59 Intake Total 0 ml Balance 0 ml Intake Oral 0 ml Vital Signs Date Time Temp Pulse Resp B/P (MAP) Pulse Ox O2 Delivery O2 Flow Rate FiO2 12/15/17 08:00 96.9 58 19 168/81 (110) 99 12/15/17 00:00 96.8 63 18 186/67 (106) 97 12/14/17 20:30 98.0 62 18 104/50 (68) 96 12/14/17 16:00 97.7 78 20 162/71 (101) 99 -: 12/14/17 1149 12/14/17 1149 Physical Exam General Appearance: Well Developed Neck Neck Exam: Neck Supple Pulmonary Resp Exam: Clear Bilaterally, Breath Sounds Equal Gastrointestinal/Abdomen GI Exam: Soft, Non-Tender Extremeties Extremities Exam: Moderate Edema Neurologic Neuro Exam: Alert Assessment/Plan Problem List: (1) BECKA (acute kidney injury) ICD Codes: N17.9 - Acute kidney failure, unspecified Status: Acute Plan: This appears to be prerenal and responding to fluids however patient states he has been taking diuretic as an outpatient His edema is more confined to his left leg he has advanced peripheral vascular disease and surgical intervention His kidney disease is improving with hydration and I told him at this point we cannot safely start diuretics he has been treated with active left foot infection, on normal saline 30 cc an hour, getting vancomycin and Zosyn Monitor vancomycin level Cr declined with hydration K low replace (2) Gangrenous toe ICD Codes: I96 - Gangrene, not elsewhere classified Plan: Continue to monitor (3) HTN (hypertension) ICD Codes: I10 - Essential (primary) hypertension Plan: Stable (4) HIV disease ICD Codes: B20 - Human immunodeficiency virus (HIV) disease Status: Chronic Plan: Controlled on medications Problem Qualifiers (1) HTN (hypertension): Qualified Codes: I10 - Essential (primary) hypertension Josie Thompson MD Dec 15, 2017 12:59
[2017-12-15] MEDS ORDERED: POTASSIUM CHLORIDE 8 MEQ CONTROLLED RELEASE TAB PO ONE (13:00)
[2017-12-15] MEDS ORDERED: NEOMYCIN/POLYMYXIN 1 ML G.U. IRRIGANT ONE (13:36)
[2017-12-15] MEDS ORDERED: BUPIVACAINE HCL PF 0.25% 30 ML VIAL ONE (13:45)
--- NOTE | 2017-12-15 15:16 | HHI.PR ---
Immediate Post Op Note Procedure Date: Dec 15, 2017 Pre Op Diagnosis: Left hallux gangrene, foot infection Post Op Diagnosis: same Surgeon: Micah Santoyo Concierge Manager(s): scrub Procedure: Left hallux amputation, partial 1st metatarsal resection Findings: see op dictation Complications: none however minimal bleeding noted Specimen(s) removed: bone from 1st metatarsal as margin and hallux with 1st metatarsal as path, micro bone cx from margin and deep tissue Anesthesia: General, Local Drains: Other Fluids: see anethesia Tourniquet time (min at mmHg) thigh 250mmhg 20 min Patient to: Other Patient Condition: Poor Implant/Devices: SEE IMPLANT LOG (if applicable) Date/Time of Procedure: SEE SURGICAL CARE RECORD Micah Santoyo DPM Dec 15, 2017 15:16
[2017-12-15] MEDS ORDERED: MEPERIDINE HCL 25 MG/ML VIAL ONE (15:21)
[2017-12-15] MEDS ORDERED: DO NOT ADM ANY ANTICOAGULANT DRUGS PRN (15:26)
[2017-12-15] MEDS ORDERED: ENALAPRILAT 1.25 MG/ML VIAL ONE (16:08)
--- NOTE | 2017-12-15 16:23 | HHI.FPPN ---
Subjective Remarks Delayed entry Patient seen and examined at bedside. No acute events overnight. Patient declined MRI study today. Patient is still complaining of pain on Left foot. Objective Vitals Vital Signs Date Time Temp Pulse Resp B/P (MAP) Pulse Ox O2 Delivery O2 Flow Rate FiO2 12/15/17 12:00 98.4 67 20 188/77 (114) 99 12/15/17 08:00 96.9 58 19 168/81 (110) 99 12/15/17 00:00 96.8 63 18 186/67 (106) 97 12/14/17 20:30 98.0 62 18 104/50 (68) 96 12/14/17 16:00 97.7 78 20 162/71 (101) 99 I/O 12/14/17 12/14/17 12/14/17 12/15/17 12/15/17 12/15/17 06:59 14:59 22:59 06:59 14:59 22:59 Intake Total 720 ml 490 ml 900 ml 1050 ml 700 ml Output Total 650 ml 800 ml 5 ml Balance 70 ml 490 ml 100 ml 1050 ml 695 ml Intake Oral 720 ml 240 ml 850 ml 0 ml IV Total 250 ml 50 ml 1050 ml 700 ml Output Urine Total 650 ml 800 ml Estimated Blood Loss 5 ml # Bowel Movements 0 2 Result Diagram: 12/14/17 1149 12/14/17 1149 Objective Remarks GENERAL: This is a well-nourished, well-developed patient sitting on edge of bed in no acute distress. Speaking in full sentences SKIN: No rashes, or ecchymoses. Cool and dry. gangrenous Left big toe. CARDIOVASCULAR: Normal S1 and S2. No murmurs, gallops, or rubs. RESPIRATORY: Clear to auscultation. Breath sounds equal bilaterally. No wheezes , rales, or rhonchi. GASTROINTESTINAL: Abdomen soft, non-tender, nondistended. No hepato-splenomegaly , or palpable masses. No guarding. MUSCULOSKELETAL: Left foot bandaged, not examine today. Exam from 12/13: Left great toe has open wound with purulent discharge. Most distal aspect of great toe is black. Wound is extremely tender to palpation. Distal pulses not palpable. NEUROLOGICAL: Awake and alert. Motor and sensory grossly within normal limits. Normal speech. A/P Assessment and Plan 62-year-old male with history of HIV, PAD, COPD, HTN presenting with wound on left great toe concerning for gangrene, osteomyelitis. Vascular surgery, infectious disease, podiatry consulted. Starting on empiric antibiotic therapy vancomycin, clindamycin, Zosyn. Patient refused MRI due to pain. Discharge Planning Amputation of L great toe on 12/15 Problem List: (1) Gangrenous toe ICD Codes: I96 - Gangrene, not elsewhere classified Plan: Left great toe wound with purulent discharge, most distal aspect of toe was black Known history of PAD, difficult to palpate distal pulses X-ray on admission showing no bony destruction Continue IV vancomycin, Zosyn Podiatry consulted -Amputation on 12/15 -NPO after midnight -Patient refused MRI of Left foot Vascular consulted -Recommended toe amputation, if does not heal, will likely need AKA ID recommendations -Continue broad-spectrum antibiotics Wound cultures mixed enteric gram negative rods, with no predominant organism, ruling out pseudomonas species Blood cultures NGTD Pain scale as follows: Roxicodone on 5 mg pain scale 1-5 Roxicodone 10 mg pain scale 6-10 Morphine 4 mg IV every 3 hours for breakthrough (2) BECKA (acute kidney injury) ICD Codes: N17.9 - Acute kidney failure, unspecified Plan: Patient found to have elevated creatinine 2.88 on admission Has had elevated creatinine up to 2.33 in prior hospitalizations, but most recent creatinine was 1.08 in December 2016 Cr down-trending, 1.33 today Renal ultrasound showing no acute findings Urine culture negative Nephrology consult-appreciate recs -appears to be prerenal, continue to monitor IV fluids at 100 mL per hour normal saline -hold diuretics -replace K, -monitor vanc level (3) Peripheral arterial disease ICD Codes: I73.9 - Peripheral vascular disease, unspecified Status: Chronic Plan: Patient with a known history of PAD, previously seen by Dr. Ramos Status post revascularization of the left leg in December 2016 Concern for gangrenous left great toe as described above Consulted vascular surgery, appreciate rec podiatry consulted, appreciate rec Holding home Plavix, atorvastatin for now (4) HIV disease ICD Codes: B20 - Human immunodeficiency virus (HIV) disease Status: Chronic Plan: Patient with a known history of HIV for over 20 years h/o not being consistent with HAART per ID, States he has been taking the sporadically lately due to forgetfulness Lymphocyte profile pending, most recent recorded CD4 count in December 2016 was in the 800s ID consulted, appreciate recommendations -HAART restarted -Follow-up CD4 count (5) COPD (chronic obstructive pulmonary disease) ICD Codes: J44.9 - Chronic obstructive pulmonary disease, unspecified Plan: Patient with a history of COPD Occasionally takes DuoNeb nebulizers for shortness of breath/wheezing DuoNeb nebs as needed (6) HTN (hypertension) ICD Codes: I10 - Essential (primary) hypertension Plan: BPs elevated 160s-180/60-80s Patient with a known history of hypertension restart atenolol 50 mg, c/w Norvasc to 5 mg QD (7) FEN Plan: Normal saline 100 mL per hour Replete electrolytes as needed regular diet DVT ppx: SCDs; holding chemoprophylaxis pre-op Problem Qualifiers (1) HTN (hypertension): Qualified Codes: I10 - Essential (primary) hypertension Adalberto Jay MD, R1 Dec 15, 2017 16:23
--- NOTE | 2017-12-15 19:00 | MP ---
cc: SABA KHAN DP DATE OF SURGERY 12/15/17 PREOPERATIVE DIAGNOSIS Left hallux gangrene, peripheral vascular disease, foot infection. POSTOPERATIVE DIAGNOSIS Left hallux gangrene, peripheral vascular disease, foot infection. PROCEDURES PERFORMED Left hallux amputation with partial first metatarsal resection. INTRAOPERATIVE FINDINGS Minimal bleeding, clinically a clear margin. SPECIMEN Bone from the first metatarsal as margin and hallux with first metatarsal sent for path. Micro bone culture taken from margin and deep tissue. ANESTHESIA General with local, approximately 20 mL of 0.25% Marcaine plain was infiltrated about the patient's ankle, posterior tibial block and anterior ankle block DRAINS 1/4" Iodoform packing TOURNIQUET TIME 20 minutes with a setting of 250 mmHg about the patient's left thigh. PLAN OF ACTIVITY Return to floor, monitor wound. CONDITION Good to fair JUSTIFICATION FOR PROCEDURE A 62-year-old male with significant decreased in circulation clinically. The patient had wet gangrene of the left hallux. The patient refused MRI. Vascular forewarned the patient he may have poor potential to heel, but we will try hallux amputation and see how the patient tolerates this. The patient has significant decline of kidney function making it challenging for angiogram. The patient was educated on risks and benefits of the surgery. The patient has significant pain. He allowed only a very limited evaluation of his foot. He was educated that this may lead to a partial foot amputation, [id number] amputation or above-knee amputation. No guarantees were given or implied regarding the outcome. Furthermore, the patient was educated on the need for smoking cessation. PROCEDURE IN DETAIL Under mild sedation, the patient was brought into the operating room, placed on the operative table in the supine position. Following the induction of general anesthesia, local anesthesia was obtained about the patient's posterior ankle, posterior tibial nerve and the dorsal neurovascular structures being careful not to aspirate into a vessel of the superficial peroneal and the lateral sternal nerve. The patient's left foot was then scrubbed, prepped and draped in the usual aseptic fashion. The foot was elevated, exsanguinated and the previously placed mid thigh tourniquet inflated at 250 mmHg. A fish mouth incision was made over the dorsal aspect the patient's first ray. Full-thickness ulcers were noted at the dorsal aspect of the first ray. This was down to bone at the level of the base of the proximal phalanx. There was a putrid odor, however, no obvious gas bubbles noted within the deep tissue. Sharp disarticulation then took place at the level the first MPJ revealing an overall healthy first metatarsal, however, the incision and the ellipse of the ulcer did not allow for wound closure. At this time, it was deemed appropriate for first metatarsal resection to allow for wound closure and to attempt a clean margin. Utilizing power instrumentation, the first metatarsal was resected approximately 2-3 cm from the base of the first metatarsal. Deep culture was taken at this level and a small piece of the proximal margin was then sent for pathology. The wound was then flushed with copious amounts of normal saline. Tourniquet was dropped. Punctate bleeding was noted. No pulsatile bleeding. The wound was then loosely coapted utilizing nylon and packed. Of note, there was noted to be a fibrotic superficial ulcer of the distal medial aspect of the second digit. We will continue to monitor this, however, he may need to return to the OR at a later date for debridement if not amputation. A bulky bandage was placed. The patient recovered in PACU without any issues. Bandage change in 1-2 days. Bandage will be changed by physician. MAIA Winston/ /3:12 PM /6:33 PM
[2017-12-15] MEDS ORDERED: cloNIDine HCL 0.1 MG TAB PO PRN (20:15)
[2017-12-16] VITALS (8 sets, daily range): BP systolic 123–161; BP diastolic 61–81; PULSE 64–72; RESP 16–18; TEMP 95.8–98.6; O2SAT 96–100
[2017-12-16] MEDS: PIPERACIL-TAZO 2.25 GM PREMIX 50 ML IV SCH ×3 (01:30→13:11)
[2017-12-16] MEDS ORDERED: PHARMACY ORDERED LAB ONE (03:45)
[2017-12-16] MEDS: VANCOMYCIN INJ 1,250 MG in SODIUM CHLOR 0.9% 250 ML INJ 250 ML IV SCH (04:00)
[2017-12-16] MEDS: DOLUTEGRAVIR SODIUM 50 MG TAB PO SCH ×2 (08:36→20:12)
[2017-12-16] MEDS: DARUNAVIR 800 MG TAB PO SCH (08:37)
[2017-12-16] MEDS: amLODIPine BESYLATE 5 MG TAB PO SCH (08:38)
[2017-12-16] MEDS: SODIUM CHLORIDE 0.9% FLUSH 10 ML FLUSH IV FLUSH SCH ×2 (08:38→20:13)
[2017-12-16] MEDS: DOCUSATE SODIUM 50 MG/SENNA 8.6 MG TAB PO SCH ×2 (08:38→20:13)
[2017-12-16] MEDS: RITONAVIR 100 MG TAB PO SCH (08:38)
[2017-12-16] MEDS: ETRAVIRINE 100 MG TAB PO SCH ×2 (08:38→17:59)
[2017-12-16] MEDS: LACTOBACILLUS ACIDOPHILUS 1 GM PACKET PO SCH (08:39)
[2017-12-16] MEDS: SODIUM CHLOR 0.9% 1000 ML INJ 1,000 ML IV SCH ×2 (08:39→17:59)
[2017-12-16] MEDS: ATENOLOL 50 MG TAB PO SCH (08:39)
--- NOTE | 2017-12-16 11:25 | HHI.FPPN ---
Subjective Remarks Patient seen and examined this morning. Temperature 96.7, pulse 72, respiratory rate 17, blood pressure 137/74, pulse ox 97 on room air. Patient reports that the pain in his left foot is tolerable. He is postop day 1 from a left hallux amputation with partial first metatarsal resection. He states that the overall pain that brought him into the hospital has greatly improved since the amputation. The pain is feeling now is tolerable and is just from the procedure. He is hoping to be able to get improvement and not require any further amputation of his foot. Objective Vitals Vital Signs Date Time Temp Pulse Resp B/P (MAP) Pulse Ox O2 Delivery O2 Flow Rate FiO2 12/16/17 09:33 97 12/16/17 08:00 96.7 72 17 157/74 (101) 97 12/16/17 04:00 95.8 72 18 154/74 (100) 96 12/16/17 00:00 97.0 71 18 139/63 (88) 98 12/15/17 16:30 98.2 64 18 153/74 (100) 100 Room Air 12/15/17 16:15 Room Air 12/15/17 16:00 61 19 200/80 (120) 100 12/15/17 15:30 69 17 177/70 (105) 100 Nasal Cannula 2 12/15/17 15:25 69 17 179/82 (114) 100 Nasal Cannula 2 12/15/17 15:22 98.3 82 17 186/90 (122) 100 Nasal Cannula 2 12/15/17 12:00 98.4 67 20 188/77 (114) 99 I/O 12/15/17 12/15/17 12/15/17 12/16/17 12/16/17 12/16/17 07:00 15:00 23:00 07:00 15:00 23:00 Intake Total 1050 ml 700 ml 240 ml Output Total 5 ml 1000 ml 600 ml Balance 1050 ml 695 ml -1000 ml -360 ml Intake Oral 0 ml 240 ml IV Total 1050 ml 700 ml Output Urine Total 1000 ml 600 ml Estimated Blood Loss 5 ml # Bowel Movements 1 Result Diagram: 12/14/17 1149 12/14/17 1149 Imaging Last Impressions Renal Ultrasound 12/11/17 0000 Signed Impressions: Service Date/Time: Monday, December 11, 2017 18:19 - CONCLUSION: 1. No acute findings. Nonobstructing calculus upper pole right kidney. Small cyst upper pole left kidney. Bladder unremarkable. Jeremias Rossi MD Foot X-Ray 12/11/17 0000 Signed Impressions: Service Date/Time: Monday, December 11, 2017 15:38 - CONCLUSION: Findings as above, no fracture. No bony destruction. Toan Anderson MD FACR Objective Remarks GENERAL: This is a well-nourished, well-developed patient sitting on edge of bed in no acute distress. Speaking in full sentences SKIN: No rashes, or ecchymoses. Cool and dry. CARDIOVASCULAR: Normal S1 and S2. No murmurs, gallops, or rubs. RESPIRATORY: Clear to auscultation. Breath sounds equal bilaterally. No wheezes , rales, or rhonchi. GASTROINTESTINAL: Abdomen soft, non-tender, nondistended. No hepato-splenomegaly , or palpable masses. No guarding. MUSCULOSKELETAL: Left foot bandaged currently unable to remove bandage per podiatry recommendations. Will be removed 1-2 days by the outreach manager NEUROLOGICAL: Awake and alert. Motor and sensory grossly within normal limits. Normal speech. Procedures 12/15/17: Left hallux amputation with partial first metatarsal resection Medications and IVs Current Medications Medications (Trade) Dose Ordered Sig/Robles Route Start Time Stop Time Status Last Admin (Norvasc) 5 mg DAILY PO 12/11/17 19:30 Future hold 12/16/17 08:38 (Tenormin) 50 mg DAILY PO 12/11/17 19:30 Future hold 12/16/17 08:39 (NS Flush) 2 ml BID IV FLUSH 12/11/17 21:00 12/16/17 08:38 (NS Flush) 2 ml UNSCH PRN IV FLUSH 12/11/17 18:00 Sodium Chloride 1,000 ml @ 100 mls/hr Q10H IV 12/11/17 19:00 12/15/17 17:17 Pharmacy Profile Note 0 ml @ 0 mls/hr UNSCH OTHER 12/11/17 18:00 (Duoneb Neb) 1 ampule Q6HR NEB PRN NEB 12/11/17 18:15 (Roxicodone) 10 mg Q4H PRN PO 12/11/17 18:15 12/16/17 10:03 (Morphine Inj) 4 mg Q3H PRN IV PUSH 12/11/17 19:30 (Roxicodone) 5 mg Q4H PRN PO 12/11/17 18:15 12/13/17 12:42 (Narcan Inj) 0.4 mg UNSCH PRN IV PUSH 12/11/17 18:15 (Lactinex Pkt) 1 gm DAILY PO 12/11/17 19:15 12/16/17 08:39 Piperacillin Sod/ Tazobactam Sod 50 ml @ 100 mls/hr Q6H IV 12/11/17 19:30 12/16/17 08:35 (Tori-Colace) 1 tab BID PO 12/14/17 21:00 12/16/17 08:38 (Milk Of Magnesia Liq) 30 ml Q12H PRN PO 12/14/17 10:30 (Senokot) 17.2 mg Q12H PRN PO 12/14/17 10:30 (Dulcolax Supp) 10 mg DAILY PRN RECTAL 12/14/17 10:30 (Lactulose Liq) 30 ml DAILY PRN PO 12/14/17 10:30 Vancomycin HCl 1250 mg/Sodium Chloride 262.5 ml @ 250 mls/hr Q18H IV 12/14/17 16:00 12/15/17 11:03 (Norvir) 100 mg DAILY PO 12/14/17 21:00 12/16/17 08:38 (Prezista) 800 mg DAILY PO 12/14/17 21:00 12/16/17 08:37 (Intelence) 200 mg BIDPC PO 12/14/17 18:00 12/16/17 08:38 Lactated Ringer's 1,000 ml @ 30 mls/hr Q24H PRN IV 12/14/17 23:45 12/17/17 23:44 Sodium Chloride 500 ml @ 30 mls/hr [id number] PRN IV 12/14/17 23:45 12/17/17 23:44 (Lopressor) 25 mg [employer] PRN PO 12/14/17 23:45 12/17/17 23:44 (Betadine 5% Antisepsis Kit) 1 applic [employer] PRN EACH NARE 12/14/17 23:45 12/17/17 23:44 (Chlorhexidine 2% Cloth) 3 pack [employer] PRN TOPICAL 12/14/17 23:45 12/17/17 23:44 (NovoLIN R INJ) See Protocol Table ... [employer] PRN SQ 12/14/17 23:45 12/17/17 23:44 Miscellaneous Information ALL NURSING DEPARTME... UNSCH PRN .XX 12/15/17 15:26 12/16/17 15:25 (Catapres) 0.1 mg Q6H PRN PO 12/15/17 20:15 A/P Assessment and Plan 62-year-old male with history of HIV, PAD, COPD, HTN presenting with wound on left great toe concerning for gangrene, osteomyelitis. Vascular surgery, infectious disease, podiatry consulted. Starting on empiric antibiotic therapy vancomycin, clindamycin, Zosyn. Status post left hallux amputation with partial first metatarsal resection Discharge Planning Pending further medical workup Problem List: (1) Gangrenous toe ICD Codes: I96 - Gangrene, not elsewhere classified Plan: Status post left hallux amputation with partial first metatarsal resection Continue IV vancomycin, Zosyn Podiatry consulted Vascular consulted -If toe amputation does not heal will likely need AKA ID recommendations -Continue broad-spectrum antibiotics Wound cultures mixed enteric gram negative rods, with no predominant organism, ruling out pseudomonas species Blood cultures NGTD Bone biopsy cultures pending Pain scale as follows: Roxicodone on 5 mg pain scale 1-5 Roxicodone 10 mg pain scale 6-10 Morphine 4 mg IV every 3 hours for breakthrough (2) BECKA (acute kidney injury) ICD Codes: N17.9 - Acute kidney failure, unspecified Plan: Currently 1.33, trending down Renal ultrasound showing no acute findings Urine culture negative Nephrology consult-appreciate recs -appears to be prerenal, continue to monitor IV fluids at 100 mL per hour normal saline -hold diuretics -replace K, -monitor vanc level (3) Peripheral arterial disease ICD Codes: I73.9 - Peripheral vascular disease, unspecified Status: Chronic Plan: Patient with a known history of PAD, previously seen by Dr. Ramos Status post revascularization of the left leg in December 2016 Consulted vascular surgery, appreciate rec podiatry consulted, appreciate rec Continue Plavix Continue Atorvastatin (4) HIV disease ICD Codes: B20 - Human immunodeficiency virus (HIV) disease Status: Chronic Plan: Patient with a known history of HIV for over 20 years h/o not being consistent with HAART per ID, States he has been taking the sporadically lately due to forgetfulness Lymphocyte profile pending, most recent recorded CD4 count in December 2016 was in the 800s ID consulted, appreciate recommendations -HAART restarted -Follow-up CD4 count (5) COPD (chronic obstructive pulmonary disease) ICD Codes: J44.9 - Chronic obstructive pulmonary disease, unspecified Plan: Patient with a history of COPD Occasionally takes DuoNeb nebulizers for shortness of breath/wheezing DuoNeb nebs as needed (6) HTN (hypertension) ICD Codes: I10 - Essential (primary) hypertension Plan: Patient with a known history of hypertension Continue atenolol 50 mg, Continue Norvasc to 5 mg QD Clonidine per protocol (7) FEN Plan: Normal saline 100 mL per hour Replete electrolytes as needed regular diet DVT ppx: SCDs; restarted Plavix Problem Qualifiers (1) HTN (hypertension): Qualified Codes: I10 - Essential (primary) hypertension Juan Hill MD, R3 Dec 16, 2017 11:25
[2017-12-16] MEDS: CLOPIDOGREL 75 MG TAB PO SCH (11:46)
--- NOTE | 2017-12-16 12:01 | PD.CAR.PN ---
CVT Progress Note Subjective/Hospital Course: Patient known to me Full consult MODESTA Leong 12/14/2017 Discussed the case with Dr. Pritchett. As above noted we will go ahead with amputation of the left greater toe and we will see how that heals. If it looks like it is healing nicely I would not do anything else but if patient's healing is impaired then it is worth probably repeating the CTA with runoff and see if there is anything there that we can fix by a bypass graft. 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 He underwent balloon angioplasty stenting and endarterectomy. At that time he had a very tiny distal popliteal artery may be measuring 3-4 mm in diameter which is clearly known conducive to any grafting and improvement of inflow will sufficient to heal patient's ulcers on the leg and maintain the foot for another year. At this point the risk-benefit ratio is in favor of not doing CTA with runoff considering patient's precarious renal function but if the creatinine comes down then we may be able to do a repeat CTA. In best case scenario there may be a small popliteal artery very distally where we could plug in a cadaveric vein if the foot does not heal after amputation. Unfortunately the way this looks right now patient is at high risk of losing the leg and having below-knee amputation. I have spoken to him at length and he does not plan to stop smoking by the fact that smoking has increased lately There is only so much we can do at this time 12/16/2017 Status post toe amputation Discussed with Dr. Pritchett and apparently there was not much blood there so this is severe small vessel disease in the foot and lower leg Creatinine is slowly coming down so will wait another few days and then do CTA with runoff to see if there is anything to be done to the left leg as far as a possible cadaveric vein bypass I am just afraid that there is no target the area in the face of very tiny popliteal artery on the last CT scan Objective: Vital Signs Date Time Temp Pulse Resp B/P (MAP) Pulse Ox O2 Delivery O2 Flow Rate FiO2 12/16/17 09:33 97 12/16/17 08:00 96.7 72 17 157/74 (101) 97 12/16/17 04:00 95.8 72 18 154/74 (100) 96 12/16/17 00:00 97.0 71 18 139/63 (88) 98 12/15/17 16:30 98.2 64 18 153/74 (100) 100 Room Air 12/15/17 16:15 Room Air 12/15/17 16:00 61 19 200/80 (120) 100 12/15/17 15:30 69 17 177/70 (105) 100 Nasal Cannula 2 12/15/17 15:25 69 17 179/82 (114) 100 Nasal Cannula 2 12/15/17 15:22 98.3 82 17 186/90 (122) 100 Nasal Cannula 2 12/15/17 12:00 98.4 67 20 188/77 (114) 99 Labs: Laboratory Tests Test 12/16/17 03:45 Vancomycin Level Trough 13.2 MCG/ML (5.0-10.0) Result Diagram: 12/14/17 1149 12/14/17 1149 Rosita Ramos MD Dec 16, 2017 12:01
[2017-12-16 12:58] LABS: AUTOMATED NEUTROPHIL # 12.3 TH/MM3 (1.8-7.7); BASOPHIL % 0.1 % (0.0-2.0); HEMATOCRIT 23.9 % (39.0-51.0); HEMOGLOBIN 7.9 GM/DL (13.0-17.0); LYMPH % 6.3 % (9.0-44.0); LYMPHOCYTE # 0.9 TH/MM3 (1.0-4.8); MEAN CORPUSCULAR HEMOGLOBIN 31.6 PG (27.0-34.0); MEAN CORPUSCULAR HGB CONC 33.3 % (32.0-36.0); MEAN PLATELET VOLUME 8.3 FL (7.0-11.0); MONO % 4.1 % (0.0-8.0); MONOCYTE # 0.6 TH/MM3 (0-0.9); NEUT % 89.5 % (16.0-70.0); PLATELET COUNT 310 TH/MM3 (150-450); RED BLOOD COUNT 2.51 MIL/MM3 (4.50-5.90); WHITE BLOOD COUNT 13.8 TH/MM3 (4.0-11.0)
[2017-12-16] MEDS ORDERED: VANCOMYCIN INJ 1,250 MG in SODIUM CHLOR 0.9% 250 ML INJ 250 ML IV SCH (13:00)
[2017-12-16 13:28] LABS: BICARBONATE 24.4 MEQ/L (21.0-32.0); CALCIUM 9.9 MG/DL (8.5-10.1); CREATININE 1.08 MG/DL (0.60-1.30)
[2017-12-16] MEDS: VANCOMYCIN INJ 1,500 MG in SODIUM CHLORID 0.9% 500 ML INJ 500 ML IV SCH (14:00)
--- NOTE | 2017-12-16 14:39 | HHI.NPPN ---
Subjective History of Present Illness 62 year old with ARF/CKD HTN Lt foot infection Objective Data Data 12/16/17 12/17/17 19:00 07:00 Intake Total 50 ml Balance 50 ml IV Total 50 ml Vital Signs Date Time Temp Pulse Resp B/P (MAP) Pulse Ox O2 Delivery O2 Flow Rate FiO2 12/16/17 12:00 96.8 64 18 138/64 (88) 97 12/16/17 09:33 97 12/16/17 08:00 96.7 72 17 157/74 (101) 97 12/16/17 04:00 95.8 72 18 154/74 (100) 96 12/16/17 00:00 97.0 71 18 139/63 (88) 98 12/15/17 16:30 98.2 64 18 153/74 (100) 100 Room Air 12/15/17 16:15 Room Air 12/15/17 16:00 61 19 200/80 (120) 100 12/15/17 15:30 69 17 177/70 (105) 100 Nasal Cannula 2 12/15/17 15:25 69 17 179/82 (114) 100 Nasal Cannula 2 12/15/17 15:22 98.3 82 17 186/90 (122) 100 Nasal Cannula 2 -: 12/16/17 1205 12/16/17 1205 Microbiology 12/15/17 Fungal Smear, Received Pending 12/15/17 Fungal Culture, Received Pending 12/15/17 Acid Fast Stain, Received Pending 12/15/17 Mycobacterial Culture, Received Pending 12/15/17 Gram Stain - Final, Resulted 12/15/17 Wound Culture - Preliminary, Resulted NO GROWTH IN 24 HOURS. Physical Exam General Appearance: Well Developed Neck Neck Exam: Neck Supple Pulmonary Resp Exam: Clear Bilaterally, Breath Sounds Equal Gastrointestinal/Abdomen GI Exam: Soft, Non-Tender Extremeties Extremities Exam: Moderate Edema Neurologic Neuro Exam: Alert Assessment/Plan Problem List: (1) BECKA (acute kidney injury) ICD Codes: N17.9 - Acute kidney failure, unspecified Status: Acute Plan: This appears to be prerenal and responding to fluids Cr declined s/p L toe amputation I will follow PRN bases Cr 1.08 (2) Gangrenous toe ICD Codes: I96 - Gangrene, not elsewhere classified Plan: Continue to monitor (3) HTN (hypertension) ICD Codes: I10 - Essential (primary) hypertension Plan: Stable (4) HIV disease ICD Codes: B20 - Human immunodeficiency virus (HIV) disease Status: Chronic Plan: Controlled on medications Problem Qualifiers (1) HTN (hypertension): Qualified Codes: I10 - Essential (primary) hypertension Josie Thompson MD Dec 16, 2017 14:39
[2017-12-16] MEDS: PIPERACIL-TAZO 3.375 GM PREMIX 50 ML IV SCH (20:45)
[2017-12-17] VITALS: BP 157/72; PULSE 59; RESP 16; TEMP 98.7; O2SAT 98
[2017-12-17] MEDS: PIPERACIL-TAZO 3.375 GM PREMIX 50 ML IV SCH ×4 (03:01→21:38)
[2017-12-17] MEDS: SODIUM CHLOR 0.9% 1000 ML INJ 1,000 ML IV SCH ×2 (05:00→13:37)
[2017-12-17 07:56] VITALS: BP 190/78; PULSE 54; RESP 18; TEMP 97.7; O2SAT 100
[2017-12-17] MEDS: SODIUM CHLORIDE 0.9% FLUSH 10 ML FLUSH IV FLUSH SCH ×2 (09:06→21:42)
[2017-12-17] MEDS: VANCOMYCIN INJ 1,500 MG in SODIUM CHLORID 0.9% 500 ML INJ 500 ML IV SCH (09:06)
[2017-12-17] MEDS: ETRAVIRINE 100 MG TAB PO SCH ×2 (09:48→18:01)
[2017-12-17] MEDS: DARUNAVIR 800 MG TAB PO SCH (09:48)
[2017-12-17] MEDS: amLODIPine BESYLATE 5 MG TAB PO SCH (09:48)
[2017-12-17] MEDS: DOLUTEGRAVIR SODIUM 50 MG TAB PO SCH ×2 (09:48→21:38)
[2017-12-17] MEDS: ATENOLOL 50 MG TAB PO SCH (09:48)
[2017-12-17] MEDS: RITONAVIR 100 MG TAB PO SCH (09:48)
[2017-12-17] MEDS: DOCUSATE SODIUM 50 MG/SENNA 8.6 MG TAB PO SCH ×2 (09:49→21:00)
[2017-12-17] MEDS: CLOPIDOGREL 75 MG TAB PO SCH (09:49)
[2017-12-17] MEDS: LACTOBACILLUS ACIDOPHILUS 1 GM PACKET PO SCH (09:50)
--- NOTE | 2017-12-17 09:51 | HHI.FPPN ---
Subjective Remarks Patient seen and examined at bedside this morning. No acute events overnight. He is postop day 2 from a left hallux amputation with partial first metatarsal resection. Patient states the Left foot pain is well-controlled. No other complaints. Patient will like to and working with physical therapy. Denies chest pain, shortness of breath, abdominal pain, nausea, vomiting, fever or chills Objective Vitals Vital Signs Date Time Temp Pulse Resp B/P (MAP) Pulse Ox O2 Delivery O2 Flow Rate FiO2 12/17/17 07:56 97.7 54 18 190/78 (115) 100 12/17/17 00:00 98.7 59 16 157/72 (100) 98 12/16/17 20:00 98.6 68 16 123/61 (81) 99 12/16/17 18:22 97 21 12/16/17 16:00 96.3 64 18 161/81 (107) 100 12/16/17 12:00 96.8 64 18 138/64 (88) 97 I/O 12/16/17 12/16/17 12/16/17 12/17/17 12/17/17 12/17/17 07:00 15:00 23:00 07:00 15:00 23:00 Intake Total 240 ml 100 ml 2135 ml 1170 ml Output Total 600 ml 800 ml Balance -360 ml 100 ml 1335 ml 1170 ml Intake Oral 240 ml 720 ml 120 ml IV Total 100 ml 1415 ml 1050 ml Output Urine Total 600 ml 800 ml # Voids 0 5 # Bowel Movements 2 1 Result Diagram: 12/16/17 1205 12/16/17 1205 Objective Remarks GENERAL: This is a well-nourished, well-developed patient sitting on edge of bed in no acute distress. Speaking in full sentences SKIN: No rashes, or ecchymoses. Cool and dry. CARDIOVASCULAR: Normal S1 and S2. No murmurs, gallops, or rubs. RESPIRATORY: Clear to auscultation. Breath sounds equal bilaterally. No wheezes , rales, or rhonchi. GASTROINTESTINAL: Abdomen soft, non-tender, nondistended. No hepato-splenomegaly , or palpable masses. No guarding. MUSCULOSKELETAL: Left foot bandaged currently unable to remove bandage per podiatry recommendations. Will be removed 1-2 days by the glost tile shader NEUROLOGICAL: Awake and alert. Motor and sensory grossly within normal limits. Normal speech. Procedures 12/15/17: Left hallux amputation with partial first metatarsal resection A/P Assessment and Plan 62-year-old male with history of HIV, PAD, COPD, HTN presenting with wound on left great toe concerning for gangrene, osteomyelitis. Vascular surgery, infectious disease, podiatry consulted. Starting on empiric antibiotic therapy vancomycin, clindamycin, Zosyn. Status post left hallux amputation with partial first metatarsal resection. Discharge Planning Pending further medical workup Problem List: (1) Gangrenous toe ICD Codes: I96 - Gangrene, not elsewhere classified Plan: Status post left hallux amputation with partial first metatarsal resection, POD #2 Continue IV vancomycin, Zosyn Podiatry consulted Vascular consulted -If toe amputation does not heal will likely need AKA - Possible CTA procedure to be done in the next few days as creatinine is improving in order to determine degree of small vessel disease on the left foot. ID recommendations -Continue broad-spectrum antibiotics Wound cultures: No growth x1, Gram stain: no organism or WBC seen wound AFS: pending Bone biopsy cultures pending Blood cultures NGTD Pain scale as follows: Roxicodone on 5 mg pain scale 1-5 Roxicodone 10 mg pain scale 6-10 Morphine 4 mg IV every 3 hours for breakthrough (2) BECKA (acute kidney injury) ICD Codes: N17.9 - Acute kidney failure, unspecified Plan: Currently 1.33, trending down Renal ultrasound showing no acute findings Urine culture negative Nephrology consult-appreciate recs -appears to be prerenal, continue to monitor IV fluids at 100 mL per hour normal saline -hold diuretics -replace K, -monitor vanc level (3) Peripheral arterial disease ICD Codes: I73.9 - Peripheral vascular disease, unspecified Status: Chronic Plan: Patient with a known history of PAD, previously seen by Dr. Ramos Status post revascularization of the left leg in December 2016 Consulted vascular surgery, appreciate rec podiatry consulted, appreciate rec Continue Plavix Continue Atorvastatin (4) HIV disease ICD Codes: B20 - Human immunodeficiency virus (HIV) disease Status: Chronic Plan: Patient with a known history of HIV for over 20 years h/o not being consistent with HAART per ID, States he has been taking the sporadically lately due to forgetfulness Lymphocyte profile pending, most recent recorded CD4 count in December 2016 was in the 800s ID consulted, appreciate recommendations -HAART restarted -Follow-up CD4 count (5) COPD (chronic obstructive pulmonary disease) ICD Codes: J44.9 - Chronic obstructive pulmonary disease, unspecified Plan: Patient with a history of COPD Occasionally takes DuoNeb nebulizers for shortness of breath/wheezing DuoNeb nebs as needed (6) HTN (hypertension) ICD Codes: I10 - Essential (primary) hypertension Plan: Patient with a known history of hypertension Continue atenolol 50 mg, Continue Norvasc to 5 mg QD Clonidine per protocol (7) FEN Plan: Normal saline 100 mL per hour Replete electrolytes as needed Diet: regular diet regular diet DVT ppx: SCDs; restarted Plavix Problem Qualifiers (1) HTN (hypertension): Qualified Codes: I10 - Essential (primary) hypertension Adalberto Jay MD, R1 Dec 17, 2017 09:51
[2017-12-17 12:00] VITALS: BP 140/68; PULSE 58; RESP 16; TEMP 97.3; O2SAT 97
[2017-12-17 12:36] LABS: HEMATOCRIT 22.2 % (39.0-51.0); HEMOGLOBIN 7.5 GM/DL (13.0-17.0); MEAN CELL VOLUME 95.1 FL (80.0-100.0); MEAN CORPUSCULAR HGB CONC 33.6 % (32.0-36.0); MEAN PLATELET VOLUME 8.5 FL (7.0-11.0); PLATELET COUNT 307 TH/MM3 (150-450); RED BLOOD COUNT 2.33 MIL/MM3 (4.50-5.90); RED CELL DISTRIBUTION WIDTH 15.2 % (11.6-17.2); WHITE BLOOD COUNT 12.2 TH/MM3 (4.0-11.0)
[2017-12-17 12:48] LABS: BICARBONATE 25.5 MEQ/L (21.0-32.0); CALCIUM 9.4 MG/DL (8.5-10.1); CREATININE 1.13 MG/DL (0.60-1.30)
[2017-12-17 16:00] VITALS: BP 146/66; PULSE 55; RESP 18; TEMP 97.7; O2SAT 100
--- NOTE | 2017-12-17 17:29 | PD.POD ---
Subjective Pain score: 7 Remarks Pain remains, he must keep his foot dependent position to help the pain off the edge of the bed Past Med/Surg/Social History Past Medical History Endocrine: REPORTS HX OF: Diabetes mellitus Cardiovascular: REPORTS HX OF: Peripheral vascular dz Infectious disease: REPORTS HX OF: HIV Neurologic: REPORTS HX OF: Peripheral neuropathy Past Surgical History Musculoskeletal: REPORTS HX OF: Other musculoskeletal srg (Left knee- Hung placement) Social History Smoking Status: Current Every Day Smoker Objective Vital Signs Vital Signs Date Time Temp Pulse Resp B/P (MAP) Pulse Ox O2 Delivery O2 Flow Rate FiO2 12/17/17 16:00 97.7 55 18 146/66 (92) 100 12/17/17 12:00 97.3 58 16 140/68 (92) 97 12/17/17 07:56 97.7 54 18 190/78 (115) 100 12/17/17 00:00 98.7 59 16 157/72 (100) 98 12/16/17 20:00 98.6 68 16 123/61 (81) 99 12/16/17 18:22 97 21 Coded Allergies: morphine (Unverified Adverse Reaction, Intermediate, Itching, 06/09/17) *MDRO Multi-Drug Resistant Organism (Verified Adverse Reaction, Unknown, Cleared, 05/05/17) MRSA (blood & scrotal abscess) - 04/2015; (Leg) - 06/2016, 07/27/16 MRSA PCR Screens NEGATIVE - 12/19/16 & 12/22/16 CLEARED PER INFECTION CONTROL PROTOCOL Medications and IVs Administered Medications Medications (Trade) Dose Ordered Sig/Robles Route PRN Reason Start Time Stop Time Status Last Admin Dose Admin Amlodipine Besylate (Norvasc) 5 mg DAILY PO 12/11/17 19:30 Future hold 12/17/17 09:48 Atenolol (Tenormin) 50 mg DAILY PO 12/11/17 19:30 Future hold 12/17/17 09:48 Sodium Chloride (NS Flush) 2 ml BID IV FLUSH 12/11/17 21:00 12/16/17 08:38 Sodium Chloride 1,000 ml @ 100 mls/hr Q10H IV 12/11/17 19:00 12/17/17 05:00 Oxycodone HCl (Roxicodone) 10 mg Q4H PRN PO PAIN SCALE 6 TO 10 12/11/17 18:15 12/17/17 13:37 Oxycodone HCl (Roxicodone) 5 mg Q4H PRN PO PAIN SCALE 1 TO 5 12/11/17 18:15 12/13/17 12:42 Lactobacillus Acidophilus (Lactinex Pkt) 1 gm DAILY PO 12/11/17 19:15 12/17/17 09:50 Senna/Docusate Sodium (Tori-Colace) 1 tab BID PO 12/14/17 21:00 12/16/17 08:38 Ritonavir (Norvir) 100 mg DAILY PO 12/14/17 21:00 12/17/17 09:48 Darunavir (Prezista) 800 mg DAILY PO 12/14/17 21:00 12/17/17 09:48 Etravirine (Intelence) 200 mg BIDPC PO 12/14/17 18:00 12/17/17 09:48 Vancomycin HCl 1500 mg/Sodium Chloride 515 ml @ 250 mls/hr Q18H IV 12/16/17 14:00 12/17/17 09:06 Clopidogrel Bisulfate (Plavix) 75 mg DAILY PO 12/16/17 11:30 12/17/17 09:49 Piperacillin Sod/ Tazobactam Sod 50 ml @ 100 mls/hr Q6H IV 12/16/17 20:00 12/17/17 13:37 Other Results Laboratory Tests Test 12/16/17 12:05 12/17/17 10:55 White Blood Count 13.8 TH/MM3 12.2 TH/MM3 Red Blood Count 2.51 MIL/MM3 2.33 MIL/MM3 Hemoglobin 7.9 GM/DL 7.5 GM/DL Hematocrit 23.9 % 22.2 % Mean Corpuscular Volume 95.0 FL 95.1 FL Mean Corpuscular Hemoglobin 31.6 PG 32.0 PG Mean Corpuscular Hemoglobin Concent 33.3 % 33.6 % Red Cell Distribution Width 15.0 % 15.2 % Platelet Count 310 TH/MM3 307 TH/MM3 Mean Platelet Volume 8.3 FL 8.5 FL Neutrophils (%) (Auto) 89.5 % Lymphocytes (%) (Auto) 6.3 % Monocytes (%) (Auto) 4.1 % Eosinophils (%) (Auto) 0.0 % Basophils (%) (Auto) 0.1 % Neutrophils # (Auto) 12.3 TH/MM3 Lymphocytes # (Auto) 0.9 TH/MM3 Monocytes # (Auto) 0.6 TH/MM3 Eosinophils # (Auto) 0.0 TH/MM3 Basophils # (Auto) 0.0 TH/MM3 CBC Comment DIFF FINAL Differential Comment Laboratory Tests Test 12/16/17 12:05 12/17/17 10:55 Blood Urea Nitrogen 16 MG/DL 15 MG/DL Creatinine 1.08 MG/DL 1.13 MG/DL Random Glucose 160 MG/DL 102 MG/DL Calcium Level 9.9 MG/DL 9.4 MG/DL Sodium Level 143 MEQ/L 141 MEQ/L Potassium Level 3.9 MEQ/L 3.9 MEQ/L Chloride Level 110 MEQ/L 109 MEQ/L Carbon Dioxide Level 24.4 MEQ/L 25.5 MEQ/L Anion Gap 9 MEQ/L 7 MEQ/L Estimat Glomerular Filtration Rate 84 ML/MIN 79 ML/MIN Microbiology Date/Time Source Procedure Growth Status 12/15/17 14:45 Wound Foot Fungal Smear - Final NO FUNGAL ELEMENTS SEEN. Resulted 12/15/17 14:45 Wound Foot Fungal Culture Pending Resulted 12/15/17 14:45 Wound Foot Acid Fast Stain - Final NO ACID FAST BACILLI SEEN Resulted 12/15/17 14:45 Wound Foot Mycobacterial Culture Pending Resulted 12/15/17 14:45 Wound Foot Gram Stain - Final Resulted 12/15/17 14:45 Wound Foot Wound Culture - Preliminary Resulted Exam-Podiatry Remarks Left lower extremity- nonpalpable dorsalis pedis and posterior tibial pulses. Capillary refill time is less than 3 seconds with the exception of the left great toe which has no capillary fill time. The skin is very dry and cracked on both feet. Gross sensation appears to be intact but diminished. Incision edges were coapted of the first ray amputation site with packing intact Mild serosanguineous type drainage the foot ankle and leg are slightly cool. Second digit has a full-thickness ulcer the medial aspect no obvious bone exposed. Assessment & Plan A/P Left hallux wet gangrene, cellulitis, likely deep infection septic joint first MPJ, second digit ulcer Postop day 2 first ray amputation digit ulcer debridement I'm concerned that the foot is not healing however there is no increased next ischemia continue to follow the progress hoping at a later date that may be blood flow can be increased. I reviewed my concerns with the patient continue antibiotics will follow-up within 2-3 days. Micah Pritchett DPM Dec 17, 2017 17:29
[2017-12-17 17:34] VITALS: O2SAT 99
[2017-12-17 20:00] VITALS: BP 146/67; PULSE 63; RESP 20; TEMP 96.6; O2SAT 97
[2017-12-18] VITALS (8 sets, daily range): BP systolic 143–169; BP diastolic 70–78; PULSE 59–81; RESP 18–20; TEMP 96.3–97.5; O2SAT 95–99
[2017-12-18] MEDS ORDERED: PHARMACY ORDERED LAB ONE (01:45)
[2017-12-18] MEDS: SODIUM CHLOR 0.9% 1000 ML INJ 1,000 ML IV SCH ×3 (02:40→19:21)
[2017-12-18] MEDS: PIPERACIL-TAZO 3.375 GM PREMIX 50 ML IV SCH ×4 (03:08→19:21)
[2017-12-18] MEDS: VANCOMYCIN INJ 1,500 MG in SODIUM CHLORID 0.9% 500 ML INJ 500 ML IV SCH ×2 (04:52→20:28)
[2017-12-18] MEDS: CLOPIDOGREL 75 MG TAB PO SCH (09:00)
[2017-12-18] MEDS: DOCUSATE SODIUM 50 MG/SENNA 8.6 MG TAB PO SCH ×2 (09:00→19:22)
[2017-12-18] MEDS: SODIUM CHLORIDE 0.9% FLUSH 10 ML FLUSH IV FLUSH SCH ×2 (09:00→19:22)
--- NOTE | 2017-12-18 09:26 | HHI.FPPN ---
Subjective Remarks Patient seen and examined at bedside this morning. No acute events overnight. He is postop day 3 from a left hallux amputation with partial first metatarsal resection. Patient states the Left foot pain is well-controlled. No other complaints. Denies chest pain, shortness of breath, abdominal pain, nausea, vomiting, fever or chills Objective Vitals Vital Signs Date Time Temp Pulse Resp B/P (MAP) Pulse Ox O2 Delivery O2 Flow Rate FiO2 12/18/17 04:00 97.2 59 20 169/78 (108) 99 12/18/17 00:00 96.6 61 20 148/72 (97) 96 12/17/17 20:00 96.6 63 20 146/67 (93) 97 12/17/17 17:34 99 21 12/17/17 16:00 97.7 55 18 146/66 (92) 100 12/17/17 12:00 97.3 58 16 140/68 (92) 97 I/O 12/17/17 12/17/17 12/17/17 12/18/17 12/18/17 12/18/17 07:00 15:00 23:00 07:00 15:00 23:00 Intake Total 1170 ml 565 ml 50 ml 410 ml Output Total 625 ml Balance 1170 ml 565 ml 50 ml -215 ml Intake Oral 120 ml 360 ml IV Total 1050 ml 565 ml 50 ml 50 ml Output Urine Total 625 ml # Voids 5 # Bowel Movements 1 2 Result Diagram: 12/17/17 1055 12/17/17 1055 Objective Remarks GENERAL: This is a well-nourished, well-developed patient sitting on edge of bed in no acute distress. Speaking in full sentences SKIN: No rashes, or ecchymoses. Cool and dry. CARDIOVASCULAR: Normal S1 and S2. No murmurs, gallops, or rubs. RESPIRATORY: Clear to auscultation. Breath sounds equal bilaterally. No wheezes , rales, or rhonchi. GASTROINTESTINAL: Abdomen soft, non-tender, nondistended. No hepato-splenomegaly , or palpable masses. No guarding. MUSCULOSKELETAL: Left foot bandaged currently unable to remove bandage per podiatry recommendations. Will be removed 1-2 days by the real estate specialist NEUROLOGICAL: Awake and alert. Motor and sensory grossly within normal limits. Normal speech. Procedures 12/15/17: Left hallux amputation with partial first metatarsal resection A/P Assessment and Plan 62-year-old male with history of HIV, PAD, COPD, HTN presenting with wound on left great toe concerning for gangrene, osteomyelitis. Vascular surgery, infectious disease, podiatry consulted. Starting on empiric antibiotic therapy vancomycin, clindamycin, Zosyn. Status post left hallux amputation with partial first metatarsal resection. Discharge Planning Pending further medical workup Problem List: (1) Gangrenous toe ICD Codes: I96 - Gangrene, not elsewhere classified Plan: Status post left hallux amputation with partial first metatarsal resection, POD #3 Continue IV vancomycin, Zosyn Podiatry consulted Vascular consulted -If toe amputation does not heal will likely need AKA - Possible CTA procedure to be done in the next few days as creatinine is improving in order to determine degree of small vessel disease on the left foot. ID recommendations -Continue broad-spectrum antibiotics -Blood cultures NGTD Wound cultures: Heavy growth of normal skin yumiko consisting of Corynebacterium species no further workup per lab, no aerobes isolated, Gram stain: no organism or WBC seen wound AFS: No acid-fast bacilli seen Bone pathology: TISSUE: 1. BONE MARGIN AND FIRST METATARSAL: Negative for acute osteomyelitis 2. LEFT BIG TOE, FIRST METATARSAL AND ACCESSARY BONE: - ULCERATION AND EXTENSIVE ACUTE OSTEOMYELITIS OF UNDERLYING BONE. - TWO SEPARATE SEGMENTS OF BONE WHICH ARE NEGATIVE FOR ACUTE OSTEOMYELITIS. Pain scale as follows: Roxicodone on 5 mg pain scale 1-5 Roxicodone 10 mg pain scale 6-10 Morphine 4 mg IV every 3 hours for breakthrough (2) BECKA (acute kidney injury) ICD Codes: N17.9 - Acute kidney failure, unspecified Plan: Currently 1.33, trending down Renal ultrasound showing no acute findings Urine culture negative Nephrology consult-appreciate recs -appears to be prerenal, continue to monitor IV fluids at 100 mL per hour normal saline -hold diuretics -replace K, -monitor vanc level (3) Peripheral arterial disease ICD Codes: I73.9 - Peripheral vascular disease, unspecified Status: Chronic Plan: Patient with a known history of PAD, previously seen by Dr. Ramos Status post revascularization of the left leg in December 2016 Consulted vascular surgery, appreciate rec podiatry consulted, appreciate rec Continue Plavix Continue Atorvastatin (4) HIV disease ICD Codes: B20 - Human immunodeficiency virus (HIV) disease Status: Chronic Plan: Patient with a known history of HIV for over 20 years h/o not being consistent with HAART per ID, States he has been taking the sporadically lately due to forgetfulness Lymphocyte profile pending, most recent recorded CD4 count in December 2016 was in the 800s ID consulted, appreciate recommendations -HAART restarted -Absolute CD4 count: 252 -Absolute CD3 count: 623 (5) COPD (chronic obstructive pulmonary disease) ICD Codes: J44.9 - Chronic obstructive pulmonary disease, unspecified Plan: Patient with a history of COPD Occasionally takes DuoNeb nebulizers for shortness of breath/wheezing DuoNeb nebs as needed (6) HTN (hypertension) ICD Codes: I10 - Essential (primary) hypertension Plan: Patient with a known history of hypertension Patient with slightly elevated blood pressures, 169/78 this morning, BP range: 140-190/ 66-78, heart rate: 50s-60s Continue atenolol 50 mg Continue Norvasc increased today from 5 mg to 10 mg QD Clonidine per protocol (7) FEN Plan: Normal saline 100 mL per hour Replete electrolytes as needed Diet: Heart healthy diet DVT ppx: SCDs; restarted Plavix Problem Qualifiers (1) HTN (hypertension): Qualified Codes: I10 - Essential (primary) hypertension Adalberto Jay MD, R1 Dec 18, 2017 09:26
[2017-12-18] MEDS: DOLUTEGRAVIR SODIUM 50 MG TAB PO SCH ×2 (09:48→19:21)
[2017-12-18] MEDS: DARUNAVIR 800 MG TAB PO SCH (09:48)
[2017-12-18] MEDS: ATENOLOL 50 MG TAB PO SCH (09:48)
[2017-12-18] MEDS: RITONAVIR 100 MG TAB PO SCH (09:48)
[2017-12-18] MEDS: ETRAVIRINE 100 MG TAB PO SCH ×2 (09:49→17:44)
[2017-12-18] MEDS: LACTOBACILLUS ACIDOPHILUS 1 GM PACKET PO SCH (09:58)
[2017-12-18 11:19] LABS: AUTOMATED NEUTROPHIL # 7.9 TH/MM3 (1.8-7.7); BASOPHIL # 0.1 TH/MM3 (0-0.2); BASOPHIL % 0.5 % (0.0-2.0); EOSINOPHIL # 0.3 TH/MM3 (0-0.4); EOSINOPHIL % 2.3 % (0.0-4.0); HEMATOCRIT 28.4 % (39.0-51.0); HEMOGLOBIN 9.5 GM/DL (13.0-17.0); LYMPH % 25.4 % (9.0-44.0); LYMPHOCYTE # 3.1 TH/MM3 (1.0-4.8); MEAN CELL VOLUME 96.2 FL (80.0-100.0); MEAN CORPUSCULAR HEMOGLOBIN 32.3 PG (27.0-34.0); MEAN CORPUSCULAR HGB CONC 33.6 % (32.0-36.0); MEAN PLATELET VOLUME 8.4 FL (7.0-11.0); MONO % 7.7 % (0.0-8.0); MONOCYTE # 0.9 TH/MM3 (0-0.9); NEUT % 64.1 % (16.0-70.0); PLATELET COUNT 361 TH/MM3 (150-450); RED BLOOD COUNT 2.95 MIL/MM3 (4.50-5.90); WHITE BLOOD COUNT 12.3 TH/MM3 (4.0-11.0)
[2017-12-18 12:01] LABS: ALBUMIN 3.4 GM/DL (3.4-5.0); ALT (GPT) 52 U/L (12-78); AST (GOT) 58 U/L (15-37); BLOOD UREA NITROGEN 14 MG/DL (7-18); CALCIUM 9.8 MG/DL (8.5-10.1); CHLORIDE 109 MEQ/L (98-107); CREATININE 1.03 MG/DL (0.60-1.30); GLOMERULAR FILTRATION RATE 88 ML/MIN (>89); GLUCOSE,RANDOM 84 MG/DL (74-106); SODIUM (NA) 140 MEQ/L (136-145)
[2017-12-18 12:04] LABS: ALKALINE PHOSPHATASE 77 U/L (45-117); TOTAL BILIRUBIN ADULT 0.2 MG/DL (0.2-1.0); TOTAL PROTEIN 7.5 GM/DL (6.4-8.2)
--- NOTE | 2017-12-18 22:34 | HHI.IDPN ---
Subjective Subjective Remarks No fever sp L hallux amputation Antibiotics zosyn vancomycin Allergies: Coded Allergies: morphine (Unverified Adverse Reaction, Intermediate, Itching, 06/09/17) *MDRO Multi-Drug Resistant Organism (Verified Adverse Reaction, Unknown, Cleared, 05/05/17) MRSA (blood & scrotal abscess) - 04/2015; (Leg) - 06/2016, 07/27/16 MRSA PCR Screens NEGATIVE - 12/19/16 & 12/22/16 CLEARED PER INFECTION CONTROL PROTOCOL Objective . Vital Signs Date Time Temp Pulse Resp B/P (MAP) Pulse Ox O2 Delivery O2 Flow Rate FiO2 12/18/17 20:00 96.3 60 20 152/70 (97) 95 12/18/17 18:13 97 21 12/18/17 16:00 97.5 76 18 165/76 (105) 97 12/18/17 12:00 96.3 63 18 163/77 (105) 97 12/18/17 12:00 18 12/18/17 10:10 99 12/18/17 08:00 97.1 81 18 143/74 (97) 97 12/18/17 04:00 97.2 59 20 169/78 (108) 99 12/18/17 00:00 96.6 61 20 148/72 (97) 96 12/18/17 12/18/17 12/19/17 15:00 23:00 07:00 Intake Total 1100 ml 820 ml Output Total 550 ml Balance 1100 ml 270 ml Intake Oral 820 ml IV Total 1100 ml Output Urine Total 550 ml # Bowel Movements 2 . Laboratory Tests Test 12/17/17 10:55 12/18/17 10:29 White Blood Count 12.2 TH/MM3 12.3 TH/MM3 Red Blood Count 2.33 MIL/MM3 2.95 MIL/MM3 Hemoglobin 7.5 GM/DL 9.5 GM/DL Hematocrit 22.2 % 28.4 % Mean Corpuscular Volume 95.1 FL 96.2 FL Mean Corpuscular Hemoglobin 32.0 PG 32.3 PG Mean Corpuscular Hemoglobin Concent 33.6 % 33.6 % Red Cell Distribution Width 15.2 % 15.0 % Platelet Count 307 TH/MM3 361 TH/MM3 Mean Platelet Volume 8.5 FL 8.4 FL Neutrophils (%) (Auto) 64.1 % Lymphocytes (%) (Auto) 25.4 % Monocytes (%) (Auto) 7.7 % Eosinophils (%) (Auto) 2.3 % Basophils (%) (Auto) 0.5 % Neutrophils # (Auto) 7.9 TH/MM3 Lymphocytes # (Auto) 3.1 TH/MM3 Monocytes # (Auto) 0.9 TH/MM3 Eosinophils # (Auto) 0.3 TH/MM3 Basophils # (Auto) 0.1 TH/MM3 CBC Comment DIFF FINAL Differential Comment Laboratory Tests Test 12/17/17 10:55 12/18/17 10:29 Blood Urea Nitrogen 15 MG/DL 14 MG/DL Creatinine 1.13 MG/DL 1.03 MG/DL Random Glucose 102 MG/DL 84 MG/DL Calcium Level 9.4 MG/DL 9.8 MG/DL Sodium Level 141 MEQ/L 140 MEQ/L Potassium Level 3.9 MEQ/L 3.7 MEQ/L Chloride Level 109 MEQ/L 109 MEQ/L Carbon Dioxide Level 25.5 MEQ/L 24.0 MEQ/L Anion Gap 7 MEQ/L 7 MEQ/L Estimat Glomerular Filtration Rate 79 ML/MIN 88 ML/MIN Total Protein 7.5 GM/DL Albumin 3.4 GM/DL Alkaline Phosphatase 77 U/L Aspartate Amino Transf (AST/SGOT) 58 U/L Alanine Aminotransferase (ALT/SGPT) 52 U/L Total Bilirubin 0.2 MG/DL Imaging Last Impressions Renal Ultrasound 12/11/17 0000 Signed Impressions: Service Date/Time: Monday, December 11, 2017 18:19 - CONCLUSION: 1. No acute findings. Nonobstructing calculus upper pole right kidney. Small cyst upper pole left kidney. Bladder unremarkable. Jeremias Rossi MD Foot X-Ray 12/11/17 0000 Signed Impressions: Service Date/Time: Monday, December 11, 2017 15:38 - CONCLUSION: Findings as above, no fracture. No bony destruction. Toan Anderson MD FACR Physical Exam CONSTITUTIONAL/GENERAL: This is an adequately nourished patient, in no apparent distress. TUBES/LINES/DRAINS: RESPIRATORY/CHEST: breathing uinalboured MUSCULOSKELETAL: L foot dresing in place. NEUROLOGICAL: Awake and alert. Motor and sensory grossly within normal limits. Follows commands. Clear speech. NOt confused Moves all extremities. PSYCHIATRIC: No obvious anxiety/depression. no apparent hallucinations or other psychotic thought process. Assessment & Plan Remarks Assessment and Plan Assessment and Plan HIV dz, non comlliance PVD Wet gangrene L foot: mixed enteric yumiko path + for osteo op clx cw skin yumiko contam Decreased renal fnx - agree with plan for amputation revasc HAART is not indicated to be restarted in-pt if non compliant prior to admission CD4 252 VL + cont zosyn dc vancomycin cont HAART - pt apparently takes HAART according to him Shikha Israel MD Dec 18, 2017 22:34
[2017-12-19] VITALS: BP 156/66; PULSE 55; RESP 20; TEMP 97.2; O2SAT 99
[2017-12-19] MEDS: PIPERACIL-TAZO 3.375 GM PREMIX 50 ML IV SCH ×4 (02:33→20:13)
[2017-12-19] MEDS: SODIUM CHLOR 0.9% 1000 ML INJ 1,000 ML IV SCH ×3 (02:34→20:19)
[2017-12-19 08:00] VITALS: BP 178/77; PULSE 58; RESP 18; TEMP 97.3; O2SAT 97
[2017-12-19] MEDS: DOLUTEGRAVIR SODIUM 50 MG TAB PO SCH ×2 (08:32→20:13)
[2017-12-19] MEDS: RITONAVIR 100 MG TAB PO SCH (08:33)
[2017-12-19] MEDS: ATENOLOL 50 MG TAB PO SCH (08:33)
[2017-12-19] MEDS: ETRAVIRINE 100 MG TAB PO SCH ×2 (08:34→18:28)
[2017-12-19] MEDS: DARUNAVIR 800 MG TAB PO SCH (08:35)
[2017-12-19] MEDS: DOCUSATE SODIUM 50 MG/SENNA 8.6 MG TAB PO SCH ×2 (08:35→20:13)
[2017-12-19] MEDS: LACTOBACILLUS ACIDOPHILUS 1 GM PACKET PO SCH (08:35)
[2017-12-19] MEDS: CLOPIDOGREL 75 MG TAB PO SCH (08:35)
[2017-12-19] MEDS: SODIUM CHLORIDE 0.9% FLUSH 10 ML FLUSH IV FLUSH SCH ×2 (08:36→20:13)
--- NOTE | 2017-12-19 09:46 | HHI.FPPN ---
Subjective Remarks Pt seen and examined this morning. No acute events overnight. States his pain is controlled this morning. PT worked with him yesterday, he states that he already had home health prior to coming in to the hospital and that they can be set up again after he leaves. Denies any fever/chills, chest pain, SOB, abdominal pain. Objective Vitals Vital Signs Date Time Temp Pulse Resp B/P (MAP) Pulse Ox O2 Delivery O2 Flow Rate FiO2 12/19/17 08:00 97.3 58 18 178/77 (110) 97 12/19/17 05:10 20 12/19/17 00:00 97.2 55 20 156/66 (96) 99 12/18/17 20:00 96.3 60 20 152/70 (97) 95 12/18/17 18:13 97 21 12/18/17 16:00 97.5 76 18 165/76 (105) 97 12/18/17 12:00 96.3 63 18 163/77 (105) 97 12/18/17 10:10 99 I/O 12/18/17 12/18/17 12/18/17 12/19/17 12/19/17 12/19/17 07:00 15:00 23:00 07:00 15:00 23:00 Intake Total 410 ml 1100 ml 1385 ml 1410 ml Output Total 625 ml 550 ml 900 ml Balance -215 ml 1100 ml 835 ml 510 ml Intake Oral 360 ml 820 ml 360 ml IV Total 50 ml 1100 ml 565 ml 1050 ml Output Urine Total 625 ml 550 ml 900 ml # Bowel Movements 2 2 1 Result Diagram: 12/18/17 1029 12/18/17 1029 Objective Remarks GENERAL: This is a well-nourished, well-developed patient sitting on edge of bed in no acute distress. Speaking in full sentences SKIN: No rashes, or ecchymoses. Cool and dry. CARDIOVASCULAR: Normal S1 and S2. No murmurs, gallops, or rubs. RESPIRATORY: Clear to auscultation. Breath sounds equal bilaterally. No wheezes , rales, or rhonchi. GASTROINTESTINAL: Abdomen soft, non-tender, nondistended. No hepato-splenomegaly , or palpable masses. No guarding. MUSCULOSKELETAL: Left foot bandaged, not examined today. Will be removed 1-2 days by the home insurance agent NEUROLOGICAL: Awake and alert. Motor and sensory grossly within normal limits. Normal speech. Procedures 12/15/17: Left hallux amputation with partial first metatarsal resection A/P Assessment and Plan 62-year-old male with history of HIV, PAD, COPD, HTN presenting with wound on left great toe concerning for gangrene, osteomyelitis. Vascular surgery, infectious disease, podiatry consulted. Starting on empiric antibiotic therapy vancomycin, clindamycin, Zosyn. Status post left hallux amputation with partial first metatarsal resection. Discharge Planning Pending further medical workup Problem List: (1) Gangrenous toe ICD Codes: I96 - Gangrene, not elsewhere classified Plan: Status post left hallux amputation with partial first metatarsal resection, POD #4 Podiatry consulted Vascular consulted -If toe amputation does not heal will likely need AKA - Possible CTA procedure to be done in the next few days as creatinine is improving in order to determine degree of small vessel disease on the left foot. ID recommendations -Continue Zosyn -Stop Vancomycin -Blood cultures NGTD Wound cultures: Heavy growth of normal skin yumiko consisting of Corynebacterium species no further workup per lab, no aerobes isolated, Gram stain: no organism or WBC seen wound AFS: No acid-fast bacilli seen Bone pathology: TISSUE: 1. BONE MARGIN AND FIRST METATARSAL: Negative for acute osteomyelitis 2. LEFT BIG TOE, FIRST METATARSAL AND ACCESSARY BONE: - ULCERATION AND EXTENSIVE ACUTE OSTEOMYELITIS OF UNDERLYING BONE. - TWO SEPARATE SEGMENTS OF BONE WHICH ARE NEGATIVE FOR ACUTE OSTEOMYELITIS. Pain scale as follows: Roxicodone on 5 mg pain scale 1-5 Roxicodone 10 mg pain scale 6-10 Morphine 4 mg IV every 3 hours for breakthrough (2) BECKA (acute kidney injury) ICD Codes: N17.9 - Acute kidney failure, unspecified Plan: Currently 1.33, trending down Renal ultrasound showing no acute findings Urine culture negative Nephrology consult-appreciate recs -appears to be prerenal, continue to monitor IV fluids at 100 mL per hour normal saline -hold diuretics -replace K, -monitor vanc level (3) Peripheral arterial disease ICD Codes: I73.9 - Peripheral vascular disease, unspecified Status: Chronic Plan: Patient with a known history of PAD, previously seen by Dr. Ramos Status post revascularization of the left leg in December 2016 Consulted vascular surgery, appreciate rec Podiatry consulted, appreciate rec Continue Plavix Continue Atorvastatin See plan above (4) HIV disease ICD Codes: B20 - Human immunodeficiency virus (HIV) disease Status: Chronic Plan: Patient with a known history of HIV for over 20 years h/o not being consistent with HAART per ID, States he has been taking the sporadically lately due to forgetfulness Lymphocyte profile pending, most recent recorded CD4 count in December 2016 was in the 800s ID consulted, appreciate recommendations -HAART restarted -Absolute CD4 count: 252 -Absolute CD3 count: 623 (5) COPD (chronic obstructive pulmonary disease) ICD Codes: J44.9 - Chronic obstructive pulmonary disease, unspecified Plan: Patient with a history of COPD Occasionally takes DuoNeb nebulizers for shortness of breath/wheezing DuoNeb nebs as needed (6) HTN (hypertension) ICD Codes: I10 - Essential (primary) hypertension Plan: Patient with a known history of hypertension Patient with slightly elevated blood pressures, Continue atenolol 50 mg Continue [id number] mg QD Add lisinopril 10mg daily Clonidine per protocol (7) FEN Plan: Normal saline 100 mL per hour Replete electrolytes as needed Diet: Heart healthy diet DVT ppx: SCDs, Heparin Problem Qualifiers (1) HTN (hypertension): Qualified Codes: I10 - Essential (primary) hypertension Pasha Lake MD Dec 19, 2017 09:46
[2017-12-19] MEDS: HEPARIN SODIUM - SQ 10,000 UNITS/ML VIAL SQ SCH ×2 (10:00→20:13)
[2017-12-19] MEDS: LISINOPRIL 10 MG TAB PO SCH (10:00)
--- NOTE | 2017-12-19 10:59 | PD.POD ---
Subjective Pain score: 7 Remarks Pain remains, he must keep his foot dependent position to help the pain off the edge of the bed Past Med/Surg/Social History Past Medical History Endocrine: REPORTS HX OF: Diabetes mellitus Cardiovascular: REPORTS HX OF: Peripheral vascular dz Infectious disease: REPORTS HX OF: HIV Neurologic: REPORTS HX OF: Peripheral neuropathy Past Surgical History Musculoskeletal: REPORTS HX OF: Other musculoskeletal srg (Left knee- Hung placement) Social History Smoking Status: Current Every Day Smoker Objective Vital Signs Vital Signs Date Time Temp Pulse Resp B/P (MAP) Pulse Ox O2 Delivery O2 Flow Rate FiO2 12/19/17 08:00 97.3 58 18 178/77 (110) 97 12/19/17 05:10 20 12/19/17 00:00 97.2 55 20 156/66 (96) 99 12/18/17 20:00 96.3 60 20 152/70 (97) 95 12/18/17 18:13 97 21 12/18/17 16:00 97.5 76 18 165/76 (105) 97 12/18/17 12:00 96.3 63 18 163/77 (105) 97 Coded Allergies: morphine (Unverified Adverse Reaction, Intermediate, Itching, 06/09/17) *MDRO Multi-Drug Resistant Organism (Verified Adverse Reaction, Unknown, Cleared, 05/05/17) MRSA (blood & scrotal abscess) - 04/2015; (Leg) - 06/2016, 07/27/16 MRSA PCR Screens NEGATIVE - 12/19/16 & 12/22/16 CLEARED PER INFECTION CONTROL PROTOCOL Medications and IVs Administered Medications Medications (Trade) Dose Ordered Sig/Robles Route PRN Reason Start Time Stop Time Status Last Admin Dose Admin Atenolol (Tenormin) 50 mg DAILY PO 12/11/17 19:30 Future hold 12/19/17 08:33 Sodium Chloride (NS Flush) 2 ml BID IV FLUSH 12/11/17 21:00 12/17/17 21:42 Sodium Chloride 1,000 ml @ 100 mls/hr Q10H IV 12/11/17 19:00 12/19/17 02:34 Oxycodone HCl (Roxicodone) 10 mg Q4H PRN PO PAIN SCALE 6 TO 10 12/11/17 18:15 12/19/17 08:34 Oxycodone HCl (Roxicodone) 5 mg Q4H PRN PO PAIN SCALE 1 TO 5 12/11/17 18:15 12/13/17 12:42 Lactobacillus Acidophilus (Lactinex Pkt) 1 gm DAILY PO 12/11/17 19:15 12/19/17 08:35 Senna/Docusate Sodium (Tori-Colace) 1 tab BID PO 12/14/17 21:00 12/16/17 08:38 Ritonavir (Norvir) 100 mg DAILY PO 12/14/17 21:00 12/19/17 08:33 Darunavir (Prezista) 800 mg DAILY PO 12/14/17 21:00 12/19/17 08:35 Etravirine (Intelence) 200 mg BIDPC PO 12/14/17 18:00 12/19/17 08:34 Clopidogrel Bisulfate (Plavix) 75 mg DAILY PO 12/16/17 11:30 12/17/17 09:49 Piperacillin Sod/ Tazobactam Sod 50 ml @ 100 mls/hr Q6H IV 12/16/17 20:00 12/19/17 08:31 Amlodipine Besylate (Norvasc) 10 mg DAILY PO 12/18/17 09:00 12/19/17 08:33 Other Results Laboratory Tests Test 12/18/17 10:29 White Blood Count 12.3 TH/MM3 Red Blood Count 2.95 MIL/MM3 Hemoglobin 9.5 GM/DL Hematocrit 28.4 % Mean Corpuscular Volume 96.2 FL Mean Corpuscular Hemoglobin 32.3 PG Mean Corpuscular Hemoglobin Concent 33.6 % Red Cell Distribution Width 15.0 % Platelet Count 361 TH/MM3 Mean Platelet Volume 8.4 FL Neutrophils (%) (Auto) 64.1 % Lymphocytes (%) (Auto) 25.4 % Monocytes (%) (Auto) 7.7 % Eosinophils (%) (Auto) 2.3 % Basophils (%) (Auto) 0.5 % Neutrophils # (Auto) 7.9 TH/MM3 Lymphocytes # (Auto) 3.1 TH/MM3 Monocytes # (Auto) 0.9 TH/MM3 Eosinophils # (Auto) 0.3 TH/MM3 Basophils # (Auto) 0.1 TH/MM3 CBC Comment DIFF FINAL Differential Comment Laboratory Tests Test 12/18/17 10:29 Blood Urea Nitrogen 14 MG/DL Creatinine 1.03 MG/DL Random Glucose 84 MG/DL Total Protein 7.5 GM/DL Albumin 3.4 GM/DL Calcium Level 9.8 MG/DL Alkaline Phosphatase 77 U/L Aspartate Amino Transf (AST/SGOT) 58 U/L Alanine Aminotransferase (ALT/SGPT) 52 U/L Total Bilirubin 0.2 MG/DL Sodium Level 140 MEQ/L Potassium Level 3.7 MEQ/L Chloride Level 109 MEQ/L Carbon Dioxide Level 24.0 MEQ/L Anion Gap 7 MEQ/L Estimat Glomerular Filtration Rate 88 ML/MIN [facility] DEPARTMENT OF PATHOLOGY [address], [address] [address], [place] [address] [email or web address] PATHOLOGY REPORT Patient: WAGNER ARTHUR Specimen #: [id number] Page 2 of 2 [facility] DEPARTMENT OF PATHOLOGY [address], [address] [address], [place] [address] [email or web address] PATHOLOGY REPORT Page 1 of 1 CLINICAL HISTORY: Left hallux wet gangrene, infection. TISSUE: 1. BONE MARGIN AND FIRST METATARSAL 2. LEFT BIG TOE, FIRST METATARSAL AND ACCESSARY BONE GROSS DESCRIPTION: #1- 0.3 x 0.2 x 0.1 cm hard gandara fragment of bone. TE 1 after decalcification. #2- 5.5 cm in length and up to 2.5 cm in diameter distal portion of a digit with an exposed 1.8 x 1.5 x 1.5 cm segment of bone at the proximal end. The soft tissue at the proximal end is soft gandara yellow. The skin is pale gandara pink with a 3.0 x 2.0 cm brown black ulcerated area which extends to 0.1 cm from the proximal end. The proximal end is marked with black ink. There is a separate 2.0 x 1.5 x 1.0 cm aggregate of firm gandara pink tissue fragments and two separate portions of bone 1.0 x 0.8 x 0.6 cm with an attached 1.5 x 0.8 x 0.5 cm firm gandara pink portion of tissue and 4.0 x 2.5 x 2.0 cm. The larger separate portion of bone has a smooth convex articular surface at one end and an opposite end with a smooth cut surface. The smaller separate portion of bone has a concave surface at one end and a concave surface at the opposite end. RSS 7. A- radial sections of skin and soft tissue at the proximal end closest to the ulcerated discolored area of skin, B- radial section from the distal end of the digit including discolored ulcerated skin and underlying bone submitted after decalcification, C- radial section of the proximal bone margin after decalcification, D- separate firm fragments of tissue, E- separate smaller portion of bone after decalcification, F- articulated end of the separate larger portion of bone after decalcification, G- en face section from the separate larger portion of bone from the end with the smooth cut surface after decalcification. DXN/agnes FINAL DIAGNOSIS: #1- BONE, FIRST METATARSAL, MARGIN, BIOPSY: - TRABECULAR BONE. - NEGATIVE FOR ACUTE OSTEOMYELITIS. #2- DIGIT, LEFT HALLUX, AMPUTATION: - ULCERATION AND EXTENSIVE ACUTE OSTEOMYELITIS OF UNDERLYING BONE. - TWO SEPARATE SEGMENTS OF BONE WHICH ARE NEGATIVE FOR ACUTE OSTEOMYELITIS. Physical Exam Remarks Initially upon entering the room the patient was sleeping, his legs were off the edge of the bed. Left lower extremity bandage changed. First ray amputation site sutures intact , incision edges loosely coapted, Packing intact with serous sanguinous type fluid. No obvious ischemic changes however the foot is slightly cool, there is significant nonpitting edema of calf ankle and foot, ulceration of distal medial second digit appears to remain to have a fibrous base Assessment & Plan A/P Left hallux wet gangrene, cellulitis, likely deep infection septic joint first MPJ, second digit ulcer Postop day 4 first ray amputation digit ulcer debridement Foot remains stable however I still remain very concerned of healing progress. Bone margin is negative for osteo-however antibiotics may be best for a minimum of 2-4 weeks until drainage stops. No further plans for surgery at this point will follow-up in the next 2-3 days. Micah Pritchett DPM Dec 19, 2017 10:59
[2017-12-19 12:00] VITALS: BP 139/65; PULSE 54; RESP 18; TEMP 97.9; O2SAT 97
[2017-12-19 16:00] VITALS: BP 128/68; PULSE 56; RESP 18; TEMP 97.8; O2SAT 97
[2017-12-19 20:00] VITALS: BP 169/74; PULSE 69; RESP 20; TEMP 96.3; O2SAT 98
[2017-12-19 21:44] VITALS: O2SAT 97
[2017-12-20] VITALS: BP 136/65; PULSE 53; RESP 20; TEMP 96.7; O2SAT 96
[2017-12-20] MEDS: PIPERACIL-TAZO 3.375 GM PREMIX 50 ML IV SCH ×2 (02:00→08:58)
[2017-12-20 08:00] VITALS: BP 162/79; PULSE 53; RESP 18; TEMP 97.6; O2SAT 99
[2017-12-20] MEDS: ATENOLOL 50 MG TAB PO SCH (08:47)
[2017-12-20] MEDS: ETRAVIRINE 100 MG TAB PO SCH (08:47)
[2017-12-20] MEDS: DOLUTEGRAVIR SODIUM 50 MG TAB PO SCH (08:47)
[2017-12-20] MEDS: DARUNAVIR 800 MG TAB PO SCH (08:47)
[2017-12-20] MEDS: RITONAVIR 100 MG TAB PO SCH (08:47)
[2017-12-20] MEDS: LACTOBACILLUS ACIDOPHILUS 1 GM PACKET PO SCH (08:48)
[2017-12-20] MEDS: SODIUM CHLORIDE 0.9% FLUSH 10 ML FLUSH IV FLUSH SCH (08:48)
[2017-12-20] MEDS: DOCUSATE SODIUM 50 MG/SENNA 8.6 MG TAB PO SCH (08:49)
[2017-12-20] MEDS: HEPARIN SODIUM - SQ 10,000 UNITS/ML VIAL SQ SCH (08:49)
[2017-12-20] MEDS: LISINOPRIL 10 MG TAB PO SCH (08:49)
[2017-12-20] MEDS: CLOPIDOGREL 75 MG TAB PO SCH (08:49)
[2017-12-20 12:00] VITALS: BP 185/74; PULSE 60; RESP 20; TEMP 95.7; O2SAT 99
[2017-12-20] MEDS ORDERED: IBUPROFEN 800 MG TAB PO SCH (12:00)
--- NOTE | 2017-12-20 12:00 | PD.CAR.PN ---
CVT Progress Note Subjective/Hospital Course: Patient known to me Full consult MODESTA Leong 12/14/2017 Discussed the case with Dr. Pritchett. As above noted we will go ahead with amputation of the left greater toe and we will see how that heals. If it looks like it is healing nicely I would not do anything else but if patient's healing is impaired then it is worth probably repeating the CTA with runoff and see if there is anything there that we can fix by a bypass graft. 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 He underwent balloon angioplasty stenting and endarterectomy. At that time he had a very tiny distal popliteal artery may be measuring 3-4 mm in diameter which is clearly known conducive to any grafting and improvement of inflow will sufficient to heal patient's ulcers on the leg and maintain the foot for another year. At this point the risk-benefit ratio is in favor of not doing CTA with runoff considering patient's precarious renal function but if the creatinine comes down then we may be able to do a repeat CTA. In best case scenario there may be a small popliteal artery very distally where we could plug in a cadaveric vein if the foot does not heal after amputation. Unfortunately the way this looks right now patient is at high risk of losing the leg and having below-knee amputation. I have spoken to him at length and he does not plan to stop smoking by the fact that smoking has increased lately There is only so much we can do at this time 12/16/2017 Status post toe amputation Discussed with Dr. Pritchett and apparently there was not much blood there so this is severe small vessel disease in the foot and lower leg Creatinine is slowly coming down so will wait another few days and then do CTA with runoff to see if there is anything to be done to the left leg as far as a possible cadaveric vein bypass I am just afraid that there is no target the area in the face of very tiny popliteal artery on the last CT scan 12/20/2017 Patient's creatinine has stabilized and CTA with runoff has been ordered Patient has poor circulation of the left leg and I am afraid there there is no target vessel for any type of bypass but the believe it is worth exploring with a repeat CTA Unfortunately patient refuses the CTA and any diagnostic procedure and wants to go home I have explained to the patient that he is at the high risk of losing his leg and this may be the last ditch effort to save it, yet patient insists on leaving Based on natural progression of disease this patient will need in all likelihood below-knee, if not above-knee amputation in the near future Objective: Vital Signs Date Time Temp Pulse Resp B/P (MAP) Pulse Ox O2 Delivery O2 Flow Rate FiO2 12/20/17 08:00 97.6 53 18 162/79 (106) 99 12/20/17 00:00 96.7 53 20 136/65 (88) 96 12/19/17 21:44 97 12/19/17 20:00 96.3 69 20 169/74 (105) 98 12/19/17 16:00 97.8 56 18 128/68 (88) 97 12/19/17 12:00 97.9 54 18 139/65 (89) 97 Result Diagram: 12/18/17 1029 12/18/17 1029 Rosita Ramos MD Dec 20, 2017 12:00
--- NOTE | 2017-12-20 12:14 | HHI.FPPN ---
Subjective Remarks Patient seen and examined in this morning at bedside. No acute events overnight. Patient stated pain is well-controlled. Patient will like to go home. No other complaints. Objective Vitals Vital Signs Date Time Temp Pulse Resp B/P (MAP) Pulse Ox O2 Delivery O2 Flow Rate FiO2 12/20/17 08:00 97.6 53 18 162/79 (106) 99 12/20/17 00:00 96.7 53 20 136/65 (88) 96 12/19/17 21:44 97 12/19/17 20:00 96.3 69 20 169/74 (105) 98 12/19/17 16:00 97.8 56 18 128/68 (88) 97 I/O 12/19/17 12/19/17 12/19/17 12/20/17 12/20/17 12/20/17 07:00 15:00 23:00 07:00 15:00 23:00 Intake Total 1410 ml 1450 ml 550 ml Output Total 900 ml 800 ml Balance 510 ml 650 ml 550 ml Intake Oral 360 ml 1400 ml 500 ml IV Total 1050 ml 50 ml 50 ml Output Urine Total 900 ml 800 ml # Voids 3 # Bowel Movements 1 0 1 Result Diagram: 12/18/17 1029 12/18/17 1029 Imaging Last Impressions Renal Ultrasound 12/11/17 0000 Signed Impressions: Service Date/Time: Monday, December 11, 2017 18:19 - CONCLUSION: 1. No acute findings. Nonobstructing calculus upper pole right kidney. Small cyst upper pole left kidney. Bladder unremarkable. Jeremias Rossi MD Foot X-Ray 12/11/17 0000 Signed Impressions: Service Date/Time: Monday, December 11, 2017 15:38 - CONCLUSION: Findings as above, no fracture. No bony destruction. Toan Anderson MD FACR Objective Remarks GENERAL: This is a well-nourished, well-developed patient sitting on edge of bed in no acute distress. Speaking in full sentences SKIN: No rashes, or ecchymoses. Cool and dry. CARDIOVASCULAR: Normal S1 and S2. No murmurs, gallops, or rubs. RESPIRATORY: Clear to auscultation. Breath sounds equal bilaterally. No wheezes , rales, or rhonchi. GASTROINTESTINAL: Abdomen soft, non-tender, nondistended. No hepato-splenomegaly , or palpable masses. No guarding. MUSCULOSKELETAL: Left foot bandaged, not examined today. Will be removed 1-2 days by the real estate leasing manager NEUROLOGICAL: Awake and alert. Motor and sensory grossly within normal limits. Normal speech. Procedures 12/15/17: Left hallux amputation with partial first metatarsal resection A/P Assessment and Plan 62-year-old male with history of HIV, PAD, COPD, HTN presenting with wound on left great toe concerning for gangrene, osteomyelitis. Vascular surgery, infectious disease, podiatry following. Status post left hallux amputation with partial first metatarsal resection, POD#5 Discharge Planning Pending further medical workup Problem List: (1) Gangrenous toe ICD Codes: I96 - Gangrene, not elsewhere classified Plan: Status post left hallux amputation with partial first metatarsal resection, POD #4 Podiatry consulted -Patient seen by Dr. Pritchett yesterday, dressing changed 2. will continue to follow. -Foot is stable, however there is concern of healing process. Patient may need to c/w antibiotics for 2-4wks until improvement of drainage. -No further surgical procedures indicated at this time Vascular consulted -If toe amputation does not heal will likely need AKA - Cr has improved. CTA procedure ordered today 12/20 in order to determine degree of small vessel disease on the left foot. However, nurse informed me that patient is refusing procedure. ID recommendations -Continue Zosyn -Stop Vancomycin -Blood cultures NGTD Wound cultures: Heavy growth of normal skin yumiko consisting of Corynebacterium species no further workup per lab, no aerobes isolated, Gram stain: no organism or WBC seen wound AFS: No acid-fast bacilli seen Fungal smear: No fungal elements seen Bone pathology: TISSUE: 1. BONE MARGIN AND FIRST METATARSAL: Negative for acute osteomyelitis 2. LEFT BIG TOE, FIRST METATARSAL AND ACCESSARY BONE: - ULCERATION AND EXTENSIVE ACUTE OSTEOMYELITIS OF UNDERLYING BONE. - TWO SEPARATE SEGMENTS OF BONE WHICH ARE NEGATIVE FOR ACUTE OSTEOMYELITIS. Pain scale as follows: Roxicodone on 5 mg pain scale 1-5 Roxicodone 10 mg pain scale 6-10 Morphine 4 mg IV every 3 hours for breakthrough (2) BECKA (acute kidney injury) ICD Codes: N17.9 - Acute kidney failure, unspecified Plan: Cr- 1.03, trending down Renal ultrasound showing no acute findings Urine culture negative Nephrology consult-appreciate recs -appears to be prerenal, continue to monitor IV fluids at 100 mL per hour normal saline -replace K, -monitor vanc level (3) Peripheral arterial disease ICD Codes: I73.9 - Peripheral vascular disease, unspecified Status: Chronic Plan: Patient with a known history of PAD, previously seen by Dr. Ramos Status post revascularization of the left leg in December 2016 Consulted vascular surgery, appreciate rec Podiatry consulted, appreciate rec Continue Plavix Continue Atorvastatin See plan above (4) HIV disease ICD Codes: B20 - Human immunodeficiency virus (HIV) disease Status: Chronic Plan: Patient with a known history of HIV for over 20 years h/o not being consistent with HAART per ID, States he has been taking the sporadically lately due to forgetfulness Lymphocyte profile pending, most recent recorded CD4 count in December 2016 was in the 800s ID consulted, appreciate recommendations -HAART restarted -Absolute CD4 count: 252 -Absolute CD3 count: 623 (5) COPD (chronic obstructive pulmonary disease) ICD Codes: J44.9 - Chronic obstructive pulmonary disease, unspecified Plan: Patient with a history of COPD Occasionally takes DuoNeb nebulizers for shortness of breath/wheezing DuoNeb nebs as needed (6) HTN (hypertension) ICD Codes: I10 - Essential (primary) hypertension Plan: Patient with a known history of hypertension Patient with slightly elevated blood pressures, Continue atenolol 50 mg Continue [id number] mg QD Add lisinopril 10mg daily Clonidine per protocol (7) FEN Plan: Normal saline 100 mL per hour Replete electrolytes as needed Diet: Heart healthy diet DVT ppx: SCDs, Heparin Problem Qualifiers (1) HTN (hypertension): Qualified Codes: I10 - Essential (primary) hypertension Adalberto Jay MD, R1 Dec 20, 2017 12:14
--- NOTE | 2017-12-20 13:29 | PD.POD ---
Subjective Pain score: 7 Remarks Pain remains, he must keep his foot dependent position to help the pain off the edge of the bed, he is refusing CTA with runoff, he wants to go home Past Med/Surg/Social History Past Medical History Endocrine: REPORTS HX OF: Diabetes mellitus Cardiovascular: REPORTS HX OF: Peripheral vascular dz Infectious disease: REPORTS HX OF: HIV Neurologic: REPORTS HX OF: Peripheral neuropathy Past Surgical History Musculoskeletal: REPORTS HX OF: Other musculoskeletal srg (Left knee- Hung placement) Social History Smoking Status: Current Every Day Smoker Objective Vital Signs Vital Signs Date Time Temp Pulse Resp B/P (MAP) Pulse Ox O2 Delivery O2 Flow Rate FiO2 12/20/17 08:00 97.6 53 18 162/79 (106) 99 12/20/17 00:00 96.7 53 20 136/65 (88) 96 12/19/17 21:44 97 12/19/17 20:00 96.3 69 20 169/74 (105) 98 12/19/17 16:00 97.8 56 18 128/68 (88) 97 Coded Allergies: morphine (Unverified Adverse Reaction, Intermediate, Itching, 06/09/17) *MDRO Multi-Drug Resistant Organism (Verified Adverse Reaction, Unknown, Cleared, 05/05/17) MRSA (blood & scrotal abscess) - 04/2015; (Leg) - 06/2016, 07/27/16 MRSA PCR Screens NEGATIVE - 12/19/16 & 12/22/16 CLEARED PER INFECTION CONTROL PROTOCOL Physical Exam Remarks Left lower extremity bandage changed. First ray amputation site sutures intact , incision edges loosely coapted, Packing intact with serous sanguinous type fluid. No obvious ischemic changes however the foot is slightly cool, there is significant nonpitting edema of calf ankle and foot, ulceration of distal medial second digit appears to remain to have a fibrous base Assessment & Plan A/P Left hallux wet gangrene, cellulitis, likely deep infection septic joint first MPJ, second digit ulcer Postop day 5 first ray amputation digit ulcer debridement Foot remains stable however I still remain very concerned of healing progress. I tried to convince the patient he needs to stay to have the CT with runoff to see if there is any way we can improve the circulation. He was very upset with me and said send me home and I said I cannot I do not feel that your foot will heal. Vascular notified of the patient's decision. We'll continue to follow for supportive care however prognosis is poor. I will sign out to Dr. Gonzales who will assume care starting tomorrow Micah Pritchett DPM Dec 20, 2017 13:29
== END 2017-12-20 14:16 | disposition left against medical advice (07) | DRG 255 ==
LOC: NEPD 14:10 → NEDA 17:08 → N07B 19:57
PROVIDERS: ADMIT Family Medicine; ATTEND Family Medicine
PROC: 0QBP0ZZ Excision of Left Metatarsal, Open Approach (ICD-10-PCS; 2017-12-15)
PROC: 0Y6Q0Z1 Detachment at Left 1st Toe, High, Open Approach (ICD-10-PCS; principal; 2017-12-15 14:03)
DX: I73.9 Peripheral vascular disease, unspecified (principal); B20 Human immunodeficiency virus [HIV] disease; N17.9 Acute kidney failure, unspecified; M86.172 Other acute osteomyelitis, left ankle and foot; N39.0 Urinary tract infection, site not specified; J44.9 Chronic obstructive pulmonary disease, unspecified; F17.210 Nicotine dependence, cigarettes, uncomplicated; I12.9 Hypertensive chronic kidney disease with stage 1 through stage 4 chronic kidney disease, or unspecified chronic kidney disease; N18.9 Chronic kidney disease, unspecified; L03.032 Cellulitis of left toe; L97.529 Non-pressure chronic ulcer of other part of left foot with unspecified severity; Z91.14 Patient's other noncompliance with medication regimen; Z88.5 Allergy status to narcotic agent; Z23 Encounter for immunization
CPT/HCPCS: 73630; 76775; 76937; 80048; 80053; 80069; 80202; 81001; 82565; 82570; 84156; 85025; 85027; 85652; 86140; 86355; 86357; 86359; 86360; 87015; 87040; 87070; 87086; 87102; 87116; 87205; 87206; 87535; 88304; 88311; 90686; 90732; 96374; J0131; J1100; J2175; J2270; J2405; J2543; J3010; J3370; J7030; J7040; J7050; Q2038

== ENCOUNTER 2018-01-17 05:27 | Inpatient (IN) | payer MEDICAID ==
[~2018-01-17] VITALS: Ht 167.6 cm; Wt 65.8 kg
[2018-01-17 05:29] VITALS: BP 175/90; PULSE 83; RESP 20; TEMP 98.7; O2SAT 97
[2018-01-17] MEDS ORDERED: VANCOMYCIN INJ 1,000 MG in SODIUM CHLOR 0.9% 250 ML INJ 250 ML IV ONE (06:30)
[2018-01-17] MEDS ORDERED: PIPERACIL-TAZO 4.5 GM PREMIX 100 ML IV ONE (06:30)
[2018-01-17 07:05] LABS: AUTOMATED NEUTROPHIL # 6.3 TH/MM3 (1.8-7.7); BASOPHIL % 0.5 % (0.0-2.0); EOSINOPHIL # 0.1 TH/MM3 (0-0.4); EOSINOPHIL % 1.5 % (0.0-4.0); HEMATOCRIT 37.4 % (39.0-51.0); HEMOGLOBIN 12.5 GM/DL (13.0-17.0); LYMPH % 19.2 % (9.0-44.0); LYMPHOCYTE # 1.9 TH/MM3 (1.0-4.8); MEAN CELL VOLUME 91.8 FL (80.0-100.0); MEAN CORPUSCULAR HEMOGLOBIN 30.6 PG (27.0-34.0); MEAN CORPUSCULAR HGB CONC 33.3 % (32.0-36.0); MEAN PLATELET VOLUME 9.5 FL (7.0-11.0); MONO % 14.2 % (0.0-8.0); MONOCYTE # 1.4 TH/MM3 (0-0.9); NEUT % 64.6 % (16.0-70.0); PLATELET COUNT 455 TH/MM3 (150-450); RED BLOOD COUNT 4.07 MIL/MM3 (4.50-5.90); RED CELL DISTRIBUTION WIDTH 15.5 % (11.6-17.2); WHITE BLOOD COUNT 9.8 TH/MM3 (4.0-11.0)
--- NOTE | 2018-01-17 07:24 | PD ---
HPI Chief Complaint: Wound/Suture/Staple Re-Check Time Seen by Provider: 07:16 Travel History International Travel<30 days: No Contact w/Intl Traveler<30days: No Traveled to known affect area: No History of Present Illness HPI Patient is a 62-year-old male presents emergency department with a wound to his left lower extremity as well as pain to his left lower extremity. Last month he was admitted for osteomyelitis of the foot and had debridement and removal of his left great toe. He states for the past week is been gradually getting worse. He has a history of HIV and diabetes but when asked he states he only has "prediabetes". He has been followed by Dr. Love in the past and he saw him in his November admission. According to Dr. Leong the patient has significant peripheral arterial disease below the level of the knee, he was being evaluated for [id number] amputation on that visit. Patient states his pain is rather severe in his left lower extremity, covered by his wound, context as above, duration as above PFSH Past Medical History Hx Anticoagulant Therapy: Yes Arthritis: Yes Asthma: No Autoimmune Disease: Yes Blood Disorders: Yes (HIV) Anxiety: No Depression: Yes Heart Rhythm Problems: No Cancer: No Cardiovascular Problems: No High Cholesterol: Yes Chemotherapy: No Chest Pain: No Congestive Heart Failure: No COPD: No Cerebrovascular Accident: No Diabetes: Yes (DIABETES TYPE 1) Patient Takes Glucophage: No Diminished Hearing: No Endocrine: No Gastrointestinal Disorders: No GERD: No Genitourinary: No Hiatal Hernia: No Hypertension: Yes Immune Disorder: Yes (HIV) Implanted Vascular Access Dvce: No Kidney Stones: No Medical other: Yes Musculoskeletal: No Neurologic: No Psychiatric: No Respiratory: No Immunizations Current: No (NO FLU VACCINE YET THIS YEAR) Migraines: No Radiation Therapy: No Renal Failure: No Seizures: No Sickle Cell Disease: No Sleep Apnea: No Thyroid Disease: No Ulcer: No Tetanus Vaccination: Unknown Past Surgical History Abdominal Surgery: No AICD: No Arteriovenous Shunt: No Cardiac Surgery: No Ear Surgery: No Endocrine Surgery: No Eye Surgery: No Genitourinary Surgery: No Gynecologic Surgery: No Insulin Pump: No Joint Replacement: No Oral Surgery: No Pacemaker: No Thoracic Surgery: No Other Surgery: Yes (BRONCHOSCOPY/ VASCULAR SURGERY) Social History Alcohol Use: No Tobacco Use: Yes (1 pack per day) Substance Use: Yes (25 years ago) Allergies-Medications (Allergen,Severity, Reaction): Coded Allergies: morphine (Unverified Adverse Reaction, Intermediate, Itching, 01/17/18) *MDRO Multi-Drug Resistant Organism (Verified Adverse Reaction, Unknown, Cleared, 01/17/18) MRSA (blood & scrotal abscess) - 04/2015; (Leg) - 06/2016, 07/27/16 MRSA PCR Screens NEGATIVE - 12/19/16 & 12/22/16 CLEARED PER INFECTION CONTROL PROTOCOL Reported Meds & Prescriptions Reported Meds & Active Scripts Active Atorvastatin (Atorvastatin Calcium) 80 Mg Tab 80 Mg PO HS Hydrocodone-Acetaminophen 10-325 mg Tab 1 Tab PO Q6H PRN Amlodipine (Amlodipine Besylate) 5 Mg Tab 5 Mg PO DAILY Atenolol 50 Mg Tab 50 Mg PO DAILY Lisinopril 40 Mg Tab 40 Mg PO DAILY Reported Divalproex ER (Divalproex Sodium) 500 Mg Tab 500 Mg PO DAILY Prezista (Darunavir) 800 Mg Tab 800 Mg PO DAILY Norvir (Ritonavir) 100 Mg Cap 100 Mg PO DAILY Hydroxyzine HCl 25 Mg Tab 25 Mg PO DAILY Gabapentin 300 Mg Cap 300 Mg PO TID Tivicay (Dolutegravir Sodium) 50 Mg Tab 50 Mg PO Q12HR Intelence (Etravirine) 200 Mg Tab 200 Mg PO BIDPC Ventolin Hfa 18 GM Inh (Albuterol Sulfate) 90 Mcg/Act Aer 2 Puff INH Q4H PRN Review of Systems Except as stated in HPI: all other systems reviewed are Neg Physical Exam Narrative GENERAL: Well-developed, well-nourished, no obvious distress SKIN: Focused skin assessment warm/dry. Decreased skin turgor, there is skin changes the left lower extremities consistent with chronic peripheral arterial disease. There is a linear wound running between the first and second metatarsal on the dorsum of the foot, fairly deep, does have a foul odor to it and minimal purulent discharge. HEAD: Atraumatic. Normocephalic. EYES: Pupils equal and round. No scleral icterus. No injection or drainage. ENT: No nasal bleeding or discharge. Mucous membranes pink and dry. NECK: Trachea midline. No JVD. CARDIOVASCULAR: Regular rate and rhythm. No murmur appreciated. Patient has 2 + bilateral equal pulses in the upper extremities, very faint pulse in the right foot in the dorsalis pedis position, I was unable to palpate a pulse in the left dorsalis pedis. RESPIRATORY: No accessory muscle use. Clear to auscultation. Breath sounds equal bilaterally. GASTROINTESTINAL: Abdomen soft, non-tender, nondistended. Hepatic and splenic margins not palpable. MUSCULOSKELETAL: No obvious deformities. No clubbing. No cyanosis. No edema. NEUROLOGICAL: Awake and alert. No obvious cranial nerve deficits. Motor grossly within normal limits. Normal speech. PSYCHIATRIC: Appropriate mood and affect; insight and judgment normal. Data Data Last Documented VS Vital Signs Date Time Temp Pulse Resp B/P (MAP) Pulse Ox O2 Delivery O2 Flow Rate FiO2 01/17/18 09:53 76 134/77 (96) 01/17/18 09:52 15 01/17/18 09:01 93 Room Air 01/17/18 05:29 98.7 Orders Orders Basic Metabolic Panel (Bmp) (01/17/18 06:26) Complete Blood Count With Diff (01/17/18 06:26) Blood Culture (01/17/18 06:26) Wound Culture And Gram Stain (01/17/18 06:26) Iv Access Insert/Monitor (01/17/18 06:26) Lactic Acid (01/17/18 06:26) Vancomycin Inj (Vancomycin Inj) (01/17/18 06:30) Piperacil-Tazo 4.5 Gm Premix (Zosyn 4.5 (01/17/18 06:30) Wound Care (01/17/18 06:33) Sodium Chlor 0.9% 1000 Ml Inj (Ns 1000 M (01/17/18 07:45) Potassium Chlor 20 Meq Premix (Kcl 20 Me (01/17/18 07:45) Morphine Inj (Morphine Inj) (01/17/18 07:45) Hydromorphone Pf Inj (Dilaudid Pf Inj) (01/17/18 08:45) Consult Vascular Surgery (01/17/18 ) (Hub Use Only)Inp Phy Cons/Ref (01/17/18 ) Admit Order (Ed Use Only) (01/17/18 ) Labs Laboratory Tests Test 01/17/18 06:20 01/17/18 06:25 Lactic Acid Level 1.9 mmol/L White Blood Count 9.8 TH/MM3 Red Blood Count 4.07 MIL/MM3 Hemoglobin 12.5 GM/DL Hematocrit 37.4 % Mean Corpuscular Volume 91.8 FL Mean Corpuscular Hemoglobin 30.6 PG Mean Corpuscular Hemoglobin Concent 33.3 % Red Cell Distribution Width 15.5 % Platelet Count 455 TH/MM3 Mean Platelet Volume 9.5 FL Neutrophils (%) (Auto) 64.6 % Lymphocytes (%) (Auto) 19.2 % Monocytes (%) (Auto) 14.2 % Eosinophils (%) (Auto) 1.5 % Basophils (%) (Auto) 0.5 % Neutrophils # (Auto) 6.3 TH/MM3 Lymphocytes # (Auto) 1.9 TH/MM3 Monocytes # (Auto) 1.4 TH/MM3 Eosinophils # (Auto) 0.1 TH/MM3 Basophils # (Auto) 0.0 TH/MM3 CBC Comment DIFF FINAL Differential Comment Blood Urea Nitrogen 68 MG/DL Creatinine 2.47 MG/DL Random Glucose 113 MG/DL Calcium Level 10.8 MG/DL Sodium Level 135 MEQ/L Potassium Level 2.9 MEQ/L Chloride Level 89 MEQ/L Carbon Dioxide Level 34.2 MEQ/L Anion Gap 12 MEQ/L Estimat Glomerular Filtration Rate 32 ML/MIN MDM Medical Decision Making Medical Screen Exam Complete: Yes Emergency Medical Condition: Yes Differential Diagnosis Dehydration, acute kidney injury, peripheral arterial disease, osteomyelitis. Narrative Course The patient was roomed in the emergency department, my concern is that he obviously has osteomyelitis of his left foot, need to consider also that he has wet gangrene of the left foot. He has been evaluated for [id number] amputation on the left before, certainly needs reevaluation for this now. Labs do show significant hemoconcentration, his hemoglobin usually runs about 9.5 and today's 12.5, hypokalemia which was replaced IV in the emergency department , significant acute kidney injury his creatinine usually runs about 1 and today is 2.5. He was given a liter of normal saline bolus. Vancomycin and Zosyn were ordered. I have spoken about this patient with Dr. Leong, I have relayed my concerns that the patient probably has significant peripheral arterial disease and may need amputation at this time, he knows the patient will see in consultation recommends admission to the hospital. We discussed the possibility of a CT angiogram lower extremity and Dr. Leong says is not necessary at this time. If Dr. Leong does not need CTA to continue treatment of this patient and I would like to hold off giving him a large contrast bolus as he is a diabetic with an acute kidney injury today. Patient was discussed with Dr. Gardner for admission who is agreeable. Diagnosis Primary Impression: Osteomyelitis of left foot Additional Impression: Acute kidney injury Admitting Information Admitting Physician Requests: Admit Condition: Stable Chadd Greenwood MD Jan 17, 2018 07:24
[2018-01-17 07:36] LABS: BICARBONATE 34.2 MEQ/L (21.0-32.0); CALCIUM 10.8 MG/DL (8.5-10.1); CREATININE 2.47 MG/DL (0.60-1.30)
[2018-01-17] MEDS ORDERED: MORPHINE SULFATE 8 MG/ML INJ IV PUSH ONE (07:45)
[2018-01-17] MEDS ORDERED: SODIUM CHLOR 0.9% 1000 ML INJ 1,000 ML IV ONE (07:45)
[2018-01-17] MEDS ORDERED: POTASSIUM CHLOR 20 MEQ PREMIX 100 ML IV ONE (07:45)
[2018-01-17] MEDS ORDERED: HYDROmorphone HCL PF 2 MG/ML VIAL IV PUSH ONE (08:45)
[2018-01-17 09:01] VITALS: BP 156/67; PULSE 86; RESP 17; O2SAT 93
[2018-01-17 09:53] VITALS: BP 134/77; PULSE 76
[2018-01-17] MEDS ORDERED: BISACODYL 10 MG SUPP RECTAL PRN (11:00)
[2018-01-17] MEDS ORDERED: SENNOSIDES 8.6 MG TAB PO PRN (11:00)
[2018-01-17] MEDS ORDERED: DEXTROSE 50% IN WATER 50 ML VIAL(D50) IV PUSH PRN (11:00)
[2018-01-17] MEDS ORDERED: GLUCAGON 1 MG/ML VIAL OTHER PRN (11:00)
[2018-01-17] MEDS ORDERED: SODIUM CHLORIDE 0.9% FLUSH 10 ML FLUSH IV FLUSH PRN (11:00)
[2018-01-17] MEDS ORDERED: ONDANSETRON HCL 4 MG/2 ML VIAL IVP PRN (11:00)
[2018-01-17] MEDS ORDERED: NALOXONE HCL 0.4 MG/ML AMP IV PUSH PRN (11:00)
[2018-01-17] MEDS ORDERED: ACETAMINOPHEN 325 MG TAB PO PRN (11:00)
[2018-01-17] MEDS: NS + KCL 20 MEQ INJ 1,000 ML IV SCH ×2 (11:22→21:51)
[2018-01-17] MEDS: INSULIN ASPART SUPPLEMENTAL SCALE SQ SCH ×3 (12:00→20:20)
[2018-01-17] MEDS ORDERED: HYDROmorphone HCL PF 1 MG/ML VIAL IV PUSH PRN (12:00)
--- NOTE | 2018-01-17 12:30 | RADRPT ---
EXAM DATE/TIME: 01/17/2018 13:06 [facility] COMPARISON: No previous studies available for comparison. INDICATIONS : Cough. MEDICAL HISTORY : Hypercholesterolemia. Hypertension. Neuropathy. Cerebrovascular accident. Anticoagulant therapy. Asth ma. Arthritis. HIV. Diabetes. SURGICAL HISTORY : Vascular surgery. ENCOUNTER: Initial ACUITY: 1 day PAIN SCORE: 0/10 LOCATION: Bilateral chest FINDINGS: PA and lateral views of the chest demonstrate the lungs to be symmetrically aerated without evidence of mass, infiltrate or effusion. The cardiomediastinal contours are unremarkable. Osseous structure s are intact. CONCLUSION: No acute disease. Renato Lanier MD on January 17, 2018 at 12:28 Board Certified Radiologist. This report was verified electronically.
[2018-01-17] MEDS: HYDROmorphone HCL PF 2 MG/ML VIAL IV PUSH PRN ×2 (15:30→22:02)
--- NOTE | 2018-01-17 15:31 | PD.CAR.PN ---
CVT Progress Note Subjective/Hospital Course: Patient known to me from previous encounters He signed out AMA last time Patient has gangrene of the foot and severe ischemia of the lower leg CTA performed last time reveals no unreconstructable disease and at this point patient needs left above-knee amputation We will proceed with the same tomorrow Thanks J Objective: Vital Signs Date Time Temp Pulse Resp B/P (MAP) Pulse Ox O2 Delivery O2 Flow Rate FiO2 01/17/18 15:06 01/17/18 09:53 76 134/77 (96) 01/17/18 09:52 15 01/17/18 09:01 86 17 156/67 (96) 93 Room Air 01/17/18 05:37 84 20 01/17/18 05:29 98.7 83 20 175/90 (118) 97 Labs: Laboratory Tests Test 01/17/18 06:20 01/17/18 06:25 Lactic Acid Level 1.9 mmol/L (0.4-2.0) White Blood Count 9.8 TH/MM3 (4.0-11.0) Red Blood Count 4.07 MIL/MM3 (4.50-5.90) Hemoglobin 12.5 GM/DL (13.0-17.0) Hematocrit 37.4 % (39.0-51.0) Mean Corpuscular Volume 91.8 FL (80.0-100.0) Mean Corpuscular Hemoglobin 30.6 PG (27.0-34.0) Mean Corpuscular Hemoglobin Concent 33.3 % (32.0-36.0) Red Cell Distribution Width 15.5 % (11.6-17.2) Platelet Count 455 TH/MM3 (150-450) Mean Platelet Volume 9.5 FL (7.0-11.0) Neutrophils (%) (Auto) 64.6 % (16.0-70.0) Lymphocytes (%) (Auto) 19.2 % (9.0-44.0) Monocytes (%) (Auto) 14.2 % (0.0-8.0) Eosinophils (%) (Auto) 1.5 % (0.0-4.0) Basophils (%) (Auto) 0.5 % (0.0-2.0) Neutrophils # (Auto) 6.3 TH/MM3 (1.8-7.7) Lymphocytes # (Auto) 1.9 TH/MM3 (1.0-4.8) Monocytes # (Auto) 1.4 TH/MM3 (0-0.9) Eosinophils # (Auto) 0.1 TH/MM3 (0-0.4) Basophils # (Auto) 0.0 TH/MM3 (0-0.2) CBC Comment DIFF FINAL Differential Comment Blood Urea Nitrogen 68 MG/DL (7-18) Creatinine 2.47 MG/DL (0.60-1.30) Random Glucose 113 MG/DL (74-106) Calcium Level 10.8 MG/DL (8.5-10.1) Sodium Level 135 MEQ/L (136-145) Potassium Level 2.9 MEQ/L (3.5-5.1) Chloride Level 89 MEQ/L (98-107) Carbon Dioxide Level 34.2 MEQ/L (21.0-32.0) Anion Gap 12 MEQ/L (5-15) Estimat Glomerular Filtration Rate 32 ML/MIN (>89) Result Diagram: 01/17/18 0625 01/17/18 0625 Rosita Ramos MD Jan 17, 2018 15:31
[2018-01-17] MEDS ORDERED: PIPERACIL-TAZO 3.375 GM PREMIX 50 ML IV SCH (16:00)
--- NOTE | 2018-01-17 16:39 | HHI.HP ---
[facility] Service [facility] Primary Care Physician Unknown Admission Diagnosis Osteomyelitis of foot. Diagnoses: (1) Osteomyelitis of left foot (2) Peripheral arterial disease (3) Chronic skin ulcer of lower leg (4) HIV disease Travel History International Travel<30 Days: No Contact w/Intl Traveler <30 Da: No Traveled to Known Affected Are: No History of Present Illness 62-year-old male with history of peripheral arterial disease and chronic ulcerations of the skin of the left foot presents with infection in that left foot. CT scan reveals osteomyelitis of the foot. He states has been dealing with this foot infection for the last 2 years, but that it became worse over the last week. He has a history of HIV and type 2 diabetes, but he is unaware of his last hemoglobin A1c or CD4 count. He is somewhat of a poor historian due to receiving 1 mg of Dilaudid and having a difficult time staying awake. He understands that treatment will likely include an hhnpu-jlf-wfsg amputation and after 2 years of fighting this infection he is in agreement with that plan. Review of Systems ROS Limitations: Clinical Condition, Intoxication Constitutional: COMPLAINS OF: Fever, Chills Respiratory: COMPLAINS OF: Cough, DENIES: Hemoptysis, Sputum production Cardiovascular: DENIES: Chest pain, Palpitations, Syncope, Dyspnea on Exertion Gastrointestinal: DENIES: Abdominal pain, Black stools, Bloody stools, Constipation, Diarrhea Hematologic/lymphatic: DENIES: Bruising, Lymphadenopathy Psychiatric: DENIES: Anxiety, Confusion, Mood changes, Depression Past Family Social History Past Medical History Peripheral vascular disease, type 2 diabetes, HIV, COPD Past Surgical History Previous vascular surgeries, bronchoscopy Allergies: Coded Allergies: morphine (Unverified Adverse Reaction, Intermediate, Itching, 01/17/18) *MDRO Multi-Drug Resistant Organism (Verified Adverse Reaction, Unknown, Cleared, 01/17/18) MRSA (blood & scrotal abscess) - 04/2015; (Leg) - 06/2016, 07/27/16 MRSA PCR Screens NEGATIVE - 12/19/16 & 12/22/16 CLEARED PER INFECTION CONTROL PROTOCOL Family History Patient is unaware of any significant family history Social History Patient denies any cigarette or alcohol use (poor historian) Physical Exam Vital Signs Vital Signs Date Time Temp Pulse Resp B/P (MAP) Pulse Ox O2 Delivery O2 Flow Rate FiO2 01/17/18 15:06 01/17/18 09:53 76 134/77 (96) 01/17/18 09:52 15 01/17/18 09:01 86 17 156/67 (96) 93 Room Air 01/17/18 05:37 84 20 01/17/18 05:29 98.7 83 20 175/90 (118) 97 Physical Exam GENERAL: This is a weak appearing man in no apparent distress, sleepy from pain medicine, poor historian SKIN: No rashes, ecchymoses or lesions. Cool and dry. HEAD: Atraumatic. Normocephalic. No temporal or scalp tenderness. EYES: Pupils equal round and reactive. Extraocular motions intact. No scleral icterus. No injection or drainage. ENT: Nose without bleeding, purulent drainage or septal hematoma. Throat without erythema, tonsillar hypertrophy or exudate. Uvula midline. Airway patent. NECK: Trachea midline. No JVD or lymphadenopathy. Supple, nontender, no meningeal signs. CARDIOVASCULAR: Regular rate and rhythm without murmurs, gallops, or rubs. RESPIRATORY: Rhonchi and congestive sounds in midlung shukla. Breath sounds equal bilaterally. No wheezes or rales. GASTROINTESTINAL: Abdomen soft, non-tender, nondistended. No hepato-splenomegaly , or palpable masses. No guarding. EXTREMITIES: 5 x 1 cm open ulceration between first and second digit of left foot. Left foot overall appears mummified due to poor circulation with scaling skin and overall unhealthy appearance. Muscle wasting in left calf. The foot and calf are cool to the touch. NEUROLOGICAL: Awake and alert. Cranial nerves II through XII intact. Motor and sensory grossly within normal limits. Five out of 5 muscle strength in all muscle groups. Normal speech. Laboratory Laboratory Tests Test 01/17/18 06:20 01/17/18 06:25 Lactic Acid Level 1.9 White Blood Count 9.8 Red Blood Count 4.07 Hemoglobin 12.5 Hematocrit 37.4 Mean Corpuscular Volume 91.8 Mean Corpuscular Hemoglobin 30.6 Mean Corpuscular Hemoglobin Concent 33.3 Red Cell Distribution Width 15.5 Platelet Count 455 Mean Platelet Volume 9.5 Neutrophils (%) (Auto) 64.6 Lymphocytes (%) (Auto) 19.2 Monocytes (%) (Auto) 14.2 Eosinophils (%) (Auto) 1.5 Basophils (%) (Auto) 0.5 Neutrophils # (Auto) 6.3 Lymphocytes # (Auto) 1.9 Monocytes # (Auto) 1.4 Eosinophils # (Auto) 0.1 Basophils # (Auto) 0.0 CBC Comment DIFF FINAL Differential Comment Blood Urea Nitrogen 68 Creatinine 2.47 Random Glucose 113 Calcium Level 10.8 Sodium Level 135 Potassium Level 2.9 Chloride Level 89 Carbon Dioxide Level 34.2 Anion Gap 12 Estimat Glomerular Filtration Rate 32 Date/Time Source Procedure Growth Status 01/17/18 06:25 Blood Peripheral Aerobic Blood Culture Pending Received 01/17/18 06:25 Blood Peripheral Anaerobic Blood Culture Pending Received 01/17/18 06:22 Wound Foot Gram Stain - Final Resulted 01/17/18 06:22 Wound Foot Wound Culture Pending Resulted Result Diagram: 01/17/1862401/17/1825 Caprini VTE Risk Assessment Caprini VTE Risk Assessment: Mod/High Risk (score >= 2) Caprini Risk Assessment Model Point Value = 1 Point Value = 2 Point Value = 3 Point Value = 5 Age 41-60 Minor surgery BMI > 25 kg/m2 Swollen legs Varicose veins or History of unexplained or recurrent spontaneous Oral contraceptives or hormone replacement Sepsis (< 1 month) Serious lung disease, including pneumonia (< 1 month) Abnormal pulmonary function Acute myocardial infarction Congestive heart failure (< 1 month) History of inflammatory bowel disease Medical patient at bed rest Age 61-74 Arthroscopic surgery Major open surgery (> 45 min) Laparoscopic surgery (> 45 min) Malignancy Confined to bed (> 72 hours) Immobilizing plaster cast Central venous access Age >= 75 History of VTE Family history of VTE Factor V Leiden Prothrombin [id number] Lupus anticoagulant Anticardiolipin antibodies Elevated serum homocysteine Heparin-induced thrombocytopenia Other congenital or acquired thrombophilia Stroke (< 1 month) Elective arthroplasty Hip, pelvis, or leg fracture Acute spinal cord injury (< 1 month) Prophylaxis Regimen Total Risk Factor Score Risk Level Prophylaxis Regimen 0-1 Low Early ambulation 2 Moderate Order ONE of the following: *Sequential Compression Device (SCD) *Heparin 5000 units SQ BID 3-4 Higher Order ONE of the following medications: *Heparin 5000 units SQ TID *Enoxaparin/Lovenox 40 mg SQ daily (WT < 150 kg, CrCl > 30 mL/min) *Enoxaparin/Lovenox 30 mg SQ daily (WT < 150 kg, CrCl > 10-29 mL/min) *Enoxaparin/Lovenox 30 mg SQ BID (WT < 150 kg, CrCl > 30 mL/min) AND/OR *Sequential Compression Device (SCD) 5 or more Highest Order ONE of the following medications: *Heparin 5000 units SQ TID (Preferred with Epidurals) *Enoxaparin/Lovenox 40 mg SQ daily (WT < 150 kg, CrCl > 30 mL/min) *Enoxaparin/Lovenox 30 mg SQ daily (WT < 150 kg, CrCl > 10-29 mL/min) *Enoxaparin/Lovenox 30 mg SQ BID (WT < 150 kg, CrCl > 30 mL/min) AND *Sequential Compression Device (SCD) Assessment and Plan Problem List: (1) Osteomyelitis of left foot ICD Code: M86.9 - Osteomyelitis, unspecified Status: Acute (2) Peripheral vascular disease ICD Code: I73.9 - Peripheral vascular disease, unspecified Status: Chronic (3) HIV disease ICD Code: B20 - Human immunodeficiency virus (HIV) disease Status: Chronic (4) Acute kidney injury ICD Code: N17.9 - Acute kidney failure, unspecified Status: Acute Assessment and Plan Osteomyelitis left foot 2 years of battling an open wound of the left foot, severe peripheral vascular compromise Patient understands he will likely undergo an rkwxh-efr-hkht amputation, he is open to this Surgery is scheduled for tomorrow Continue with vancomycin and Zosyn IV Appreciate vascular surgery consult Upper respiratory infection Currently covered with vancomycin and Zosyn IV Consider atypical infections due to HIV Current CD4 count pending Acute renal disease Creatinine was 2.47 on admission We will rehydrate and recheck creatinine HIV Current CD4 count pending Patient states that he takes all of his antiretroviral medications as prescribed Type 2 diabetes Current blood sugars have remained in the low 100s Will check hemoglobin A1c level Accu-Cheks with sliding scale insulin coverage Diabetic diet Hypertension Currently normotensive, will monitor DVT prophylaxis SCDs due to surgery scheduled for tomorrow Physician Certification 2 Midnight Certification Type: Admission for Inpatient Services Order for Inpatient Services The services are ordered in accordance with Medicare regulations or non- Medicare payer requirements, as applicable. In the case of services not specified as inpatient-only, they are appropriately provided as inpatient services in accordance with the 2-midnight benchmark. Estimated LOS (days): 8 days is the estimated time the patient will need to remain in the hospital, assuming treatment plan goals are met and no additional complications. Post-Hospital Plan: Not yet determined Alireza Gardner MD Jan 17, 2018 16:39
[2018-01-17 18:49] VITALS: BP 155/76; PULSE 100; RESP 18; TEMP 96.7; O2SAT 92
[2018-01-17] MEDS: PIPERACIL-TAZO 3.375 GM PREMIX 50 ML IV SCH (19:54)
[2018-01-17 20:00] VITALS: BP 167/82; PULSE 89; RESP 17; TEMP 96.4; O2SAT 97
[2018-01-17] MEDS: SODIUM CHLORIDE 0.9% FLUSH 10 ML FLUSH IV FLUSH SCH (20:20)
[2018-01-18] VITALS: BP 140/81; PULSE 71; RESP 16; TEMP 97.3; O2SAT 97
[2018-01-18] MEDS: PIPERACIL-TAZO 3.375 GM PREMIX 50 ML IV SCH ×3 (03:21→20:51)
[2018-01-18] MEDS: HYDROmorphone HCL PF 2 MG/ML VIAL IV PUSH PRN ×5 (03:26→20:54)
[2018-01-18 06:35] VITALS: BP 177/84; PULSE 80; RESP 15; TEMP 96.7; O2SAT 97
[2018-01-18] MEDS: SODIUM CHLORIDE 0.9% FLUSH 10 ML FLUSH IV FLUSH SCH ×2 (07:39→20:57)
[2018-01-18 08:00] VITALS: BP 157/81; PULSE 77; RESP 17; TEMP 95.8; O2SAT 98
[2018-01-18] MEDS: INSULIN ASPART SUPPLEMENTAL SCALE SQ SCH ×4 (08:12→21:00)
[2018-01-18] MEDS: VANCOMYCIN INJ 1,000 MG in SODIUM CHLOR 0.9% 250 ML INJ 250 ML IV SCH (08:12)
--- NOTE | 2018-01-18 09:14 | MB ---
cc: Jessika Padilla DPM DATE: 01/18/2018 CHIEF COMPLAINT: Left foot osteomyelitis. HISTORY OF PRESENT ILLNESS: Mr. Carbone is a pleasant 62-year-old male, known from previous admissions. He has severe peripheral arterial disease and chronic ulcerations of the left foot with failed amputation of the first ray. He states that he has been dealing with pain and multiple foot infections over the last 2 years, but it became worse the week prior to surgery. He has a history of HIV and type 2 diabetes, but does have sensation and pain. The patient is currently being recommended for an AKA by Dr. Ramos and a consultation was placed for a second opinion. The patient denies any nausea, vomiting, fever, headaches, chills, right now; only complaint is pain. PAST MEDICAL HISTORY: Includes peripheral vascular disease, type 2 diabetes, HIV, and COPD. PAST SURGICAL HISTORY: Includes bronchoscopy, left first ray amputation, and previous vascular surgeries. ALLERGIES: MORPHINE. FAMILY HISTORY: Noncontributory. SOCIAL HISTORY: Patient is a poor historian, but has some removed smoking history. Denies any alcohol or illicit drug abuse at this time. VITAL SIGNS: Temperature is 96.7, pulse 80, respiratory rate 15, blood pressure 177/84, pulse ox 97% O2 on room air. LABORATORY DATA: White count is 9.8, hemoglobin 12.5, hematocrit 37.4, platelets 455. Sodium 135, potassium 2.9, chloride 89, carbon dioxide 34.2, BUN 68, creatinine 2.47. PHYSICAL EXAMINATION: The patient has nonpalpable vascular DP and PT pulses. No pedal hair present. Skin is thick and indurated from the foot all the way to the proximal aspect of the calf. There is pain with compression of the calf. There is an open fibrotic ulceration on the dorsal distal aspect of the foot, approximately 4 x 2 x 1 cm fibrotic wound bed with suspected exposed first metatarsal bone. ASSESSMENT AND PLAN: 1. Left foot stage III ulceration with suspected osteomyelitis. 2. Peripheral vascular disease. Previous CTAs showed no reconstructable disease and patient has been unable to heal previous distal amputations. At this time, I would support the recommendations of the vascular surgeon for an above-knee amputation. I feel this is the patient's best chance for definitive healing of his ulceration, infection, and pain. The patient is understanding of the plan and agreeable to move forward with surgery today. Please do not hesitate to call with any questions or concerns. Thank you for this consultation. MAIA Yuan , 08:32 AM , 09:13 AM ROD
[2018-01-18] MEDS: NS + KCL 20 MEQ INJ 1,000 ML IV SCH ×2 (09:52→17:30)
[2018-01-18 10:52] LABS: AUTOMATED NEUTROPHIL # 6.3 TH/MM3 (1.8-7.7); BASOPHIL % 0.4 % (0.0-2.0); EOSINOPHIL # 0.3 TH/MM3 (0-0.4); EOSINOPHIL % 3.5 % (0.0-4.0); HEMATOCRIT 35.2 % (39.0-51.0); HEMOGLOBIN 11.5 GM/DL (13.0-17.0); LYMPH % 16.4 % (9.0-44.0); LYMPHOCYTE # 1.5 TH/MM3 (1.0-4.8); MEAN CELL VOLUME 93.1 FL (80.0-100.0); MEAN CORPUSCULAR HEMOGLOBIN 30.4 PG (27.0-34.0); MEAN CORPUSCULAR HGB CONC 32.7 % (32.0-36.0); MEAN PLATELET VOLUME 8.9 FL (7.0-11.0); MONO % 9.4 % (0.0-8.0); MONOCYTE # 0.8 TH/MM3 (0-0.9); NEUT % 70.3 % (16.0-70.0); PLATELET COUNT 401 TH/MM3 (150-450); RED BLOOD COUNT 3.78 MIL/MM3 (4.50-5.90); RED CELL DISTRIBUTION WIDTH 15.1 % (11.6-17.2); WHITE BLOOD COUNT 8.9 TH/MM3 (4.0-11.0)
[2018-01-18 11:08] LABS: BICARBONATE 30.5 MEQ/L (21.0-32.0); BLOOD UREA NITROGEN 49 MG/DL (7-18); CALCIUM 10.3 MG/DL (8.5-10.1); CHLORIDE 100 MEQ/L (98-107); CREATININE 1.41 MG/DL (0.60-1.30); GLOMERULAR FILTRATION RATE 62 ML/MIN (>89); GLUCOSE,RANDOM 99 MG/DL (74-106); SODIUM (NA) 141 MEQ/L (136-145)
[2018-01-18 12:00] VITALS: BP 150/80; PULSE 70; RESP 19; TEMP 95.5; O2SAT 93
[2018-01-18 16:00] VITALS: BP 174/94; PULSE 84; RESP 17; TEMP 95.9; O2SAT 99
--- NOTE | 2018-01-18 16:06 | HHI.PR ---
Subjective Remarks 62-year-old male who presents with left foot infection in the presence of severe peripheral vascular disease. He has battled this for 2 years. At this time [id number]-[id number] amputation of left lower extremity is recommended. He is ready for surgery. Objective Vitals Vital Signs Date Time Temp Pulse Resp B/P (MAP) Pulse Ox O2 Delivery O2 Flow Rate FiO2 01/18/18 12:00 95.5 70 19 150/80 (103) 93 01/18/18 08:00 95.8 77 17 157/81 (106) 98 01/18/18 06:35 96.7 80 15 177/84 (115) 97 01/18/18 03:57 19 01/18/18 00:00 97.3 71 16 140/81 (100) 97 01/17/18 20:00 96.4 89 17 167/82 (110) 97 01/17/18 18:49 96.7 100 18 155/76 (102) 92 I/O 01/17/18 01/17/18 01/17/18 01/18/18 01/18/18 01/18/18 07:00 15:00 23:00 07:00 15:00 23:00 Intake Total 1450 ml 1050 ml 120 ml Output Total 400 ml Balance 1450 ml 1050 ml -280 ml Intake Oral 120 ml IV Total 1450 ml 1050 ml Output Urine Total 400 ml # Voids 2 Result Diagram: 01/18/18 0941 01/18/18 0941 Objective Remarks GENERAL: Well-nourished, well-developed patient. SKIN: Warm and dry. HEAD: Normocephalic. EYES: No scleral icterus. No injection or drainage. NECK: Supple, trachea midline. No JVD or lymphadenopathy. CARDIOVASCULAR: Regular rate and rhythm without murmurs, gallops, or rubs. RESPIRATORY: Breath sounds equal bilaterally. No accessory muscle use. GASTROINTESTINAL: Abdomen soft, non-tender, nondistended. EXTREMITIES: Muscle wasting of left lower leg, dry flaking skin, 5 x 1 cm ulcerative wound between first and second digit of left foot NEUROLOGICAL: Awake, alert, and oriented x 3. Non-focal. A/P Problem List: (1) Osteomyelitis of left foot ICD Code: M86.9 - Osteomyelitis, unspecified Status: Acute (2) Peripheral vascular disease ICD Code: I73.9 - Peripheral vascular disease, unspecified Status: Chronic (3) HIV disease ICD Code: B20 - Human immunodeficiency virus (HIV) disease Status: Chronic (4) Acute kidney injury ICD Code: N17.9 - Acute kidney failure, unspecified Status: Acute Assessment and Plan Osteomyelitis left foot 2 years of battling an open wound of the left foot, severe peripheral vascular disease Patient understands he will likely undergo an bajlw-ocl-grqr amputation, he is n.p.o. and ready for surgery today Continue with vancomycin and Zosyn IV Appreciate vascular surgery consult Upper respiratory infection Currently covered with vancomycin and Zosyn IV Lungs sound more clear on exam today Consider atypical infections due to HIV Current CD4 count pending Acute renal disease Creatinine was 2.47 on admission Improving with rehydration, continue rehydration HIV Current CD4 count pending Patient states that he takes all of his antiretroviral medications as prescribed Type 2 diabetes Current blood sugars have remained in the low 100s Will check hemoglobin A1c level Accu-Cheks with sliding scale insulin coverage Diabetic diet Hypertension Currently normotensive, will monitor DVT prophylaxis SCDs due to surgery scheduled for tomorrow Alireza Gardner MD Jan 18, 2018 16:06
[2018-01-18] MEDS: ENALAPRILAT 1.25 MG/ML VIAL IV PUSH PRN (16:11)
[2018-01-18] MEDS: ETRAVIRINE 100 MG TAB PO SCH (18:28)
--- NOTE | 2018-01-18 19:48 | PD.CAR.PN ---
CVT Progress Note Subjective/Hospital Course: Patient known to me from previous encounters He signed out AMA last time Patient has gangrene of the foot and severe ischemia of the lower leg CTA performed last time reveals no unreconstructable disease and at this point patient needs left above-knee amputation We will proceed with the same tomorrow Thanks Salo 01/18/2018 Patient with a gangrene of the left leg Scheduled for above-knee amputation however due to tremendously busy emergency schedule and back up in the OR cases as well as full recovery room I agreed to postpone the case till tomorrow Patient scheduled tomorrow Objective: Vital Signs Date Time Temp Pulse Resp B/P (MAP) Pulse Ox O2 Delivery O2 Flow Rate FiO2 01/18/18 16:00 95.9 84 17 174/94 (120) 99 01/18/18 12:00 95.5 70 19 150/80 (103) 93 01/18/18 08:00 95.8 77 17 157/81 (106) 98 01/18/18 06:35 96.7 80 15 177/84 (115) 97 01/18/18 03:57 19 01/18/18 00:00 97.3 71 16 140/81 (100) 97 01/17/18 20:00 96.4 89 17 167/82 (110) 97 Labs: Laboratory Tests Test 01/18/18 09:41 White Blood Count 8.9 TH/MM3 (4.0-11.0) Red Blood Count 3.78 MIL/MM3 (4.50-5.90) Hemoglobin 11.5 GM/DL (13.0-17.0) Hematocrit 35.2 % (39.0-51.0) Mean Corpuscular Volume 93.1 FL (80.0-100.0) Mean Corpuscular Hemoglobin 30.4 PG (27.0-34.0) Mean Corpuscular Hemoglobin Concent 32.7 % (32.0-36.0) Red Cell Distribution Width 15.1 % (11.6-17.2) Platelet Count 401 TH/MM3 (150-450) Mean Platelet Volume 8.9 FL (7.0-11.0) Neutrophils (%) (Auto) 70.3 % (16.0-70.0) Lymphocytes (%) (Auto) 16.4 % (9.0-44.0) Monocytes (%) (Auto) 9.4 % (0.0-8.0) Eosinophils (%) (Auto) 3.5 % (0.0-4.0) Basophils (%) (Auto) 0.4 % (0.0-2.0) Neutrophils # (Auto) 6.3 TH/MM3 (1.8-7.7) Lymphocytes # (Auto) 1.5 TH/MM3 (1.0-4.8) Monocytes # (Auto) 0.8 TH/MM3 (0-0.9) Eosinophils # (Auto) 0.3 TH/MM3 (0-0.4) Basophils # (Auto) 0.0 TH/MM3 (0-0.2) CBC Comment DIFF FINAL Differential Comment Blood Urea Nitrogen 49 MG/DL (7-18) Creatinine 1.41 MG/DL (0.60-1.30) Random Glucose 99 MG/DL (74-106) Calcium Level 10.3 MG/DL (8.5-10.1) Sodium Level 141 MEQ/L (136-145) Potassium Level 3.1 MEQ/L (3.5-5.1) Chloride Level 100 MEQ/L (98-107) Carbon Dioxide Level 30.5 MEQ/L (21.0-32.0) Anion Gap 11 MEQ/L (5-15) Estimat Glomerular Filtration Rate 62 ML/MIN (>89) Result Diagram: 01/18/18 0941 01/18/18 0941 Rosita Ramos MD Jan 18, 2018 19:48
[2018-01-18] MEDS: DOLUTEGRAVIR SODIUM 50 MG TAB PO SCH (21:10)
[2018-01-18 21:36] VITALS: BP 166/78; PULSE 93; RESP 18; TEMP 97.9; O2SAT 94
[2018-01-19 00:30] VITALS: BP 133/63; PULSE 73; RESP 18; TEMP 97.9; O2SAT 99
[2018-01-19] MEDS: LACTULOSE SYRUP 20 GM/30 ML CUP PO PRN (02:02)
[2018-01-19] MEDS: PIPERACIL-TAZO 3.375 GM PREMIX 50 ML IV SCH ×3 (03:09→20:22)
[2018-01-19] MEDS: HYDROmorphone HCL PF 2 MG/ML VIAL IV PUSH PRN ×2 (03:17→20:25)
[2018-01-19] MEDS: NS + KCL 20 MEQ INJ 1,000 ML IV SCH ×2 (04:00→15:47)
[2018-01-19] MEDS: ENALAPRILAT 1.25 MG/ML VIAL IV PUSH PRN (05:19)
[2018-01-19 05:45] VITALS: BP 199/92; PULSE 97; RESP 18; TEMP 97.5; O2SAT 98
[2018-01-19] MEDS ORDERED: POVIDONE IODINE 5% (ANTISEPSIS KIT) 4 APPLICATIONS EACH NARE PRN (06:15)
[2018-01-19] MEDS ORDERED: SODIUM CHLORID 0.9% 500 ML IV PRN (06:15)
[2018-01-19] MEDS ORDERED: LACTATED RINGER'S 1000 ML IV PRN (06:15)
[2018-01-19] MEDS ORDERED: CHLORHEXIDINE GLUCONATE 2 % 1 PACK (2 CLOTHS) TOPICAL PRN (06:15)
[2018-01-19 08:00] VITALS: BP 172/87; PULSE 95; RESP 20; TEMP 96.4; O2SAT 92
[2018-01-19] MEDS: INSULIN ASPART SUPPLEMENTAL SCALE SQ SCH ×4 (08:00→21:00)
[2018-01-19] MEDS ORDERED: SOD PHOSPHATE/SOD BIPHOSPHATE (ADULT) ENEMA 133ML RECTAL ONE (08:30)
[2018-01-19] MEDS: ETRAVIRINE 100 MG TAB PO SCH ×2 (09:00→18:17)
[2018-01-19] MEDS: DOLUTEGRAVIR SODIUM 50 MG TAB PO SCH ×2 (09:00→20:24)
[2018-01-19] MEDS: DIVALPROEX SODIUM E.R. 500 MG TAB PO SCH (09:00)
[2018-01-19] MEDS: LISINOPRIL 20 MG TAB PO SCH (09:00)
[2018-01-19] MEDS: RITONAVIR 100 MG TAB PO SCH (09:00)
[2018-01-19] MEDS: SODIUM CHLORIDE 0.9% FLUSH 10 ML FLUSH IV FLUSH SCH ×2 (09:00→20:23)
[2018-01-19] MEDS: VANCOMYCIN INJ 1,000 MG in SODIUM CHLOR 0.9% 250 ML INJ 250 ML IV SCH (09:00)
[2018-01-19] MEDS: ATENOLOL 50 MG TAB PO SCH (09:00)
[2018-01-19] MEDS: DARUNAVIR 800 MG TAB PO SCH (09:00)
[2018-01-19] MEDS ORDERED: ACETAMINOPHEN 1000 MG/100 ML 100 ML IV ONE (10:17)
[2018-01-19] MEDS ORDERED: FAMOTIDINE 20 MG/2 ML VIAL ONE (11:45)
[2018-01-19] MEDS ORDERED: RESP: ALBUTEROL 2.5 MG/3 ML NEB (PRN) ONE (11:45)
[2018-01-19] MEDS ORDERED: LIDOCAINE HCL 1% PF 5 ML SYRINGE OTHER ONE ×2 (12:00)
[2018-01-19] MEDS ORDERED: SODIUM CHLOR 0.9% 250 ML INJ 250 ML IV ONE (12:00)
[2018-01-19] MEDS ORDERED: LACTATED RINGER'S 1000 ML INJ 1,000 ML IV ONE ×2 (12:00)
[2018-01-19] MEDS ORDERED: PROPOFOL 200 MG/20 ML AMP IV ONE ×2 (12:00)
[2018-01-19] MEDS ORDERED: PHENYLEPHRINE HCL 10 MG/ML VIAL IV ONE ×2 (12:00)
[2018-01-19] MEDS ORDERED: ESMOLOL HCL 100 MG/10 ML VIAL IV ONE (12:00)
[2018-01-19] MEDS ORDERED: ROCURONIUM INJ 50 MG/5 ML SYRINGE IV PUSH ONE ×2 (12:00)
[2018-01-19] MEDS ORDERED: SODIUM CHLORID 0.9% 500 ML INJ 500 ML IV ONE (12:00)
[2018-01-19] MEDS ORDERED: ONDANSETRON HCL 4 MG/2 ML VIAL IV ONE ×2 (12:00)
[2018-01-19] MEDS ORDERED: PHENYLEPH/NS 1000 MCG/10 ML SYR IV ONE ×2 (12:00)
[2018-01-19] MEDS ORDERED: DEXAMETHASONE SOD PHOS 4 MG/ML VIAL IV ONE ×2 (12:00)
[2018-01-19] MEDS ORDERED: GLYCOPYRROLATE 1 MG/5 ML SYRINGE IV PUSH ONE ×2 (12:00)
[2018-01-19] MEDS ORDERED: NEOSTIGMINE 5 MG/5 ML SYRINGE IV PUSH ONE ×2 (12:00)
[2018-01-19] MEDS ORDERED: HYDROmorphone HCL PF 2 MG/ML VIAL ONE (13:11)
[2018-01-19] MEDS ORDERED: DO NOT ADM ANY ANTICOAGULANT DRUGS PRN (14:05)
[2018-01-19] MEDS ORDERED: MIDAZOLAM HCL 2 MG/2 ML VIAL ONE (14:12)
[2018-01-19 16:00] VITALS: BP 129/67; PULSE 102; RESP 18; TEMP 97.9; O2SAT 100
--- NOTE | 2018-01-19 16:07 | MP ---
cc: Rosita Ramos MD DATE OF OPERATION: 01/19/2018 PREOPERATIVE DIAGNOSIS: Gangrene of the left foot and lower leg. POSTOPERATIVE DIAGNOSIS: Gangrene of the left foot and lower leg. OPERATIVE PROCEDURE: Left above-knee amputation. SURGEON: MD Richard ANESTHESIA: General. ESTIMATED BLOOD LOSS: 200 mL. DETAILS OF PROCEDURE: The patient prepped and draped in the usual fashion and the level of the incision was marked with Vicryl tie indentation and incision is made anteriorly with a 10 blade, deepened down with cautery set through the quadriceps tendon and patellar tendon, all the way down to the femur. The tissue is cut laterally around the femur and then Claudia placed below the femur to free up the tissue. Using periosteal elevator, the tissue is elevated to about 2 inches above the level of the original incision and then the femur is transected with oscillating saw. The posterior flap is created with amputation knife, specimen removed. Quickly about 5 hemostats are applied to various vessels. The patient's SFA of course is occluded, but there are other vessels that are collaterals and branch of the deep femoral which were bleeding. These are quickly clamped and then ligated with a 0 Vicryl [id number] and small vessels are cauterized. The area is irrigated with saline and then incision closed, deep layer to deep layer with a #1 Vicryl, superficial fascia to superficial fascia with #1 Vicryl and skin with 2-0 Prolene. A dressing applied. The patient tolerated the procedure well. MD VANE Lin/SAVANAH , 03:48 PM , 04:06 PM
--- NOTE | 2018-01-19 17:08 | HHI.PR ---
Subjective Remarks 62-year-old male awaiting vihkg-anp-tndh amputation of left leg due to severe peripheral artery disease and left foot infection (osteomyelitis). He was unable to have his surgery yesterday due to emergency surgeries that bumped him off the schedule. His main complaint today is constipation Objective Vitals Vital Signs Date Time Temp Pulse Resp B/P (MAP) Pulse Ox O2 Delivery O2 Flow Rate FiO2 01/19/18 16:00 97.9 102 18 129/67 (87) 100 01/19/18 15:00 102 16 149/75 (99) 100 Nasal Cannula 3 01/19/18 14:45 102 17 156/75 (102) 100 Nasal Cannula 3 01/19/18 14:30 104 19 163/77 (105) 100 Nasal Cannula 3 01/19/18 14:15 103 24 164/78 (106) 100 Nasal Cannula 3 01/19/18 14:01 97.9 104 24 166/95 (118) 100 Nasal Cannula 4 01/19/18 08:00 96.4 95 20 172/87 (115) 92 01/19/18 05:45 97.5 97 18 199/92 (127) 98 01/19/18 04:08 16 01/19/18 00:30 97.9 73 18 133/63 (86) 99 01/18/18 21:36 97.9 93 18 166/78 (107) 94 I/O 01/18/18 01/18/18 01/18/18 01/19/18 01/19/18 01/19/18 07:00 15:00 23:00 07:00 15:00 23:00 Intake Total 120 ml 300 ml 1300 ml Output Total 400 ml 825 ml 200 ml 475 ml Balance -280 ml -525 ml -200 ml 825 ml Intake Oral 120 ml 300 ml IV Total 1300 ml Output Urine Total 400 ml 825 ml 200 ml 325 ml Estimated Blood Loss 150 ml # Voids 2 3 1 # Bowel Movements 0 Result Diagram: 01/18/1894001/18/18940 Objective Remarks GENERAL: Well-nourished, well-developed patient. SKIN: Warm and dry. HEAD: Normocephalic. EYES: No scleral icterus. No injection or drainage. NECK: Supple, trachea midline. No JVD or lymphadenopathy. CARDIOVASCULAR: Regular rate and rhythm without murmurs, gallops, or rubs. RESPIRATORY: Breath sounds equal bilaterally. No accessory muscle use. GASTROINTESTINAL: Abdomen soft, non-tender, nondistended. EXTREMITIES: Muscle wasting of left lower leg, dry flaking skin, 5 x 1 cm ulcerative wound between first and second digit of left foot NEUROLOGICAL: Awake, alert, and oriented x 3. Non-focal. A/P Problem List: (1) Osteomyelitis of left foot ICD Code: M86.9 - Osteomyelitis, unspecified Status: Acute (2) Peripheral vascular disease ICD Code: I73.9 - Peripheral vascular disease, unspecified Status: Chronic (3) HIV disease ICD Code: B20 - Human immunodeficiency virus (HIV) disease Status: Chronic (4) Acute kidney injury ICD Code: N17.9 - Acute kidney failure, unspecified Status: Acute Assessment and Plan Osteomyelitis left foot 2 years of battling an open wound of the left foot, severe peripheral vascular disease Patient is prepared for an rzqho-otd-htkn amputation, he is n.p.o. again today and ready for surgery Continue with vancomycin and Zosyn IV Appreciate vascular surgery consult Constipation No success with glycerin suppository Fleets enema ordered Upper respiratory infection Currently covered with vancomycin and Zosyn IV Lungs sound more clear on exam today Consider atypical infections due to HIV Current CD4 count pending Acute renal disease Creatinine was 2.47 on admission Improving with rehydration, continue rehydration HIV Current CD4 count pending Patient states that he takes all of his antiretroviral medications as prescribed Type 2 diabetes Current blood sugars have remained in the low 100s Will check hemoglobin A1c level Accu-Cheks with sliding scale insulin coverage Diabetic diet Hypertension Currently normotensive, will monitor DVT prophylaxis SCDs due to surgery scheduled for tomorrow Alireza Gardner MD Jan 19, 2018 17:08
[2018-01-19 20:00] VITALS: BP 187/80; PULSE 100; RESP 20; TEMP 99.3; O2SAT 98
[2018-01-20 00:11] VITALS: BP 182/84; PULSE 107; RESP 20; TEMP 97.9; O2SAT 93
[2018-01-20] MEDS: NS + KCL 20 MEQ INJ 1,000 ML IV SCH ×3 (00:11→20:00)
[2018-01-20] MEDS: HYDROmorphone HCL PF 2 MG/ML VIAL IV PUSH PRN ×4 (01:40→16:20)
[2018-01-20 04:00] VITALS: BP 166/79; PULSE 87; RESP 20; TEMP 98.2; O2SAT 96
[2018-01-20] MEDS: PIPERACIL-TAZO 3.375 GM PREMIX 50 ML IV SCH ×3 (04:13→20:19)
[2018-01-20 08:00] VITALS: BP 182/84; PULSE 82; RESP 16; TEMP 97.6; O2SAT 96
[2018-01-20] MEDS: INSULIN ASPART SUPPLEMENTAL SCALE SQ SCH ×4 (08:00→20:20)
[2018-01-20] MEDS: DARUNAVIR 800 MG TAB PO SCH (08:14)
[2018-01-20] MEDS: DIVALPROEX SODIUM E.R. 500 MG TAB PO SCH (08:14)
[2018-01-20] MEDS: RITONAVIR 100 MG TAB PO SCH (08:14)
[2018-01-20] MEDS: DOLUTEGRAVIR SODIUM 50 MG TAB PO SCH ×2 (08:14→20:19)
[2018-01-20] MEDS: ETRAVIRINE 100 MG TAB PO SCH ×2 (08:14→17:51)
[2018-01-20] MEDS: LISINOPRIL 20 MG TAB PO SCH (08:14)
[2018-01-20] MEDS: ATENOLOL 50 MG TAB PO SCH (08:14)
[2018-01-20] MEDS: VANCOMYCIN INJ 1,000 MG in SODIUM CHLOR 0.9% 250 ML INJ 250 ML IV SCH (08:15)
[2018-01-20] MEDS: SODIUM CHLORIDE 0.9% FLUSH 10 ML FLUSH IV FLUSH SCH ×2 (08:15→20:20)
[2018-01-20] MEDS: amLODIPine BESYLATE 5 MG TAB PO SCH (09:37)
--- NOTE | 2018-01-20 10:25 | HHI.PR ---
Subjective Remarks Pt seen around 9am Pt complains of pain in his lower ext. Did just get some pain meds. No nausea or vomiting Discussed w RN, pt only has IV dilaudid Objective Vitals Vital Signs Date Time Temp Pulse Resp B/P (MAP) Pulse Ox O2 Delivery O2 Flow Rate FiO2 01/20/18 09:00 18 01/20/18 08:00 97.6 82 16 182/84 (116) 96 01/20/18 04:00 98.2 87 20 166/79 (108) 96 01/20/18 00:11 97.9 107 20 182/84 (116) 93 01/19/18 20:00 99.3 100 20 187/80 (115) 98 01/19/18 16:00 97.9 102 18 129/67 (87) 100 01/19/18 15:00 102 16 149/75 (99) 100 Nasal Cannula 3 01/19/18 14:45 102 17 156/75 (102) 100 Nasal Cannula 3 01/19/18 14:30 104 19 163/77 (105) 100 Nasal Cannula 3 01/19/18 14:15 103 24 164/78 (106) 100 Nasal Cannula 3 01/19/18 14:01 97.9 104 24 166/95 (118) 100 Nasal Cannula 4 I/O 01/19/18 01/19/18 01/19/18 01/20/18 01/20/18 01/20/18 07:00 15:00 23:00 07:00 15:00 23:00 Intake Total 1300 ml 800 ml 1170 ml Output Total 200 ml 475 ml 1350 ml Balance -200 ml 825 ml 800 ml -180 ml Intake Oral 120 ml IV Total 1300 ml 800 ml 1050 ml Output Urine Total 200 ml 325 ml 1350 ml Estimated Blood Loss 150 ml # Voids 3 1 2 # Bowel Movements 1 0 Result Diagram: 01/18/18 0941 01/18/18 0941 Imaging Last Impressions Chest X-Ray 01/17/18 0000 Signed Impressions: Service Date/Time: Wednesday, January 17, 2018 13:06 - CONCLUSION: No acute disease. Renato Lanier MD Objective Remarks GENERAL: laying in bed CARDIOVASCULAR: Regular rate and rhythm without murmurs RESPIRATORY: Breath sounds equal bilaterally. No accessory muscle use. GASTROINTESTINAL: Abdomen soft, non-tender, nondistended. EXTREMITIES: dressing over left lower ext. L AKA NEUROLOGICAL: awake and alert. answers questions briefly A/P Problem List: (1) Osteomyelitis of left foot ICD Code: M86.9 - Osteomyelitis, unspecified Status: Acute (2) Peripheral vascular disease ICD Code: I73.9 - Peripheral vascular disease, unspecified Status: Chronic (3) HIV disease ICD Code: B20 - Human immunodeficiency virus (HIV) disease Status: Chronic (4) Acute kidney injury ICD Code: N17.9 - Acute kidney failure, unspecified Status: Acute Assessment and Plan Osteomyelitis left foot 2 years of battling an open wound of the left foot, severe peripheral vascular disease s/p AKA Continue with vancomycin and Zosyn IV vascular surgery following. POD#1 Pain management per Vasc Sx. RN will be notifying team that pt doesn't have any PO pain meds. wound cx growing enterobacter Cloacae, gram neg rods and group D enterococcus Pathology pending Constipation No success with glycerin suppository Fleets enema ordered Upper respiratory infection Currently covered with vancomycin and Zosyn IV Lungs sound clear on exam today Consider atypical infections due to HIV Absolute CD4 count 376 Acute renal disease Creatinine was 2.47 on admission Improving with rehydration, continue rehydration HIV absolute CD4 count 376 Patient states that he takes all of his antiretroviral medications as prescribed Type 2 diabetes Current blood sugars have remained in the low 100s Will check hemoglobin A1c level Accu-Cheks with sliding scale insulin coverage Diabetic diet Hypertension continues to be elevated. added amlodipine 5mg po daily DVT prophylaxis SCDs. consider lovenox if cleared by vasc sx Discharge Planning POD 1 Left AKA. Nidhi Gilliland MD Jan 20, 2018 10:25
[2018-01-20 12:00] VITALS: BP 172/80; PULSE 64; RESP 16; TEMP 98.8; O2SAT 96
[2018-01-20] MEDS ORDERED: oxyCODONE/ACETAMINOPHEN 10 MG/325 MG TAB PO ONE (12:45)
[2018-01-20 13:51] LABS: HEMATOCRIT 26.3 % (39.0-51.0); HEMOGLOBIN 8.6 GM/DL (13.0-17.0); MEAN CELL VOLUME 93.7 FL (80.0-100.0); MEAN CORPUSCULAR HEMOGLOBIN 30.7 PG (27.0-34.0); MEAN CORPUSCULAR HGB CONC 32.8 % (32.0-36.0); MEAN PLATELET VOLUME 8.9 FL (7.0-11.0); PLATELET COUNT 277 TH/MM3 (150-450); RED CELL DISTRIBUTION WIDTH 15.1 % (11.6-17.2); WHITE BLOOD COUNT 16.1 TH/MM3 (4.0-11.0)
[2018-01-20 14:15] LABS: BICARBONATE 31.2 MEQ/L (21.0-32.0); CALCIUM 9.3 MG/DL (8.5-10.1); CREATININE 0.84 MG/DL (0.60-1.30)
--- NOTE | 2018-01-20 15:36 | PD.CAR.PN ---
CVT Progress Note Subjective/Hospital Course: Patient known to me from previous encounters He signed out AMA last time Patient has gangrene of the foot and severe ischemia of the lower leg CTA performed last time reveals no unreconstructable disease and at this point patient needs left above-knee amputation We will proceed with the same tomorrow Thanks Salo 01/18/2018 Patient with a gangrene of the left leg Scheduled for above-knee amputation however due to tremendously busy emergency schedule and back up in the OR cases as well as full recovery room I agreed to postpone the case till tomorrow Patient scheduled tomorrow 01/20/2018 Patient status post AKA Dressing dry will leave alone Patient should be on MedSurg floor rather than oncology but I believe there was shortage of beds I have adjusted pain medications because I was told by the RN that hospitalist attending will not adjust pain medication for the patient Objective: Vital Signs Date Time Temp Pulse Resp B/P (MAP) Pulse Ox O2 Delivery O2 Flow Rate FiO2 01/20/18 13:53 18 01/20/18 12:18 18 01/20/18 12:00 98.8 64 16 172/80 (110) 96 01/20/18 08:00 97.6 82 16 182/84 (116) 96 01/20/18 04:00 98.2 87 20 166/79 (108) 96 01/20/18 00:11 97.9 107 20 182/84 (116) 93 01/19/18 20:00 99.3 100 20 187/80 (115) 98 01/19/18 16:00 97.9 102 18 129/67 (87) 100 Labs: Laboratory Tests Test 01/20/18 12:50 White Blood Count 16.1 TH/MM3 (4.0-11.0) Red Blood Count 2.80 MIL/MM3 (4.50-5.90) Hemoglobin 8.6 GM/DL (13.0-17.0) Hematocrit 26.3 % (39.0-51.0) Mean Corpuscular Volume 93.7 FL (80.0-100.0) Mean Corpuscular Hemoglobin 30.7 PG (27.0-34.0) Mean Corpuscular Hemoglobin Concent 32.8 % (32.0-36.0) Red Cell Distribution Width 15.1 % (11.6-17.2) Platelet Count 277 TH/MM3 (150-450) Mean Platelet Volume 8.9 FL (7.0-11.0) Blood Urea Nitrogen 13 MG/DL (7-18) Creatinine 0.84 MG/DL (0.60-1.30) Random Glucose 98 MG/DL (74-106) Calcium Level 9.3 MG/DL (8.5-10.1) Sodium Level 145 MEQ/L (136-145) Potassium Level 3.0 MEQ/L (3.5-5.1) Chloride Level 107 MEQ/L (98-107) Carbon Dioxide Level 31.2 MEQ/L (21.0-32.0) Anion Gap 7 MEQ/L (5-15) Estimat Glomerular Filtration Rate 112 ML/MIN (>89) Result Diagram: 01/20/18 1250 01/20/18 1250 Rosita Ramos MD Jan 20, 2018 15:36
[2018-01-20 16:00] VITALS: BP 149/70; PULSE 65; RESP 20; TEMP 98.6; O2SAT 96
[2018-01-20] MEDS ORDERED: POTASSIUM CHLORIDE 20 MEQ CONTROLLED RELEASE TAB PO ONE (17:00)
[2018-01-20 20:00] VITALS: BP 171/79; PULSE 68; RESP 20; TEMP 98.3; O2SAT 96
[2018-01-20] MEDS: oxyCODONE/ACETAMINOPHEN 5 MG/325 MG TAB PO PRN (20:20)
--- NOTE | 2018-01-20 23:05 | EKG ---
Date Performed: 01/19/2018 Time Performed: 11:37:13 PTAGE: 62 years EKG: Sinus rhythm MODERATE ST DEPRESSION ABNORMAL ECG PREVIOUS TRACING : 12/28/2016 17.02 Since the previous tracing, no significant change noted DOCTOR: Gabe Rodas Interpretating Date/Time 01/20/2018 23:04:25
[2018-01-21] MEDS: oxyCODONE/ACETAMINOPHEN 5 MG/325 MG TAB PO PRN ×5 (00:37→21:37)
[2018-01-21] MEDS: PIPERACIL-TAZO 3.375 GM PREMIX 50 ML IV SCH ×3 (04:08→21:37)
[2018-01-21] MEDS: NS + KCL 20 MEQ INJ 1,000 ML IV SCH ×2 (06:00→17:23)
[2018-01-21 08:00] VITALS: BP 189/86; PULSE 74; RESP 18; TEMP 98.9; O2SAT 97
[2018-01-21] MEDS: INSULIN ASPART SUPPLEMENTAL SCALE SQ SCH ×4 (08:00→21:00)
[2018-01-21 08:31] LABS: AUTOMATED NEUTROPHIL # 8.5 TH/MM3 (1.8-7.7); BASOPHIL % 0.4 % (0.0-2.0); EOSINOPHIL # 0.3 TH/MM3 (0-0.4); EOSINOPHIL % 2.5 % (0.0-4.0); HEMATOCRIT 27.5 % (39.0-51.0); MEAN CELL VOLUME 93.1 FL (80.0-100.0); MEAN CORPUSCULAR HEMOGLOBIN 30.6 PG (27.0-34.0); MEAN CORPUSCULAR HGB CONC 32.9 % (32.0-36.0); MEAN PLATELET VOLUME 9.9 FL (7.0-11.0); MONO % 9.5 % (0.0-8.0); MONOCYTE # 1.1 TH/MM3 (0-0.9); NEUT % 70.6 % (16.0-70.0); PLATELET COUNT 391 TH/MM3 (150-450); RED BLOOD COUNT 2.96 MIL/MM3 (4.50-5.90); RED CELL DISTRIBUTION WIDTH 15.7 % (11.6-17.2)
[2018-01-21] MEDS: SODIUM CHLORIDE 0.9% FLUSH 10 ML FLUSH IV FLUSH SCH ×2 (09:00→21:37)
[2018-01-21] MEDS: DOLUTEGRAVIR SODIUM 50 MG TAB PO SCH ×2 (09:30→21:37)
[2018-01-21] MEDS: RITONAVIR 100 MG TAB PO SCH (09:31)
[2018-01-21] MEDS: LISINOPRIL 20 MG TAB PO SCH (09:31)
[2018-01-21] MEDS: DARUNAVIR 800 MG TAB PO SCH (09:32)
[2018-01-21] MEDS: ETRAVIRINE 100 MG TAB PO SCH ×2 (09:32→17:21)
[2018-01-21] MEDS: ATENOLOL 50 MG TAB PO SCH (09:32)
[2018-01-21] MEDS: DIVALPROEX SODIUM E.R. 500 MG TAB PO SCH (09:33)
[2018-01-21] MEDS: amLODIPine BESYLATE 5 MG TAB PO SCH (09:33)
[2018-01-21] MEDS: VANCOMYCIN INJ 1,000 MG in SODIUM CHLOR 0.9% 250 ML INJ 250 ML IV SCH (09:34)
[2018-01-21] MEDS: HYDROmorphone HCL PF 2 MG/ML VIAL IV PUSH PRN (09:57)
[2018-01-21 12:00] VITALS: BP 172/81; PULSE 73; RESP 15; TEMP 98.2; O2SAT 95
[2018-01-21 12:26] LABS: BICARBONATE 33.5 MEQ/L (21.0-32.0); CALCIUM 9.3 MG/DL (8.5-10.1); CREATININE 0.83 MG/DL (0.60-1.30)
[2018-01-21] MEDS: ENALAPRILAT 1.25 MG/ML VIAL IV PUSH PRN (13:51)
[2018-01-21 16:00] VITALS: BP 154/78; PULSE 80; RESP 16; TEMP 97.9; O2SAT 96
--- NOTE | 2018-01-21 16:29 | PD.CAR.PN ---
CVT Progress Note Subjective/Hospital Course: Patient known to me from previous encounters He signed out AMA last time Patient has gangrene of the foot and severe ischemia of the lower leg CTA performed last time reveals no unreconstructable disease and at this point patient needs left above-knee amputation We will proceed with the same tomorrow Thanks Salo 01/18/2018 Patient with a gangrene of the left leg Scheduled for above-knee amputation however due to tremendously busy emergency schedule and back up in the OR cases as well as full recovery room I agreed to postpone the case till tomorrow Patient scheduled tomorrow 01/20/2018 Patient status post AKA Dressing dry will leave alone Patient should be on MedSurg floor rather than oncology but I believe there was shortage of beds I have adjusted pain medications because I was told by the RN that hospitalist attending will not adjust pain medication for the patient 01/21/2019 Patient comfortable on new pain management regimen Dressing removed AKA stump is clean dry and healing nicely We will apply light Kerlix dressing daily Patient can be discharged from vascular point any time. Stitches will stay in for a total of 3 weeks Objective: Vital Signs Date Time Temp Pulse Resp B/P (MAP) Pulse Ox O2 Delivery O2 Flow Rate FiO2 01/21/18 12:00 98.2 73 15 172/81 (111) 95 01/21/18 08:00 98.9 74 18 189/86 (120) 97 01/21/18 01:46 18 01/20/18 20:00 98.3 68 20 171/79 (109) 96 01/20/18 16:59 18 Labs: Laboratory Tests Test 01/21/18 06:40 01/21/18 11:31 White Blood Count 12.0 TH/MM3 (4.0-11.0) Red Blood Count 2.96 MIL/MM3 (4.50-5.90) Hemoglobin 9.0 GM/DL (13.0-17.0) Hematocrit 27.5 % (39.0-51.0) Mean Corpuscular Volume 93.1 FL (80.0-100.0) Mean Corpuscular Hemoglobin 30.6 PG (27.0-34.0) Mean Corpuscular Hemoglobin Concent 32.9 % (32.0-36.0) Red Cell Distribution Width 15.7 % (11.6-17.2) Platelet Count 391 TH/MM3 (150-450) Mean Platelet Volume 9.9 FL (7.0-11.0) Neutrophils (%) (Auto) 70.6 % (16.0-70.0) Lymphocytes (%) (Auto) 17.0 % (9.0-44.0) Monocytes (%) (Auto) 9.5 % (0.0-8.0) Eosinophils (%) (Auto) 2.5 % (0.0-4.0) Basophils (%) (Auto) 0.4 % (0.0-2.0) Neutrophils # (Auto) 8.5 TH/MM3 (1.8-7.7) Lymphocytes # (Auto) 2.0 TH/MM3 (1.0-4.8) Monocytes # (Auto) 1.1 TH/MM3 (0-0.9) Eosinophils # (Auto) 0.3 TH/MM3 (0-0.4) Basophils # (Auto) 0.0 TH/MM3 (0-0.2) CBC Comment DIFF FINAL Differential Comment Blood Urea Nitrogen 9 MG/DL (7-18) Creatinine 0.83 MG/DL (0.60-1.30) Random Glucose 108 MG/DL (74-106) Calcium Level 9.3 MG/DL (8.5-10.1) Sodium Level 143 MEQ/L (136-145) Potassium Level 3.3 MEQ/L (3.5-5.1) Chloride Level 104 MEQ/L (98-107) Carbon Dioxide Level 33.5 MEQ/L (21.0-32.0) Anion Gap 6 MEQ/L (5-15) Estimat Glomerular Filtration Rate 113 ML/MIN (>89) Result Diagram: 01/21/18 0640 01/21/18 1131 Rosita Ramos MD Jan 21, 2018 16:28
--- NOTE | 2018-01-21 18:25 | HHI.PR ---
Subjective Remarks pain is controlled Afebrile Denies cp/sob K low Objective Vitals Vital Signs Date Time Temp Pulse Resp B/P (MAP) Pulse Ox O2 Delivery O2 Flow Rate FiO2 01/21/18 16:00 97.9 80 16 154/78 (103) 96 01/21/18 12:00 98.2 73 15 172/81 (111) 95 01/21/18 08:00 98.9 74 18 189/86 (120) 97 01/21/18 01:46 18 01/20/18 20:00 98.3 68 20 171/79 (109) 96 I/O 01/20/18 01/20/18 01/20/18 01/21/18 01/21/18 01/21/18 07:00 15:00 23:00 07:00 15:00 23:00 Intake Total 1170 ml 100 ml 900 ml Output Total 1350 ml 1400 ml 800 ml 845 ml Balance -180 ml -1400 ml -700 ml 55 ml Intake Oral 120 ml IV Total 1050 ml 100 ml 900 ml Output Urine Total 1350 ml 1400 ml 800 ml 845 ml # Bowel Movements 0 0 Result Diagram: 01/21/18 0640 01/21/18 1131 Imaging Last Impressions Chest X-Ray 01/17/18 0000 Signed Impressions: Service Date/Time: Wednesday, January 17, 2018 13:06 - CONCLUSION: No acute disease. Renato Lanier MD Objective Remarks GENERAL: laying in bed CARDIOVASCULAR: Regular rate and rhythm without murmurs RESPIRATORY: Breath sounds equal bilaterally. No accessory muscle use. GASTROINTESTINAL: Abdomen soft, non-tender, nondistended. EXTREMITIES: dressing over left lower ext. L AKA - Dressing dry and clean. NEUROLOGICAL: awake and alert. answers questions briefly Medications and IVs Current Medications Medications (Trade) Dose Ordered Sig/Robles Route Start Time Stop Time Status Last Admin (NS Flush) 2 ml UNSCH PRN IV FLUSH 01/17/18 11:00 (NS Flush) 2 ml BID IV FLUSH 01/17/18 21:00 01/20/18 08:15 (Tylenol) 650 mg Q4H PRN PO 01/17/18 11:00 (Zofran Inj) 4 mg Q6H PRN IVP 01/17/18 11:00 (Narcan Inj) 0.4 mg UNSCH PRN IV PUSH 3/25/18 11:00 (Senokot) 17.2 mg Q12H PRN PO 01/17/18 11:00 (Dulcolax Supp) 10 mg DAILY PRN RECTAL 01/17/18 11:00 01/19/18 07:28 (Lactulose Liq) 30 ml DAILY PRN PO 01/17/18 11:00 01/19/18 02:02 (D50w (Vial) Inj) 50 ml UNSCH PRN IV PUSH 01/17/18 11:00 (Glucagon Inj) 1 mg UNSCH PRN OTHER 01/17/18 11:00 (NovoLOG SUPPLEMENTAL SCALE) 1 ACHS SLIDING SCALE SQ 01/17/18 12:00 01/17/18 17:00 Potassium Chloride/Sodium Chloride 1,000 ml @ 100 mls/hr Q10H IV 01/17/18 12:00 01/21/18 17:23 Vancomycin HCl 1000 mg/Sodium Chloride 250 ml @ 250 mls/hr Q24H IV 01/18/18 09:00 01/21/18 09:34 Piperacillin Sod/ Tazobactam Sod 50 ml @ 100 mls/hr Q8H IV 01/17/18 20:00 01/21/18 13:02 (Vasotec Inj) 1.25 mg Q6H PRN IV PUSH 01/18/18 08:00 01/21/18 13:51 (Tenormin) 50 mg DAILY PO 01/19/18 09:00 01/21/18 09:32 (Prezista) 800 mg DAILY PO 01/19/18 09:00 01/21/18 09:32 (Depakote Er) 500 mg DAILY PO 01/19/18 09:00 01/21/18 09:33 (Norvir) 100 mg DAILY PO 01/19/18 09:00 01/21/18 09:31 (Intelence) 200 mg BIDPC PO 01/18/18 18:00 01/21/18 17:21 (Prinivil) 40 mg DAILY PO 01/19/18 09:00 01/21/18 09:31 Lactated Ringer's 1,000 ml @ 30 mls/hr Q24H PRN IV 01/19/18 06:15 01/22/18 06:14 01/19/18 10:45 Sodium Chloride 500 ml @ 30 mls/hr [id number] PRN IV 01/19/18 06:15 01/22/18 06:14 (Betadine 5% Antisepsis Kit) 1 applic REGISTERED NURSE AMBULATORY PRN EACH NARE 01/19/18 06:15 01/22/18 06:14 (Chlorhexidine 2% Cloth) 3 pack REGISTERED NURSE AMBULATORY PRN TOPICAL 01/19/18 06:15 01/22/18 06:14 (Norvasc) 5 mg DAILY PO 01/20/18 10:00 01/21/18 09:33 (Percocet 5-325 Mg) 1 tab Q4H PRN PO 01/20/18 15:45 01/21/18 17:21 (Dilaudid Pf Inj) 0.5 mg Q2H PRN IV PUSH 01/20/18 15:45 01/21/18 09:57 A/P Problem List: (1) Osteomyelitis of left foot ICD Code: M86.9 - Osteomyelitis, unspecified Status: Acute (2) Peripheral vascular disease ICD Code: I73.9 - Peripheral vascular disease, unspecified Status: Chronic (3) HIV disease ICD Code: B20 - Human immunodeficiency virus (HIV) disease Status: Chronic (4) Acute kidney injury ICD Code: N17.9 - Acute kidney failure, unspecified Status: Acute Assessment and Plan 2 years of battling an open wound of the left foot, severe peripheral vascular disease s/p AKA Continue with vancomycin and Zosyn IV vascular surgery following. POD#2 wound cx growing enterobacter Cloacae, gram neg rods and group D enterococcus 01/21 patient currently controlled. Continue same regimen with Percocet and Dilaudid IV. Vascular surgery. The patient to be discharged. Consult physical therapy. Constipation No success with glycerin suppository Fleets enema ordered 01/21 constipation resolved, patient had a bowel movement today. Upper respiratory infection Currently covered with vancomycin and Zosyn IV Lungs sound clear on exam today Consider atypical infections due to HIV Absolute CD4 count 376 Acute renal disease Creatinine was 2.47 on admission Improving with rehydration, continue rehydration HIV absolute CD4 count 376 Patient states that he takes all of his antiretroviral medications as prescribed Type 2 diabetes Current blood sugars have remained in the low 100s Will check hemoglobin A1c level Accu-Cheks with sliding scale insulin coverage Diabetic diet 01/21 hemoglobin A1c 5.0. Diabetes is very well controlled. Hypertension 01/21 blood pressure continues to be severely elevated with systolic blood pressure in the 170s. Increase amlodipine dose to 10 minutes p.o. daily. Continue to monitor vital signs. Hypokalemia Replace potassium orally and monitor BMP. DVT prophylaxis SCDs. consider lovenox if cleared by vasc sx Discharge Planning Discharge in a.m. pending physical therapy evaluation. Jamal Herron MD Jan 21, 2018 18:25
[2018-01-21] MEDS ORDERED: POTASSIUM CHLORIDE 10 MEQ CONTROLLED RELEASE TAB PO ONE (18:30)
[2018-01-21 20:00] VITALS: BP 158/75; PULSE 61; RESP 18; TEMP 98; O2SAT 97
[2018-01-22 00:03] VITALS: BP 167/76; PULSE 63; RESP 20; TEMP 96.6; O2SAT 97
[2018-01-22] MEDS: oxyCODONE/ACETAMINOPHEN 5 MG/325 MG TAB PO PRN ×3 (01:54→19:51)
[2018-01-22] MEDS: PIPERACIL-TAZO 3.375 GM PREMIX 50 ML IV SCH ×2 (04:23→12:43)
[2018-01-22 05:14] VITALS: BP 160/74
[2018-01-22 08:00] VITALS: BP 182/84; PULSE 120; RESP 22; TEMP 97.5; O2SAT 97
[2018-01-22] MEDS: INSULIN ASPART SUPPLEMENTAL SCALE SQ SCH ×4 (08:00→20:39)
[2018-01-22] MEDS: DARUNAVIR 800 MG TAB PO SCH (08:15)
[2018-01-22] MEDS: LISINOPRIL 20 MG TAB PO SCH (08:16)
[2018-01-22] MEDS: RITONAVIR 100 MG TAB PO SCH (08:16)
[2018-01-22] MEDS: DIVALPROEX SODIUM E.R. 500 MG TAB PO SCH (08:16)
[2018-01-22] MEDS: ATENOLOL 50 MG TAB PO SCH (08:16)
[2018-01-22] MEDS: ETRAVIRINE 100 MG TAB PO SCH ×2 (08:16→16:58)
[2018-01-22] MEDS: DOLUTEGRAVIR SODIUM 50 MG TAB PO SCH ×2 (08:16→20:09)
[2018-01-22] MEDS: VANCOMYCIN INJ 1,000 MG in SODIUM CHLOR 0.9% 250 ML INJ 250 ML IV SCH (08:17)
[2018-01-22] MEDS: SODIUM CHLORIDE 0.9% FLUSH 10 ML FLUSH IV FLUSH SCH ×2 (08:28→20:10)
[2018-01-22] MEDS: HYDROmorphone HCL PF 2 MG/ML VIAL IV PUSH PRN ×2 (09:16→22:24)
--- NOTE | 2018-01-22 11:08 | HHI.PR ---
Subjective Remarks This is a pleasant 62 y/o male with peripheral history disease and chronic ulcerations of the skin of left foot CT scan reveals osteomyelitis of the foot. the patient has also HIV, DM II, COPD. denies any nausea, vomit or diarrhea. Seen in his bedroom in the presence of Nurse Miss Espinal, discussed with Athletic Gear Custodian not yet ready for discharge, continue with uncontrolled blood pressure, he continue smoking, his stitches will need to remain in place for the next 3 weeks. last hemoglobin 9 and WBC 12. Potassium was 3.3 yesterday and had 40 meq will complete 20 meq more and follow Objective Vital Signs Date Time Temp Pulse Resp B/P (MAP) Pulse Ox O2 Delivery O2 Flow Rate FiO2 01/22/18 09:46 18 01/22/18 08:00 97.5 120 22 182/84 (116) 97 01/22/18 05:14 160/74 (102) 01/22/18 00:03 96.6 63 20 167/76 (106) 97 01/21/18 20:00 98.0 61 18 158/75 (102) 97 01/21/18 16:00 97.9 80 16 154/78 (103) 96 01/21/18 12:00 98.2 73 15 172/81 (111) 95 I/O 01/21/18 01/21/18 01/21/18 01/22/18 01/22/18 01/22/18 07:00 15:00 23:00 07:00 15:00 23:00 Intake Total 100 ml 1140 ml 530 ml Output Total 800 ml 845 ml 1400 ml Balance -700 ml 295 ml -870 ml Intake Oral 480 ml IV Total 100 ml 1140 ml 50 ml Output Urine Total 800 ml 845 ml 1400 ml # Bowel Movements 0 0 Result Diagram: 01/21/18 0640 01/21/18 1131 Imaging Last Impressions Chest X-Ray 01/17/18 0000 Signed Impressions: Service Date/Time: Wednesday, January 17, 2018 13:06 - CONCLUSION: No acute disease. Renato Lanier MD Procedures With Diagnosis of Gangrene of the left foot and lower leg status post Left AKA 01/19/2018 Other Results Laboratory Tests Test 01/17/18 06:20 01/18/18 09:41 01/21/18 06:40 01/21/18 11:31 Lactic Acid Level 1.9 mmol/L Hemoglobin A1c 5.0 % Absolute Lymphocytes (Cell Immunity 1680 Percent CD3 Cells 66 % Absolute CD3 Count 1101 Percent CD3-/CD16+/CD56+ Cells 21 % Absolute CD3-/CD16+/CD56+ Count 373 Percent CD4 Cells 23 % Absolute CD4 Count 376 T-[place]/Suppressor Ratio 0.6 Percent CD8 Cells 42 % Absolute CD8 Count 674 Percent CD19 Cells 13 % Absolute CD19 Count 224 White Blood Count 12.0 TH/MM3 Red Blood Count 2.96 MIL/MM3 Hemoglobin 9.0 GM/DL Hematocrit 27.5 % Mean Corpuscular Volume 93.1 FL Mean Corpuscular Hemoglobin 30.6 PG Mean Corpuscular Hemoglobin Concent 32.9 % Red Cell Distribution Width 15.7 % Platelet Count 391 TH/MM3 Mean Platelet Volume 9.9 FL Neutrophils (%) (Auto) 70.6 % Lymphocytes (%) (Auto) 17.0 % Monocytes (%) (Auto) 9.5 % Eosinophils (%) (Auto) 2.5 % Basophils (%) (Auto) 0.4 % Neutrophils # (Auto) 8.5 TH/MM3 Lymphocytes # (Auto) 2.0 TH/MM3 Monocytes # (Auto) 1.1 TH/MM3 Eosinophils # (Auto) 0.3 TH/MM3 Basophils # (Auto) 0.0 TH/MM3 CBC Comment DIFF FINAL Differential Comment Blood Urea Nitrogen 9 MG/DL Creatinine 0.83 MG/DL Random Glucose 108 MG/DL Calcium Level 9.3 MG/DL Sodium Level 143 MEQ/L Potassium Level 3.3 MEQ/L Chloride Level 104 MEQ/L Carbon Dioxide Level 33.5 MEQ/L Anion Gap 6 MEQ/L Estimat Glomerular Filtration Rate 113 ML/MIN Objective Remarks GENERAL: No acute distress. CARDIOVASCULAR: Regular rate and rhythm without murmurs RESPIRATORY: Breath sounds equal bilaterally. No accessory muscle use. GASTROINTESTINAL: Abdomen soft, non-tender, nondistended. EXTREMITIES: dressing over left lower ext. L AKA - Dressing dry and clean. NEUROLOGICAL: awake and alert. answers questions briefly Medications and IVs Current Medications Medications (Trade) Dose Ordered Sig/Robles Route Start Time Stop Time Status Last Admin (NS Flush) 2 ml UNSCH PRN IV FLUSH 01/17/18 11:00 (NS Flush) 2 ml BID IV FLUSH 01/17/18 21:00 01/21/18 21:37 (Tylenol) 650 mg Q4H PRN PO 01/17/18 11:00 (Zofran Inj) 4 mg Q6H PRN IVP 01/17/18 11:00 (Narcan Inj) 0.4 mg UNSCH PRN IV PUSH 01/17/18 11:00 (Senokot) 17.2 mg Q12H PRN PO 01/17/18 11:00 (Dulcolax Supp) 10 mg DAILY PRN RECTAL 01/17/18 11:00 01/19/18 07:28 (Lactulose Liq) 30 ml DAILY PRN PO 01/17/18 11:00 01/19/18 02:02 (D50w (Vial) Inj) 50 ml UNSCH PRN IV PUSH 01/17/18 11:00 (Glucagon Inj) 1 mg UNSCH PRN OTHER 01/17/18 11:00 (NovoLOG SUPPLEMENTAL SCALE) 1 ACHS SLIDING SCALE SQ 01/17/18 12:00 01/17/18 17:00 Vancomycin HCl 1000 mg/Sodium Chloride 250 ml @ 250 mls/hr Q24H IV 01/18/18 09:00 01/22/18 08:17 Piperacillin Sod/ Tazobactam Sod 50 ml @ 100 mls/hr Q8H IV 01/17/18 20:00 01/22/18 04:23 (Vasotec Inj) 1.25 mg Q6H PRN IV PUSH 01/18/18 08:00 01/21/18 13:51 (Tenormin) 50 mg DAILY PO 01/19/18 09:00 01/22/18 08:16 (Prezista) 800 mg DAILY PO 01/19/18 09:00 01/22/18 08:15 (Depakote Er) 500 mg DAILY PO 01/19/18 09:00 01/22/18 08:16 (Norvir) 100 mg DAILY PO 01/19/18 09:00 01/22/18 08:16 (Intelence) 200 mg BIDPC PO 01/18/18 18:00 01/22/18 08:16 (Prinivil) 40 mg DAILY PO 01/19/18 09:00 01/22/18 08:16 (Percocet 5-325 Mg) 1 tab Q4H PRN PO 01/20/18 15:45 01/22/18 05:48 (Dilaudid Pf Inj) 0.5 mg Q2H PRN IV PUSH 01/20/18 15:45 01/22/18 09:16 (Norvasc) 10 mg DAILY PO 01/22/18 09:00 01/22/18 08:16 A/P Assessment and Plan (1) Osteomyelitis of left foot ICD Code: M86.9 - Osteomyelitis, unspecified Status: Acute (2) Peripheral vascular disease ICD Code: I73.9 - Peripheral vascular disease, unspecified Status: Chronic (3) HIV disease ICD Code: B20 - Human immunodeficiency virus (HIV) disease Status: Chronic (4) Acute kidney injury ICD Code: N17.9 - Acute kidney failure, unspecified Status: Acute Severe peripheral Vascular disease with chronic left foot open wound. 2 years of battling an open wound of the left foot, severe peripheral vascular disease s/p AKA Continue with vancomycin and Zosyn IV vascular surgery following. POD#3 wound cx growing enterobacter Cloacae, gram neg rods and group D enterococcus, as per Vascular Surgery okay for discharge. No BSI discontinued Vancomycin and Zosyn. no signs of infection after surgery. Upper respiratory infection Lungs sound clear on exam today Consider atypical infections due to HIV Absolute CD4 count 376 CXR no acute disease. HIV absolute CD4 count 376 Patient states that he takes all of his antiretroviral medications as prescribed Type 2 diabetes Current blood sugars have remained in the low 100s Hemoglobin A1C 5. Hypertension Controlled today. Hypokalemia replaced and following. DVT prophylaxis SCDs. heparin. = Discharge Planning Discussed with Athletic [employer] Custodian not yet found placement. Fabricio Jimenez MD Jan 22, 2018 11:08
[2018-01-22 12:00] VITALS: BP 140/68; PULSE 54; RESP 20; TEMP 99; O2SAT 97
[2018-01-22] MEDS ORDERED: POTASSIUM CHLORIDE 20 MEQ CONTROLLED RELEASE TAB PO ONE (12:00)
[2018-01-22 16:00] VITALS: BP 121/58; PULSE 64; RESP 19; O2SAT 98
[2018-01-22] MEDS: HEPARIN SODIUM - SQ 10,000 UNITS/ML VIAL SQ SCH ×2 (16:58→22:25)
[2018-01-22 20:00] VITALS: BP 135/68; PULSE 62; RESP 18; TEMP 98.3; O2SAT 98
[2018-01-23] VITALS: BP 138/74; PULSE 70; RESP 20; TEMP 98; O2SAT 97
[2018-01-23 04:00] VITALS: BP 146/73; PULSE 70; RESP 20; TEMP 98.2; O2SAT 96
[2018-01-23] MEDS: HEPARIN SODIUM - SQ 10,000 UNITS/ML VIAL SQ SCH ×3 (05:35→21:11)
[2018-01-23] MEDS: INSULIN ASPART SUPPLEMENTAL SCALE SQ SCH ×4 (08:00→21:00)
[2018-01-23 08:04] VITALS: BP 142/78; PULSE 98; RESP 16; TEMP 98; O2SAT 100
[2018-01-23] MEDS: LISINOPRIL 20 MG TAB PO SCH (08:40)
[2018-01-23] MEDS: ATENOLOL 50 MG TAB PO SCH (08:41)
[2018-01-23] MEDS: DIVALPROEX SODIUM E.R. 500 MG TAB PO SCH (08:41)
[2018-01-23] MEDS: SODIUM CHLORIDE 0.9% FLUSH 10 ML FLUSH IV FLUSH SCH ×2 (08:42→21:00)
[2018-01-23] MEDS: HYDROmorphone HCL PF 2 MG/ML VIAL IV PUSH PRN (08:42)
[2018-01-23] MEDS: ETRAVIRINE 100 MG TAB PO SCH ×2 (10:37→18:01)
[2018-01-23] MEDS: DARUNAVIR 800 MG TAB PO SCH (10:37)
[2018-01-23] MEDS: DOLUTEGRAVIR SODIUM 50 MG TAB PO SCH ×2 (10:37→21:11)
[2018-01-23] MEDS: RITONAVIR 100 MG TAB PO SCH (10:38)
[2018-01-23 12:00] VITALS: BP 136/78; PULSE 88; RESP 18; TEMP 99.1; O2SAT 100
--- NOTE | 2018-01-23 12:27 | HHI.PR ---
Subjective Remarks Patient reported to RN that he is depressed, he wants to blow his brains out. He admitted to me that he is depressed but would not elaborate. Has been having urinary urgency and pain. Objective Vitals Vital Signs Date Time Temp Pulse Resp B/P (MAP) Pulse Ox O2 Delivery O2 Flow Rate FiO2 01/23/18 08:04 98.0 98 16 142/78 (99) 100 01/23/18 08:00 100 Room Air 01/23/18 04:00 Room Air 01/23/18 04:00 98.2 70 20 146/73 (97) 96 01/23/18 00:00 98.0 70 20 138/74 (95) 97 01/23/18 00:00 Room Air 01/22/18 20:00 98.3 62 18 135/68 (90) 98 01/22/18 16:00 64 19 121/58 (79) 98 I/O 01/22/18 01/22/18 01/22/18 01/23/18 01/23/18 01/23/18 07:00 15:00 23:00 07:00 15:00 23:00 Intake Total 530 ml 600 ml 240 ml Output Total 1400 ml 250 ml 550 ml Balance -870 ml 350 ml -310 ml Intake Oral 480 ml 600 ml 240 ml IV Total 50 ml Output Urine Total 1400 ml 250 ml 550 ml # Voids 2 # Bowel Movements 0 0 Result Diagram: 01/21/18 0640 01/21/18 1131 Imaging Last Impressions Chest X-Ray 01/17/18 0000 Signed Impressions: Service Date/Time: Wednesday, January 17, 2018 13:06 - CONCLUSION: No acute disease. Renato Lanier MD Objective Remarks GENERAL: This is a well-nourished, well-developed patient, in no apparent distress. CARDIOVASCULAR: Normal rate and regular rhythm without murmurs, gallops, or rubs. RESPIRATORY: Good respiratory efforts. Breath sounds equal and clear to auscultation bilaterally. GASTROINTESTINAL: Abdomen soft, non-tender, non-distended. Normal active bowel sounds MUSCULOSKELETAL: Status post left BKA. Wound appear clean. NEURO: Alert & Oriented x4 to person, place, time, situation. Moves all ext x4 PSYCH: Depressed A/P Problem List: (1) Osteomyelitis of left foot ICD Code: M86.9 - Osteomyelitis, unspecified Status: Acute (2) Peripheral vascular disease ICD Code: I73.9 - Peripheral vascular disease, unspecified Status: Chronic (3) HIV disease ICD Code: B20 - Human immunodeficiency virus (HIV) disease Status: Chronic (4) Acute kidney injury ICD Code: N17.9 - Acute kidney failure, unspecified Status: Acute Assessment and Plan 62-year-old male with: Severe peripheral Vascular disease with chronic left foot open wound. 2 years of battling an open wound of the left foot, severe peripheral vascular disease s/p AKA Antibiotics discontinued Cleared for discharge from vascular surgery standpoint. no signs of infection after surgery. Transition to oral pain medication with Percocet. IV Morphine for breakthrough. Discontinue Dilaudid Depression with suicidal ideation: - Sitter in the room. Unclear if his statements are due to attention seeking behavior. - Consult psychiatry Urinary frequency/urgency: - Patient states he normally takes saw palmetto at home. He thinks he has prostate problem. - Start Flomax and oxybutynin. Check urinalysis. Follow voiding pattern to ensure he does not need a chappell. HIV absolute CD4 count 376 Patient states that he takes all of his antiretroviral medications as prescribed Type 2 diabetes Current blood sugars have remained in the low 100s Hemoglobin A1C 5. Hypertension Controlled today. Hypokalemia replaced and following. DVT prophylaxis SCDs. heparin. Discharge Planning Need placement vs Home with [facility] Randy Small MD Jan 23, 2018 12:27
[2018-01-23] MEDS ORDERED: MORPHINE SULFATE 2 MG/ML SYRINGE IM PRN (12:30)
[2018-01-23] MEDS: OXYBUTYNIN CHLORIDE 5 MG TAB PO SCH ×2 (13:09→21:11)
[2018-01-23] MEDS: TAMSULOSIN HCL 0.4 MG CAP PO SCH (13:10)
[2018-01-23] MEDS: oxyCODONE/ACETAMINOPHEN 10 MG/325 MG TAB PO PRN (13:10)
[2018-01-23 15:23] LABS: BICARBONATE 26.5 MEQ/L (21.0-32.0); CALCIUM 10.2 MG/DL (8.5-10.1); CREATININE 0.88 MG/DL (0.60-1.30)
[2018-01-23] MEDS: LACTULOSE SYRUP 20 GM/30 ML CUP PO PRN (15:27)
[2018-01-23 15:35] LABS: BILIRUBIN, URINE NEG (NEG); BLOOD, URINE NEG (NEG); GLUCOSE,URINE 70 mg/dL (NEG); KETONE, URINE TRACE mg/dL (NEG); NITRITE,URINE NEG (NEG); SQUAMOUS EPITHELIAL CELL URINE 6 /hpf (0-5); URINE COLOR YELLOW (YELLW/STRAW); URINE LEUKOCYTE ESTERASE NEG (NEG)
[2018-01-23 16:00] VITALS: BP 107/57; PULSE 69; RESP 18; TEMP 97.8; O2SAT 97
--- NOTE | 2018-01-23 16:12 | PD.PSY.CON ---
Provisional Diagnosis Admission Date Jan 17, 2018 at 10:31 [place]. Adjustment disorder with anxiety History of Present Illness Service Psychiatry Consult Requested By Attending Sandrine. Reason for Consult Assessment Primary Care Physician Unknown HPI Patient is 62 year-old -[place] male admitted to the hospital for intensive peripheral vascular disease recently having a left leg amputation secondary to peripheral vascular disease. Patient with a statement yesterday that he wished he could just shoot himself in the head. Patient is seen today in his room with sitter is alert oriented Afro-[place]hi male calm pleasant with me with good eye contact he denies suicidality homicidality voices or visions. He states he does have somewhat of an impulsive tongue he said he made the statement just out of some frustration though there is no attempt to do any harm to himself. He does state a number of years ago he did see a psychiatrist for anger management and some mood issues. He sees nobody at the present time. He is on no psychotropics at the present time. He states he lives by himself. And is self-sufficient. He denies any physical or sexual abuse. Denies any significant mental illness in family. At this time I see no significant signs of depression or suicidality. I feel this is just somewhat of an anxious gesture. This time and no recommendations for medication. I would just observe patient. Thanks for consult I will sign off at the present time Review of Systems Except as stated in HPI: all other systems reviewed are Neg Past Family Social History Coded Allergies: morphine (Unverified Adverse Reaction, Intermediate, Itching, 01/17/18) *MDRO Multi-Drug Resistant Organism (Verified Adverse Reaction, Unknown, Cleared, 01/17/18) MRSA (blood & scrotal abscess) - 04/2015; (Leg) - 06/2016, 07/27/16 MRSA PCR Screens NEGATIVE - 12/19/16 & 12/22/16 CLEARED PER INFECTION CONTROL PROTOCOL Active Scripts Atorvastatin (Atorvastatin) 80 Mg Tab, 80 MG PO HS for Cholesterol Management, # 30 TAB 0 Refills Prov:Jamal Herron MD 12/24/16 Hydrocodone-Acetaminophen (Hydrocodone-Acetaminophen) 10-325 mg Tab, 1 TAB PO Q6H Y for PAIN, #30 TAB 0 Refills Prov:Jamal Herron MD 12/24/16 Amlodipine (Amlodipine) 5 Mg Tab, 5 MG PO DAILY for Blood Pressure Management, # 30 TAB Prov:Jamal Herron MD 12/24/16 Atenolol (Atenolol) 50 Mg Tab, 50 MG PO DAILY for Blood Pressure Management, # 30 TAB Prov:Jamal Herron MD 12/24/16 Lisinopril (Lisinopril) 40 Mg Tab, 40 MG PO DAILY for Blood Pressure Management , #30 TAB Prov:Jamal Herron MD 12/24/16 Reported Medications Divalproex ER (Divalproex ER) 500 Mg Tab, 500 MG PO DAILY for Control Seizures, #30 TAB 0 Refills 10/20/16 Darunavir (Prezista) 800 Mg Tab, 800 MG PO DAILY for Mgmt Viral Infection, #30 TAB 0 Refills 10/20/16 Ritonavir (Norvir) 100 Mg Cap, 100 MG PO DAILY for Mgmt Viral Infection, #180 CAP 0 Refills 10/20/16 Hydroxyzine HCl (Hydroxyzine HCl) 25 Mg Tab, 25 MG PO DAILY for Itching, TAB 08/29/16 Gabapentin (Gabapentin) 300 Mg Cap, 300 MG PO TID, CAP 08/29/16 Dolutegravir (Tivicay) 50 Mg Tab, 50 MG PO Q12HR for Mgmt Viral Infection 08/29/16 Etravirine (Intelence) 200 Mg Tab, 200 MG PO BIDPC for Mgmt Viral Infection, TAB 08/29/16 Albuterol 18 GM Inh (Ventolin Hfa 18 GM Inh) 90 Mcg/Act Aer, 2 PUFF INH Q4H Y for SHORTNESS OF BREATH, INHALER 08/29/16 Discontinued Scripts Pregabalin (Lyrica) 50 Mg Cap, 50 MG PO TID for neuropathy, #90 CAP 0 Refills Prov:Kameron Stout DPM 01/20/17 Clopidogrel (Plavix) 75 Mg Tab, 75 MG PO DAILY for Blood Clot Prevention, #30 TAB 3 Refills Prov:Jamal Herron MD 12/24/16 Current Medications Medications (Trade) Dose Ordered Sig/Robles Route Start Time Stop Time Status Last Admin (NS Flush) 2 ml UNSCH PRN IV FLUSH 01/17/18 11:00 (NS Flush) 2 ml BID IV FLUSH 01/17/18 21:00 01/23/18 08:42 (Tylenol) 650 mg Q4H PRN PO 01/17/18 11:00 (Zofran Inj) 4 mg Q6H PRN IVP 01/17/18 11:00 (Narcan Inj) 0.4 mg UNSCH PRN IV PUSH 01/17/18 11:00 (Senokot) 17.2 mg Q12H PRN PO 01/17/18 11:00 01/22/18 20:09 (Dulcolax Supp) 10 mg DAILY PRN RECTAL 01/17/18 11:00 01/19/18 07:28 (Lactulose Liq) 30 ml DAILY PRN PO 01/17/18 11:00 01/23/18 15:27 (D50w (Vial) Inj) 50 ml UNSCH PRN IV PUSH 01/17/18 11:00 (Glucagon Inj) 1 mg UNSCH PRN OTHER 01/17/18 11:00 (NovoLOG SUPPLEMENTAL SCALE) 1 ACHS SLIDING SCALE SQ 01/17/18 12:00 01/17/18 17:00 (Vasotec Inj) 1.25 mg Q6H PRN IV PUSH 01/18/18 08:00 01/21/18 13:51 (Tenormin) 50 mg DAILY PO 01/19/18 09:00 01/23/18 08:41 (Prezista) 800 mg DAILY PO 01/19/18 09:00 01/23/18 10:37 (Depakote Er) 500 mg DAILY PO 01/19/18 09:00 01/23/18 08:41 (Norvir) 100 mg DAILY PO 01/19/18 09:00 01/23/18 10:38 (Intelence) 200 mg BIDPC PO 01/18/18 18:00 01/23/18 10:37 (Prinivil) 40 mg DAILY PO 01/19/18 09:00 01/23/18 08:40 (Norvasc) 10 mg DAILY PO 01/22/18 09:00 01/23/18 08:39 (Heparin Inj) 5,000 units Q8HR SQ 01/22/18 16:30 01/23/18 13:10 (Flomax) 0.4 mg DAILY PO 01/23/18 12:30 01/23/18 13:10 (Ditropan) 5 mg Q8HR PO 01/23/18 12:30 01/23/18 13:09 (Percocet 10-325 Mg) 1 tab Q4H PRN PO 01/23/18 12:30 01/23/18 13:10 (Roxicodone) 5 mg Q4H PRN PO 01/23/18 15:15 Family Psych History Patient denies Social History Patient lives alone Patient's Strengths (min. 2) Patient verbal able axis healthcare Physical Exam Please see MedSurg assessments Vital Signs Vital Signs Date Time Temp Pulse Resp B/P (MAP) Pulse Ox O2 Delivery O2 Flow Rate FiO2 01/23/18 15:30 Room Air 01/23/18 12:00 99.1 88 18 136/78 (97) 100 01/19/18 15:00 3 I/O 01/23/18 01/23/18 01/24/18 08:00 16:00 00:00 Intake Total 240 ml Output Total 550 ml Balance -310 ml Lab Results Test 01/23/18 13:19 01/23/18 14:46 Urine Color YELLOW Urine Turbidity CLEAR Urine pH 8.0 Urine Specific [place] 1.012 Urine Protein TRACE mg/dL Urine Glucose (UA) 70 mg/dL Urine Ketones TRACE mg/dL Urine Occult Blood NEG Urine Nitrite NEG Urine Bilirubin NEG Urine Urobilinogen 2.0 MG/DL Urine Leukocyte Esterase NEG Urine RBC 2 /hpf Urine WBC 2 /hpf Urine Squamous Epithelial Cells 6 /hpf Microscopic Urinalysis Comment CULT NOT INDICATED Blood Urea Nitrogen 10 MG/DL Creatinine 0.88 MG/DL Random Glucose 115 MG/DL Calcium Level 10.2 MG/DL Sodium Level 140 MEQ/L Potassium Level 3.8 MEQ/L Chloride Level 106 MEQ/L Carbon Dioxide Level 26.5 MEQ/L Anion Gap 8 MEQ/L Estimat Glomerular Filtration Rate 106 ML/MIN Date/Time Source Procedure Growth Status 01/17/18 06:25 Blood Peripheral Aerobic Blood Culture - Final NO GROWTH IN 5 DAYS Complete 01/17/18 06:25 Blood Peripheral Anaerobic Blood Culture - Final NO GROWTH IN 5 DAYS Complete 01/17/18 06:22 Wound Foot Gram Stain - Final Complete 3/25/18 06:22 Wound Culture - Final Enterobacter Cloacae Stenotrophomonas Maltophilia Enterococcus Faecalis Complete Mental Status Examination Appearance: Appropriate Consciousness: Alert Orientation: x4 Motor Activity: Other (patient laying in bed had a left leg amputation) Speech: Unremarkable Language: Adequate Fund of Knowledge: Adequate Attention and Concentration: Adequate Memory: Unremarkable Mood: Other (euthymic to mildly dysphoric) Affect: Other (good range and intensity) Thought Process & Associations: Intact Thought Content: Appropriate Hallucination Type: None Delusion Type: None Suicidal Ideation: No Suicidal Plan: No Suicidal Intention: No Homicidal Ideation: No Homicidal Plan: No Homicidal Intention: No Insight: Adequate Judgment: Adequate Assessment & Plan Problem List: (1) Adjustment disorder with anxiety ICD Codes: F43.22 - Adjustment disorder with anxiety Assessment & Plan Estimated LOS: days I see no significant signs of depression or suicidality. No recommendation for medication at this time. Thanks for consult I will sign off at this time please reconsult as necessary Discharge Planning See above Request HC Surrog/Guard Advoc?: No Renato Smyth MD Jan 23, 2018 16:12
[2018-01-23] MEDS: IBUPROFEN 600 MG TAB PO PRN ×2 (16:38→22:38)
[2018-01-23 20:00] VITALS: BP 114/56; PULSE 72; RESP 20; TEMP 97.7; O2SAT 96
[2018-01-23] MEDS ORDERED: diphenhydrAMINE HCL 25 MG CAP PO ONE (21:45)
[2018-01-24] VITALS: BP 114/55; PULSE 65; RESP 20; TEMP 98.1; O2SAT 97
[2018-01-24] MEDS: OXYBUTYNIN CHLORIDE 5 MG TAB PO SCH ×2 (05:36→14:23)
[2018-01-24] MEDS: IBUPROFEN 600 MG TAB PO PRN ×2 (05:36→16:15)
[2018-01-24] MEDS: HEPARIN SODIUM - SQ 10,000 UNITS/ML VIAL SQ SCH ×2 (05:36→14:23)
[2018-01-24 06:03] LABS: HEMATOCRIT 29.9 % (39.0-51.0); HEMOGLOBIN 9.8 GM/DL (13.0-17.0); MEAN CELL VOLUME 91.4 FL (80.0-100.0); MEAN CORPUSCULAR HEMOGLOBIN 30.1 PG (27.0-34.0); MEAN CORPUSCULAR HGB CONC 32.9 % (32.0-36.0); MEAN PLATELET VOLUME 8.7 FL (7.0-11.0); PLATELET COUNT 295 TH/MM3 (150-450); RED BLOOD COUNT 3.27 MIL/MM3 (4.50-5.90); RED CELL DISTRIBUTION WIDTH 15.1 % (11.6-17.2); WHITE BLOOD COUNT 7.8 TH/MM3 (4.0-11.0)
[2018-01-24 06:34] LABS: BICARBONATE 27.7 MEQ/L (21.0-32.0); CALCIUM 9.6 MG/DL (8.5-10.1); CREATININE 0.88 MG/DL (0.60-1.30)
[2018-01-24 08:00] VITALS: BP 132/58; PULSE 66; RESP 19; TEMP 97.6; O2SAT 97
[2018-01-24] MEDS: INSULIN ASPART SUPPLEMENTAL SCALE SQ SCH ×3 (08:00→17:00)
[2018-01-24] MEDS: TAMSULOSIN HCL 0.4 MG CAP PO SCH (08:06)
[2018-01-24] MEDS: DARUNAVIR 800 MG TAB PO SCH (08:07)
[2018-01-24] MEDS: LISINOPRIL 20 MG TAB PO SCH (08:07)
[2018-01-24] MEDS: RITONAVIR 100 MG TAB PO SCH (08:07)
[2018-01-24] MEDS: ATENOLOL 50 MG TAB PO SCH (08:08)
[2018-01-24] MEDS: DOLUTEGRAVIR SODIUM 50 MG TAB PO SCH (08:08)
[2018-01-24] MEDS: ETRAVIRINE 100 MG TAB PO SCH ×2 (08:08→17:18)
[2018-01-24] MEDS: SODIUM CHLORIDE 0.9% FLUSH 10 ML FLUSH IV FLUSH SCH (08:09)
[2018-01-24] MEDS: DIVALPROEX SODIUM E.R. 500 MG TAB PO SCH (08:09)
[2018-01-24] MEDS: oxyCODONE/ACETAMINOPHEN 10 MG/325 MG TAB PO PRN (08:23)
[2018-01-24] MEDS ORDERED: POTASSIUM CHLORIDE 10 MEQ CONTROLLED RELEASE TAB PO ONE (08:30)
--- NOTE | 2018-01-24 08:30 | HHI.PR ---
Subjective Remarks in no acute distress. looks comfortable. pain is minimal. no new complaints. d/w the RN. Objective Vitals Vital Signs Date Time Temp Pulse Resp B/P (MAP) Pulse Ox O2 Delivery O2 Flow Rate FiO2 01/24/18 00:00 98.1 65 20 114/55 (74) 97 01/23/18 23:57 20 01/23/18 20:00 97.7 72 20 114/56 (75) 96 01/23/18 16:00 97.8 69 18 107/57 (74) 97 01/23/18 15:30 Room Air 01/23/18 12:00 99.1 88 18 136/78 (97) 100 I/O 01/23/18 01/23/18 01/23/18 01/24/18 01/24/18 01/24/18 07:00 15:00 23:00 07:00 15:00 23:00 Intake Total 240 ml 320 ml Output Total 550 ml 450 ml Balance -310 ml -130 ml Intake Oral 240 ml 320 ml Output Urine Total 550 ml 450 ml # Bowel Movements 0 0 Result Diagram: 01/24/18 0531 01/24/18 0531 Imaging Last Impressions Chest X-Ray 01/17/18 0000 Signed Impressions: Service Date/Time: Wednesday, January 17, 2018 13:06 - CONCLUSION: No acute disease. Renato Lanier MD Objective Remarks GENERAL: This is a well-nourished, well-developed patient, in no apparent distress. CARDIOVASCULAR: Regular rate and regular rhythm without murmurs, gallops, or rubs. RESPIRATORY: Clear to auscultation. Breath sounds equal bilaterally. No wheezes , rales, or rhonchi. GASTROINTESTINAL: Abdomen soft, non-tender, nondistended. Normal, active bowel sounds MUSCULOSKELETAL: left AKA. NEURO: Alert & Oriented x4 to person, place, time, situation. Moves all ext x4 Procedures left AKA Medications and IVs Inpatient Medications Acetaminophen (Tylenol) 650 mg Q4H PRN PO TEMP > 100.4; Start 01/17/18 at 11:00 Amlodipine Besylate (Norvasc) 10 mg DAILY PO Last administered on 01/24/18at 08: 08; Start 01/22/18 at 09:00 Atenolol (Tenormin) 50 mg DAILY PO Last administered on 01/24/18 08:08; Start 01/19/18 at 09:00 Bisacodyl (Dulcolax Supp) 10 mg DAILY PRN RECTAL SEVERE CONSITIPATION Last administered on 01/19/18at 07:28; Start 01/17/18 at 11:00 Chlorhexidine Gluconate (Chlorhexidine 2% Cloth) 3 pack OPERATIONS REPRESENTATIVE PRN TOPICAL SEE LABEL COMMENTS; Start 01/19/18 at 06:15; Stop 01/22/18 at 06:14; Status DC Darunavir (Prezista) 800 mg DAILY PO Last administered on 01/24/18 08:07; Start 01/19/18 at 09:00 Dextrose (D50w (Vial) Inj) 50 ml UNSCH PRN IV PUSH HYPOGLYCEMIA-SEE COMMENTS; Start 01/17/18 at 11:00 Diphenhydramine HCl (Benadryl) 25 mg ONCE ONCE PO Last administered on at 22:38; Start 01/23/18 at 21:45; Stop 01/23/18 at 21:46; Status DC Divalproex Sodium (Depakote Er) 500 mg DAILY PO Last administered on 01/24/18 08:09; Start 01/19/18 at 09:00 Enalaprilat (Vasotec Inj) 1.25 mg Q6H PRN IV PUSH SBP > 165 Last administered on 01/21/18at 13:51; Start 01/18/18 at 08:00 Etravirine (Intelence) 200 mg BIDPC PO Last administered on 01/24/18 08:08; Start 01/18/18 at 18:00 Glucagon (Glucagon Inj) 1 mg UNSCH PRN OTHER HYPOGLYCEMIA-SEE COMMENTS; Start 01/17/18 at 11:00 Heparin Sodium (Porcine) (Heparin Inj) 5,000 units Q8HR SQ Last administered on 01/24/18at 05:36; Start 01/22/18 at 16:30 Hydromorphone HCl (Dilaudid Pf Inj) 0.5 mg Q6HR PRN IV PUSH PAIN 6-10 Last administered on 01/23/18at 08:42; Start 01/22/18 at 16:30; Stop 01/23/18 at 12:26 ; Status DC Ibuprofen (Motrin) 600 mg Q6H PRN PO PAIN LESS THAN 5 ON SCALE Last administered on 01/24/18at 05:36; Start 01/23/18 at 16:00 Insulin Aspart (NovoLOG SUPPLEMENTAL SCALE) 1 ACHS SLIDING SCALE SQ Last administered on 01/17/18at 17:00; Start 01/17/18 at 12:00 Lactated Ringer's 1,000 ml @ 30 mls/hr Q24H PRN IV SEE LABEL COMMENTS Last administered on 01/19/18at 10:45; Start 01/19/18 at 06:15; Stop 01/22/18 at 06:14 ; Status DC Lactulose (Lactulose Liq) 30 ml DAILY PRN PO SEVERE CONSITIPATION Last administered on 01/23/18at 15:27; Start 01/17/18 at 11:00 Lisinopril (Prinivil) 40 mg DAILY PO Last administered on 01/23/18at 08:40; Start 01/19/18 at 09:00 Miscellaneous Information ALL NURSING DEPARTME... UNSCH PRN .XX SEE LABEL COMMENTS; Start 01/19/18 at 14:05; Stop 01/20/18 at 14:04; Status DC Morphine Sulfate (Morphine Inj) 2 mg Q4H PRN IM BREAKTHROUGH PAIN; Start at 12:30; Stop 01/23/18 at 15:13; Status DC Naloxone HCl (Narcan Inj) 0.4 mg UNSCH PRN IV PUSH SEE LABEL COMMENTS; Start at 11:00 Ondansetron HCl (Zofran Inj) 4 mg Q6H PRN IVP NAUSEA OR VOMITING; Start at 11:00 Oxybutynin Chloride (Ditropan) 5 mg Q8HR PO Last administered on 01/24/18at 05:36 ; Start 01/23/18 at 12:30 Oxycodone HCl (Roxicodone) 5 mg Q4H PRN PO BREAKTHROUGH PAIN; Start 01/23/18 at 15:15 Oxycodone/ Acetaminophen (Percocet 5-325 Mg) 1 tab Q4H PRN PO pain 3-5 Last administered on 01/22/18at 19:51; Start 01/20/18 at 15:45; Stop 01/23/18 at 12:26 ; Status DC Oxycodone/ Acetaminophen (Percocet 10-325 Mg) 1 tab Q4H PRN PO PAIN GREATER THAN 5 Last administered on 01/23/18at 13:10; Start 01/23/18 at 12:30 Piperacillin Sod/ Tazobactam Sod 50 ml @ 100 mls/hr Q8H IV Last administered on 01/22/18at 12:43; Start 01/17/18 at 20:00; Stop 01/22/18 at 16:16; Status DC Potassium Chloride/Sodium Chloride 1,000 ml @ 100 mls/hr Q10H IV Last administered on 01/21/18at 17:23; Start 01/17/18 at 12:00; Stop 01/21/18 at 18:42 ; Status DC Potassium Chloride (KCl) 20 meq ONCE ONCE PO Last administered on 01/22/18at 12 :44; Start 01/22/18 at 12:00; Stop 01/22/18 at 12:01; Status DC Povidone Iodine (Betadine 5% Antisepsis Kit) 1 applic OPERATIONS REPRESENTATIVE PRN EACH NARE SEE LABEL COMMENTS; Start 01/19/18 at 06:15; Stop 01/22/18 at 06:14; Status DC Ritonavir (Norvir) 100 mg DAILY PO Last administered on 01/24/18at 08:07; Start 01/19/18 at 09:00 Sennosides (Senokot) 17.2 mg Q12H PRN PO Moderate constipation Last administered on 01/22/18at 20:09; Start 01/17/18 at 11:00 Sodium Biphosphate/ Sodium Phosphate (Fleets Enema (Adult)) 133 ml ONCE ONCE RECTAL Last administered on 01/19/18at 08:30; Start 01/19/18 at 08:30; Stop at 08:50; Status DC Sodium Chloride 500 ml @ 30 mls/hr [id number] PRN IV SEE LABEL COMMENTS; Start at 06:15; Stop 01/22/18 at 06:14; Status DC Sodium Chloride (NS Flush) 2 ml BID IV FLUSH Last administered on 01/24/18at 08: 09; Start 01/17/18 at 21:00 Tamsulosin HCl (Flomax) 0.4 mg DAILY PO Last administered on 4/1/18at 08:06; Start 01/23/18 at 12:30 Vancomycin HCl 1000 mg/Sodium Chloride 250 ml @ 250 mls/hr Q24H IV Last administered on 01/22/18at 08:17; Start 01/18/18 at 09:00; Stop 01/22/18 at 16:14 ; Status DC A/P Problem List: (1) Osteomyelitis of left foot ICD Code: M86.9 - Osteomyelitis, unspecified Status: Acute (2) Peripheral vascular disease ICD Code: I73.9 - Peripheral vascular disease, unspecified Status: Chronic (3) HIV disease ICD Code: B20 - Human immunodeficiency virus (HIV) disease Status: Chronic (4) Acute kidney injury ICD Code: N17.9 - Acute kidney failure, unspecified Status: Acute Assessment and Plan A/P Severe peripheral Vascular disease with chronic left foot open wound. 2 years of battling an open wound of the left foot, severe peripheral vascular disease s/p AKA Antibiotics discontinued Cleared for discharge from vascular surgery standpoint. no signs of infection after surgery. Transition to oral pain medication with Percocet. Depression with suicidal ideation: - psych consulted- and signed off. Urinary frequency/urgency: - Patient states he normally takes saw palmetto at home. He thinks he has prostate problem. - f/u as outpatient. HIV absolute CD4 count 376 Patient states that he takes all of his antiretroviral medications as prescribed Type 2 diabetes Current blood sugars have remained in the low 100s Hemoglobin A1C 5. Hypertension Controlled today. Hypokalemia will replace. DVT prophylaxis SCDs. heparin. Discharge Planning dc home with HHC vs Hospice today. see med list. f/u; pcp and vascular surgery. d/w the patient. Kelly Wood MD Jan 24, 2018 08:30
--- NOTE | 2018-01-24 08:33 | HHI.DS ---
Discharge Summary Admission Date Jan 17, 2018 at 10:31 Discharge Date: Jan 24, 2018 Admitting Diagnosis Osteomyelitis of foot. (1) Osteomyelitis of left foot ICD Code: M86.9 - Osteomyelitis, unspecified Diagnosis: Principal Status: Acute (2) Peripheral vascular disease ICD Code: I73.9 - Peripheral vascular disease, unspecified Diagnosis: Principal Status: Chronic (3) HIV disease ICD Code: B20 - Human immunodeficiency virus (HIV) disease Diagnosis: Secondary Status: Chronic (4) Acute kidney injury ICD Code: N17.9 - Acute kidney failure, unspecified Diagnosis: Secondary Status: Acute Procedures left AKA Brief History - From Admission 62-year-old male with history of peripheral arterial disease and chronic ulcerations of the skin of the left foot presents with infection in that left foot. CT scan reveals osteomyelitis of the foot. He states has been dealing with this foot infection for the last 2 years, but that it became worse over the last week. He has a history of HIV and type 2 diabetes, but he is unaware of his last hemoglobin A1c or CD4 count. He is somewhat of a poor historian due to receiving 1 mg of Dilaudid and having a difficult time staying awake. He understands that treatment will likely include an [id number] amputation and after 2 years of fighting this infection he is in agreement with that plan. CBC/BMP: 01/24/18 0531 01/24/18 0531 Significant Findings Laboratory Tests Test 01/21/18 11:31 01/23/18 13:19 01/23/18 14:46 01/24/18 05:31 Random Glucose 108 MG/DL (74-106) 115 MG/DL (74-106) Potassium Level 3.3 MEQ/L (3.5-5.1) 3.2 MEQ/L (3.5-5.1) Carbon Dioxide Level 33.5 MEQ/L (21.0-32.0) Urine Glucose (UA) 70 mg/dL (NEG) Urine Ketones TRACE mg/dL (NEG) Calcium Level 10.2 MG/DL (8.5-10.1) Red Blood Count 3.27 MIL/MM3 (4.50-5.90) Hemoglobin 9.8 GM/DL (13.0-17.0) Hematocrit 29.9 % (39.0-51.0) Imaging Last Impressions Chest X-Ray 01/17/18 0000 Signed Impressions: Service Date/Time: Wednesday, January 17, 2018 13:06 - CONCLUSION: No acute disease. Renato Lanier MD PE at Discharge GENERAL: This is a well-nourished, well-developed patient, in no apparent distress. CARDIOVASCULAR: Regular rate and regular rhythm without murmurs, gallops, or rubs. RESPIRATORY: Clear to auscultation. Breath sounds equal bilaterally. No wheezes , rales, or rhonchi. GASTROINTESTINAL: Abdomen soft, non-tender, nondistended. Normal, active bowel sounds MUSCULOSKELETAL: left AKA. NEURO: Alert & Oriented x4 to person, place, time, situation. Moves all ext x4 Hospital Course Severe peripheral Vascular disease with chronic left foot open wound. 2 years of battling an open wound of the left foot, severe peripheral vascular disease s/p AKA Antibiotics discontinued Cleared for discharge from vascular surgery standpoint. no signs of infection after surgery. Transition to oral pain medication with Percocet. Depression with suicidal ideation: - psych consulted- and signed off. Urinary frequency/urgency: - Patient states he normally takes saw palmetto at home. He thinks he has prostate problem. - f/u as outpatient. HIV absolute CD4 count 376 Patient states that he takes all of his antiretroviral medications as prescribed Type 2 diabetes Current blood sugars have remained in the low 100s Hemoglobin A1C 5. Hypertension Controlled today. Hypokalemia will replace. DVT prophylaxis SCDs. heparin. Pt Condition on Discharge: Good Discharge Disposition: Hospice/ Home Discharge Time: <= 30 minutes Discharge Instructions DIET: Follow Instructions for: Heart Healthy Diet Activities you can perform: Regular-No Restrictions Kelly Wood MD Jan 24, 2018 08:33
[2018-01-24 12:00] VITALS: BP 80/46; PULSE 57; RESP 17; TEMP 98.1; O2SAT 91
[2018-01-24] MEDS ORDERED: OXYC1TAB36 PO (12:16)
[2018-01-24 12:23] VITALS: BP 86/58
== END 2018-01-24 17:26 | disposition hospice, home (50) | DRG 239 ==
LOC: NEPC 05:27 → NEDA 10:31 → HOCB 15:00 → HCIS 01-22 21:23 → N07A 01-23 15:17
PROVIDERS: ADMIT Internal Medicine; ATTEND Internal Medicine
PROC: 0Y6D0Z3 Detachment at Left Upper Leg, Low, Open Approach (ICD-10-PCS; principal; 2018-01-19 12:09)
DX: E11.52 Type 2 diabetes mellitus with diabetic peripheral angiopathy with gangrene (principal); I96 Gangrene, not elsewhere classified; B20 Human immunodeficiency virus [HIV] disease; N17.9 Acute kidney failure, unspecified; E11.621 Type 2 diabetes mellitus with foot ulcer; R45.851 Suicidal ideations; F32.9 Major depressive disorder, single episode, unspecified; F43.22 Adjustment disorder with anxiety; J06.9 Acute upper respiratory infection, unspecified; J44.9 Chronic obstructive pulmonary disease, unspecified; I10 Essential (primary) hypertension; R35.0 Frequency of micturition; E87.6 Hypokalemia; K59.00 Constipation, unspecified
CPT/HCPCS: 71046; 80048; 81001; 82948; 83036; 83605; 85025; 85027; 86355; 86357; 86359; 86360; 87040; 87070; 87077; 87186; 88307; 88311; 93005; 96365; 96367; 96375; J0131; J1100; J1170; J1644; J1815; J2250; J2370; J2405; J2543; J2710; J3010; J3370; J3480; J7030; J7040; J7050; J7120; J7613